=== PATIENT | male | born 1955 | race Caucasian/White ===

== ENCOUNTER → 2017-08-12 09:06 | Day surgery (SDC) | payer MEDICARE, SELFPAY ==
[2017-08-12 09:15] VITALS: BP 131/80; PULSE 83; RESP 18; TEMP 36.4; O2SAT 95; BMI 24.4
[2017-08-12 09:35] VITALS: BP 122/66; PULSE 82; RESP 18; O2SAT 94
[2017-08-12 09:37] VITALS: BP 123/70; PULSE 86; RESP 20; O2SAT 94
--- NOTE | 2017-08-12 09:41 | HMH.PMPROC ---
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 He is doing very well with his intrathecal pain pump. He does have some increasing pain with increased activity. He has no side effects. We will increase him from 2.75 mg per day to 3 mg per day. He does have an antalgic gait. Motor strength of the lower extremities is 5/5. There is no gross sensory deficit. Procedure Details:: Informed consent was obtained and the risks and benefits of the procedure was explained to the patient. The patient was taken to the procedure room. The pump was interrogated. The area over the pump was prepped using ChloraPrep. The pump was accessed with a 22-gauge needle. Approximately 8 mL's of the intrathecal solution was withdrawn and discarded. The pump was then refilled with 20 mL's of intrathecal morphine 25 mg/mL. The pump was interrogated and the infusion was increased to 3 mg per day from 2.75 mg per day. PTM was continued at 0.4 mg 5 times a day with a 3 hour lockout. The patient tolerated the procedure well with no complication. Plan and Disposition:: We will follow-up with him at his next pump refill. If he has any problems or questions he is to call me in the pain clinic.
[2017-08-12 09:45] VITALS: BP 125/71; PULSE 84; RESP 18; O2SAT 94
== END ==
PROVIDERS: Family Provider Internal Medicine Adolescent Medicine; PCP Internal Medicine Adolescent Medicine; Visit Provider Anesthesiology
DX: M51.16 Intervertebral disc disorders with radiculopathy, lumbar region (principal); M96.1 Postlaminectomy syndrome, not elsewhere classified
CPT/HCPCS: 62370

== ENCOUNTER 2017-10-27 13:46 | Day surgery (SDC) | payer MEDICARE, SELFPAY ==
--- NOTE | 2017-10-27 13:57 | HMH.PMPROC ---
- Procedure Date: 10/27/17 Time: 14:10 Anesthesiologist:: Angelic Kaufman APRN Complications:: None Pre-procedure Diagnosis:: Degenerative disc disease of the lumbar spine with lumbar radiculopathy Post-procedure Diagnosis:: Same Indications for Procedure:: Patient is a pleasant 61-year-old white male who presents today for intrathecal pain pump refill. Patient is currently being managed with a intrathecal morphine pump going at 2.75 mg per day. Patient denies side effects to the medication. Patient states that it helps his pain 60-70%. 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 The patient was taken to the procedure room where noninvasive monitoring was placed including noninvasive blood pressure cuff and pulse oximeter. Patient's pump was interrogated. The area over the pump was cleansed with chlorhexidine as a cleansing solution. In sterile fashion the pump was accessed with a 22-gauge needle. Approximately 8 mL's were removed of the pump solution and discarded appropriately. The pump was then refilled with 20 mL's of morphine 25 mg/mL. The needle was withdrawn and a bandage was placed over the puncture site. The infusion rate was increased from 3 mg a day to 3.5 mg a day. The PTC was increased from 0.3 mg per activation to 0.5 mg per activation. The patient tolerated the procedure well. Plan and Disposition:: We will follow-up with this patient at his next intrathecal pain pump refill. Patient has been instructed to call the office if he needs anything prior to this visit. This note was dictated using voice recognition software and may contain errors or omissions
[2017-10-27 13:59] VITALS: BP 134/81; PULSE 92; RESP 20; TEMP 36.6; O2SAT 98; BMI 26.2
--- NOTE | 2017-10-27 14:04 | P.PCN_ITS ---
- Procedure Date: 10/27/17 Time: 14:10 Anesthesiologist:: Angelic Kaufman APRN Complications:: None Pre-procedure Diagnosis:: Degenerative disc disease of the lumbar spine with lumbar radiculopathy Post-procedure Diagnosis:: Same Indications for Procedure:: Patient is a pleasant 61-year-old white male who presents today for intrathecal pain pump refill. Patient is currently being managed with a intrathecal morphine pump going at 2.75 mg per day. Patient denies side effects to the medication. Patient states that it helps his pain 60-70%. 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 The patient was taken to the procedure room where noninvasive monitoring was placed including noninvasive blood pressure cuff and pulse oximeter. Patient's pump was interrogated. The area over the pump was cleansed with chlorhexidine as a cleansing solution. In sterile fashion the pump was accessed with a 22-gauge needle. Approximately 8 mL's were removed of the pump solution and discarded appropriately. The pump was then refilled with 20 mL's of morphine 25 mg/mL. The needle was withdrawn and a bandage was placed over the puncture site. The infusion rate was increased from 3 mg a day to 3.5 mg a day. The PTC was increased from 0.3 mg per activation to 0.5 mg per activation. The patient tolerated the procedure well. Plan and Disposition:: We will follow-up with this patient at his next intrathecal pain pump refill. Patient has been instructed to call the office if he needs anything prior to this visit. This note was dictated using voice recognition software and may contain errors or omissions
[2017-10-27 14:07] VITALS: BP 126/75; BP 129/81; PULSE 87; PULSE 90; RESP 18; O2SAT 94; O2SAT 95
[2017-10-27 14:17] VITALS: BP 128/85; BP 131/78; PULSE 85; RESP 18; TEMP 36.7; O2SAT 98
== END 2017-10-27 14:19 | disposition home or self-care (01) ==
LOC: SC.PAINP 13:49
PROVIDERS: Family Provider Internal Medicine Adolescent Medicine; PCP Internal Medicine Adolescent Medicine; Visit Provider Clinical Nurse Specialist Family Health
DX: M51.16 Intervertebral disc disorders with radiculopathy, lumbar region (principal)
CPT/HCPCS: 62370

== ENCOUNTER 2018-02-02 16:38 | Inpatient (IN) ==
[2018-02-02 18:41] LABS: Basophils % 0.1 % (0.1-2.0); Eosinophils # 0.1 K/mm3 (0.0-0.4); Eosinophils % 0.8 % (0.1-12.0); Hematocrit 40.5 % (42.0-52.0); Hemoglobin 13.5 g/dL (14.1-18.0); Lymphocytes # 1.2 K/mm3 (0.7-4.5); Lymphocytes % 8.2 K/mm3 (10-50); Mean Corpuscular HGB Conc 33.2 g/dL (31.8-35.4); Mean Corpuscular Hemoglobin 31.5 pg (27.0-31.2); Mean Corpuscular Volume 94.7 fl (80-94); Mean Platelet Volume 7.8 fl (7.4-10.4); Monocytes # 1.1 K/mm3 (0.1-1.0); Monocytes % 8.1 % (1.7-9.3); Neutrophils # 11.7 K/mm3 (1.8-7.8); Neutrophils % 82.8 % (37.0-80.0); Platelet Count 241 K/mm3 (142-424); Red Blood Count 4.28 M/mm3 (4.60-6.20); Red Cell Distribution Width 13.8 % (11.5-17.5); White Blood Count 14.1 K/mm3 (4.8-10.8)
[2018-02-02 19:03] LABS: Albumin Level 3.1 gm/dL (3.4-5.0); Albumin/Globulin Ratio 0.8 (1.1-1.8); Anion Gap 9.1 mEq/L (5-15); Bilirubin,Total 1.8 mg/dL (0.2-1.0); Calcium 9.4 mg/dL (8.5-10.1); Globulin 4.1 gm/dl (1.3-3.2); Potassium 3.1 mmoL/L (3.5-5.1); Total Protein,Serum 7.2 gm/dL (6.4-8.2)
--- NOTE | 2018-02-02 21:19 | History & Physical Report ---
*Admission Date: 02/02/18 *Chief complaint: Shortness of air and cough *History of present illness: 62-year-old white male, with long history of COPD, tobacco abuse, and indwelling pain pump secondary to significant spondylolisthesis who presented to my office with a 2 day history of cough and congestion as well as yellow sputum production. In the office found to have O2 saturation of 84% on room air, tachypnea and tachycardia at 140. Rhonchi and crackles in both lung hdz, admitted to hospital for pneumonia with vital sign instability and hypoxia. [facility] History I have reviewed the patient's past medical history: Yes Medical History: Reports:: Chronic Obstructive Pulmonary Disease (COPD), Coronary Artery Disease Denies:: Cancer, Diabetes Mellitus Type 1, Diabetes Mellitus Type 2, MRSA, Seizures Other Medical History: Reports: Arthritis, Cataracts Comment: Chronic pain syndrome with spondylolisthesis and indwelling pain pump Laterality Cases: Bilateral: Cataract Other Surgeries: Yes: Appendectomy, Other (pain pump implant, cervical neck fusion) Amputation: No Fractures: No - *Social History Educational Level: Completed GED/General Educational Development Smoking Status: Current every day smoker Tobacco Type: cigarettes # Packs/Day (cigarettes): 40 #Yrs smoked (if former smoker): 45 Alcohol Intake: never Occupational Status: retired Housing: house Household Members: spouse - Psychiatric History Expresses thoughts of harming self/others: None Suicide Plan Description: No Plan *Family Hx:: Unable to obtain Review of Systems - Review of Systems Review of systems:: pertinent systems reviewed and negative unless documented below - Constitutional Reports chills, Reports fever(s), Reports lack of energy, Reports malaise - Eyes Denies blind spots, Denies blurry vision, Denies change in vision - ENT Reports change in voice, Denies abnormal hearing, Denies bleeding gums, Denies difficulty swallowing, Denies bad breath, Denies mouth lesions - *Cardiovascular Reports chest pain with activity, Reports shortness of breath, Reports shortness of breath with activity, Reports shortness of breath when lying down, Denies chest pain, Denies irregular heart rhythm, Denies rapid, pounding, or irregular heartbeat - *Respiratory Reports change in phlegm color, Reports chest congestion, Reports cough, Reports shortness of breath, Reports shortness of breath with activity, Denies coughing up blood - *Gastrointestinal Denies abdominal pain, Denies belching, Denies change in stools, Denies coffee ground vomit, Denies constipation, Denies heartburn, Denies difficulty swallowing - *Genitourinary Denies difficulty urinating, Denies painful urination, Denies side pain - *Musculoskeletal Denies abnormal walking, Denies joint pain - *Neurologic Reports dizziness, Denies abnormal walking, Denies unsteadiness - Psychiatric Denies abnormal sleep pattern Meds Home Medications Medication Instructions Recorded Confirmed Type Citalopram Hydrobromide [Celexa 40 mg PO HS 02/02/18 02/02/18 History 40mg Tablet] L.acidoph,Paracasei, B.lactis 1 each PO HS 02/02/18 02/02/18 History [Probiotic] Loratadine [Claritin 10mg Tablet] 10 mg PO HS 02/02/18 02/02/18 History Omeprazole [Omeprazole 40mg 40 mg PO HS 02/02/18 02/02/18 History Capsule] Pramipexole Di-HCl [Mirapex 0.125 mg PO TID 02/02/18 02/02/18 History 0.125mg tablet] Umeclidinium Brm/Vilanterol Tr 1 puff IH HS 02/02/18 02/02/18 History [Anoro Ellipta 62.5-25 Mcg INH] Allergies Allergy/AdvReac Type Severity Reaction Status Date / Time meperidine [From DEMEROL] AdvReac Mild MOOD Verified 02/02/18 18:19 CHANGES Exam Vital signs and Labs for Last 24 Hours: Temp Pulse Resp BP Pulse Ox 99.1 F 108 H 20 105/59 95 02/02/18 19:27 02/02/18 19:27 02/02/18 19:27 02/02/18 19:27 02/02/18 19:27 Laboratory Results - last 24 hr 02/02/18 18:10: WBC 14.1 H, RBC 4.28 L, Hgb 13.5 L, Hct 40.5 L, MCV 94.7 H, MCH 31.5 H, MCHC 33.2, RDW 13.8, Plt Count 241, MPV 7.8, Neut % (Auto) 82.8 H, Lymph % (Auto) 8.2 L, [place] % (Auto) 8.1, Eos % (Auto) 0.8, Baso % (Auto) 0.1, Neut # (Auto) 11.7 H, Lymph # (Auto) 1.2, [place] # (Auto) 1.1 H, Eos # (Auto) 0.1 , Baso # (Auto) 0.0 02/02/18 18:10: Sodium 140, Potassium 3.1 L, Chloride 106, Carbon Dioxide 28, Anion Gap 9.1, BUN 13, Creatinine 0.99, Estimated Creat Clear 81, Estimated GFR 76, Est GFR ( Amer) 92, Glucose 119 H, Calcium 9.4, Total Bilirubin 1.8 H , AST 24, ALT 37, Alkaline Phosphatase 153 H, Total Protein 7.2, Albumin 3.1 L, Globulin 4.1 H, Albumin/Globulin Ratio 0.8 L 02/02/18 18:10: Mycoplasma pneumon IgM Non-reactive I & O for Last 24 hours: Intake & Output 01/31/18 02/01/18 02/02/18 02/03/18 11:59 11:59 11:59 11:59 Weight 169 lb 5 oz Narrative: In the office patient was in mild respiratory distress. Oropharynx was dry but clear, tympanic membranes clear, rest of ENT exam unremarkable. Lungs have wheezing in the expiratory and inspiratory phase, basilar crackles noted. Basilar rhonchi. Abdomen soft, heart rate regular. No edema or clubbing noted. Neurologically is weak but otherwise no symmetric deficits. H&P: Result - Labs Labs: Short CBC 02/02/18 Range/Units 18:10 WBC 14.1 H (4.8-10.8) K/mm3 Hgb 13.5 L (14.1-18.0) g/dL Hct 40.5 L (42.0-52.0) % Plt Count 241 (142-424) K/mm3 BMP 02/02/18 18:10 Sodium 140 Potassium 3.1 L Chloride 106 Carbon Dioxide 28 BUN 13 Creatinine 0.99 Glucose 119 H Calcium 9.4 Liver Function 02/02/18 Range/Units 18:10 Total Bilirubin 1.8 H (0.2-1.0) mg/dL AST 24 (15-37) U/L ALT 37 (12-78) U/L Alkaline Phosphatase 153 H (46-116) U/L Albumin 3.1 L (3.4-5.0) gm/dL Assessment and Plan (1) Bilateral pneumonia Current visit: Yes Status: Acute Category: Medical Code(s): J18.9 - Pneumonia, unspecified organism (2) COPD with acute exacerbation Current visit: Yes Status: Acute Category: Medical Code(s): J44.1 - Chronic obstructive pulmonary disease with (acute) exacerbation (3) Chronic back pain Current visit: Yes Status: Acute Category: Medical Code(s): M54.9 - Dorsalgia, unspecified; G89.29 - Other chronic pain (4) Tobacco use disorder Current visit: Yes Status: Acute Category: Medical Code(s): F17.200 - Nicotine dependence, unspecified, uncomplicated (5) GERD with esophagitis Current visit: Yes Status: Acute Category: Medical Code(s): K21.0 - Gastro -esophageal reflux disease with esophagitis (6) Hypokalemia Current visit: Yes Status: Acute Category: Medical Code(s): E87.6 - Hypokalemia - Assessment and plan all Dx Assessment and Plan for all problems:: Plan will be to empiric community-acquired pneumonia therapy along with steroids. Cautious IV fluids. Hypokalemia will be monitored. Tobacco use disorder complicates his care. Cautious observation given his opioid infusion pump.
[2018-02-03 06:00] LABS: Eosinophils % 0.1 % (0.1-12.0); Lymphocytes # 0.8 K/mm3 (0.7-4.5); Lymphocytes % 8.1 K/mm3 (10-50); Mean Corpuscular HGB Conc 32.4 g/dL (31.8-35.4); Mean Corpuscular Hemoglobin 31.2 pg (27.0-31.2); Mean Corpuscular Volume 96.2 fl (80-94); Monocytes # 0.2 K/mm3 (0.1-1.0); Monocytes % 1.9 % (1.7-9.3); Neutrophils % 89.9 % (37.0-80.0); Platelet Count 247 K/mm3 (142-424); Red Blood Count 3.74 M/mm3 (4.60-6.20); Red Cell Distribution Width 13.8 % (11.5-17.5)
[2018-02-03 06:13] LABS: Anion Gap 12.5 mEq/L (5-15); Calcium 8.7 mg/dL (8.5-10.1); Hemoglobin 11.8 g/dL (14.1-18.0); Potassium 3.5 mmoL/L (3.5-5.1)
--- NOTE | 2018-02-03 07:36 | Pharmacy Consult Notes ---
[facility] Pharmacy VTE Monitoring - Patient Demographics Admission date: 02/02/18 Report Date: 02/03/18 Time: 07:36 Allergies/Adverse Reactions: Patient Allergies meperidine [From DEMEROL] Adverse Reaction (Mild, Verified 02/02/18 18:19) MOOD CHANGES Height: 1.75 m Weight: 77.366 kg Patient Problems: Current Active Problems Bilateral pneumonia (Acute) COPD with acute exacerbation (Acute) Chronic back pain (Acute) Tobacco use disorder (Acute) GERD with esophagitis (Acute) Hypokalemia (Acute) - VTE Risk Labs: VTE Related Lab Results Hgb 11.8 g/dL (14.1-18.0) L D 02/03/18 05:16 Hct 36.0 % (42.0-52.0) L 02/03/18 05:16 Plt Count 247 K/mm3 (142-424) 02/03/18 05:16 BUN 13 mg/dL (7-18) 02/03/18 05:16 Creatinine 0.84 mg/dL (0.70-1.30) 02/03/18 05:16 Estimated Creat Clear 82 mL/min (0-300) 02/03/18 05:16 Was VTE Risk Assessment Performed: Yes VTE Score: 3 VTE Risk Level: Low Risk - Prophylaxis VTE Prophylaxis Ordered?: Yes Types of VTE Prophylaxis: TEDS Knee High Location of Applied Device: Bilateral Lower Extremeties - VTE Diagnosis Confirmed Treatment or plan recommended: Continue Current Treatment
--- NOTE | 2018-02-03 07:40 | Progress Note ---
Internal Medicine - PN: Subj *Date: 02/03/18 *Time: 07:39 Interval history: Overall patient feels much better, ate breakfast well. Drinking well. No fever. Exam Vital signs and Labs for Last 24 Hours: Temp Pulse Resp BP Pulse Ox 98.1 F 75 18 99/60 95 02/03/18 04:05 02/03/18 05:58 02/03/18 04:05 02/03/18 04:05 02/03/18 05:58 Laboratory Results - last 24 hr 02/02/18 18:10: WBC 14.1 H, RBC 4.28 L, Hgb 13.5 L, Hct 40.5 L, MCV 94.7 H, MCH 31.5 H, MCHC 33.2, RDW 13.8, Plt Count 241, MPV 7.8, Neut % (Auto) 82.8 H, Lymph % (Auto) 8.2 L, [place] % (Auto) 8.1, Eos % (Auto) 0.8, Baso % (Auto) 0.1, Neut # (Auto) 11.7 H, Lymph # (Auto) 1.2, [place] # (Auto) 1.1 H, Eos # (Auto) 0.1 , Baso # (Auto) 0.0 02/02/18 18:10: Sodium 140, Potassium 3.1 L, Chloride 106, Carbon Dioxide 28, Anion Gap 9.1, BUN 13, Creatinine 0.99, Estimated Creat Clear 81, Estimated GFR 76, Est GFR ( Amer) 92, Glucose 119 H, Calcium 9.4, Total Bilirubin 1.8 H , AST 24, ALT 37, Alkaline Phosphatase 153 H, Total Protein 7.2, Albumin 3.1 L, Globulin 4.1 H, Albumin/Globulin Ratio 0.8 L 02/02/18 18:10: Mycoplasma pneumon IgM Non-reactive 02/03/18 05:16: WBC 10.0 D, RBC 3.74 L, Hgb 11.8 L D, Hct 36.0 L, MCV 96.2 H, MCH 31.2, MCHC 32.4, RDW 13.8, Plt Count 247, MPV 8.0, Neut % (Auto) 89.9 H, Lymph % (Auto) 8.1 L, [place] % (Auto) 1.9, Eos % (Auto) 0.1, Baso % (Auto) 0.0 L, Neut # (Auto) 9.0 H, Lymph # (Auto) 0.8, [place] # (Auto) 0.2, Eos # (Auto) 0.0, Baso # (Auto) 0.0 02/03/18 05:16: Sodium 138, Potassium 3.5, Chloride 106, Carbon Dioxide 23, Anion Gap 12.5, BUN 13, Creatinine 0.84, Estimated Creat Clear 82, Estimated GFR 92, Est GFR ( Amer) 111 D, Glucose 192 H D, Calcium 8.7 I & O for Last 24 hours: Intake & Output 01/31/18 02/01/18 02/02/18 02/03/18 11:59 11:59 11:59 11:59 Intake Total 1608 / 1608 Output Total 1000 / 1000 Balance 608 / 608 Weight 170 lb 9 oz Microbiology Reports for the Last 24 Hours: Microbiology 02/02/18 18:10 Sputum - Expectorated Sputum Gram Stain - Final Narrative: Overall doing well. Much more alert. Oxygen levels better, lungs with better air movement. No edema. No clubbing. Heart rate regular. Assessment and Plan (1) Bilateral pneumonia Current visit: Yes Status: Acute Category: Medical Code(s): J18.9 - Pneumonia, unspecified organism (2) COPD with acute exacerbation Current visit: Yes Status: Acute Category: Medical Code(s): J44.1 - Chronic obstructive pulmonary disease with (acute) exacerbation (3) Chronic back pain Current visit: Yes Status: Acute Category: Medical Code(s): M54.9 - Dorsalgia, unspecified; G89.29 - Other chronic pain (4) Tobacco use disorder Current visit: Yes Status: Acute Category: Medical Code(s): F17.200 - Nicotine dependence, unspecified, uncomplicated (5) GERD with esophagitis Current visit: Yes Status: Acute Category: Medical Code(s): K21.0 - Gastro -esophageal reflux disease with esophagitis (6) Hypokalemia Current visit: Yes Status: Acute Category: Medical Code(s): E87.6 - Hypokalemia - Assessment and plan all Dx Assessment and Plan for all problems:: Overall improved. Await culture results. Continue antibiotics. Hypokalemia has resolved.
[2018-02-03 13:07] LABS: Lymphocytes % 5 % (10-50); Monocytes % 1 % (2-9); Neutrophils % 94 % (42-76); RBC Morphology Normal; Total Cells Counted 100
--- NOTE | 2018-02-04 08:25 | Discharge Summary ---
General - General Admission date:: 02/02/18 Discharge date: 02/04/18 HPI HPI: 62-year-old white male, with long history of COPD, tobacco abuse, and indwelling pain pump secondary to significant spondylolisthesis who presented to my office with a 2 day history of cough and congestion as well as yellow sputum production. In the office found to have O2 saturation of 84% on room air, tachypnea and tachycardia at 140. Rhonchi and crackles in both lung hdz, admitted to hospital for pneumonia with vital sign instability and hypoxia. Hospital Course Hospital Course: Patient was admitted to [facility], placed on standard community-acquired pneumonia protocols with ceftriaxone and azithromycin along with IV steroids and IV fluids. Improved over the next 5-6 hours and continued to improve throughout his hospital course with nebulizers with albuterol/Atrovent and improved pulmonary toilet. Sputum cultures were nondiagnostic. Chest x-ray revealed bilateral lower lobe pneumonias but exam improved very nicely. This morning he is doing well, on room air oxygen. Eating and drinking well and feels as if he can go home. Plan will be to discharge home on antibiotics and steroids, we will initiate nebulizer treatments at his home given his severe COPD. Objective Vital signs: Temp Pulse Resp BP Pulse Ox 97.8 F 94 H 18 93/43 90 L 02/04/18 07:40 02/04/18 07:40 02/04/18 07:40 02/04/18 07:40 02/04/18 07:40 Narrative: Patient is awake and alert, good oxygen saturations. Lungs are much improved. Good air movement, minimal rhonchi in the bases. Oropharynx clear, ENT exam otherwise unremarkable. Heart rate regular without murmurs. Abdomen soft and nontender, no edema. Results Labs on day of discharge: Labs from last 24 hours 02/03/18 05:16 Total Counted 100 Neutrophils % (Manual) 94 H Lymphocytes % (Manual) 5 L Monocytes % (Manual) 1 L Platelet Estimate Normal RBC Morphology Normal Preliminary micro results at discharge 02/02/18 18:10 Sputum Culture - Preliminary Sputum - Expectorated Sputum DS: Diagnosis - Discharge Diagnosis (1) Bilateral pneumonia Status: Acute (2) COPD with acute exacerbation Status: Acute (3) Chronic back pain Status: Chronic (4) Tobacco use disorder Status: Acute (5) GERD with esophagitis Status: Chronic (6) Hypokalemia Status: Resolved Discharge Plan - Patient Discharge Instructions ACTIVITY: Continue current activity DIET: continue same diet - Follow up Plan Follow up with: Mario Luke MD [Primary Care Provider] - 02/09/18 Disposition: Home, Self-[facility] Medications: Home Medications Medication Instructions Recorded Confirmed Type Citalopram Hydrobromide [Celexa 40 mg PO HS 02/02/18 02/02/18 History 40mg Tablet] L.acidoph,Paracasei, B.lactis 1 each PO HS 02/02/18 02/02/18 History [Probiotic] Loratadine [Claritin 10mg Tablet] 10 mg PO HS 02/02/18 02/02/18 History Omeprazole [Omeprazole 40mg 40 mg PO HS 02/02/18 02/02/18 History Capsule] Pramipexole Di-HCl [Mirapex 0.125 mg PO TID 02/02/18 02/02/18 History 0.125mg tablet] Umeclidinium Brm/Vilanterol Tr 1 puff IH HS 02/02/18 02/02/18 History [Anoro Ellipta 62.5-25 Mcg INH] Prescriptions/Medication Reconciliation: New Azithromycin [Zithromax 250mg tab] 250 mg PO DIRECTED #6 tab Cefdinir [Omnicef 300mg Capsule] 300 mg PO BID #14 cap Ipratropium/Albuterol Sulfate [Duoneb 3mL neb] 3 ml IH TID PRN #90 neb PRN Reason: wheezing/soa predniSONE [Deltasone 20mg tablet] 20 mg PO BID 5 Days #10 tab Continue Pramipexole Di-HCl [Mirapex 0.125mg tablet] 0.125 mg PO TID Loratadine [Claritin 10mg Tablet] 10 mg PO HS Citalopram Hydrobromide [Celexa 40mg Tablet] 40 mg PO HS Omeprazole [Omeprazole 40mg Capsule] 40 mg PO HS L.acidoph,Paracasei, B.lactis [Probiotic] 1 each PO HS Umeclidinium Brm/Vilanterol Tr [Anoro Ellipta 62.5-25 Mcg INH] 1 puff IH HS
== END 2018-02-04 09:02 | disposition home or self-care (01) ==
LOC: 2ND → OBSVTOIN 17:28
PROVIDERS: ADMIT Internal Medicine Adolescent Medicine; ATTEND Internal Medicine Adolescent Medicine

== ENCOUNTER → 2018-02-12 13:51 | Outpatient (CLI) | payer MEDICARE, SELFPAY ==
--- NOTE | 2018-02-12 13:56 | MR_ITS ---
MR knee LT wo con HISTORY: Left knee pain ITS.REASON: LEFT KNEE PAIN ORDERING PHYSICIAN: Ion Pelaez PATIENT AGE: 62 years Comparison: None TECHNIQUE: Standard multiplanar multiecho sequences are performed without contrast. FINDINGS: Cruciate ligaments, collateral ligaments, patellar tendon, and quadriceps tendon have an unremarkable appearance. No evidence of meniscal tear. There is a small knee joint effusion. The patellar cartilage is well preserved. No bone marrow edema apparent. The knee joint space is well preserved with no significant degenerative change. IMPRESSION: Small knee joint effusion otherwise negative MRI of the left knee. No evidence of internal derangement
== END ==
PROVIDERS: Family Provider Internal Medicine Adolescent Medicine; PCP Internal Medicine Adolescent Medicine; Visit Provider Orthopaedic Surgery Adult Reconstructive Orthopaedic Surgery
DX: M25.562 Pain in left knee (principal)
CPT/HCPCS: 73721

== ENCOUNTER → 2018-04-26 12:36 | Outpatient (CLI) | payer MEDICARE, SELFPAY ==
--- NOTE | 2018-04-26 12:48 | FL_ITS ---
FL barium swallow modified INDICATION: dysphagia recurrent pneumonias Aspiration history. TECHNIQUE & FINDINGS: Study performed conjunction with these pathologist Obdulia feldman. 2 minutes 26 seconds seconds fluoroscopy Patient study the lateral projection with video esophagram recording. Various barium consistencies utilized to study swallowing mechanism. Thin barium, nectar consistency. Mechanical soft. pudding Barium on cracker and cookie. Finally swallowing of pill.: . Thin barium from cup, and with straw:. Patient demonstrates repeated prominent deep penetration with thin liquid [place] consistency:. The patient improved with nectar consistency with no no penetration into into vestibule evident. Pudding, Mechanical soft barium on cereal bar: Appears satisfactory. No penetration Good strength the swallowing. No residualThis was followed by a thin barium Wash Barium pill was ingested with thin barium wash & readily passed with no restriction. Was followed by a nectar wash IMPRESSION:. Repeated deep penetration with thin liquids.- Patient at significant aspiration risk with thin liquids. However improved function no significant penetration observed, starting with nectar consistency nor with any of the thicker or semisolid consistencies.. Good function with all mechanical soft and/semisolid consistencies. Please see review recommedations from speech pathology
--- NOTE | 2018-04-26 14:03 | HMH.SLMBS2 ---
Speech & Language Evaluation Speech/Language Mod Barium Swallow Start: 04/26/18 13:50 Freq: once Status: Complete Protocol: Document 04/26/18 13:50 BOONE (Rec: 04/26/18 14:03 BOONE [id number]) MBS Recommendations Diet Dietary Recommendations Regular Oakes Liquids Treatment/Strategies Treatment Recommendation Compens. Strategy Educat. Vocal Cord Adduction Exer Strategy/Precaution Recommend Sitting Upright (90 deg) Chin Tuck Supraglottic Swallow No Straw Small Bites and Sips Alternate Liquids/Solids Referrals/Other Other Recommendations MBS to determine possible diet upgrade after 4 weeks of intervention. Mod Barium Swallow Impressions Summary and Impressions Oral Phase Impression No Impairment (WFL) Oral Phase Summary Mr. Barton was given the following consistencies: thins via straw and open cup, nectar, pudding, mechanical soft, regular, and pill with nectar wash. No oral phase dysphagia noted. Pharyngeal Phase Impression Mild Impairment Pharyngeal Phase Summary It was noted during examination, deep penetration into laryngeal vestibule with thin liquids. Chin tuck compensatory strategy attempted with no improvements . Change in bolus size and presentation attempted with no improvements. Mr. Barton reports no difficulty and is at high risk for aspiration with thin liquids. It is recommended that Mr. Barton be placed on regular diet with nectar thick liquids. Speech therapy is recommended. MBS will need to be conducted after therapy for possible diet upgrade due to risk of silent aspiration. Speech/Language MBS Assessment/Goals/Plan Assessment Date of Evaluation: 04/26/18 Evaluation Type Initial Certification Assessment/Problems Dysphagia; recurrent pneumonia Does Patient Qualify for Service Yes Qualify/Failure Comment Exam
== END ==
PROVIDERS: PCP Internal Medicine Adolescent Medicine; Visit Provider Internal Medicine Adolescent Medicine
DX: R13.12 Dysphagia, oropharyngeal phase (principal)
CPT/HCPCS: 70371; 92611

== ENCOUNTER 2018-06-30 16:12 | Inpatient (IN) ==
[2018-06-30 18:08] LABS: ABG Base Excess 0.1 mmol/L (-2.4-2.3); ABG HCO3 26.2 mmhg (22.0-26.0); ABG Oxygen Saturation 98 % (90-100); ABG PH 7.32 mmol/L (7.35-7.45); ABG TCO2 27.8 mmhg (23-27)
[2018-06-30 18:10] LABS: Allen's Test Acceptable; Oxygen 32 %
[2018-06-30 18:11] LABS: ABG PCO2 51.8 mmhg (35.0-45.0)
[2018-06-30 18:31] LABS: Coronavirus 229E Not Detected (NotDetected); Coronavirus NL63 Not Detected (NotDetected); Coronavirus OC43 Not Detected (NotDetected); Coronovirus HKU1,PCR Not Detected (NotDetected)
[2018-06-30 18:38] LABS: Basophils % 0.2 % (0.1-2.0); Eosinophils # 0.1 K/mm3 (0.0-0.4); Eosinophils % 0.8 % (0.1-12.0); Hematocrit 41.1 % (42.0-52.0); Hemoglobin 12.8 g/dL (14.1-18.0); Lymphocytes # 1.4 K/mm3 (0.7-4.5); Lymphocytes % 9.1 % (10-50); Mean Corpuscular HGB Conc 31.3 g/dL (31.8-35.4); Mean Corpuscular Hemoglobin 29.9 pg (27.0-31.2); Mean Corpuscular Volume 95.7 fl (80-94); Mean Platelet Volume 7.3 fl (7.4-10.4); Monocytes # 1.3 K/mm3 (0.1-1.0); Monocytes % 8.5 % (1.7-9.3); Neutrophils # 12.7 K/mm3 (1.8-7.8); Neutrophils % 81.5 % (37.0-80.0); Platelet Count 273 K/mm3 (142-424); Red Blood Count 4.29 M/mm3 (4.60-6.20); Red Cell Distribution Width 14.3 % (11.5-17.5); White Blood Count 15.6 K/mm3 (4.8-10.8)
[2018-06-30 18:47] LABS: Anion Gap 12.3 mEq/L (5-15); Calcium 8.8 mg/dL (8.5-10.1); Potassium 3.3 mmoL/L (3.5-5.1)
[2018-06-30 19:18] LABS: Lymphocytes % 14 % (10-50); Monocytes % 9 % (2-9); Neutrophils % 72 % (42-76); RBC Morphology Normal; Total Cells Counted 100
--- NOTE | 2018-06-30 20:15 | History & Physical Report ---
*Admission Date: 06/30/18 *Chief complaint: Cough, shortness of breath *History of present illness: 62 yr old male with PMH significant for COPD, ILDEFONSO and continued tobacco use presented to outpatient clinic today with complaints of cough, thick green sputum, shortness of breath and malaise. Symptoms began approximately 5 days ago. Subjective fevers. He has been using albuterol at home, oxygen continuously, CPAP at HS and taking Mucinex without relief, reports condition is deteriorating. At time of exam he was using oxygen at 3L/min, dyspneic with use of abdominal muscles, diaphoretic and tachycardic, thus admitted for diagnostics and treatment of presumed community-acquired pneumonia. [facility] History I have reviewed the patient's past medical history: Yes Medical History: Reports:: Chronic Obstructive Pulmonary Disease (COPD), Co ronary Artery Disease, Depression, Home Oxygen (at HS with CPAP) Denies:: Cancer, Diabetes Mellitus Type 1, Diabetes Mellitus Type 2, MRSA, Seizures Other Medical History: Reports: Arthritis, Cataracts Comment: Chronic pain with implanted pain pump, BPH, recurrent otitis with ear tubes Other Surgeries: Yes: Appendectomy, Other (pain pump implant, cervical neck fusion) Amputation: No Fractures: No - *Social History Educational Level: Completed GED/General Educational Development Smoking Status: Current every day smoker Tobacco Type: cigarettes # Packs/Day (cigarettes): 40 #Yrs smoked (if former smoker): 45 Alcohol Intake: never Occupational Status: retired Housing: house Household Members: spouse - Psychiatric History Expresses thoughts of harming self/others: None Suicide Plan Description: No Plan Pschychiatric History:: Reports:: Depression Comment: parents Review of Systems - Review of Systems Review of systems:: pertinent systems reviewed and negative unless documented below - Constitutional Reports chills, Reports daytime sleepiness, Reports fatigue, Reports fever(s), Reports malaise - Eyes Reports requires corrective lenses - ENT Reports abnormal hearing, Reports nasal congestion, Denies ear pain, Denies pain with swallowing, Denies post nasal drip, Denies sore throat - *Cardiovascular Reports shortness of breath, Denies chest pain, Denies leg swelling - *Respiratory Reports change in phlegm color, Reports chest congestion, Reports cough, Reports shortness of breath, Reports pain with cough, Reports wheezing, Denies coughing up blood - *Gastrointestinal Denies abdominal pain, Denies change in bowel habits - *Genitourinary Denies difficulty urinating - *Musculoskeletal Reports back pain (chronic) - Integumentary/Breasts Denies new lesions, Denies rash - *Neurologic Reports weakness - Psychiatric Reports anxiety, Reports depression (controlled on celexa) Meds Home Medications Medication Instructions Recorded Confirmed Type Citalopram Hydrobromide [Celexa 40 mg PO HS 02/02/18 06/30/18 History 40mg Tablet] L.acidoph,Paracasei, B.lactis 1 each PO HS PRN 02/02/18 06/30/18 History [Probiotic] Loratadine [Claritin 10mg Tablet] 10 mg PO HS 02/02/18 06/30/18 History Omeprazole [Omeprazole 40mg 40 mg PO HS 02/02/18 06/30/18 History Capsule] Pramipexole Di-HCl [Mirapex 0.125 mg PO TID 02/02/18 06/30/18 History 0.125mg tablet] Umeclidinium Brm/Vilanterol Tr 1 puff IH HS 02/02/18 06/30/18 History [Anoro Ellipta 62.5-25 Mcg INH] Ipratropium/Albuterol Sulfate 3 ml IH TID PRN #90 neb 02/04/18 06/30/18 Rx [Duoneb 3mL neb] Allergies Allergy/AdvReac Type Severity Reaction Status Date / Time meperidine [From DEMEROL] AdvReac Mild MOOD Verified 02/02/18 18:19 CHANGES Exam Vital signs and Labs for Last 24 Hours: Temp Pulse Resp BP Pulse Ox 98.4 F 110 H 18 148/80 H 93 L 06/30/18 17:13 06/30/18 17:56 06/30/18 17:13 06/30/18 17:13 06/30/18 17:56 Laboratory Results - last 24 hr 06/30/18 16:53: Specimen Source Right radial, O2 % 32, ABG pH 7.32 L, ABG pCO2 51.8 H, ABG pO2 123.0 H, ABG HCO3 26.2 H, ABG Total CO2 27.8 H, ABG O2 Saturation 98, ABG Base Excess 0.1, Jose Miguel Test Acceptable 06/30/18 18:13: WBC 15.6 H, RBC 4.29 L, Hgb 12.8 L, Hct 41.1 L, MCV 95.7 H, MCH 29.9, MCHC 31.3 L, RDW 14.3, Plt Count 273, MPV 7.3 L, Neut % (Auto) 81.5 H, Lymph % (Auto) 9.1 L, [place] % (Auto) 8.5, Eos % (Auto) 0.8, Baso % (Auto) 0.2, Neut # (Auto) 12.7 H, Lymph # (Auto) 1.4, [place] # (Auto) 1.3 H, Eos # (Auto) 0.1, Baso # (Auto) 0.0, Total Counted 100, Neutrophils % (Manual) 72, Band Neutrophils % 3.0, Lymphocytes % (Manual) 14, Atypical Lymphs % 1.0, Monocytes % (Manual) 9, Metamyelocytes % 1.0, Platelet Estimate Normal, RBC Morphology Normal 06/30/18 18:13: Lactate 0.8 06/30/18 18:13: Sodium 141, Potassium 3.3 L, Chloride 103, Carbon Dioxide 29, Anion Gap 12.3, BUN 8, Creatinine 1.00, Estimated Creat Clear 90, Estimated GFR 75, Est GFR ( Amer) 91, Glucose 152 H, Calcium 8.8 I & O for Last 24 hours: Intake & Output 06/28/18 06/29/18 06/30/18 07/01/18 11:59 11:59 11:59 11:59 Weight 187 lb 5 oz Microbiology Reports for the Last 24 Hours: Microbiology 06/30/18 18:13 Sputum - Expectorated Sputum Gram Stain - Final - Constitutional mild distress, diaphoretic, cooperative, somnolent - *Routine HEENT Exam Head: Present: atraumatic Eye: Present: conjunctivae pink ENT: Present: mucous membranes moist, nares patent (PE tube in canal on the right), external ear normal - *Routine Neck Exam Present: supple, full ROM, trachea midline - *Routine Respiratory Exam Present: accessory muscle use, decreased breath sounds, rales (right anterior hdz) - *Routine Cardiovascular Exam Present: RRR, tachycardia - *Routine Abdominal Exam Present: soft, normoactive bowel sounds. Absent: tenderness, distended - *Routine Extremities Exam Present: full ROM, pulses intact, normal capillary refill. Absent: edema - *Routine Skin Exam Present: intact, warm - *Routine Neurological Exam Present: oriented X3 (but mildly somnolent compared to baseline), moving all extremities Assessment and Plan (1) Pneumonia of right middle lobe due to infectious organism Current visit: Yes Status: Acute Category: Medical Code(s): J18.1 - Lobar pneumonia, unspecified organism (2) Leukocytosis Current visit: Yes Status: Acute Category: Medical Code(s): D72.829 - Elevated white blood cell count, unspecified (3) Respiratory acidosis Current visit: Yes Status: Acute Category: Medical Code(s): E87.2 - Acidosis (4) COPD with acute exacerbation Current visit: Yes Status: Acute Category: Medical Code(s): J44.1 - Chronic obstructive pulmonary disease with (acute) exacerbation (5) Tobacco use disorder Current visit: Yes Status: Acute Category: Medical Code(s): F17.200 - Nicotine dependence, unspecified, uncomplicated (6) Tachycardia Current visit: Yes Status: Acute Category: Medical Code(s): R00.0 - Tachycardia, unspecified - Assessment and plan all Dx Assessment and Plan for all problems:: Plan to initiate community-acquired protocol with ceftriaxone and azithromycin. Cultures pending. Trend WBC. Lactic acid is normal, renal function normal at time of admission. Respiratory acidosis partially compensated. Continue CPAP at HS and oxygen by nasal cannula as tolerated Tachycardia is mild at time of admission and likely due to increased oxygen demands. No cardiac history. Monitor during admission.
[2018-07-01 06:45] LABS: Basophils % 0.2 % (0.1-2.0); Eosinophils # 0.2 K/mm3 (0.0-0.4); Mean Corpuscular Hemoglobin 30.1 pg (27.0-31.2)
[2018-07-01 06:53] LABS: Anion Gap 10.8 mEq/L (5-15); Calcium 8.5 mg/dL (8.5-10.1)
[2018-07-01 06:59] LABS: Eosinophils % 1.5 % (0.1-12.0); Hematocrit 35.8 % (42.0-52.0); Lymphocytes # 1.8 K/mm3 (0.7-4.5); Lymphocytes % 13.6 % (10-50); Mean Corpuscular HGB Conc 31.8 g/dL (31.8-35.4); Mean Corpuscular Volume 94.8 fl (80-94); Mean Platelet Volume 7.8 fl (7.4-10.4); Monocytes # 1.4 K/mm3 (0.1-1.0); Monocytes % 10.4 % (1.7-9.3); Neutrophils # 9.7 K/mm3 (1.8-7.8); Neutrophils % 74.3 % (37.0-80.0); Platelet Count 280 K/mm3 (142-424); Red Blood Count 3.77 M/mm3 (4.60-6.20); Red Cell Distribution Width 14.4 % (11.5-17.5); White Blood Count 13.1 K/mm3 (4.8-10.8)
[2018-07-01 07:00] LABS: Potassium 2.8 mmoL/L (3.5-5.1)
[2018-07-01 07:05] LABS: Hemoglobin 11.4 g/dL (14.1-18.0)
--- NOTE | 2018-07-01 08:13 | Pharmacy Consult Notes ---
[facility] Pharmacy VTE Monitoring - Patient Demographics Admission date: 06/30/18 Report Date: 07/01/18 Time: 08:13 Allergies/Adverse Reactions: Patient Allergies meperidine [From DEMEROL] Adverse Reaction (Mild, Verified 02/02/18 18:19) MOOD CHANGES Height: 1.8 m Weight: 85.984 kg Patient Problems: Current Active Problems COPD with acute exacerbation (Acute) Tobacco use disorder (Acute) Pneumonia of right middle lobe due to infectious organism (Acute) Leukocytosis (Acute) Respiratory acidosis (Acute) Tachycardia (Acute) - VTE Risk Labs: VTE Related Lab Results Hgb 11.4 g/dL (14.1-18.0) L D 07/01/18 05:52 Hct 35.8 % (42.0-52.0) L 07/01/18 05:52 Plt Count 280 K/mm3 (142-424) 07/01/18 05:52 BUN 7 mg/dL (7-18) 07/01/18 05:52 Creatinine 0.89 mg/dL (0.70-1.30) 07/01/18 05:52 Estimated Creat Clear 79 mL/min (50-200) 07/01/18 05:52 VTE Score: 3 VTE Risk Level: Low Risk - Prophylaxis VTE Prophylaxis Ordered?: Yes Types of VTE Prophylaxis: TEDS Knee High Location of Applied Device: Bilateral Lower Extremeties - VTE Diagnosis Confirmed Treatment or plan recommended: Continue Current Treatment
--- NOTE | 2018-07-01 08:34 | Progress Note ---
Internal Medicine - PN: Subj *Date: 07/01/18 *Time: 07:20 Interval history: Patient is sitting on side of the bed, mildly tachypneic. States "I don't feel any better." Continues to have productive cough, sputum is pending. Appetite is good, he ate 100% of his breakfast. Alert and oriented x3. Rate and rhythm regular. Lung sounds with tight wheezes, poor air movement. Abdomen soft and nontender Exam Vital signs and Labs for Last 24 Hours: Temp Pulse Resp BP Pulse Ox 98.1 F 121 H 18 125/75 91 L 07/01/18 08:00 07/01/18 08:00 07/01/18 08:00 07/01/18 08:00 07/01/18 08:00 Laboratory Results - last 24 hr 06/30/18 16:53: Specimen Source Right radial, O2 % 32, ABG pH 7.32 L, ABG pCO2 51.8 H, ABG pO2 123.0 H, ABG HCO3 26.2 H, ABG Total CO2 27.8 H, ABG O2 Saturation 98, ABG Base Excess 0.1, Jose Miguel Test Acceptable 06/30/18 18:13: Mycoplasma pneumon IgM Non-reactive 06/30/18 18:13: Chlamy pneumoniae PCR Not detected, Adenovirus (PCR) Not detected, B. pertussis DNA (PCR) Not detected, Coronavirus OC43 (PCR) Not detected, Coronavirus HKU1 (PCR) Not detected, Coronavirus 229E (PCR) Not detected, Coronavirus NL63 (PCR) Not detected, Human Metapneumovir PCR Not detected, Influenza A (H1) PCR Not detected, Influ A (H1N1/09) PCR Not detected, Influenza A (H3) PCR Not detected, Influenza Type A (PCR) Not detected, Influenza Type B (PCR) Not detected, M. pneumoniae (PCR) Not detected, Parainfluenza 1 (PCR) Not detected, Parainfluenza 2 (PCR) Not detected, Parainfluenza 3 (PCR) Not detected, Parainfluenza 4 (PCR) Not detected, RSV (PCR) Not detected, Entero/Rhino (PCR) Not detected 06/30/18 18:13: WBC 15.6 H, RBC 4.29 L, Hgb 12.8 L, Hct 41.1 L, MCV 95.7 H, MCH 29.9, MCHC 31.3 L, RDW 14.3, Plt Count 273, MPV 7.3 L, Neut % (Auto) 81.5 H, Lymph % (Auto) 9.1 L, [place] % (Auto) 8.5, Eos % (Auto) 0.8, Baso % (Auto) 0.2, Neut # (Auto) 12.7 H, Lymph # (Auto) 1.4, [place] # (Auto) 1.3 H, Eos # (Auto) 0.1, Baso # (Auto) 0.0, Total Counted 100, Neutrophils % (Manual) 72, Band Neutrophils % 3.0, Lymphocytes % (Manual) 14, Atypical Lymphs % 1.0, Monocytes % (Manual) 9, Metamyelocytes % 1.0, Platelet Estimate Normal, RBC Morphology Normal 06/30/18 18:13: Lactate 0.8 06/30/18 18:13: Sodium 141, Potassium 3.3 L, Chloride 103, Carbon Dioxide 29, Anion Gap 12.3, BUN 8, Creatinine 1.00, Estimated Creat Clear 90, Estimated GFR 75, Est GFR ( Amer) 91, Glucose 152 H, Calcium 8.8 07/01/18 05:52: WBC 13.1 H, RBC 3.77 L, Hgb 11.4 L D, Hct 35.8 L, MCV 94.8 H, MCH 30.1, MCHC 31.8, RDW 14.4, Plt Count 280, MPV 7.8, Neut % (Auto) 74.3, Lymph % (Auto) 13.6, [place] % (Auto) 10.4 H, Eos % (Auto) 1.5, Baso % (Auto) 0.2, Neut # (Auto) 9.7 H, Lymph # (Auto) 1.8, [place] # (Auto) 1.4 H, Eos # (Auto) 0.2, Baso # (Auto) 0.0 07/01/18 05:52: Sodium 139, Potassium 2.8 L*, Chloride 103, Carbon Dioxide 28, Anion Gap 10.8, BUN 7, Creatinine 0.89, Estimated Creat Clear 79, Estimated GFR 86, Est GFR ( Amer) 104, Glucose 115 H D, Calcium 8.5 I & O for Last 24 hours: Intake & Output 12/31/18 01/01/19 01/02/19 01/03/19 11:59 11:59 11:59 11:59 Intake Total 1140 / 1140 Balance 1140 / 1140 Weight 189 lb 9 oz Microbiology Reports for the Last 24 Hours: Microbiology 06/30/18 18:13 Sputum - Expectorated Sputum Gram Stain - Final 06/30/18 18:13 Sputum - Expectorated Sputum Sputum Culture - Preliminary Assessment and Plan (1) Pneumonia of right middle lobe due to infectious organism Current visit: Yes Status: Acute Category: Medical Code(s): J18.1 - Lobar pneumonia, unspecified organism (2) Leukocytosis Current visit: Yes Status: Acute Category: Medical Code(s): D72.829 - Elevated white blood cell count, unspecified (3) Respiratory acidosis Current visit: Yes Status: Acute Category: Medical Code(s): E87.2 - Acidosis (4) COPD with acute exacerbation Current visit: Yes Status: Acute Category: Medical Code(s): J44.1 - Chronic obstructive pulmonary disease with (acute) exacerbation (5) Tobacco use disorder Current visit: Yes Status: Acute Category: Medical Code(s): F17.200 - Nicotine dependence, unspecified, uncomplicated (6) Tachycardia Current visit: Yes Status: Acute Category: Medical Code(s): R00.0 - Tachycardia, unspecified (7) Hypokalemia Current visit: Yes Status: Acute Category: Medical Code(s): E87.6 - Hypokalemia - Assessment and plan all Dx Assessment and Plan for all problems:: Continue broad spectrum antibiotics pending sputum culture. Start steroids today. Oral potassium replacement ordered, will recheck BMP in the am.
[2018-07-02 06:41] LABS: Basophils % 0.2 % (0.1-2.0); Eosinophils # 0.1 K/mm3 (0.0-0.4); Eosinophils % 0.3 % (0.1-12.0); Hematocrit 35.9 % (42.0-52.0); Hemoglobin 11.3 g/dL (14.1-18.0); Lymphocytes # 1.2 K/mm3 (0.7-4.5); Lymphocytes % 6.7 % (10-50); Mean Corpuscular HGB Conc 31.5 g/dL (31.8-35.4); Mean Corpuscular Hemoglobin 30.3 pg (27.0-31.2); Mean Corpuscular Volume 96.3 fl (80-94); Mean Platelet Volume 7.8 fl (7.4-10.4); Monocytes # 0.7 K/mm3 (0.1-1.0); Neutrophils # 15.8 K/mm3 (1.8-7.8); Neutrophils % 88.9 % (37.0-80.0); Platelet Count 308 K/mm3 (142-424); Red Blood Count 3.73 M/mm3 (4.60-6.20); Red Cell Distribution Width 14.4 % (11.5-17.5); White Blood Count 17.7 K/mm3 (4.8-10.8)
[2018-07-02 06:47] LABS: Anion Gap 11.5 mEq/L (5-15); Calcium 9.2 mg/dL (8.5-10.1); Potassium 3.5 mmoL/L (3.5-5.1)
--- NOTE | 2018-07-02 07:32 | Progress Note ---
Internal Medicine - PN: Subj *Date: 07/02/18 *Time: 07:32 Exam Vital signs and Labs for Last 24 Hours: Temp Pulse Resp BP Pulse Ox 98.0 F 66 15 106/67 L 88 L 07/02/18 03:58 07/02/18 05:55 07/02/18 03:58 07/02/18 03:58 07/02/18 05:55 Laboratory Results - last 24 hr 07/02/18 05:48: WBC 17.7 H D, RBC 3.73 L, Hgb 11.3 L, Hct 35.9 L, MCV 96.3 H, MCH 30.3, MCHC 31.5 L, RDW 14.4, Plt Count 308, MPV 7.8, Neut % (Auto) 88.9 H, Lymph % (Auto) 6.7 L, [place] % (Auto) 4.0, Eos % (Auto) 0.3, Baso % (Auto) 0.2, Neut # (Auto) 15.8 H, Lymph # (Auto) 1.2, [place] # (Auto) 0.7, Eos # (Auto) 0.1, Baso # (Auto) 0.0 07/02/18 05:48: Sodium 138, Potassium 3.5 D, Chloride 103, Carbon Dioxide 27, Anion Gap 11.5, BUN 12 D, Creatinine 0.90, Estimated Creat Clear 93, Estimated GFR 85, Est GFR ( Amer) 103, Glucose 202 H D, Calcium 9.2 I & O for Last 24 hours: Intake & Output 06/29/18 06/30/18 07/01/18 07/02/18 23:59 23:59 23:59 23:59 Intake Total 2488 / 2488 790 / 790 Balance 2488 / 2488 790 / 790 Weight 84.964 kg 85.984 kg 88.082 kg Microbiology Reports for the Last 24 Hours: Microbiology 06/30/18 18:13 Sputum - Expectorated Sputum Gram Stain - Final 06/30/18 18:13 Sputum - Expectorated Sputum Sputum Culture - Preliminary Assessment and Plan (1) Pneumonia of right middle lobe due to infectious organism Current visit: Yes Status: Acute Category: Medical Code(s): J18.1 - Lobar pneumonia, unspecified organism (2) Leukocytosis Current visit: Yes Status: Acute Category: Medical Code(s): D72.829 - Elevated white blood cell count, unspecified (3) Respiratory acidosis Current visit: Yes Status: Acute Category: Medical Code(s): E87.2 - Acidosis (4) COPD with acute exacerbation Current visit: Yes Status: Acute Category: Medical Code(s): J44.1 - Chronic obstructive pulmonary disease with (acute) exacerbation (5) Tobacco use disorder Current visit: Yes Status: Acute Category: Medical Code(s): F17.200 - Nicotine dependence, unspecified, uncomplicated (6) Tachycardia Current visit: Yes Status: Acute Category: Medical Code(s): R00.0 - Tachycardia, unspecified
[2018-07-02 08:12] LABS: Lymphocytes % 5 % (10-50); Monocytes % 4 % (2-9); Neutrophils % 87 % (42-76); Total Cells Counted 100
--- NOTE | 2018-07-02 12:12 | Discharge Summary ---
General - General Admission date:: 06/30/18 Discharge date: 07/02/18 HPI HPI: 62 yr old male with PMH significant for COPD, ILDEFONSO and continued tobacco use presented to outpatient clinic today with complaints of cough, thick green sputum, shortness of breath and malaise. Symptoms began approximately 5 days ago. Subjective fevers. He has been using albuterol at home, oxygen continuously, CPAP at HS and taking Mucinex without relief, reports condi tion is deteriorating. At time of exam he was using oxygen at 3L/min, dyspneic with use of abdominal muscles, diaphoretic and tachycardic, thus admitted for diagnostics and treatment of presumed community-acquired pneumonia. Hospital Course Hospital Course: Mr. Barton was admitted to medicine, initiated on antibiotics and steroids, given breathing treatments, and monitored during admission. Gradual improvement and decrease in his oxygen requirement back to home baseline levels. Fever defervesced, symptoms improved. Transition to oral antibiotics. Hemodynamically stable and meeting discharge criteria. Discharged home with plan to follow-up in outpatient setting while completing p.o. antibiotics. Objective Vital signs: Temp Pulse Resp BP Pulse Ox 97.8 F 105 H 15 108/57 L 97 07/02/18 08:00 07/02/18 09:02 07/02/18 08:00 07/02/18 08:00 07/02/18 09:02 Results Labs on day of discharge: Labs from last 24 hours 07/02/18 07/02/18 05:48 05:48 WBC 17.7 H D RBC 3.73 L Hgb 11.3 L Hct 35.9 L MCV 96.3 H MCH 30.3 MCHC 31.5 L RDW 14.4 Plt Count 308 MPV 7.8 Neut % (Auto) 88.9 H Lymph % (Auto) 6.7 L [place] % (Auto) 4.0 Eos % (Auto) 0.3 Baso % (Auto) 0.2 Neut # (Auto) 15.8 H Lymph # (Auto) 1.2 [place] # (Auto) 0.7 Eos # (Auto) 0.1 Baso # (Auto) 0.0 Total Counted 100 Neutrophils % (Manual) 87 H Band Neutrophils % 4.0 Lymphocytes % (Manual) 5 L Monocytes % (Manual) 4 Platelet Estimate Normal Sodium 138 Potassium 3.5 D Chloride 103 Carbon Dioxide 27 Anion Gap 11.5 BUN 12 D Creatinine 0.90 Estimated Creat Clear 93 Estimated GFR 85 Est GFR ( Amer) 103 Glucose 202 H D Calcium 9.2 Preliminary micro results at discharge 06/30/18 18:13 Sputum Culture - Preliminary Sputum - Expectorated Sputum DS: Diagnosis - Discharge Diagnosis (1) Pneumonia of right middle lobe due to infectious organism Status: Acute (2) Leukocytosis Status: Acute (3) Respiratory acidosis Status: Acute (4) COPD with acute exacerbation Status: Acute (5) Tobacco use disorder Status: Acute (6) Tachycardia Status: Acute Discharge Plan - Patient Discharge Instructions ACTIVITY: Continue current activity DIET: continue same diet Patient Instructions: DI for Chronic Obstructive Pulmonary Disease, DI for Pneumonia -- Adult - Follow up Plan Follow up with: Mario Luke MD [Primary Care Provider] - 1 week Disposition: Home, Self-Nursing Home Medications: Home Medications Medication Instructions Recorded Confirmed Type RX: Citalopram Hydrobromide 40 mg PO HS 02/02/18 06/30/18 History [Celexa 40mg Tablet] RX: L.acidoph,Paracasei, B.lactis 1 each PO HS PRN 02/02/18 06/30/18 History [Probiotic] RX: Omeprazole [Omeprazole 40mg 40 mg PO HS 02/02/18 06/30/18 History Capsule] RX: Pramipexole Di-HCl [Mirapex 0.125 mg PO TID 02/02/18 06/30/18 History 0.125mg tablet] RX: Umeclidinium Brm/Vilanterol Tr 1 puff IH HS 02/02/18 06/30/18 History [Anoro Ellipta 62.5-25 Mcg INH] RX: Ipratropium/Albuterol Sulfate 3 ml IH TID PRN #90 neb 02/04/18 06/30/18 Rx [Duoneb 3mL neb] Amoxicillin/Potassium Clav 1 tab PO Q12H 5 Days #10 tab 07/02/18 Rx [Augmentin 875-125 Tablet] Prescriptions/Medication Reconciliation: New Amoxicillin/Potassium Clav [Augmentin 875-125 Tablet] 1 tab PO Q12H 5 Days #10 tab Continue RX: Pramipexole Di-HCl [Mirapex 0.125mg tablet] 0.125 mg PO TID RX: Citalopram Hydrobromide [Celexa 40mg Tablet] 40 mg PO HS RX: Omeprazole [Omeprazole 40mg Capsule] 40 mg PO HS RX: L.acidoph,Paracasei, B.lactis [Probiotic] 1 each PO HS PRN PRN Reason: COLITIS RX: Ipratropium/Albuterol Sulfate [Duoneb 3mL neb] 3 ml IH TID PRN #90 neb PRN Reason: wheezing/soa RX: Umeclidinium Brm/Vilanterol Tr [Anoro Ellipta 62.5-25 Mcg INH] 1 puff IH HS
== END 2018-07-02 12:27 | disposition home or self-care (01) | DRG 190 ==
LOC: 2ND → OBSVTOIN 16:48
PROVIDERS: ADMIT Internal Medicine Adolescent Medicine; ATTEND Internal Medicine Adolescent Medicine
CPT/HCPCS: 36415; 71020; 71046; 80048; 82803; 83605; 85007; 85025; 86738; 87040; 87070; 87077; 87184; 87205; 87486; 87581; 87633; 87798; 94640; 94761; J0456

== ENCOUNTER → 2018-10-01 10:56 | Outpatient (CLI) | payer MEDICARE, SELFPAY ==
--- NOTE | 2018-10-01 | CA_ITS ---
PROCEDURE: 2-D M-mode and color Doppler study INDICATIONS FOR THE TEST: Chest pain COPDX Heart Murmur Tobacco SmokingX Palpitations Fatigue Syncope EdemaX Hypertension Diabetes Mellitus Rheumatic Fever SOB MARY Obesity Hyperlipidemia Family History HD Additional History PATIENT INFORMATION HEIGHT: 69 WEIGHT:208 GENDER: Male B/P:108/57 2-D/M-MODE INTERPRETATION: 2-D MEASUREMENTS OBSERVED VALUES IN CMS Right Ventricular Dimension (RVDd) 1.7 Interventricular Septum (Thickness)(IVsd) .9 Left Ventricular Internal Dimensions(LVIDd) 5.7 Left Ventricular Posterior Wall (Thickness)(LVPWd) .9 Aortic Root 3.6 Aortic Cusp Separation 1.8 Left Atrial Dimensions (LAD) 2.8 2D 1. Left atrium is mildly enlarged, left ventricle is normal size, mild concentric left ventricular hypertrophy, visually estimated ejection fraction 55% with no regional wall motion abnormality. 2. The right atrium and right ventricle are mildly enlarged with normal contractility. 3. The aortic valve is minimally thickened and fibrosed. 4. The mitral and tricuspid valvular grossly normal. 5. The pulmonic valve is poorly visualized. 6. No significant pericardial effusion noted. DOPPLER INTERROGATION: Doppler interrogation of the aortic, mitral and tricuspid valvular presence of mild mitral and tricuspid regurgitation, tricuspid regurgitation jet velocity is inadequate for calculation of the right ventricular systolic pressure, grade 1 diastolic dysfunction seen without tissue Doppler evidence of raised left atrial pressure, inferior vena cava is normal size with normal inspiratory collapse. CONCLUSION: 1. Mild biatrial enlargement, normal left ventricular size, mild concentric left ventricular hypertrophy, visually estimated ejection fraction 55% with no regional wall motion abnormality, grade 1 diastolic dysfunction seen without tissue Doppler evidence of raised left atrial pressure. 2. Mildly enlarged right ventricle with normal contractility. 3. Mild mitral and tricuspid regurgitation, inferior vena cava is normal size with normal inspiratory collapse. 4. No significant pericardial effusion noted.
== END ==
PROVIDERS: PCP Internal Medicine Adolescent Medicine; Visit Provider Internal Medicine Adolescent Medicine
DX: R60.1 Generalized edema (principal)
CPT/HCPCS: 93306

== ENCOUNTER → 2018-12-21 11:16 | Outpatient (POV) | payer MEDICARE, SELFPAY ==
[2018-12-21 11:24] VITALS: BP 134/74; PULSE 87; RESP 18; O2SAT 98; BMI 28.7
--- NOTE | 2018-12-21 12:20 | HMH.PAINSOAP ---
[facility] Pain Management SOAP Note Subjective:: Patient is a pleasant 61-year-old white male who presents today for follow-up. He has an intrathecal pain pump. Patient is doing well overall, rating his pain a 3 out of 10 today. He denies any side effects to medications. He says that the pump helps about 70% his pain. [facility] #[id number] has been reviewed and is appropriate. ROS General: no recent weight change, no fever, no sleep disturbances Respiratory: no cough, no shortness of air, no recurring pulmonary infections Cardiovascular/Peripheral Vascular: No chest pain, No palpitations, no edema, no shortness of breath. Gastrointestinal: no incontinence, normal bowel movements reported Genitourinary: no incontinence Musculoskeletal: Back pain Psychiatric: normal mood/ affect, [denies depression], [denies anxiety] Neurological: [denies weakness in extremities], [denies balance issues] Objective:: Physical Exam General: Alert and oriented x3, no acute distress, pleasant and cooperative, [on room air] Lungs: Resps E/U, Symmetrical chest expansion, Eyes: PERRL Musculoskeletal: Flexion and extension of lumbar spine somewhat guarded secondary to pain, deep tendon reflexes normal, strength in upper and lower extremities [5/5], normal gait noted Neurological: speech clear, 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 He is not having any complications with the medication. He would like to follow-up in 6 months. We will schedule him at that time and reassess his symptoms at the end. He is been instructed to call the office if he has any concerns prior to his next appointment. Dr. Smith has reviewed this note and agrees with this plan of care. This note was dictated using voice recognition software and may contain errors or omissions
--- NOTE | 2018-12-21 12:23 | P.CONS_ITS ---
[facility] Pain Management SOAP Note Subjective:: Patient is a pleasant 61-year-old white male who presents today for follow-up. He has an intrathecal pain pump. Patient is doing well overall, rating his pain a 3 out of 10 today. He denies any side effects to medications. He says that the pump helps about 70% his pain. [facility] #[id number] has been reviewed and is appropriate. ROS General: no recent weight change, no fever, no sleep disturbances Respiratory: no cough, no shortness of air, no recurring pulmonary infections Cardiovascular/Peripheral Vascular: No chest pain, No palpitations, no edema, no shortness of breath. Gastrointestinal: no incontinence, normal bowel movements reported Genitourinary: no incontinence Musculoskeletal: Back pain Psychiatric: normal mood/ affect, [denies depression], [denies anxiety] Neurological: [denies weakness in extremities], [denies balance issues] Objective:: Physical Exam General: Alert and oriented x3, no acute distress, pleasant and cooperative, [on room air] Lungs: Resps E/U, Symmetrical chest expansion, Eyes: PERRL Musculoskeletal: Flexion and extension of lumbar spine somewhat guarded secondary to pain, deep tendon reflexes normal, strength in upper and lower extremities [5/5], normal gait noted 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 He is not having any complications with the medication. He would like to follow-up in 6 months. We will schedule him at that time and reassess his symptoms at the end. He is been instructed to call the office if he has any concerns prior to his next appointment. Dr. Smith has reviewed this note and agrees with this plan of care. This note was dictated using voice recognition software and may contain errors or omissions
== END ==
PROVIDERS: PCP Internal Medicine Adolescent Medicine; Visit Provider Clinical Nurse Specialist Family Health
DX: M51.16 Intervertebral disc disorders with radiculopathy, lumbar region (principal)
CPT/HCPCS: 99212

== ENCOUNTER → 2019-06-13 09:38 | Outpatient (POV) | payer MEDICARE, SELFPAY ==
--- NOTE | 2019-06-13 10:07 | HMH.PAINSOAP ---
[facility] Pain Management SOAP Note Subjective:: Patient is a pleasant 63-year-old white male who presents today for follow-up. He is being treated for low back pain with lumbar radiculopathy symptoms. Patient has an intrathecal pain pump for which he gets home refills. Patient rates his pain a 4 out of 10 today. He states his intrathecal pump is working well for him. He denies any side effects to the medications. Patient's [facility] #[id number] has been reviewed and is appropriate. He is continuing with anti-inflammatories and a home stretching program. Patient states he gets approximately 80% relief with his intrathecal therapy. Review of Systems General: No recent weight changes, no fever, no sleep disturbances Respiratory: No cough, no shortness of air, no recurring pulmonary infections Cardiovascular/peripheral vascular: No chest pain, no palpitations, no edema, no shortness of breath Gastrointestinal: No new onset incontinence, normal bowel movements reported Genitourinary: No new onset incontinence Musculoskeletal: Back pain Psychiatric: Normal mood/affect Neurological: [Denies weakness in extremities], [denies balance issues] Objective:: Physical exam General: Alert and oriented x3, no acute distress, pleasant and cooperative, [on room air] Lungs: Respirations even and unlabored, symmetrical chest expansion Eyes: PERRL Musculoskeletal: Flexion and extension of lumbar spine somewhat guarded secondary to pain, deep tendon reflexes normal, strength in upper and lower extremities [5/5], [abnormal gait noted] Neurological: Speech clear, 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 We will see the patient back in the clinic in 6 months for routine follow-up visit. Patient has been instructed to contact the clinic if he has any concerns before his next appointment. He will continue with home refills. We will also continue with anti-inflammatories and a home stretching program. Dr. Smith has reviewed this note and agrees with this plan of care. This note was dictated using voice recognition software and make contain errors or omissions. [facility] History I have reviewed the patient's past medical history: Yes Medical History: Reports:: Chronic Obstructive Pulmonary Disease (COPD), Coronary Artery Disease, Depression, Home Oxygen (at [facility] with CPAP) Denies:: Cancer, Diabetes Mellitus Type 1, Diabetes Mellitus Type 2, MRSA, Seizures *Have you ever received a pneumonia vaccine?: No *Have you received a flu vaccine this season?: No Other Medical History: Reports: Arthritis, Cataracts Other Surgeries: Yes: Appendectomy, Other (pain pump implant, cervical neck fusion) Amputation: No Fractures: No - *Social History Smoking Status: Current every day smoker Tobacco Type: cigarettes # Packs/Day (cigarettes): 40 #Yrs smoked (if former smoker): 45 Alcohol Intake: never *Occupational Status:: other Housing: house Household Members: spouse *Travel in the last 8 weeks: None - Psychiatric History Pschychiatric History:: Reports:: Depression Family Hx:: Unable to obtain
[2019-06-13 10:17] VITALS: BP 135/84; PULSE 75; RESP 18; O2SAT 99; BMI 30.7
== END ==
PROVIDERS: PCP Internal Medicine Adolescent Medicine; Visit Provider Clinical Nurse Specialist Family Health
DX: M51.16 Intervertebral disc disorders with radiculopathy, lumbar region (principal)
CPT/HCPCS: 99212

== ENCOUNTER → 2019-07-05 11:47 | Outpatient (CLI) | payer MEDICARE, SELFPAY ==
[2019-07-05 15:15] LABS: Basophils # 0.1 K/mm3 (0-0.2); Basophils % 0.6 % (0.1-2.0); Eosinophils # 0.3 K/mm3 (0.0-0.4); Eosinophils % 2.9 % (0.1-12.0); Hematocrit 41.4 % (42.0-52.0); Hemoglobin 13.2 g/dL (14.1-18.0); Lymphocytes # 1.6 K/mm3 (0.7-4.5); Lymphocytes % 17.1 % (10-50); Mean Corpuscular HGB Conc 31.8 g/dL (31.8-35.4); Mean Corpuscular Hemoglobin 31.6 pg (27.0-31.2); Mean Corpuscular Volume 99.6 fl (80-94); Mean Platelet Volume 8.2 fl (7.4-10.4); Monocytes # 0.6 K/mm3 (0.1-1.0); Monocytes % 6.9 % (1.7-9.3); Neutrophils # 6.8 K/mm3 (1.8-7.8); Neutrophils % 72.4 % (37.0-80.0); Platelet Count 246 K/mm3 (142-424); Red Blood Count 4.16 M/mm3 (4.60-6.20); Red Cell Distribution Width 14.3 % (11.5-17.5); White Blood Count 9.3 K/mm3 (4.8-10.8)
[2019-07-05 17:22] LABS: Alanine Aminotransferase 23 U/L (12-78); Albumin Level 3.5 gm/dL (3.4-5.0); Albumin/Globulin Ratio 1.3 (1.1-1.8); Alkaline Phosphatase 101 U/L (46-116); Anion Gap 12.6 mEq/L (5-15); Aspartate Amino Transferase 13 U/L (15-37); Bilirubin,Total 0.2 mg/dL (0.2-1.0); Blood Urea Nitrogen 12 mg/dL (7-18); Calcium 8.5 mg/dL (8.5-10.1); Carbon Dioxide 30 mmol/L (21.0-32.0); Chloride 103 mmol/L (98-107); Cholesterol 198 mg/dL (140-200); Creatinine,Serum 0.98 mg/dL (0.70-1.30); Estimated Glomerular Filt Rate 77 ml/min (>60); GFR (African American) 93 ML/MIN (>60); Globulin 2.7 gm/dl (1.3-3.2); Glucose 98 mg/dL (74-106); HDL Cholesterol 50 mg/dL (27-67); LDL Cholesterol 121 mg/dL (0-130); Magnesium 2.1 mg/dL (1.4-2.2); Potassium 4.6 mmoL/L (3.5-5.1); Sodium 141 mmol/L (136-145); Total Protein,Serum 6.2 gm/dL (6.4-8.2); Triglycerides 135 mg/dL (30-200); VLDL Cholesterol 27 mg/dL (0-40)
== END ==
PROVIDERS: Visit Provider Internal Medicine Adolescent Medicine
DX: E78.5 Hyperlipidemia, unspecified (principal); R55 Syncope and collapse
CPT/HCPCS: 36415; 80053; 80061; 83735; 84443; 85025

== ENCOUNTER → 2019-07-26 07:46 | Outpatient (CLI) | payer MEDICARE, SELFPAY ==
--- NOTE | 2019-07-26 08:16 | CA_ITS ---
APPROVED REPORT EXAM: Comprehensive 2D, Doppler, and color-flow Echocardiogram Partner Marketing Manager: Isabella Nance CRT Ht: 5 ft 11 in Wt: 189lbs BSA: 2.06 BP: 108/57 mmHg Indications: COPD, smoker, edema, Shortness of Breath 2D Dimensions LVOT 1.80 cm (M/F) 1.5-2.5 M-Mode Dimensions RVDd 2.40 cm (0.9-2.6) LA Diam 2.90 cm (1.9-4.0) LVDd 4.50 cm (3.5-5.7) Ao Diam 3.50 cm (2.0-3.7) LVDs 3.70 cm (3.5-5.7) AV Cusp 1.90 cm (1.5-2.6) IVSd 1.40 cm (0.6-1.1) PWd 0.70 cm (0.6-1.1) EF (Teich) 37.10% FS 17.80% EDV (Teich) 92.40 mL ESV (Teich) 58.10 mL LV Diastology E/A Ratio 0.80 MED E' 4.39 (< 7 cm/sec) E'/MED E' Ratio 17.10 (>14) LAT E' 4.97 (<10 cm/sec) E/LAT E' Ratio 15.10 (>14) Aortic Valve AoV Peak Blu. 103.00 (50-130 cm/s) AI PHT 400.00 ms AO Peak GR. 4.00 mmHg Mitral Valve MV E Max Blu. 75.00 (40-130 cm/s) MV A Velocity 98.70 (40-130 cm/s) E/A Ratio 0.80 Pulmonary Valve PA Accel Time 113.00 (>120 msec) Tricuspid Valve TR P. Velocity 237.00 cm/s RAP Estimate 10.00 mmHg RVSP 32.00 mmHg Left Ventricle Left atrium is mildly enlarged, left ventricle is normal size, visually estimated ejection fraction 55% with no regional wall motion abnormality, endocardial surfaces are poorly visualized, grade 1 diastolic dysfunction seen with tissue Doppler evidence of raise left atrial pressure. Right Ventricle Right atrium and right ventricle mildly enlarged with normal contractility. Aortic Valve Aortic valve is minimally thickened and fibrosed, there is no aortic stenosis or aortic insufficiency. Mitral Valve Mitral valve is grossly normal, there is mild mitral regurgitation. Tricuspid Valve Tricuspid valve is grossly normal, there is mild tricuspid regurgitation, tricuspid irritation jet close is inadequate for calculation of the right ventricular systolic pressure. Pulmonic Valve Pulmonic valve is poorly visualized. Great Vessels Aortic root is normal size. Pericardium No significant pericardial effusion noted. Conclusion 1. Technically difficult study because of the patient factors and poor acoustic windows, endocardial surfaces are poorly visualized. 2. Mild mitral enlargement, normal left ventricular size, visually estimated ejection fraction 55% with no regional wall motion abnormality, grade 1 diastolic dysfunction seen with tissue Doppler evidence of raise left atrial pressure. 3. Mildly enlarged right ventricle with normal contractility. 4. Mild mitral and tricuspid regurgitation. 5. No significant pericardial effusion noted. Electronically signed by : Indio Wasserman, 07/26/2019 21:08:01
[2019-07-26 08:26] LABS: Blood Urea Nitrogen 14 mg/dL (7-18); Creatinine,Serum 1.04 mg/dL (0.70-1.30); Estimated Glomerular Filt Rate 72 ml/min (>60); GFR (African American) 87 ML/MIN (>60)
[2019-07-26 08:33] LABS: Basophils % 0.5 % (0.1-2.0); Eosinophils # 0.2 K/mm3 (0.0-0.4); Eosinophils % 1.8 % (0.1-12.0); Hematocrit 43.9 % (42.0-52.0); Hemoglobin 14.3 g/dL (14.1-18.0); Lymphocytes # 2.2 K/mm3 (0.7-4.5); Lymphocytes % 23.5 % (10-50); Mean Corpuscular HGB Conc 32.5 g/dL (31.8-35.4); Mean Corpuscular Hemoglobin 31.7 pg (27.0-31.2); Mean Corpuscular Volume 97.7 fl (80-94); Mean Platelet Volume 7.7 fl (7.4-10.4); Monocytes # 0.8 K/mm3 (0.1-1.0); Monocytes % 8.3 % (1.7-9.3); Neutrophils # 6.3 K/mm3 (1.8-7.8); Neutrophils % 65.9 % (37.0-80.0); Platelet Count 274 K/mm3 (142-424); Red Blood Count 4.49 M/mm3 (4.60-6.20); White Blood Count 9.5 K/mm3 (4.8-10.8)
--- NOTE | 2019-07-26 10:00 | CT_ITS ---
PROCEDURE: CT ABDOMEN PELVIS WO/W CON CLINICAL INDICATION: ABD PAIN Abdominal pain and swelling COMPARISON: ABDPELW/O CT ABD PELVIS W/O CONTRAST from 03/02/2017 TECHNIQUE: IV Contrast: 75ML OPTIRAY 350 Oral Contrast 20ml Gastroview Axial images obtained with sagittal and coronal reformats. All CT scans at the facility use one or more dose reduction, viz: automated exposure control, ma/kV adjustment per patient size (including targeted exams where dose is matched to indication, i.e. head), or iterative reconstruction technique. FINDINGS: LOWER THORAX: Coronary artery calcifications are present ABDOMEN & PELVIS: The liver, spleen, pancreas, adrenal glands, gallbladder, and kidneys show no acute finding. No intestinal obstruction or free air. No evidence of appendicitis or diverticulitis. No pelvic mass, abnormal fluid collection, or focal inflammatory change of the pelvis. No acute bony anomalies. There is an epidural stimulator device present with the generator in the right flank region IMPRESSION: No acute abdominal or pelvic findings. Dictated by: Jose Miguel Alford MD 07/27/2019 08:15 Electronically signed by Jose Miguel Alford MD in [place] 07/27/2019 08:15
--- NOTE | 2019-07-26 10:00 | CT_ITS ---
PROCEDURE: CT CHEST WO/W CON CLINCAL INDICATION: DYSPNEA Shortness of breath, dyspnea, smoker COMPARISON: [facility] CT CHEST W/O CONTRAST from 02/12/2015 CT ABDOMEN PELVIS WO/W CON from 07/26/2019 TECHNIQUE: IV Contrast: 75ml Optiray 350 Axial images obtained with sagittal and coronal reformats. All CT scans at the facility use one or more dose reduction, viz: automated exposure control, ma/kV adjustment per patient size (including targeted exams where dose is matched to indication, i.e. head), or iterative reconstruction technique. FINDINGS: HEART,AORTA,PULMONARY ARTERIES there are coronary artery calcifications. No evidence of aortic aneurysm or dissection. No central pulmonary embolus apparent. MEDIASTINAL AND HILAR STRUCTURES: No mediastinal or hilar mass evident. No dominant adenopathy. LUNGS: COPD changes with scattered areas of scarring. There is a 4 mm subpleural nodule in the right upper lobe posteriorly unchanged. There are some faint reticular markings in the upper lobes unchanged. There is mild bronchial thickening. No central obstructing lesions. No suspicious pulmonary nodules lobar consolidation or collapse. PLEURAL SPACES: No significant effusion. No evidence of pneumothorax. BONY STRUCTURES: No acute bony abnormalities apparent. LYMPH NODES: No enlarged lymph nodes evident. UPPER ABDOMEN: Unremarkable. ADDITIONAL FINDINGS: There is mild thickening of the esophagus throughout its course which may be seen with esophagitis. IMPRESSION: 1. COPD with coronary artery disease/calcification. 2. Mild diffuse thickening of the esophagus which may be seen with soft guidance. Dictated by: Jose Miguel Alford MD 07/27/2019 08:04 Electronically signed by Jose Miguel Alford MD in [place] 07/27/2019 08:04
[2019-07-26 11:37] LABS: Alanine Aminotransferase 28 U/L (12-78); Albumin Level 3.4 gm/dL (3.4-5.0); Albumin/Globulin Ratio 1.2 (1.1-1.8); Alkaline Phosphatase 92 U/L (46-116); Anion Gap 15.2 mEq/L (5-15); Aspartate Amino Transferase 17 U/L (15-37); Bilirubin,Total 0.5 mg/dL (0.2-1.0); Blood Urea Nitrogen 13 mg/dL (7-18); Calcium 8.8 mg/dL (8.5-10.1); Carbon Dioxide 28 mmol/L (21.0-32.0); Chloride 105 mmol/L (98-107); Creatinine,Serum 1.02 mg/dL (0.70-1.30); Estimated Glomerular Filt Rate 73 ml/min (>60); GFR (African American) 89 ML/MIN (>60); Globulin 2.8 gm/dl (1.3-3.2); Glucose 80 mg/dL (74-106); Potassium 4.2 mmoL/L (3.5-5.1); Sodium 144 mmol/L (136-145); Thyroid Stimulating Hormone 2.26 uIU/ml (0.358-3.740); Total Protein,Serum 6.2 gm/dL (6.4-8.2); Triiodothryronine (T3) Uptake 37 % (31-39)
[2019-07-27 09:18] LABS: Hep A Ab, IgM Negative (Negative); Hepatitis B Core Antibody IgM Negative (Negative); Hepatitis B Surface Antigen Negative (Negative)
[2019-07-27 10:49] LABS: Hepatitis C Antibody 0.2 s/co ratio (0.0-0.9)
== END ==
PROVIDERS: PCP Internal Medicine Adolescent Medicine; Visit Provider Internal Medicine Adolescent Medicine
DX: R06.09 Other forms of dyspnea (principal); R19.00 Intra-abdominal and pelvic swelling, mass and lump, unspecified site; R10.84 Generalized abdominal pain; R63.5 Abnormal weight gain
CPT/HCPCS: 36415; 71270; 74178; 80053; 80074; 82565; 84436; 84443; 84479; 84520; 85025; 93306; Q9967

== ENCOUNTER → 2019-08-01 09:38 | Outpatient (CLI) | payer MEDICARE, SELFPAY | PROVIDERS: PCP Internal Medicine Adolescent Medicine; Visit Provider Internal Medicine Adolescent Medicine | DX: J44.9 Chronic obstructive pulmonary disease, unspecified (principal) | CPT/HCPCS: 94060; 94640; 94726; 94729 ==

== ENCOUNTER → 2019-11-13 09:44 | Outpatient (CLI) | payer MEDICARE, SELFPAY ==
[2019-11-14 09:17] LABS: Covid-19 Nasal PCR Sendout UK Not Detected
== END ==
PROVIDERS: PCP Internal Medicine Adolescent Medicine; Visit Provider Surgery
DX: Z03.818 Encounter for observation for suspected exposure to other biological agents ruled out (principal)
CPT/HCPCS: U0003

== ENCOUNTER 2019-11-15 09:17 | Day surgery (SDC) | payer MEDICARE, SELFPAY ==
--- NOTE | 2019-11-10 11:25 | SUR.PREOP ---
11/10/2019--PHONE CALL MADE TO PATIENT. PATIENT UNDERSTANDS THAT LAB WORK AND COVID TESTING NEEDS TO BE COMPLETED @ 1000 ON 11/13/2019. PATIENT UNDERSTANDS IF LAB WORK AND COVID-19 TESTS ARE NOT COMPLETED BY 12PM ON THAT DATE, THE SURGERY SCHEDULED WILL BE CANCELLED AND RESCHEDULED FOR ANOTHER TIME.
[2019-11-14 12:32] VITALS: BMI 30.1
[2019-11-15 09:57] VITALS: BP 111/71; PULSE 86; RESP 18; TEMP 36.6; O2SAT 96
--- NOTE | 2019-11-15 10:12 | P.PN_ITS ---
[facility] Anesthesia Checklist - Patient Identification Patient Identification: Arm Band - Structural Data Admitted From: Home Planned Operative Procedure/s: egd Consent for Planned Operative Procedure(s) Verified: Yes Verified Documents: Surgical Consent, History and Physical - NPO Status Verified Time NPO: 00:00 - Additional verifications Anesthesia Reactions: No - Airway Assessment C-Spine Mobility Assessed: Yes (mp2) TMJ Mobility Assessed: Yes Dentition: Dentures-good fit (upper dentures, lower edentulous) - Neurological Assessment Level of Consciousness: Awake, Alert - Anesthesia Plan Anesthesia Risk discussed: Yes Anesthesia Plan: Verified ASA Class: III Anesthesia Type: MAC [facility] History I have reviewed the patient's past medical history: Yes Medical History: Reports:: Chronic Obstructive Pulmonary Disease (COPD), Coronary Artery Disease, Depression, Gastroesophageal Reflux Disease(GERD), Home Oxygen (at with CPAP) Denies:: Cancer, Diabetes Mellitus Type 1, Diabetes Mellitus Type 2, Internal Pacemaker, MRSA, Seizures *Have you ever received a pneumonia vaccine?: Yes *Have you received a flu vaccine this season?: Yes Other Medical History: Reports: Arthritis, Cataracts Anesthesia experience/problems:: nac Other Surgeries: Yes: Appendectomy, Colonoscopy, Other (pain pump implant, cervical neck fusion). No: Pacemaker Amputation: No Fractures: No - *Social History Educational Level: Completed GED/General Educational Development Smoking Status: Current every day smoker Tobacco Type: cigarettes # Packs/Day (cigarettes): 2 #Yrs smoked (if former smoker): 45 Alcohol Intake: never Substance Use Type: denies use *Occupational Status:: retired, disabled Housing: house Household Members: spouse *Travel in the last 8 weeks: None - Psychiatric History Pschychiatric History:: Reports:: Depression Family Hx:: Unable to obtain
--- NOTE | 2019-11-15 10:37 | HMH.GSHP ---
HPI HPI: Patient is a 63-year-old male from [place] with history of COPD, recurrent pneumonia, tobacco dependence referred by Dr. Mario Luke for upper endoscopy. Of note, I had previously performed open appendectomy on the patient via midline for perforated appendicitis years ago. When asked about his symptomatology the patient states that he has coughing spells which lead him to pass out . He also describes gaining weight. He states that he has gained about 30 pounds in less than 4 months. He denies changing his diet. Patient states, I know I have got a flapper that is not closing all the way . When asked him to elaborate it sounds as though he had a modified barium swallow in March. This revealed: Repeated deep penetration with thin liquids.- Patient at significant aspiration risk with thin liquids. However improved function no significant penetration observed, starting with nectar consistency nor with any of the thicker or semisolid consistencies.. Good function with all mechanical soft and/semisolid consistencies. [facility] History Medical History: Reports:: Chronic Obstructive Pulmonary Disease (COPD), Coronary Artery Disease, Depression, Gastroesophageal Reflux Disease(GERD), Home Oxygen (at with CPAP) Denies:: Cancer, Diabetes Mellitus Type 1, Diabetes Mellitus Type 2, Internal Pacemaker, MRSA, Seizures *Have you ever received a pneumonia vaccine?: Yes *Have you received a flu vaccine this season?: Yes Other Medical History: Reports: Arthritis, Cataracts Anesthesia experience/problems:: nac Other Surgeries: Yes: Appendectomy, Colonoscopy, Other (pain pump implant, cervical neck fusion). No: Pacemaker Amputation: No Fractures: No - *Social History Educational Level: Completed GED/General Educational Development Smoking Status: Current every day smoker Tobacco Type: cigarettes # Packs/Day (cigarettes): 2 #Yrs smoked (if former smoker): 45 Alcohol Intake: never Substance Use Type: denies use *Occupational Status:: retired, disabled Housing: house Household Members: spouse *Travel in the last 8 weeks: None - Psychiatric History Pschychiatric History:: Reports:: Depression Family Hx:: Unable to obtain Review of Systems - Review of Systems Review of systems:: pertinent systems reviewed and negative unless documented below Meds Home Medications Medication Instructions Recorded Confirmed Type Citalopram Hydrobromide [Celexa 40 mg PO HS 02/02/18 11/14/19 History 40mg Tablet] Pramipexole Di-HCl [Mirapex 0.125 mg PO TID 02/02/18 11/14/19 History 0.125mg tablet] fluticasone fur. 100 mcg-umeclid 1 inh INHALATION DAILY 09/02/19 11/14/19 History 62.5 mcg-vilant 25 mcg inhalat.powder furosemide 20 mg tablet 20 mg PO Q OTHER DAY 09/02/19 11/14/19 History gabapentin 100 mg capsule 100 mg PO DAILY 09/02/19 11/14/19 History omeprazole 40 mg capsule,delayed 40 mg PO HS 09/02/19 11/14/19 History release Allergies Allergy/AdvReac Type Severity Reaction Status Date / Time meperidine [From DEMEROL] AdvReac Mild MOOD Verified 11/14/19 12:31 CHANGES Exam Vital signs and Labs for Last 24 Hours: Temp Pulse Resp BP Pulse Ox 97.9 F 86 18 111/71 96 11/15/19 09:57 11/15/19 09:57 11/15/19 09:57 11/15/19 09:57 11/15/19 09:57 I & O for Last 24 hours: Intake & Output 11/12/19 11/13/19 11/14/19 11/15/19 11:59 11:59 11:59 11:59 Weight 216 lb - *Routine HEENT Exam Head: Present: normocephalic Eye: Present: EOMI, PERRL ENT: Present: mucous membranes moist - *Routine Neck Exam Present: supple. Absent: lymphadenopathy - *Routine Respiratory Exam Present: CTA bilaterally - *Routine Cardiovascular Exam Present: RRR - *Routine Abdominal Exam Present: soft, normoactive bowel sounds. Absent: tenderness - *Routine Extremities Exam Absent: cyanosis, clubbing, edema - *Routine Skin Exam Present: warm. Absent: rash - *Routine Neurological Exam Presen
[2019-11-15 10:51] VITALS: O2SAT 97
--- NOTE | 2019-11-15 11:03 | P.PCN_ITS ---
- Procedure: Date: 11/15/19 Procedure Performed:: Esophagogastroduodenoscopy with biopsies Indications:: Patient is a 63-year-old male from [place] with history of COPD, recurrent pneumonia, tobacco dependence referred by Dr. Mario Luke for upper endoscopy. Of note, I had previously performed open appendectomy on the patient via midline for perforated appendicitis years ago. When asked about his symptomatology the patient states that he has coughing spells which lead him to pass out . He also describes gaining weight. He states that he has gained about 30 pounds in less than 4 months. He denies changing his diet. Patient states, I know I have got a flapper that is not closing all the way . When asked him to elaborate it sounds as though he had a modified barium swallow in March 2018. He also had speech pathology assessment. Patient states that he does have problems mainly swallowing thin liquids. Modified barium swallow revealed: Repeated deep penetration with thin liquids.- Patient at significant aspiration risk with thin liquids. However improved function no significant penetration observed, starting with nectar consistency nor with any of the thicker or semisolid consistencies.. Good function with all mechanical soft and/semisolid consistencies. Speech therapy gave recommendations regarding ongoing speech therapy, aspiration precautions with sitting upright, thickened liquids. Performing Provider:: Micha Silver MD Referring Provider:: Mario Luke MD Sedation:: Propofol Procedure:: Patient was taken to endoscopy procedure room. He was positioned in a lateral decubitus position. Adequate intravenous sedation was achieved with anesthesia titration of propofol. Olympus endoscope was inserted via the oropharynx. Overall esophagus appeared unremarkable. Stomach was cannulated and insufflated. There was some retained food matter within the stomach. Retroflexion revealed no appreciable hiatal hernia. Irrigation was performed due to the retained food matter to allow visualization. Antral mucosal biopsy was obtained to assess for H. pylori. He did have some prepyloric focal nonerosive gastritis. Biopsies were obtained and labeled as pyloric biopsies . Duodenum appeared unremarkable. A couple biopsies were obtained at the gastroesophageal junction and random distal esophageal biopsies were obtained. Endoscope was withdrawn. Findings:: Prepyloric antral gastritis Retained food matter Recommendations:: Patient may require some speech therapy ongoing for his dysphasia symptoms. Recommend regular diet with thickened liquids and aspiration precautions for now. Treat H. pylori if positive. If patient truly has been on a nothing by mouth status could require gastric emptying scan for potential gastroparesis. Complications:: None Estimated blood obtained (mL): 2
[2019-11-15 11:06] VITALS: BP 125/78; PULSE 71; RESP 20; TEMP 36.5; O2SAT 93
[2019-11-15 11:16] VITALS: BP 118/71; PULSE 73; RESP 18; O2SAT 92
[2019-11-15 11:26] VITALS: BP 125/78; PULSE 74; RESP 18; O2SAT 93
== END 2019-11-15 11:36 | disposition home or self-care (01) ==
LOC: OUTP 09:18
PROVIDERS: PCP Internal Medicine Adolescent Medicine; Visit Provider Surgery
PROC: 0DJ08ZZ Inspection of Upper Intestinal Tract, Via Natural or Artificial Opening Endoscopic (ICD-10-PCS; CPT 43235; principal; 2019-11-15 10:30)
DX: K29.60 Other gastritis without bleeding (principal); R13.10 Dysphagia, unspecified; J44.9 Chronic obstructive pulmonary disease, unspecified; Z99.81 Dependence on supplemental oxygen; I25.10 Atherosclerotic heart disease of native coronary artery without angina pectoris; Z79.899 Other long term (current) drug therapy; Z79.51 Long term (current) use of inhaled steroids
CPT/HCPCS: 43239; 88305; 88342

== ENCOUNTER → 2019-12-19 08:46 | Outpatient (POV) | payer MEDICARE, SELFPAY ==
[2019-12-19 08:58] VITALS: BP 148/85; PULSE 125; RESP 18; O2SAT 98; BMI 20.9
--- NOTE | 2019-12-19 12:33 | HMH.PAINSOAP ---
[facility] Pain Management SOAP Note Subjective:: Patient is a pleasant 64-year-old white male who presents today for follow-up. Patient is got an intrathecal pain pump with morphine 25 mg/mL currently running at 5 mg/day. He does extremely well with this he does not need any changes. He is doing home refill. Patient's urine drug screens have been appropriate. His Valdemar is been appropriate. We will continue his intrathecal therapy at this time. ROS General: no recent weight change, no fever, no sleep disturbances Respiratory: no cough, no shortness of air, no recurring pulmonary infections Cardiovascular/Peripheral Vascular: No chest pain, No palpitations, no edema, no shortness of breath. Gastrointestinal: no new onset incontinence, normal bowel movements reported Genitourinary: no new onset incontinence Musculoskeletal: Back pain, leg pain Psychiatric: normal mood/ affect, Neurological: [denies new onset weakness in extremities], [denies new onset balance issues] Objective:: Physical Exam General: Alert and oriented x3, no acute distress, pleasant and cooperative, [on room air] Lungs: Resps E/U, Symmetrical chest expansion, Eyes: PERRL Musculoskeletal: Flexion and extension of lumbar spine somewhat guarded secondary to pain, deep tendon reflexes normal, strength in upper and lower extremities [5/5], [abnormal gait noted] Neurological: speech clear, furnace charger equal, no gross sensory deficits Assessment:: Degenerative disc disease lumbar spine lumbar radiculopathy Plan:: We will see the patient back in 6 months reassess his symptoms at that time he has been instructed to call the office if he has any issues prior to his next appointment. Dr. Smith has reviewed this note and agrees with this plan of care. This note was dictated using voice recognition software and may contain errors or omissions [facility] History I have reviewed the patient's past medical history: Yes Medical History: Reports:: Chronic Obstructive Pulmonary Disease (COPD), Coronary Artery Disease, Depression, Gastroesophageal Reflux Disease(GERD), Home Oxygen (at HS with CPAP) Denies:: Cancer, Diabetes Mellitus Type 1, Diabetes Mellitus Type 2, Internal Pacemaker, MRSA, Seizures *Have you ever received a pneumonia vaccine?: Yes *Have you received a flu vaccine this season?: Yes Other Medical History: Reports: Arthritis, Cataracts Other Surgeries: Yes: Appendectomy, Colonoscopy, Other (pain pump implant, cervical neck fusion). No: Pacemaker Amputation: No Fractures: No - *Social History Smoking Status: Current every day smoker Tobacco Type: cigarettes # Packs/Day (cigarettes): 2 #Yrs smoked (if former smoker): 45 Alcohol Intake: never Substance Use Type: denies use *Occupational Status:: other Housing: house Household Members: spouse *Travel in the last 8 weeks: None - Psychiatric History Pschychiatric History:: Reports:: Depression Family Hx:: Unable to obtain
--- NOTE | 2020-06-12 11:01 | PC.NURSE ---
Patient called to notify office that he has been prescribed narcotics from his dentist due to having a dental procedure done. Patient stated he has not taken any due to not having any pain from the procedure.
== END ==
PROVIDERS: PCP Internal Medicine Adolescent Medicine; Visit Provider Clinical Nurse Specialist Family Health
DX: M51.16 Intervertebral disc disorders with radiculopathy, lumbar region (principal)
CPT/HCPCS: 99212

== ENCOUNTER → 2020-06-14 09:08 | Outpatient (POV) | payer MEDICARE, SELFPAY ==
[2020-06-14 09:30] VITALS: BP 106/65; PULSE 89; RESP 20; TEMP 36.2; O2SAT 95; BMI 29.9
--- NOTE | 2020-06-14 10:23 | HMH.PAINSOAP ---
[facility] Pain Management SOAP Note Subjective:: Patient is a 64-year-old white male who presents today for 6-month follow-up. He is in an intrathecal home refill patient. He has morphine 25 mg per mill in his intrathecal pain pump. He says he is doing well with his medication regimen overall. He does not need any changes today. Patient's drug screens and Valdemar have been appropriate. Patient's Valdemar #[id number] has been reviewed and is appropriate. Morphine equivalent is 0. He denies any side effects to the medication. He rates his pain a 1 out of 10 today. He does say, however, that his PTM device is not working at this time. We will need to contact the company to request a new PTM device for him. Review of Systems General: No recent weight changes, no fever, no sleep disturbances Respiratory: No cough, no shortness of air, no recurring pulmonary infections Cardiovascular/peripheral vascular: No chest pain, no palpitations, no edema, no shortness of breath Gastrointestinal: No new onset incontinence, normal bowel movements reported Genitourinary: No new onset incontinence Musculoskeletal: Intermittent low back pain Psychiatric: Normal mood/affect Neurological: [Denies weakness in extremities], [denies balance issues] Objective:: Physical exam General: Alert and oriented x3, no acute distress, pleasant and cooperative, [on room air] Lungs: Respirations even and unlabored, symmetrical chest expansion Eyes: PERRL Musculoskeletal: Flexion and extension of lumbar spine somewhat guarded secondary to pain, deep tendon reflexes normal, strength in upper and lower extremities [5/5], [abnormal gait noted] Neurological: Speech clear, director epidemiology equal, no gross sensory deficit Assessment:: Degenerative disc disease lumbar spine with lumbar radiculopathy symptoms Plan:: Overall the patient is doing well. We will contact the patient's company, [employer], for new PTM device. His device is no longer working for him. We will see him back in 6 months to reevaluate his symptoms. He has been instructed to contact clinic if he has any concerns before his next appointment. The patient and I specifically discussed risk factors for COVID19. These risks include, but are not limited to age greater than 60, heart or lung disease, diabetes, immunosuppression, and travel. We also discussed NSAIDs may worsen COVID19 infection or symptoms. Patient should not use NSAIDs to treat COVID19 signs or symptoms. Patient was also informed that any type of corticosteroid of any form (oral or injection) will decrease the patient's immune system response and may increase the likelihood of COVID19 infection and symptoms. Dr. Smith has reviewed this note and agrees with this plan of care. This note was dictated using voice recognition software and make contain errors or omissions. [facility] History I have reviewed the patient's past medical history: Yes Medical History: Reports:: Chronic Obstructive Pulmonary Disease (COPD), Coronary Artery Disease, Depression, Gastroesophageal Reflux Disease(GERD), Home Oxygen (at with CPAP) Denies:: Cancer, Diabetes Mellitus Type 1, Diabetes Mellitus Type 2, Internal Pacemaker, MRSA, Seizures *Have you ever received a pneumonia vaccine?: Yes *Have you received a flu vaccine this season?: Yes Other Medical History: Reports: Arthritis, Cataracts Other Surgeries: Yes: Appendectomy, Colonoscopy, Other (pain pump implant, cervical neck fusion). No: Pacemaker Amputation: No Fractures: No - *Social History Smoking Status: Current every day smoker Tobacco Type: cigarettes # Packs/Day (cigarettes): 2 #Yrs smoked (if former smoker): 45 Alcohol Intake: never Substance Use Type: denies use *Occupational Status:: other Housing: house Household Members: spouse *Travel in the last 8 weeks: None - Psychiatric History Pschychiatric History:: Reports:: Depression Family Hx:: Unable to obtain
== END ==
PROVIDERS: PCP Internal Medicine Adolescent Medicine; Visit Provider Clinical Nurse Specialist Family Health
DX: M51.16 Intervertebral disc disorders with radiculopathy, lumbar region (principal)
CPT/HCPCS: 99212

== ENCOUNTER 2020-07-17 13:24 | Observation (INO) | payer MEDICARE, SELFPAY ==
--- NOTE | 2020-07-17 13:31 | HMH.CNCARD ---
History of Present Illness Consult date: 07/17/20 Requesting physician: Mario Luke Consult reason: chest pain Chief complaint: chest pain Additional Medical History:: 1. Chronic back pain with indwelling pain pump 2. Tobacco use, 2 packs/day A. COPD by CT of chest, 06/2019 3. GERD 4. ILDEFONSO, CPAP use 5. Parkinson's disease 6. Diastolic dysfunction A. Echo, 06/2019,1. Technically difficult study because of the patient factors and poor acoustic windows, endocardial surfaces are poorly visualized. 2. Mild mitral enlargement, normal left ventricular size, visually estimated ejection fraction 55% with no regional wall motion abnormality, grade 1 diastolic dysfunction seen with tissue Doppler evidence of raise left atrial pressure. 3. Mildly enlarged right ventricle with normal contractility. 4. Mild mitral and tricuspid regurgitation. 5. No significant pericardial effusion noted. Electronically signed by : Indio Wasserman, 07/26/2019 21:08:01 7. CAD A. Coronary artery calcifications of proximal left coronary system seen on CT, 06/2019 B. Unstable angina pectoris, 06/2020 History of present illness: 64-year-old white male admitted from Dr. Luke's office for 3-day history of exertional chest pain that resolves with rest. This AM the patient experienced the same discomfort at rest which prompted him to mention it while at Dr. Luke's office for left ear pain visit and subsequently he is to be admitted for unstable angina. Patient denies any cardiac history, hypertension or hyperlipidemia. He is on no treatment for diabetes. He does smoke 2 packs/day. EKG is sinus with no acute ST segment changes noted but with 2 PVC's noted. [facility] History Medical History: Reports:: Chronic Obstructive Pulmonary Disease (COPD), Coronary Artery Disease, Depression, Gastroesophageal Reflux Disease(GERD), Home Oxygen (at with CPAP) Denies:: Cancer, Diabetes Mellitus Type 1, Diabetes Mellitus Type 2, Internal Pacemaker, MRSA, Seizures *Have you ever received a pneumonia vaccine?: Yes *Have you received a flu vaccine this season?: Yes Other Medical History: Reports: Arthritis, Cataracts Other Surgeries: Yes: Appendectomy, Colonoscopy, Other (pain pump implant, cervical neck fusion). No: Pacemaker Amputation: No Fractures: No - *Social History Smoking Status: Current every day smoker Tobacco Type: cigarettes # Packs/Day (cigarettes): 2 #Yrs smoked (if former smoker): 45 Alcohol Intake: never Substance Use Type: denies use *Occupational Status:: employed Housing: house Household Members: spouse *Travel in the last 8 weeks: Inside the [place] - Psychiatric History Pschychiatric History:: Reports:: Depression Family Hx:: Unable to obtain Meds Home Medications Medication Instructions Recorded Confirmed Type Citalopram Hydrobromide 40 mg PO HS 02/02/18 06/14/20 History [Citalopram 40mg Tablet] Pramipexole Di-HCl [Mirapex 0.125 mg PO TID 02/02/18 06/14/20 History 0.125mg tablet] fluticasone fur. 100 mcg-umeclid 1 inh INHALATION DAILY 09/02/19 06/14/20 History 62.5 mcg-vilant 25 mcg inhalat.powder furosemide 20 mg tablet 20 mg PO Q OTHER DAY 09/02/19 06/14/20 History gabapentin 100 mg capsule 100 mg PO DAILY 09/02/19 06/14/20 History omeprazole 40 mg capsule,delayed 40 mg PO HS 09/02/19 06/14/20 History release Allergies Allergy/AdvReac Type Severity Reaction Status Date / Time meperidine [From DEMEROL] AdvReac Mild MOOD Verified 06/14/20 10:30 CHANGES Exam - Constitutional no acute distress Comments: Currently waiting in the emergency department for a hospital bed. No chest pain at this time. - *Routine HEENT Exam Head: Present: normocephalic Eye: Present: EOMI, PERRL ENT: Present: mucous membranes moist - *Routine Neck Exam Present: supple. Absent: lymphadenopathy - *Routine Respiratory Exam Present: CTA bilaterally - *Routine Cardiovascular Exam P
--- NOTE | 2020-07-17 13:46 | ECG_ITS ---
APPROVED REPORT Exam: Resting ECG HR:98 bpm ECG Measurements Heart Rate 98 AXES ID 162 P 77 QRSd 68 QRS 8 QT 360 T 73 QTc 459 Conclusion Sinus rhythm with premature atrial complexes with aberrant conduction Low voltage QRS Borderline ECG Electronically signed by : Mario Luke, 07/17/2020 20:58:29
--- NOTE | 2020-07-17 13:46 | PC.NURSE ---
Pt arrives to ED as direct admission from Dr. Luke. Pt will be boarding in ED until bed available on floor. Pt here for chest pain. Reynaldo Johnson notified pt is here and comes down to see him. EKG obtained for Reynaldo and IV started and blood sent to lab.
[2020-07-17 13:51] VITALS: BMI 29.4
--- NOTE | 2020-07-17 13:52 | HMH.HP ---
*Admission Date: 07/17/20 *Chief complaint: chest pain *History of present illness: 64-year-old white male with multiple cardiovascular risk factors who presented to my office ostensibly for left-sided ear pain-has ongoing recurrent otitis externa, but also mentioned that he had chest pain. On further questioning he admits to accelerating chest pressure with some nausea over the past 3 days associated with exercise and relieved by rest. He's never had this before. [facility] History I have reviewed the patient's past medical history: Yes Medical History: Reports:: Chronic Obstructive Pulmonary Disease (COPD), Coronary Artery Disease, Depression, Gastroesophageal Reflux Disease(GERD), Home Oxygen (at HS with CPAP) Denies:: Cancer, Diabetes Mellitus Type 1, Diabetes Mellitus Type 2, Internal Pacemaker, MRSA, Seizures *Have you ever received a pneumonia vaccine?: Yes *Have you received a flu vaccine this season?: Yes Other Medical History: Reports: Arthritis, Cataracts Other Surgeries: Yes: Appendectomy, Colonoscopy, Other (pain pump implant, cervical neck fusion). No: Pacemaker Amputation: No Fractures: No - *Social History Smoking Status: Current every day smoker Tobacco Type: cigarettes # Packs/Day (cigarettes): 2 #Yrs smoked (if former smoker): 45 Alcohol Intake: never Substance Use Type: denies use *Occupational Status:: employed Housing: house Household Members: spouse *Travel in the last 8 weeks: None - Psychiatric History Pschychiatric History:: Reports:: Depression Family Hx:: Unable to obtain Review of Systems - Review of Systems Review of systems:: pertinent systems reviewed and negative unless documented below Meds Home Medications Medication Instructions Recorded Confirmed Type Citalopram Hydrobromide 40 mg PO HS 02/02/18 06/14/20 History [Citalopram 40mg Tablet] Pramipexole Di-HCl [Mirapex 0.125 mg PO TID 02/02/18 06/14/20 History 0.125mg tablet] fluticasone fur. 100 mcg-umeclid 1 inh INHALATION DAILY 09/02/19 06/14/20 History 62.5 mcg-vilant 25 mcg inhalat.powder furosemide 20 mg tablet 20 mg PO Q OTHER DAY 09/02/19 06/14/20 History gabapentin 100 mg capsule 100 mg PO DAILY 09/02/19 06/14/20 History omeprazole 40 mg capsule,delayed 40 mg PO HS 09/02/19 06/14/20 History release Allergies Allergy/AdvReac Type Severity Reaction Status Date / Time meperidine [From DEMEROL] AdvReac Mild MOOD Verified 06/14/20 10:30 CHANGES Exam I & O for Last 24 hours: Intake & Output 07/15/20 07/16/20 07/17/20 07/18/20 11:59 11:59 11:59 11:59 Weight 205 lb - *Routine HEENT Exam Head: Present: normocephalic Eye: Present: EOMI, PERRL ENT: Present: mucous membranes moist, other (left external otitis = red EAC and mild drainage) - *Routine Neck Exam Present: supple. Absent: lymphadenopathy - *Routine Respiratory Exam Present: CTA bilaterally, prolonged expiratory phase, rhonchi - *Routine Cardiovascular Exam Present: RRR - *Routine Abdominal Exam Present: soft, normoactive bowel sounds. Absent: tenderness - *Routine Extremities Exam Absent: cyanosis, clubbing, edema - *Routine Skin Exam Present: warm. Absent: rash - *Routine Neurological Exam Present: alert, oriented X3 Assessment and Plan (1) Unstable angina pectoris Status: Acute Category: Medical Code(s): I20.0 - Unstable angina (2) COPD (chronic obstructive pulmonary disease) Status: Acute Category: Medical Code(s): J44.9 - Chronic obstructive pulmonary disease, unspecified (3) Parkinsons disease Status: Acute Category: Medical Code(s): G20 - Parkinson's disease (4) Tobacco use disorder Status: Acute Category: Medical Code(s): F17.200 - Nicotine dependence, unspecified, uncomplicated (5) Coronary artery calcification seen on CT scan Status: Acute Category: Medical Code(s): I25.10 - Atherosclerotic heart disease of [place] coronary artery without angina pectoris - As
--- NOTE | 2020-07-17 13:53 | PC.NURSE ---
V/S upon arrival are as follows: 146/88, HR 94, RR 16, O2 sats 94%
[2020-07-17 14:01] VITALS: O2SAT 94
--- NOTE | 2020-07-17 14:05 | PC.NURSE ---
Notified pharmacy, that I need medication for this pt
[2020-07-17 14:22] LABS: Chloride 102 mmol/L (98-107); Potassium 3.9 mmoL/L (3.5-5.1); Sodium 137 mmol/L (136-145)
[2020-07-17 14:25] LABS: Alanine Aminotransferase 13 U/L (12-78); Albumin Level 3.7 g/dl (3.5-5.0); Albumin/Globulin Ratio 1.1 (1.1-1.8); Alkaline Phosphatase 124 U/L (38-126); Anion Gap 7.9 mEq/L (5-15); Aspartate Amino Transferase 21 U/L (17-59); Bilirubin,Total 0.3 mg/dl (0.2-1.3); Blood Urea Nitrogen 10 mg/dl (9-20); Calcium 9.5 mg/dl (8.4-10.2); Carbon Dioxide 31 mmol/L (22.0-30.0); Cholesterol 179 mg/dl (140-200); Creatinine Clearance Estimated 96 mL/min (50-200); Estimated Glomerular Filt Rate 75 ml/min (>60); GFR (African American) 90 ML/MIN (>60); Globulin 3.4 g/dL (1.3-3.2); Glucose 109 mg/dl (74-100); Magnesium 2.2 mg/dl (1.6-2.3); Total Protein,Serum 7.1 g/dl (6.3-8.2); Triglycerides 223 mg/dl (30-150); VLDL Cholesterol 45 mg/dL (0-40)
[2020-07-17 14:26] LABS: Chol/HDL Ratio 5.4 (1-3.5); HDL Cholesterol 33 mg/dl (40-60)
--- NOTE | 2020-07-17 14:32 | HMH.PHAVTE ---
[facility] Pharmacy VTE Monitoring - Patient Demographics Admission date: 07/17/20 Report Date: 07/17/20 Time: 14:32 Allergies/Adverse Reactions: Patient Allergies meperidine [From DEMEROL] Adverse Reaction (Mild, Verified 06/14/20 10:30) MOOD CHANGES Height: 1.78 m Weight: 92.986 kg Patient Problems: Current Active Problems Tobacco use disorder (Acute) Unstable angina pectoris (Acute) COPD (chronic obstructive pulmonary disease) (Acute) Parkinsons disease (Acute) Coronary artery calcification seen on CT scan (Acute) - VTE Risk Labs: VTE Related Lab Results BUN 10 mg/dl (9-20) 07/17/20 13:36 Creatinine 1.00 mg/dl (0.66-1.25) 07/17/20 13:36 Estimated Creat Clear 96 mL/min (50-200) 07/17/20 13:36 - Prophylaxis VTE Prophylaxis Ordered?: Yes Types of VTE Prophylaxis: TEDS Knee High Location of Applied Device: Bilateral Lower Extremeties
[2020-07-17 14:34] LABS: Basophils # 0.1 K/mm3 (0-0.2); Basophils % 0.6 % (0.1-2.0); Eosinophils # 0.4 K/mm3 (0.0-0.4); Eosinophils % 4.7 % (0.1-12.0); Hematocrit 44.4 % (42.0-52.0); Hemoglobin 14.7 g/dL (14.1-18.0); Lymphocytes # 1.9 K/mm3 (0.7-4.5); Lymphocytes % 24.1 % (10-50); Mean Corpuscular HGB Conc 33.2 g/dL (31.8-35.4); Mean Corpuscular Hemoglobin 31.6 pg (27.0-31.2); Mean Corpuscular Volume 95.2 fl (80-94); Mean Platelet Volume 8.3 fl (7.4-10.4); Monocytes # 0.6 K/mm3 (0.1-1.0); Monocytes % 7.6 % (1.7-9.3); Neutrophils % 62.9 % (37.0-80.0); Platelet Count 269 K/mm3 (142-424); Red Blood Count 4.67 M/mm3 (4.60-6.20); Red Cell Distribution Width 14.8 % (11.5-17.5)
[2020-07-17 14:37] LABS: Direct LDL Cholesterol 94.37 mg/dL (100-129)
[2020-07-17 15:09] LABS: Coronavirus 19 IgG Antibody Negative (Negative); Coronavirus 19 IgM Antibody Negative (Negative)
--- NOTE | 2020-07-17 16:14 | PC.NURSE ---
Pt arrived to the floor at this time.
[2020-07-17 16:26] VITALS: BP 109/69; PULSE 73; RESP 18; TEMP 36.8; O2SAT 94; BMI 28.3
[2020-07-17 16:37] VITALS: PULSE 80
[2020-07-17 17:00] VITALS: PULSE 73; RESP 18; O2SAT 94
[2020-07-17 17:25] LABS: Troponin I < 0.01 ng/ml (0.00-0.034)
[2020-07-17 18:18] LABS: Troponin I < 0.01 ng/ml (0.00-0.034)
[2020-07-17 20:00] VITALS: BP 113/73; PULSE 64; PULSE 90; RESP 20; TEMP 36.9; O2SAT 90
[2020-07-17 20:26] LABS: Troponin I < 0.01 ng/ml (0.00-0.034)
[2020-07-18] VITALS (20 sets, daily range): BP systolic 90–125; BP diastolic 55–85; PULSE 61–93; RESP 16–20; TEMP 36.3–37.1; O2SAT 87–99; BMI 28.0
--- NOTE | 2020-07-18 | IR_ITS ---
APPROVED REPORT Patient Location: Inpatient Senior It Specialist: MAYRA Cosby RT (R) PROCEDURES Left heart catheterization Left ventriculogram Selective coronary angiogram FFR to the LAD Drug-eluting stent deployment to the mid LAD INDICATION Coronary artery disease, Unstable angina, Ischemic response to adenosine FFR index 0.71, Informed consent was obtained prior to the procedure. COMPLICATIONS NONE Estimated Blood Loss: LESS THAN 10 ML TECHNIQUE One percent lidocaine used to anesthetize the right anterior aspect of the wrist. The right radial artery was accessed via the Seldinger technique. A 6 Citizen Of [place] sheath was placed in the right radial artery. 2.5 mg of verapamil, 800 mcg of nitroglycerin, 1mg Lidocaine and 5000 U Heparin were given through the arterial sheath. The trap catheter was also used to perform left heart catheterization, left ventriculogram and selective coronary angiogram. At the end of the diagnostic angiogram therapeutic heparin was administered giving a therapeutic ACT. And I Nicole left guide catheter was used to intubate the left main artery and a Choice PT wire was placed distally in the LAD. A Rare Pinkus FFR catheter was then equalized and then advanced and adenosine was infused. The FFR index dropped to 0.71 therefore the test was terminated and a 3 mm x 34 mm resolute Toy stent was deployed at 18 walker reducing the hemodynamically severe stenosis to 0%. After achieving excellent angiographic results with RONALDO-3 flow before and after the procedure the apparatus was removed the sheath was removed and hemostasis achieved with a TR banding patient was transferred to the postop holding in stable condition ANGIOGRAPHIC RESULTS The left main artery Normal The left anterior descending artery Has proximal 10% stenosis with a mid vessel 40 to 70% stenosis. The LAD is a large vessel and wraps the apex The circumflex artery Is a large dominant vessel with mild 10% luminal irregularities The right coronary artery Small nondominant normal The WALLS ventriculogram reveals Normal 65% The left ventricular end-diastolic pressure 10 mmHg IMPRESSION Severe mid LAD disease in a large apical wraparound vessel Successful stenting of the mid LAD severe disease reduced to 0% with 1 drug-eluting stent Normal ejection fraction Normal left ventricular end-diastolic pressure PLAN 1. Brilinta 90 twice daily plus aspirin 81 mg daily 2. LDL less than 55 3. Cardiac rehabilitation 4. Avoidance of tobacco products 5. Risk factor modification Electronically signed by : Carl Gould, 07/18/2020 14:00:55
--- NOTE | 2020-07-18 04:00 | PC.NURSE ---
Addendum entered by Miriam Meeks RN 07/18/20 04:28: PT DID WEAR O2 AT 3L/NC PER REQUEST, HE STATES HE WEAR O2 AT NIGHT WHILE SLEEPING. HAS NOT NEEDED SUPPLEMENTAL O2, BEFORE GOING TO SLEEP. Original Note: PT HAS RESTED WELL THIS SHIFT. NO C/O CHEST PAIN/PRESSURE. NO SOA. A&O X 4, .VITAL SIGNS STABLE. LUNGS CTAB. HEART RATE REGULAR. IV PATENT. NO EDEMA. ABD SOFT. BS ACTIVE X 4 QUADS. PT VOIDING WITHOUT DIFFICULTY. PT WITHOUT NEEDS AT THIS TIME. CALL LIGHT WITHIN REACH. WILL CONTINUE TO MONITOR
--- NOTE | 2020-07-18 07:41 | SW/DCPLANNER ---
PATIENT PRESENTED INTO THE HOSPITAL YESTERDAY AFTER BEING SEEN IN THE OFFICE WITH PRESENTING PROBLEM OF [facility] AND THEN SHARED WITH MD HE HAS BEEN HAVING SOME ISSUES WITH HIS HEART.. HE IS FROM HOME AND HAS BEEN ACTIVE AND STILL WORKS.. 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 HE IS TO SEE CARDIOLOGY TODAY AND MAY END UP HAVING A HEART CATH... HIS STAY SHOULD BE SHORT....
--- NOTE | 2020-07-18 08:04 | HMH.ACPN2 ---
Internal Medicine - PN: Subj *Date: 07/18/20 *Time: 08:04 Interval history: Patient had a couple of episodes of chest pain through the night but they were very fleeting. This morning is comfortable. Sleeping well. Exam Vital signs and Labs for Last 24 Hours: Temp Pulse Resp BP Pulse Ox 97.4 F L 70 18 90/59 L 98 07/18/20 04:00 07/18/20 07:14 07/18/20 04:00 07/18/20 04:00 07/18/20 04:00 Laboratory Results - last 24 hr 07/17/20 13:36: SARS-CoV-2 IgG Ab (Rapid) Negative, SARS-CoV-2 IgM Ab (Rapid) Negative 07/17/20 13:36: WBC 8.0, RBC 4.67, Hgb 14.7, Hct 44.4, MCV 95.2 H, MCH 31.6 H, MCHC 33.2, RDW 14.8, Plt Count 269, MPV 8.3, Neut % (Auto) 62.9, Lymph % (Auto) 24.1, [place] % (Auto) 7.6, Eos % (Auto) 4.7, Baso % (Auto) 0.6, Neut # (Auto) 5.0, Lymph # (Auto) 1.9, [place] # (Auto) 0.6, Eos # (Auto) 0.4, Baso # (Auto) 0.1 07/17/20 13:36: Sodium 137, Potassium 3.9, Chloride 102, Carbon Dioxide 31 H, Anion Gap 7.9, BUN 10, Creatinine 1.00, Estimated Creat Clear 96, Estimated GFR 75, Est GFR ( Amer) 90, Glucose 109 H, Calcium 9.5, Magnesium 2.2, Total Bilirubin 0.3, AST 21, ALT 13, Alkaline Phosphatase 124, Total Protein 7.1, Albumin 3.7, Globulin 3.4 H, Albumin/Globulin Ratio 1.1, Triglycerides 223 H, Cholesterol 179, LDL Cholesterol Direct 94.37 L, VLDL Cholesterol 45 H, HDL Cholesterol 33 L, Cholesterol/HDL Ratio 5.4 H 07/17/20 13:36: Troponin I < 0.01 07/17/20 17:30: Troponin I < 0.01 07/17/20 19:50: Troponin I < 0.01 I & O for Last 24 hours: Intake & Output 07/15/20 07/16/20 07/17/20 07/18/20 11:59 11:59 11:59 11:59 Intake Total 480 / 480 Output Total 660 / 660 Balance -180 / -180 Weight 196 lb - Constitutional no acute distress - *Routine HEENT Exam Head: Present: normocephalic Eye: Present: EOMI, PERRL ENT: Present: mucous membranes moist - *Routine Neck Exam Present: supple. Absent: lymphadenopathy - *Routine Respiratory Exam Present: rhonchi - *Routine Cardiovascular Exam Present: RRR - *Routine Abdominal Exam Present: soft, normoactive bowel sounds. Absent: tenderness - *Routine Extremities Exam Absent: cyanosis, clubbing, edema - *Routine Skin Exam Present: warm. Absent: rash - *Routine Neurological Exam Present: alert, oriented X3 Assessment and Plan (1) Unstable angina pectoris Status: Acute Category: Medical Code(s): I20.0 - Unstable angina (2) COPD (chronic obstructive pulmonary disease) Status: Acute Category: Medical Code(s): J44.9 - Chronic obstructive pulmonary disease, unspecified (3) Parkinsons disease Status: Acute Category: Medical Code(s): G20 - Parkinson's disease (4) Tobacco use disorder Status: Acute Category: Medical Code(s): F17.200 - Nicotine dependence, unspecified, uncomplicated (5) Coronary artery calcification seen on CT scan Status: Acute Category: Medical Code(s): I25.10 - Atherosclerotic heart disease of [place] coronary artery without angina pectoris - Assessment and plan all Dx Assessment and Plan for all problems:: Overall continues with chest pain and anginal pattern. Left heart cath today.
--- NOTE | 2020-07-18 09:07 | HMH.PNCARD ---
Subjective Date: 07/18/20 Time: 09:07 Principal diagnosis: Unstable angina Interval history: 64-year-old white male in bed in no acute distress. Occasional brief episodes of chest pain overnight that lasts only seconds. Currently pain-free. Exam Vital signs and Labs for Last 24 Hours: Temp Pulse Resp BP Pulse Ox 98.7 F 75 18 106/76 L 94 L 07/18/20 08:00 07/18/20 08:00 07/18/20 08:00 07/18/20 08:00 07/18/20 08:00 Laboratory Results - last 24 hr 07/17/20 13:36: SARS-CoV-2 IgG Ab (Rapid) Negative, SARS-CoV-2 IgM Ab (Rapid) Negative 07/17/20 13:36: WBC 8.0, RBC 4.67, Hgb 14.7, Hct 44.4, MCV 95.2 H, MCH 31.6 H, MCHC 33.2, RDW 14.8, Plt Count 269, MPV 8.3, Neut % (Auto) 62.9, Lymph % (Auto) 24.1, [place] % (Auto) 7.6, Eos % (Auto) 4.7, Baso % (Auto) 0.6, Neut # (Auto) 5.0, Lymph # (Auto) 1.9, [place] # (Auto) 0.6, Eos # (Auto) 0.4, Baso # (Auto) 0.1 07/17/20 13:36: Sodium 137, Potassium 3.9, Chloride 102, Carbon Dioxide 31 H, Anion Gap 7.9, BUN 10, Creatinine 1.00, Estimated Creat Clear 96, Estimated GFR 75, Est GFR ( Amer) 90, Glucose 109 H, Calcium 9.5, Magnesium 2.2, Total Bilirubin 0.3, AST 21, ALT 13, Alkaline Phosphatase 124, Total Protein 7.1, Albumin 3.7, Globulin 3.4 H, Albumin/Globulin Ratio 1.1, Triglycerides 223 H, Cholesterol 179, LDL Cholesterol Direct 94.37 L, VLDL Cholesterol 45 H, HDL Cholesterol 33 L, Cholesterol/HDL Ratio 5.4 H 07/17/20 13:36: Troponin I < 0.01 07/17/20 17:30: Troponin I < 0.01 07/17/20 19:50: Troponin I < 0.01 I & O for Last 24 hours: Intake & Output 07/15/20 07/16/20 07/17/20 07/18/20 11:59 11:59 11:59 11:59 Intake Total 480 / 480 Output Total 660 / 660 Balance -180 / -180 Weight 196 lb - Constitutional no acute distress - *Routine HEENT Exam Head: Present: normocephalic Eye: Present: EOMI, PERRL ENT: Present: mucous membranes moist - *Routine Neck Exam Present: supple. Absent: lymphadenopathy - *Routine Respiratory Exam Present: CTA bilaterally - *Routine Cardiovascular Exam Present: RRR - *Routine Abdominal Exam Present: soft, normoactive bowel sounds. Absent: tenderness - *Routine Extremities Exam Absent: cyanosis, clubbing, edema - *Routine Skin Exam Present: warm. Absent: rash - *Routine Neurological Exam Present: alert, oriented X3 Progress Note: A&P (1) Unstable angina pectoris Status: Acute (2) COPD (chronic obstructive pulmonary disease) Status: Acute (3) Parkinsons disease Status: Acute (4) Tobacco use disorder Status: Acute (5) Coronary artery calcification seen on CT scan Status: Acute Assessment and Plan for All Diagnoses:: Plan to proceed with left heart catheterization today with further recommendations to follow.
--- NOTE | 2020-07-18 12:05 | PC.NURSE ---
Pt. transported to [facility] via wheelchair, by cathlab staff.
--- NOTE | 2020-07-18 12:51 | HMH.PHAINT ---
MEDICATION RECONCILIATION COMPLETED ON PATIENT USING EXTERNAL FILL HISTORY FROM PHARMACY. -ANTONY RAMIREZ, RUBID
[2020-07-18 14:11] LABS: CATHL Activated Clotting Time 235 SEC (74-125)
[2020-07-18 14:13] LABS: CATHL Activated Clotting Time 308 SEC (74-125)
--- NOTE | 2020-07-18 14:27 | PC.NURSE ---
Report received from Charly Fontana RN.
--- NOTE | 2020-07-18 14:28 | PC.NURSE ---
Pt. arrived to room 215.
--- NOTE | 2020-07-18 15:32 | PC.NURSE ---
Routine reassessment completed. Pt. groggy from anesthesia, awakens to verbal stimuli. Right radial site with radialband in place with 12ml of air no drainage noted. No further acute changes from previous assessment. Pt. has rested well throughout the day. Pt. denies needs, will continue to monitor.
--- NOTE | 2020-07-18 17:15 | HMH.DCSUM ---
General - General Admission date:: 07/17/20 Discharge date: 07/18/20 HPI HPI: 64-year-old white male with multiple cardiovascular risk factors who presented to my office ostensibly for left-sided ear pain-has ongoing recurrent otitis externa, but also mentioned that he had chest pain. On further questioning he admits to accelerating chest pressure with some nausea over the past 3 days associated with exercise and relieved by rest. He's never had this before. Hospital Course Hospital Course: Patient was admitted, ruled out for CT, because of unstable angina symptoms was taken to heart cath this morning. Results as noted below: ANGIOGRAPHIC RESULTS The left main artery Normal The left anterior descending artery Has proximal 10% stenosis with a mid vessel 40 to 70% stenosis. The LAD is a large vessel and wraps the apex The circumflex artery Is a large dominant vessel with mild 10% luminal irregularities The right coronary artery Small nondominant normal The WALLS ventriculogram reveals Normal 65% The left ventricular end-diastolic pressure 10 mmHg IMPRESSION Severe mid LAD disease in a large apical wraparound vessel Successful stenting of the mid LAD severe disease reduced to 0% with 1 drug-eluting stent Normal ejection fraction Normal left ventricular end-diastolic pressure PLAN 1. Brilinta 90 twice daily plus aspirin 81 mg daily 2. LDL less than 55 3. Cardiac rehabilitation 4. Avoidance of tobacco products 5. Risk factor modification Patient did well post cath, wished to go home today. He will be discharged on medications as noted, short-term follow-up, strongly encouraged not to smoke. Objective Vital signs: Temp Pulse Resp BP Pulse Ox 97.7 F 70 16 122/85 94 L 07/18/20 15:45 07/18/20 16:00 07/18/20 15:45 07/18/20 15:45 07/18/20 15:45 no acute distress - *Routine HEENT Exam Head: Present: normocephalic Eye: Present: EOMI, PERRL ENT: Present: mucous membranes moist - *Routine Neck Exam Present: supple - *Routine Respiratory Exam Present: CTA bilaterally - *Routine Cardiovascular Exam Present: RRR - *Routine Abdominal Exam Present: soft, normoactive bowel sounds. Absent: tenderness - *Routine Extremities Exam Absent: cyanosis, clubbing, edema - *Routine Skin Exam Present: warm. Absent: rash - Detailed Eye Exam Eyelids: Bilateral normal inspection Results Labs on day of discharge: Labs from last 24 hours 07/18/20 07/18/20 07/17/20 14:50 14:39 19:50 Activated Clotting Time 235 H* D 308 H* Troponin I < 0.01 07/17/20 07/17/20 17:30 13:36 Activated Clotting Time Troponin I < 0.01 < 0.01 DS: Diagnosis - Discharge Diagnosis (1) Unstable angina pectoris Status: Acute (2) COPD (chronic obstructive pulmonary disease) Status: Acute (3) Parkinsons disease Status: Acute (4) Tobacco use disorder Status: Acute (5) Coronary artery calcification seen on CT scan Status: Acute (6) Coronary atherosclerosis of [place] coronary artery Status: Acute (7) Personal history of nicotine dependence Status: Acute Discharge Plan - Patient Discharge Instructions ACTIVITY: Continue current activity DIET: low fat, low cholesterol - Follow up Plan Follow up with: Carl Gould MD [Staff Physician] - 1 week Mario Luke MD [Primary Care Provider] - 07/31/20 Disposition: Home, Self-Custodial Medications: Home Medications Medication Instructions Recorded Confirmed Type Citalopram Hydrobromide 40 mg PO HS 02/02/18 07/17/20 History [Citalopram 40mg Tablet] Pramipexole Di-HCl [Mirapex 0.125 mg PO TID 02/02/18 07/17/20 History 0.125mg tablet] fluticasone fur. 100 mcg-umeclid 1 puff IH DAILY 09/02/19 07/18/20 History 62.5 mcg-vilant 25 mcg inhalat.powder furosemide 20 mg tablet 20 mg PO Q48H 09/02/19 07/18/20 History gabapentin 100 mg capsule 100 mg PO DAILY 09/02/19 07/17/20 H
--- NOTE | 2020-07-18 18:30 | PC.NURSE ---
Radial band removed. 2x2 with tegaderm applied.
--- NOTE | 2020-07-18 19:35 | PC.NURSE ---
IV removed from LFA, 2X2 with coban in place.
--- NOTE | 2020-07-18 19:40 | PC.NURSE ---
Discharge instructions given, Questions encouraged and answered.
--- NOTE | 2020-07-18 19:45 | PC.NURSE ---
Pt. left via wheel chair. assisted by staff.
== END 2020-07-18 19:45 | disposition home or self-care (01) ==
PROVIDERS: Internal Medicine; Admitting Provider Internal Medicine Adolescent Medicine; PCP Internal Medicine Adolescent Medicine; Visit Provider Internal Medicine Adolescent Medicine
DX: I25.110 Atherosclerotic heart disease of native coronary artery with unstable angina pectoris (principal); J44.9 Chronic obstructive pulmonary disease, unspecified; Z99.81 Dependence on supplemental oxygen; Z72.0 Tobacco use; Z79.51 Long term (current) use of inhaled steroids; Z88.8 Allergy status to other drugs, medicaments and biological substances; G20 Parkinson's disease; Z79.899 Other long term (current) drug therapy
CPT/HCPCS: 36415; 80053; 80061; 83735; 84484; 85025; 85347; 86328; 92928; 93005; 93458; 93571; 99152; 99153; C1725; C1769; C1876; C9600; G0378; J0153; J1644; Q9967

== ENCOUNTER → 2020-07-31 10:48 | Outpatient (CLI) | payer MEDICARE, SELFPAY ==
--- NOTE | 2020-07-31 10:52 | CA_ITS ---
APPROVED REPORT EXAM: Comprehensive 2D, Doppler, and color-flow Echocardiogram Manager Ccu: Sarahi Liu [facility], RVS Ht: 5 ft 11 in Wt: 200lbs BSA: 2.11 BP: 111/67 mmHg Rhythm: Irregular Indications: CAD s/p stent to LAD, SOA, COPD, ANGINA 2D Dimensions IVSd 1.08 cm LVEF (Visual) 74.40 % PWd 0.86 cm LA Volume 33.40 mL LVDd 5.08 cm LA Volume Index 15.80 mL/m2 (M/F) 16-34 LVDs 2.87 cm LVOT 2.01 cm (M/F) 1.5-2.5 M-Mode Dimensions LA Diam 3.49 cm (1.9-4.0) Ao Diam 3.24 cm (2.0-3.7) EPSs 1.24 cm LV Diastology E Decel Time 250.00 (160-240 msec) E/A Ratio 0.96 MED E' 7.00 (< 7 cm/sec) MED A' 12.40 cm/s E'/MED E' Ratio 14.84 (>14) LAT E' 9.40 (<10 cm/sec) LAT A' 15.40 cm/s E/LAT E' Ratio 11.05 (>14) Aortic Valve AO Peak GR. 5.70 mmHg Mitral Valve MV E Max Blu. 104.00 (40-130 cm/s) MV A Velocity 109.00 (40-130 cm/s) E/A Ratio 0.96 MV Decel. Time 250.00 (160-240 ms) MV PHT 73.00 ms Pulmonary Valve PV Peak Velocity 67.00 (50-150 cm/s) Tricuspid Valve TR P. Velocity 258.00 cm/s RAP Estimate 10.00 mmHg RVSP 36.50 mmHg Left Ventricle Left atrium is mildly enlarged, left ventricle is normal size, left ventricle wall thickness is upper limit of the normal, there is preserved left ventricular systolic function, visually estimated ejection fraction 55% with no regional wall motion abnormality, endocardial surfaces are somewhat poorly visualized. Grade 1 diastolic dysfunction seen with tissue Doppler evidence of raise left atrial pressure. Right Ventricle Right atrium and right ventricle are normal size and contractility. Aortic Valve Aortic valve is minimally thickened and fibrosed, there is no aortic stenosis or aortic insufficiency. Mitral Valve Mitral valve grossly normal, there is trace mitral regurgitation. Tricuspid Valve Tricuspid valve grossly normal, there is mild tricuspid regurgitation, calculated right ventricular systolic pressure 36 mmHg. Pulmonic Valve Pulmonic valve is poorly visualized. Great Vessels Aortic root is normal size. Pericardium No significant pericardial effusion noted. Conclusion 1. Mildly enlarged left atrium, normal left ventricular size, visually estimated ejection fraction 55% with no regional wall motion abnormality, grade 1 diastolic dysfunction seen with tissue Doppler evidence of raise left atrial pressure. 2. Trace mitral and mild tricuspid regurgitation, calculated right ventricular systolic pressure 26 mmHg 3. No significant pericardial effusion noted. Electronically signed by : Indio Wasserman, 08/01/2020 06:45:17
== END ==
PROVIDERS: PCP Internal Medicine Adolescent Medicine; Visit Provider Nurse Practitioner Family
DX: R06.00 Dyspnea, unspecified; I20.9 Angina pectoris, unspecified; J44.9 Chronic obstructive pulmonary disease, unspecified; R53.83 Other fatigue
CPT/HCPCS: 93306

== ENCOUNTER → 2020-11-16 13:37 | Outpatient (CLI) | payer MEDICARE, SELFPAY ==
[2020-11-16 13:50] LABS: Basophils # 0.1 K/mm3 (0-0.2); Basophils % 0.6 % (0.1-2.0); Eosinophils # 0.9 K/mm3 (0.0-0.4); Eosinophils % 6.1 % (0.1-12.0); Hematocrit 39.1 % (42.0-52.0); Hemoglobin 12.5 g/dL (14.1-18.0); Lymphocytes # 2.2 K/mm3 (0.7-4.5); Lymphocytes % 15.2 % (10-50); Mean Corpuscular HGB Conc 31.8 g/dL (31.8-35.4); Mean Corpuscular Hemoglobin 30.6 pg (27.0-31.2); Mean Platelet Volume 7.6 fl (7.4-10.4); Monocytes # 0.9 K/mm3 (0.1-1.0); Monocytes % 6.6 % (1.7-9.3); Neutrophils # 10.2 K/mm3 (1.8-7.8); Neutrophils % 71.5 % (37.0-80.0); Platelet Count 482 K/mm3 (142-424); Red Blood Count 4.08 M/mm3 (4.60-6.20); Red Cell Distribution Width 15.2 % (11.5-17.5); White Blood Count 14.3 K/mm3 (4.8-10.8)
[2020-11-16 14:26] LABS: Chloride 106 mmol/L (98-107)
[2020-11-16 14:27] LABS: Potassium 4.7 mmoL/L (3.5-5.1); Sodium 140 mmol/L (136-145)
[2020-11-16 14:29] LABS: Alanine Aminotransferase 25 U/L (12-78); Albumin Level 3.4 g/dl (3.5-5.0); Albumin/Globulin Ratio 1.1 (1.1-1.8); Alkaline Phosphatase 115 U/L (38-126); Anion Gap 8.7 mEq/L (5-15); Aspartate Amino Transferase 28 U/L (17-59); Bilirubin,Total 0.7 mg/dl (0.2-1.3); Blood Urea Nitrogen 15 mg/dl (9-20); Calcium 9.1 mg/dl (8.4-10.2); Carbon Dioxide 30 mmol/L (22.0-30.0); Cholesterol 114 mg/dl (140-200); Estimated Glomerular Filt Rate 84 ml/min (>60); GFR (African American) 102 ML/MIN (>60); Glucose 95 mg/dl (74-100); Total Protein,Serum 6.4 g/dl (6.3-8.2); Triglycerides 63 mg/dl (30-150); VLDL Cholesterol 13 mg/dL (0-40)
[2020-11-16 14:30] LABS: Chol/HDL Ratio 2.9 (1-3.5); HDL Cholesterol 39 mg/dl (40-60)
[2020-11-16 14:41] LABS: Direct LDL Cholesterol 59.65 mg/dL (100-129)
== END ==
PROVIDERS: Visit Provider Nurse Practitioner Family
DX: Z00.00 Encounter for general adult medical examination without abnormal findings (principal); I50.32 Chronic diastolic (congestive) heart failure; I25.10 Atherosclerotic heart disease of native coronary artery without angina pectoris
CPT/HCPCS: 80053; 80061; 85025

== ENCOUNTER → 2020-12-27 08:30 | Outpatient (POV) | payer MEDICARE, SELFPAY ==
[2020-12-27 08:44] VITALS: BP 127/72; PULSE 85; RESP 18; O2SAT 98; BMI 28.3
--- NOTE | 2020-12-27 09:36 | P.CONS_ITS ---
[facility] Pain Management SOAP Note Subjective:: Patient is a very pleasant 65-year-old white male who presents today for 6-month follow-up. The patient is being seen in the clinic for degenerative disc disease lumbar spine with lumbar radiculopathy symptoms and chronic low back pain. He does have an intrathecal pain pump?Medtronic with morphine at 5.07 mg/day. Patient denies any side effects with the medication. He is doing well overall and reports his pain to be a 0 out of 10. He denies any side effects with the medication. Patient's Valdemar #[id number] has been reviewed and is appropriate. Morphine equivalent is 0. Patient also takes gabapentin 100 mg 1 tablet p.o. daily by Dr. Baumann. This is working well for him at this time. Review of Systems General: No recent weight changes, no fever, no sleep disturbances Respiratory: No cough, no shortness of air, no recurring pulmonary infections Cardiovascular/peripheral vascular: No chest pain, no palpitations, no edema, no shortness of breath Gastrointestinal: No new onset incontinence, normal bowel movements reported Genitourinary: No new onset incontinence Musculoskeletal: Denies pain at this time Psychiatric: Normal mood/affect Neurological: [Denies weakness in extremities], [denies balance issues] Objective:: Physical exam General: Alert and oriented x3, no acute distress, pleasant and cooperative, [on room air] Lungs: Respirations even and unlabored, symmetrical chest expansion Eyes: PERRL Musculoskeletal: Flexion and extension of [] spine nonguarded, deep tendon reflexes normal, strength in upper and lower extremities [5/5], normal gait noted Neurological: Speech clear, glucose and syrup weigher equal, no gross sensory deficit Assessment:: Degenerative disc disease lumbar spine with lumbar radicular symptoms, chronic back pain Plan:: Patient is doing well overall with his intrathecal therapy. We will plan a 6- month follow-up for the patient. He has been advised he can contact the clinic if he has any concerns before his next appointment. Patient has been instructed to contact the clinic with any concerns before the next appointment. Dr. Smith has reviewed this note and agrees with this plan of care. This note was dictated using voice recognition software and make contain errors or omissions. [facility] History I have reviewed the patient's past medical history: Yes Medical History: Reports:: Chronic Obstructive Pulmonary Disease (COPD), Coronary Artery Disease, Deep Vein Thrombosis, Depression, Gastroesophageal Reflux Disease(GERD), Home Oxygen Denies:: Cancer, Diabetes Mellitus Type 1, Diabetes Mellitus Type 2, Internal Pacemaker, MRSA, Seizures *Have you ever received a pneumonia vaccine?: Yes *Have you received a flu vaccine this season?: Yes Other Medical History: Reports: Arthritis, Cataracts Other Surgeries: Yes: Appendectomy, Cardiac Catheterization, Colonoscopy, Coronary Stent, Other (pain pump implant, cervical neck fusion). No: Pacemaker Amputation: No Fractures: No - *Social History Smoking Status: Current every day smoker Tobacco Type: cigarettes # Packs/Day (cigarettes): 1 #Yrs smoked (if former smoker): 45 Alcohol Intake: never Substance Use Type: denies use *Occupational Status:: unemployed Housing: house Household Members: spouse *Travel in the last 8 weeks: None - Psychiatric History Pschychiatric History:: Reports:: Depression Family Hx:: Cancer, Coronary Artery Disease, Heart Attack
== END ==
PROVIDERS: PCP Internal Medicine Adolescent Medicine; Visit Provider Clinical Nurse Specialist Family Health
DX: M51.16 Intervertebral disc disorders with radiculopathy, lumbar region (principal); G89.29 Other chronic pain
CPT/HCPCS: 99212; G0463

== ENCOUNTER → 2021-06-03 08:34 | Outpatient (POV) | payer MEDICARE, SELFPAY ==
[2021-06-03 08:51] VITALS: BP 113/64; PULSE 89; RESP 18; O2SAT 96; BMI 29.9
--- NOTE | 2021-06-03 08:53 | HMH.PAINSOAP ---
[facility] Pain Management SOAP Note Subjective:: Patient is a pleasant 65-year-old who is here for his 6-month follow-up. Patient is currently being treated for degenerative disc disease of lumbar spine with lumbar radiculopathy symptoms and chronic low back pain. He is currently being managed on intrathecal pump, Medtronic, with morphine at 5.07 mg/day. He is a home refill. Patient denies any changes to location and time of pain. Patient denies any side effects from the medication. Patient says his dose is going well. He rates his pain today as 3 out of 10. His Chandana is [phone] with an active morphine equivalent of 0. Review of Systems General: No recent weight changes, no fever, no sleep disturbances Respiratory: No cough, no shortness of air, no recurring pulmonary infections Cardiovascular/peripheral vascular: No chest pain, no palpitations, no edema, no shortness of breath Gastrointestinal: No new onset incontinence, normal bowel movements reported Genitourinary: No new onset incontinence Musculoskeletal: Low back pain Psychiatric: [Normal mood/affect] Neurological: [Denies weakness in extremities], [denies balance issues] Objective:: Physical exam General: Alert and oriented x3, no acute distress, pleasant and cooperative Lungs: Respirations even and unlabored, symmetrical chest expansion Eyes: PERRL Musculoskeletal: Flexion and extension of lumbar [spine] somewhat guarded secondary to pain, [antalgic gait noted] Neurological: Speech clear, no gross sensory deficit Assessment:: Degenerative disc disease of the lumbar spine with lumbar radiculopathy Chronic back pain Plan:: We will plan to see the patient in 6 months. Patient is doing well with his intrathecal pain pump. Patient is a home refill. Risks and benefits of the medication have been explained in detail to the patient. The patient does understand the risk of dependence on the medication when given over a prolonged period. Patient has been advised of risks of oversedation with the prescribed medication. Narcan has been offered to the paitent in the event of oversedation. Patient has been advised that a family member should also be educated regarding administration of Narcan. The patient has been advised to consult with his/her primary care provider and pharmacist regarding drug-drug interaction of medications currently prescribed. Patient has been prescribed a controlled substance after being counseled on the medication, medication safety, and possible side effects. CHANDANA report has been obtained and reviewed prior to prescription and found to be appropriate. Opioid contract was reviewed and signed by the patient, and that they have agreed to all of the terms set forth by our compliance program. Patient has been instructed to contact the clinic with any concerns before the next appointment. Dr. Smith has reviewed this note and agrees with this plan of care. This note was dictated using voice recognition software and make contain errors or omissions. [facility] History Medical History: Reports:: BPH, Chronic Obstructive Pulmonary Disease (COPD), Coronary Artery Disease, Deep Vein Thrombosis, Depression, Gastroesophageal Reflux Disease(GERD), Home Oxygen Denies:: Cancer, Diabetes Mellitus Type 1, Diabetes Mellitus Type 2, Internal Pacemaker, MRSA, Seizures *Have you ever received a pneumonia vaccine?: Yes *Have you received a flu vaccine this season?: Yes Other Medical History: Reports: Arthritis, Cataracts Other Surgeries: Yes: No Previous Surgery, Appendectomy, Cardiac Catheterization, Colonoscopy, Coronary Stent, Other (pain pump implant, cervical neck fusion). No: Pacemaker Amputation: No Fractures: No - *Social History Smoking Status: Current every day smoker Tobacco Type: cigarettes # Packs/Day (cigarettes): 1 #Yrs smoked (if former smoker): 45 Alcohol Intake: current Alcohol Intake Frequency:: holidays/special occasions only Substance U
== END ==
PROVIDERS: Visit Provider Clinical Nurse Specialist Family Health
DX: M51.16 Intervertebral disc disorders with radiculopathy, lumbar region (principal); G89.29 Other chronic pain
CPT/HCPCS: 99212; G0463

== ENCOUNTER → 2021-07-01 09:14 | Outpatient (POV) | payer MEDICARE, SELFPAY ==
[2021-07-01 09:37] VITALS: BP 147/83; PULSE 87; RESP 18; O2SAT 97; BMI 30.1
--- NOTE | 2021-07-01 09:42 | HMH.PMPROC ---
- Procedure Date: 07/01/21 Time: 09:42 Anesthesiologist:: Julianna Bearden APRN Complications:: None Pre-procedure Diagnosis:: Degenerative disc disease lumbar spine with lumbar radiculopathy symptoms, lumbar facet arthropathy, lumbar spondylosis Post-procedure Diagnosis:: Same Indications for Procedure:: Patient is a 65-year-old white male who presents today for intrathecal pain pump adjustment. He is at home refill through [facility]. He was advised to come to the clinic per his [employer] nurse due to change in pain. He is having pain in his low back area that is radicular in nature. It is radiating into bilateral lower extremities. He says the pain is in the same area, however, he is now having pain when bending forward and extension at waist. This pain is made worse with standing and prolonged walking. He says that the pain also goes down bilateral legs. He rates his pain a 5 out of 10. He does have a Medtronic pump with morphine at 5.99 mg/day. He says when he gives himself a bolus it does ease the pain. The pain does radiate into bilateral hips. He also reports to be having new onset incontinence that coincides with his pain. Physical exam General: Alert and oriented x3, no acute distress, pleasant and cooperative Lungs: Respirations even and unlabored, symmetrical chest expansion Eyes: PERRL Musculoskeletal: Flexion and extension of lumbar [spine] somewhat guarded secondary to pain, [antalgic gait noted] Neurological: Speech clear, no gross sensory deficit Procedure Details:: Informed consent was obtained and the risk and benefits of the procedure were explained to the patient. Patient was taken to the procedure room where noninvasive monitoring was placed including noninvasive blood pressure cuff and pulse oximeter. Patient's pump was interrogated and was reprogrammed to 6.6 mg/day, PTC at 0.55 mg up to 5 times daily.. The patient tolerated the procedure well with no complications. Plan and Disposition:: The patient is having a change of pain with new onset incontinence. His pain is made worse when bending forward and extension at waist. He was increased with his intrathecal therapy today. We will order an MRI lumbar spine. We will see him back in the clinic afterwards for further evaluation and discussion for further plan of care. ORT is low risk. Patient did sign a pain management agreement today. Risks and benefits of the medication have been explained in detail to the patient. The patient does understand the risk of dependence on the medication when given over a prolonged period. Patient has been advised of risks of oversedation with the prescribed medication. Narcan has been offered to the paitent in the event of oversedation. Patient has been advised that a family member should also be educated regarding administration of Narcan. The patient has been advised to consult with his/her primary care provider and pharmacist regarding drug-drug interaction of medications currently prescribed. Patient has been prescribed a controlled substance after being counseled on the medication, medication safety, and possible side effects. CHANDANA report has been obtained and reviewed prior to prescription and found to be appropriate. Opioid contract was reviewed and signed by the patient, and that they have agreed to all of the terms set forth by our compliance program. Patient has been instructed to contact the clinic with any concerns before the next appointment. Dr. Smith has reviewed this note and agrees with this plan of care. This note was dictated using voice recognition software and make contain errors or omissions.
== END ==
PROVIDERS: Visit Provider Clinical Nurse Specialist Family Health
DX: M51.16 Intervertebral disc disorders with radiculopathy, lumbar region (principal); M47.896 Other spondylosis, lumbar region; M54.06 Panniculitis affecting regions of neck and back, lumbar region; Z45.1 Encounter for adjustment and management of infusion pump
CPT/HCPCS: 62368; 99212; G0463

== ENCOUNTER → 2021-07-05 12:52 | Outpatient (CLI) | payer MEDICARE, SELFPAY ==
--- NOTE | 2021-07-05 12:55 | MR_ITS ---
FINAL REPORT TECHNIQUE: Multiplanar and multisequence imaging of the lumbar spine was obtained without contrast. MIP reconstruction images were obtained. CLINICAL HISTORY: BACK PAIN. lbp worse when walking. symptoms [id number]. no recent injury or trauma. COMPARISON: None. FINDINGS: There is normal alignment of the lumbar vertebral bodies. Vertebral body height is preserved. The spinal cord ends at the level of L2. There is normal signal intensity within the substance of the distal spinal cord. Bone marrow signal intensity is normal. No acute paraspinal abnormality is identified. L1-2: There is mild disc osteophyte complex. There is minimal central canal stenosis. There is mild inferior right foraminal narrowing. L2-3: There is mild disc osteophyte complex. There is mild central stenosis but no foraminal narrowing. L3-4: There is no focal disc herniation. There is mild bilateral facet osteoarthropathy. There is no central stenosis. There is mild left greater than right foraminal narrowing due to facet osteoarthropathy. L4-5: There is mild disc osteophyte complex with bilateral facet osteoarthropathy. There appears to be ligamentum flavum hypertrophy. There is moderate central canal stenosis and moderate left greater than right foraminal narrowing. L5-S1: There is mild disc osteophyte complex. There is a very small central protrusion. There is mild central stenosis there is mild right and moderate left foraminal narrowing. Bilateral facet osteophyte is noted. IMPRESSION: 1. Multilevel degenerative disc disease as detailed above for each level with associated facet osteoarthropathy. 2. Very small central protrusion at L5-S1 superimposed on disc osteophyte complex. Authenticated by Angela Zheng MD on 07/05/2021 03:50:27 PM [facility]
--- NOTE | 2021-07-05 12:56 | XR_ITS ---
FINAL REPORT CLINICAL HISTORY: CHECK POSITION OF IMPLANTED DEVICE FOR MRI FINDINGS: ABDOMEN AP AND OBLIQUE/CONE VIEWS Two views of the abdomen were obtained. A moderate to large amount of stool is present. Otherwise the bowel gas pattern is unremarkable. A pain pump is seen in the posterior right soft tissues. In a general sense, the pump is oriented in a similar axis with respect to the spine. No acute osseous abnormality seen. IMPRESSION: Pain pump is oriented in a similar axis with respect to the spine in the provided views. It is not perpendicular to the spine by radiographs. Moderate to large amount of retained stool. Reviewed, Interpreted and Dictated by Angela Zheng MD Transcribed by Franco Gonzales Authenticated by Angela Zheng MD on 07/05/2021 02:55:28 PM [facility]
== END ==
PROVIDERS: PCP Internal Medicine Adolescent Medicine; Visit Provider Clinical Nurse Specialist Family Health
DX: M54.50 Low back pain, unspecified (principal)
CPT/HCPCS: 72148; 74019; 76376

== ENCOUNTER → 2021-07-29 08:54 | Outpatient (POV) | payer MEDICARE, SELFPAY ==
[2021-07-29 09:26] VITALS: BP 116/74; PULSE 96; RESP 18; O2SAT 96; BMI 31.5
--- NOTE | 2021-07-29 09:35 | HMH.PAINSOAP ---
[facility] Pain Management SOAP Note Subjective:: Patient is a pleasant 65-year-old male who comes in here today for follow-up. Patient is being treated for degenerative disc disease of lumbar spine with lumbar radiculopathy symptoms, lumbar facet arthropathy, lumbar spondylosis. Patient is currently being managed with a [employer] intrathecal pain pump that has morphine 30 mg/mL at a rate of 6.595 mg/day. Patient denies any side effects with this medication. The last time we saw this patient, patient was complaining of increasing low back pain that radiates to bilateral lower extremities. This is aggravated with lumbar flexion, extension, and twisting. He also noticed that he's been having incontinence especially enuresis, so we ordered an MRI. His MRI does not show any cauda equina syndromes. Patient says that his family doctor is aware and has tried him on medications for this. His MRI does show multilevel degenerative disc disease lumbar spine and ligamentum flavum hypertrophy that is causing moderate central canal stenosis at L4-L5. He rates his pain today as 4 out of 10. Patient is also taking gabapentin as prescribed by Dr. Luke. His Valdemar number is [phone] with an active morphine equivalent of 0. Drug screens have been reviewed an appropriate. Review of Systems General: No recent weight changes, no fever, no sleep disturbances Respiratory: No cough, no shortness of air, no recurring pulmonary infections Cardiovascular/peripheral vascular: No chest pain, no palpitations, no edema, no shortness of breath Gastrointestinal: No new onset incontinence, normal bowel movements reported Genitourinary: incontinence/enuresis Musculoskeletal: Low back pain Psychiatric: [Normal mood/affect] Neurological: [Denies weakness in extremities], [denies balance issues] Objective:: Physical exam General: Alert and oriented x3, no acute distress, pleasant and cooperative Lungs: Respirations even and unlabored, symmetrical chest expansion Eyes: PERRL Musculoskeletal: Flexion and extension of lumbar [spine] somewhat guarded secondary to pain, [antalgic gait noted] Neurological: Speech clear, no gross sensory deficit Assessment:: Degenerative disease of the lumbar spine with lumbar radiculopathy symptoms Lumbar facet arthropathy Lumbar spondylosis Spinal stenosis Neurogenic claudication Plan:: Ordering Physician: Julianna Bearden APRN Date of Service: 07/05/21 Procedure(s): MR lumbar spine wo [facility] Accession Number(s): [id number] cc: Mario Luke MD; Angela Zheng MD~ FINAL REPORT TECHNIQUE: Multiplanar and multisequence imaging of the lumbar spine was obtained without contrast. MIP reconstruction images were obtained. CLINICAL HISTORY: BACK PAIN. lbp worse when walking. symptoms [id number]. no recent injury or trauma. COMPARISON: None. FINDINGS: There is normal alignment of the lumbar vertebral bodies. Vertebral body height is preserved. The spinal cord ends at the level of L2. There is normal signal intensity within the substance of the distal spinal cord. Bone marrow signal intensity is normal. No acute paraspinal abnormality is identified. L1-2: There is mild disc osteophyte complex. There is minimal central canal stenosis. There is mild inferior right foraminal narrowing. L2-3: There is mild disc osteophyte complex. There is mild central stenosis but no foraminal narrowing. L3-4: There is no focal disc herniation. There is mild bilateral facet osteoarthropathy. There is no central stenosis. There is mild left greater than right foraminal narrowing due to facet osteoarthropathy. L4-5: There is mild disc osteophyte complex with bilateral facet osteoarthropathy. There appears to be ligamentum flavum hypertrophy. There is moderate central canal stenosis and moderate left greater than right foraminal narrowing. L5-S1: There is mild disc osteophyte complex. There is a very small central protrusion.
== END ==
PROVIDERS: Visit Provider Clinical Nurse Specialist Family Health
DX: M51.16 Intervertebral disc disorders with radiculopathy, lumbar region (principal); M47.896 Other spondylosis, lumbar region; M54.06 Panniculitis affecting regions of neck and back, lumbar region; M48.062 Spinal stenosis, lumbar region with neurogenic claudication
CPT/HCPCS: 99212; G0463

== ENCOUNTER → 2021-08-01 12:14 | Outpatient (CLI) | payer MEDICARE, SELFPAY ==
[2021-08-03 08:33] LABS: Prostate Specific Ag Screen 0.3 ng/ml (0.0-4.0)
== END ==
PROVIDERS: PCP Internal Medicine Adolescent Medicine; Visit Provider Urology
DX: Z12.5 Encounter for screening for malignant neoplasm of prostate (principal)
CPT/HCPCS: 36415; G0103

== ENCOUNTER 2021-08-12 13:13 | Observation (INO) | payer MEDICARE, SELFPAY ==
[2021-08-12] VITALS (12 sets, daily range): BP systolic 92–120; BP diastolic 50–72; PULSE 82–116; RESP 22–28; TEMP 37–37.2; O2SAT 92–97; BMI 31.5; BMI 29.4
--- NOTE | 2021-08-12 13:33 | PC.NURSE ---
Family stated that pt was out of oxygen and SOA while in the bathroom. WEnt to check on pt in bathroom who states that he feels fine and that sometimes he goes without oxygen, Pt is able to talk without difficulty and denies any soa at this time. Instructed that once he is finished in the bathroom he can come back to room 8
--- NOTE | 2021-08-12 13:47 | XR_ITS ---
FINAL REPORT CLINICAL HISTORY: dypsnea COMPARISON: June 30, 2018 FINDINGS: The heart size is normal. The mediastinum is normal. the lungs are hyperinflated consistent with COPD. There is mild bibasilar atelectasis or scarring. There are no pleural effusions. There is no pneumothorax. There is no osseous abnormality. IMPRESSION: Mild bibasilar atelectasis or scarring. Reviewed, Interpreted and Dictated by Micha Santana III, MD Transcribed by Franco Gonzales Authenticated by Micha Santana III, MD on 08/12/2021 03:21:38 PM [facility]
[2021-08-12 14:04] LABS: Basophils % 0.2 % (0.1-2.0); Eosinophils # 0.1 K/mm3 (0.0-0.4); Eosinophils % 1.4 % (0.1-12.0); Hematocrit 41.3 % (42.0-52.0); Hemoglobin 13.1 g/dL (14.1-18.0); Lymphocytes # 0.4 K/mm3 (0.7-4.5); Lymphocytes % 3.8 % (10-50); Mean Corpuscular HGB Conc 31.7 g/dL (31.8-35.4); Mean Corpuscular Hemoglobin 31.8 pg (27.0-31.2); Mean Corpuscular Volume 100.4 fl (80-94); Mean Platelet Volume 8.1 fl (7.4-10.4); Monocytes # 0.5 K/mm3 (0.1-1.0); Monocytes % 4.6 % (1.7-9.3); Neutrophils # 9.3 K/mm3 (1.8-7.8); Platelet Count 193 K/mm3 (142-424); Red Blood Count 4.11 M/mm3 (4.60-6.20); Red Cell Distribution Width 14.4 % (11.5-17.5); White Blood Count 10.3 K/mm3 (4.8-10.8)
--- NOTE | 2021-08-12 14:08 | PC.NURSE ---
Radiology at bedside
[2021-08-12 14:12] LABS: MANUAL DIFFERENTIAL MANUAL DIFFERENTIAL (MANUAL DIFF)
--- NOTE | 2021-08-12 14:12 | ECG_ITS ---
APPROVED REPORT Exam: Resting ECG HR:109 bpm ECG Measurements Heart Rate 109 AXES IN 160 P 92 QRSd 93 QRS 54 QT 322 T 58 QTc 386 Conclusion SINUS TACHYCARDIA LOW QRS VOLTAGE [QRS DEFLECTION < 0.5/1.0 mV IN LIMB/CHEST LEADS] ABNORMAL ECG UNCONFIRMED REPORT Electronically signed by : Mario Luke MD 08/14/2021 21:05:22
[2021-08-12 14:17] LABS: Chloride 105 mmol/L (98-107); Sodium 135 mmol/L (136-145)
[2021-08-12 14:18] LABS: Potassium 3.9 mmoL/L (3.5-5.1)
[2021-08-12 14:20] LABS: Alanine Aminotransferase 19 U/L (12-78); Alkaline Phosphatase 108 U/L (38-126); Aspartate Amino Transferase 28 U/L (17-59); Bilirubin,Total 0.6 mg/dl (0.2-1.3); Blood Urea Nitrogen 15 mg/dl (9-20); Creatinine Clearance Estimated 104 mL/min (50-200); Estimated Glomerular Filt Rate 75 ml/min (>60); GFR (African American) 90 ML/MIN (>60)
[2021-08-12 14:21] LABS: Albumin Level 3.9 g/dl (3.5-5.0); Albumin/Globulin Ratio 1.3 (1.1-1.8); Anion Gap 5.9 mEq/L (5-15); Calcium 8.2 mg/dl (8.4-10.2); Carbon Dioxide 28 mmol/L (22.0-30.0); Globulin 2.9 g/dL (1.3-3.2); Glucose 97 mg/dl (74-100); Total Protein,Serum 6.8 g/dl (6.3-8.2)
[2021-08-12 14:36] LABS: Troponin I < 0.01 ng/ml (0.00-0.034)
[2021-08-12 15:07] LABS: Lymphocytes % 2 % (10-50); Monocytes % 8 % (2-9); Neutrophils % 89 % (42-76); Total Cells Counted 100
[2021-08-12 15:08] LABS: Macrocytosis 1+; Platelet Estimate Normal
--- NOTE | 2021-08-12 15:47 | PC.NURSE ---
Page out for Dania, staff states he is with a pt and will call back
[2021-08-12 15:49] LABS: Coronavirus 19, PCR Not Detected (NotDetected); Influenza B, PCR Not Detected (NotDetected)
--- NOTE | 2021-08-12 16:05 | HMH.EDGENADL ---
ED Disposition Clinical Impression: Influenza A, Acute exacerbation of chronic obstructive airways disease Disposition: Admitted as Observation Condition on Discharge: Good - Critical Care Critical Care Time: No Attestation: On 08/12/21, the high probability of a clinically significant, sudden or life threatening deterioration of the following system(s) required my full and direct attention, intervention and personal management. The time I documented below is in addition to time spent performing reported procedures but includes the following listed in this critical care notation. Medical Decision Making - Medical Records Medical records reviewed: Yes: I reviewed the patient's medical records. - Valdemar Inquiry Pt receiving controlled substance: No Vital Signs: 08/12/21 13:56 08/12/21 13:59 08/12/21 14:30 Temperature 98.6 F Temperature Source Oral Pulse Rate 84 109 H Pulse Rate [Radial] 116 H Respiratory Rate 28 H Blood Pressure 99/57 L Blood Pressure [Right Arm] 96/55 L Blood Pressure Mean [Right Arm] 68 Blood Pressure Position Sitting Blood Pressure Position [Right Arm] Sitting 02 Sat by Pulse Oximetry 96 92 L 97 Oxygen Delivery Method Nasal Cannula Nasal Cannula Nasal Cannula Oxygen Flow Rate (LPM) 3 3 3 08/12/21 15:00 08/12/21 15:30 08/12/21 16:30 Temperature Temperature Source Pulse Rate 107 H 106 H 110 H Pulse Rate [Radial] Respiratory Rate 28 H 28 H Blood Pressure 92/59 L 100/54 L 100/72 L Blood Pressure [Right Arm] Blood Pressure Mean [Right Arm] Blood Pressure Position Sitting Sitting Blood Pressure Position [Right Arm] 02 Sat by Pulse Oximetry 97 97 96 Oxygen Delivery Method Nasal Cannula Nasal Cannula Nasal Cannula Oxygen Flow Rate (LPM) 3 3 3 08/12/21 17:00 08/12/21 17:30 08/12/21 19:15 Temperature Temperature Source Pulse Rate 107 H 105 H 102 H Pulse Rate [Radial] Respiratory Rate 28 H 28 H Blood Pressure 97/51 L 95/50 L 94/57 L Blood Pressure [Right Arm] Blood Pressure Mean [Right Arm] Blood Pressure Position Sitting Sitting Blood Pressure Position [Right Arm] 02 Sat by Pulse Oximetry 96 Oxygen Delivery Method Nasal Cannula Oxygen Flow Rate (LPM) 3 08/12/21 19:16 Temperature 99 F Temperature Source Oral Pulse Rate 102 H Pulse Rate [Radial] Respiratory Rate 28 H Blood Pressure 98/54 L Blood Pressure [Right Arm] Blood Pressure Mean [Right Arm] Blood Pressure Position Blood Pressure Position [Right Arm] 02 Sat by Pulse Oximetry Oxygen Delivery Method Nasal Cannula Oxygen Flow Rate (LPM) 3 - Lab Data Lab results reviewed: Yes: I reviewed the patient's lab results. Lab Results 08/12/21 13:58: WBC 10.3, RBC 4.11 L, Hgb 13.1 L, Hct 41.3 L, MCV 100.4 H, MCH 31.8 H, MCHC 31.7 L, RDW 14.4, Plt Count 193, MPV 8.1, Neut % (Auto) 90.0 H, Lymph % (Auto) 3.8 L, [place] % (Auto) 4.6, Eos % (Auto) 1.4, Baso % (Auto) 0.2, Neut # (Auto) 9.3 H, Lymph # (Auto) 0.4 L, [place] # (Auto) 0.5, Eos # (Auto) 0.1, Baso # (Auto) 0.0, Total Counted 100, Neutrophils % (Manual) 89 H, Band Neutrophils % 1.0, Lymphocytes % (Manual) 2 L, Monocytes % (Manual) 8, Platelet Estimate Normal, Macrocytosis 1+ 08/12/21 13:58: Sodium 135 L, Potassium 3.9, Chloride 105, Carbon Dioxide 28, Anion Gap 5.9, BUN 15, Creatinine 1.00, Estimated Creat Clear 104, Estimated GFR 75, Est GFR ( Amer) 90, Glucose 97, Calcium 8.2 L, Total Bilirubin 0.6, AST 28, ALT 19, Alkaline Phosphatase 108, Troponin I < 0.01, Total Protein 6.8, Albumin 3.9, Globulin 2.9, Albumin/Globulin Ratio 1.3 08/12/21 13:58: SARS-CoV-2 (PCR) Not detected, Influenza A Untype (PCR) Detected A, Influenza Type B (PCR) Not detected 08/12/21 16:37: VBG pH 7.25 L, VBG pCO2 49.1, VBG pO2 39.2, VBG HCO3 21.0 L, VBG Total CO2 22.5 L, VBG O2 Saturation 72.0 H, VBG Base Excess -6.3 L Result diagrams: 08/12/21 13:58 08/12/21 13:58 Orders (Tests/Meds): ED MEDICATIONS Generic Name Dose Rout
--- NOTE | 2021-08-12 16:27 | PC.NURSE ---
DR RHOADES SPOKE WITH TABATHA GEORGE CALLED FOR ADMISSION
[2021-08-12 17:11] LABS: Influenza A, PCR Detected (NotDetected)
[2021-08-12 17:47] LABS: VBG Base Excess -6.3 mmol/L (-2.4-2.3); VBG PCO2 49.1 mmol/L (35-51); VBG PH 7.25 mmol/L (7.31-7.41); VBG PO2 39.2 mmol/L (28-40); VBG Total CO2 22.5 mmol/L (23-27)
--- NOTE | 2021-08-12 17:48 | PC.NURSE ---
REPORT CALLED TO FLOOR
--- NOTE | 2021-08-12 19:21 | PC.NURSE ---
patient up to floor via wheelchair @ this time.
[2021-08-13] VITALS: BP 122/68; PULSE 77; RESP 18; TEMP 37; O2SAT 94
[2021-08-13 00:18] VITALS: PULSE 79; PULSE 86; O2SAT 94
[2021-08-13 04:20] VITALS: BMI 29.5
[2021-08-13 06:19] VITALS: PULSE 84; PULSE 86; O2SAT 91
--- NOTE | 2021-08-13 07:22 | HMH.PHAVTE ---
[facility] Pharmacy VTE Monitoring - Patient Demographics Admission date: 08/12/21 Report Date: 08/13/21 Time: 07:22 Allergies/Adverse Reactions: Patient Allergies meperidine [From DEMEROL] Adverse Reaction (Mild, Verified 08/01/21 11:58) MOOD CHANGES Height: 1.8 m Weight: 95.51 kg Patient Problems: Current Active Problems Influenza A (Acute) Acute exacerbation of chronic obstructive airways disease (Acute) - VTE Risk Labs: VTE Related Lab Results Hgb 13.1 g/dL (14.1-18.0) L 08/12/21 13:58 Hct 41.3 % (42.0-52.0) L 08/12/21 13:58 Plt Count 193 K/mm3 (142-424) 08/12/21 13:58 BUN 15 mg/dl (9-20) 08/12/21 13:58 Creatinine 1.00 mg/dl (0.66-1.25) 08/12/21 13:58 Estimated Creat Clear 104 mL/min (50-200) 08/12/21 13:58 Was VTE Risk Assessment Performed: Yes VTE Score: 6 VTE Risk Level: Moderate Risk - Prophylaxis VTE Prophylaxis Ordered?: Yes Types of VTE Prophylaxis: TEDS Knee High Location of Applied Device: Bilateral Lower Extremeties
--- NOTE | 2021-08-13 07:29 | HMH.HP ---
*Admission Date: 08/12/21 *Chief complaint: shortness of breath, dehydration [facility] History I have reviewed the patient's past medical history: Yes Medical History: Reports:: BPH, Chronic Obstructive Pulmonary Disease (COPD), Coronary Artery Disease, Deep Vein Thrombosis, Depression, Gastroesophageal Reflux Disease(GERD), Home Oxygen, Hyperlipidemia, Hypertension Denies:: Cancer, Diabetes Mellitus Type 1, Diabetes Mellitus Type 2, Internal Pacemaker, MRSA, Seizures *Have you ever received a pneumonia vaccine?: Yes *Have you received a flu vaccine this season?: Yes Other Medical History: Reports: Arthritis, Cataracts Other Surgeries: Yes: No Previous Surgery, Appendectomy, Cardiac Catheterization, Colonoscopy, Coronary Stent, Other (pain pump implant, cervical neck fusion). No: Pacemaker Amputation: No Fractures: No - *Social History Last grade of school completed: GED Smoking Status: Current every day smoker Tobacco Type: cigarettes # Packs/Day (cigarettes): 1 #Yrs smoked (if former smoker): 45 Alcohol Intake: never Alcohol Intake Frequency:: holidays/special occasions only Substance Use Type: denies use *Occupational Status:: retired Housing: house Household Members: spouse *Travel in the last 8 weeks: None - Psychiatric History Pschychiatric History:: Reports:: Depression Family Hx:: Cancer, Coronary Artery Disease, Heart Attack Review of Systems - Review of Systems Review of systems:: pertinent systems reviewed and negative unless documented below (14 point review of systems performed, pertinent positives and negatives as per HPI) Meds Home Medications Medication Instructions Recorded Confirmed Type Citalopram Hydrobromide 40 mg PO HS 02/02/18 08/12/21 History [Citalopram 40mg Tablet] Pramipexole Di-HCl [Mirapex 0.125 mg PO TID 02/02/18 08/12/21 History 0.125mg tablet] fluticasone fur. 100 mcg-umeclid 1 puff IH DAILY 09/02/19 08/12/21 History 62.5 mcg-vilant 25 mcg inhalat.powder gabapentin 100 mg capsule 100 mg PO DAILY 09/02/19 08/12/21 History nitroglycerin 0.4 mg sublingual 0.4 mg SUBLINGUAL Q5M PRN #20 tab 07/26/20 08/12/21 Rx tablet Aspirin [Aspirin 81mg EC Tab] 81 mg PO DAILY 08/12/21 08/12/21 History Atorvastatin Calcium [Lipitor 40mg 40 mg PO HS 08/12/21 08/12/21 History Tab] Clopidogrel Bisulfate [Plavix] 75 mg PO DAILY 08/12/21 08/12/21 History Fesoterodine Fumarate [Toviaz] 8 mg PO DAILY 08/12/21 08/12/21 History Metoprolol Succinate [Metoprolol 25 mg PO DAILY 08/12/21 08/12/21 History Succinate 25mg Tablet*] Pantoprazole Sodium 40 mg PO DAILY 08/12/21 08/12/21 History Allergies Allergy/AdvReac Type Severity Reaction Status Date / Time meperidine [From DEMEROL] AdvReac Mild MOOD Verified 08/01/21 11:58 CHANGES Exam Vital signs and Labs for Last 24 Hours: Temp Pulse Resp BP Pulse Ox 98.6 F 84 18 122/68 91 L 08/13/21 00:00 08/13/21 06:19 08/13/21 00:00 08/13/21 00:00 08/13/21 06:19 Laboratory Results - last 24 hr 08/12/21 13:58: WBC 10.3, RBC 4.11 L, Hgb 13.1 L, Hct 41.3 L, MCV 100.4 H, MCH 31.8 H, MCHC 31.7 L, RDW 14.4, Plt Count 193, MPV 8.1, Neut % (Auto) 90.0 H, Lymph % (Auto) 3.8 L, [place] % (Auto) 4.6, Eos % (Auto) 1.4, Baso % (Auto) 0.2, Neut # (Auto) 9.3 H, Lymph # (Auto) 0.4 L, [place] # (Auto) 0.5, Eos # (Auto) 0.1, Baso # (Auto) 0.0, Total Counted 100, Neutrophils % (Manual) 89 H, Band Neutrophils % 1.0, Lymphocytes % (Manual) 2 L, Monocytes % (Manual) 8, Platelet Estimate Normal, Macrocytosis 1+ 08/12/21 13:58: Sodium 135 L, Potassium 3.9, Chloride 105, Carbon Dioxide 28, Anion Gap 5.9, BUN 15, Creatinine 1.00, Estimated Creat Clear 104, Estimated GFR 75, Est GFR ( Amer) 90, Glucose 97, Calcium 8.2 L, Total Bilirubin 0.6, AST 28, ALT 19, Alkaline Phosphatase 108, Troponin I < 0.01, Total Protein 6.8, Albumin 3.9, Globulin 2.9, Albumin/Globulin Ratio 1.3 08/12/21 13:58: SARS-CoV-2 (PCR) Not detected, Influenza A Untype (PCR) Detected A
[2021-08-13 07:46] VITALS: BP 106/63; PULSE 95; RESP 23; TEMP 36.7; O2SAT 90
[2021-08-13 08:00] VITALS: O2SAT 95
--- NOTE | 2021-08-13 08:12 | HMH.HPDC ---
General - General Admission date:: 08/12/21 Discharge date: 08/13/21 *Admission Date: 08/12/21 *Chief complaint: short of breath, weakness, hypotension *History of present illness: Mr. Barton is a 65-year-old male with history of COPD and chronic hypoxic respiratory failure on 3 L who came to our office yesterday afternoon in respiratory distress on increased oxygen from baseline, fatigued, febrile, increased cough, and hypotensive on arrival. He was sent to the ER for further evaluation for hypotension and hypoxemic respiratory failure. On arrival to the ER he was noted to have progressively worsening dyspnea for the last week. Per ER documentation, he appeared dyspneic with increased work of breathing, diffuse wheeze. Initiated on dexamethasone and duo nebs. Swabbed for Covid and flu. Flu came back positive. Chest x-ray showed no concern for consolidation. Admitted to medicine for observation overnight. On evaluation this morning, appears much better than when I saw him in the office yesterday. eating breakfast, on 3L NC. [facility] History I have reviewed the patient's past medical history: Yes Medical History: Reports:: BPH, Chronic Obstructive Pulmonary Disease (COPD), Coronary Artery Disease, Deep Vein Thrombosis, Depression, Gastroesophageal Reflux Disease(GERD), Home Oxygen, Hyperlipidemia, Hypertension Denies:: Cancer, Diabetes Mellitus Type 1, Diabetes Mellitus Type 2, Internal Pacemaker, MRSA, Seizures *Have you ever received a pneumonia vaccine?: Yes *Have you received a flu vaccine this season?: Yes Other Medical History: Reports: Arthritis, Cataracts Other Surgeries: Yes: No Previous Surgery, Appendectomy, Cardiac Catheterization, Colonoscopy, Coronary Stent, Other (pain pump implant, cervical neck fusion). No: Pacemaker Amputation: No Fractures: No - *Social History Last grade of school completed: GED Smoking Status: Current every day smoker Tobacco Type: cigarettes # Packs/Day (cigarettes): 1 #Yrs smoked (if former smoker): 45 Alcohol Intake: never Alcohol Intake Frequency:: holidays/special occasions only Substance Use Type: denies use *Occupational Status:: retired Housing: house Household Members: spouse *Travel in the last 8 weeks: None - Psychiatric History Pschychiatric History:: Reports:: Depression Family Hx:: Cancer, Coronary Artery Disease, Heart Attack Review of Systems - Review of Systems Review of systems:: pertinent systems reviewed and negative unless documented below (14 point review of systems performed, pertinent positives and negatives as per HPI) Exam Vital signs and Labs for Last 24 Hours: Temp Pulse Resp BP Pulse Ox 98.0 F 95 H 23 106/63 L 90 L 08/13/21 07:46 08/13/21 07:46 08/13/21 07:46 08/13/21 07:46 08/13/21 07:46 Laboratory Results - last 24 hr 08/12/21 13:58: WBC 10.3, RBC 4.11 L, Hgb 13.1 L, Hct 41.3 L, MCV 100.4 H, MCH 31.8 H, MCHC 31.7 L, RDW 14.4, Plt Count 193, MPV 8.1, Neut % (Auto) 90.0 H, Lymph % (Auto) 3.8 L, [place] % (Auto) 4.6, Eos % (Auto) 1.4, Baso % (Auto) 0.2, Neut # (Auto) 9.3 H, Lymph # (Auto) 0.4 L, [place] # (Auto) 0.5, Eos # (Auto) 0.1, Baso # (Auto) 0.0, Total Counted 100, Neutrophils % (Manual) 89 H, Band Neutrophils % 1.0, Lymphocytes % (Manual) 2 L, Monocytes % (Manual) 8, Platelet Estimate Normal, Macrocytosis 1+ 08/12/21 13:58: Sodium 135 L, Potassium 3.9, Chloride 105, Carbon Dioxide 28, Anion Gap 5.9, BUN 15, Creatinine 1.00, Estimated Creat Clear 104, Estimated GFR 75, Est GFR ( Amer) 90, Glucose 97, Calcium 8.2 L, Total Bilirubin 0.6, AST 28, ALT 19, Alkaline Phosphatase 108, Troponin I < 0.01, Total Protein 6.8, Albumin 3.9, Globulin 2.9, Albumin/Globulin Ratio 1.3 08/12/21 13:58: SARS-CoV-2 (PCR) Not detected, Influenza A Untype (PCR) Detected A, Influenza Type B (PCR) Not detected 08/12/21 16:37: VBG pH 7.25 L, VBG pCO2 49.1, VBG pO2 39.2, VBG HCO3 21.0 L, VBG Total CO2 22.5 L, VBG O2 Saturation 72.0 H, VBG Base Excess -6.3 L I & O for La
--- NOTE | 2021-08-13 09:21 | PC.NURSE ---
Discharge order placed, patient needs to receive IV rocephin prior to discharge, per pharmacy earliest infusion time 1300, will initiate discharge after antibiotic infusion is complete.
--- NOTE | 2021-08-13 09:48 | HMH.PHAINT ---
Discharge counseling complete. Informed pt about new medications, start dates, and side effects. Pt understood and had no questions
[2021-08-13 10:00] VITALS: PULSE 88; PULSE 90; O2SAT 84
== END 2021-08-13 13:12 | disposition home or self-care (01) ==
LOC: ER 13:45 → 2ND 16:50
PROVIDERS: Admitting Provider Internal Medicine Adolescent Medicine; Emergency Provider Student in an Organized Health Care Education/Training Program; PCP Internal Medicine Adolescent Medicine; Visit Provider Internal Medicine Adolescent Medicine
DX: J44.1 Chronic obstructive pulmonary disease with (acute) exacerbation (principal); Z79.899 Other long term (current) drug therapy; Z79.01 Long term (current) use of anticoagulants; J96.21 Acute and chronic respiratory failure with hypoxia; Z20.822 Contact with and (suspected) exposure to COVID-19; Z99.81 Dependence on supplemental oxygen; I25.10 Atherosclerotic heart disease of native coronary artery without angina pectoris; K21.9 Gastro-esophageal reflux disease without esophagitis; Z95.5 Presence of coronary angioplasty implant and graft; I10 Essential (primary) hypertension; F17.210 Nicotine dependence, cigarettes, uncomplicated; G20 Parkinson's disease
CPT/HCPCS: G0378; 71045; 80053; 82803; 84484; 85007; 85025; 93005; 94640; 94760; 94761; 96365; 99285; C9803; J0456; J0696; U0003; U0005

== ENCOUNTER 2021-08-30 14:18 | Day surgery (SDC) | payer MEDICARE, SELFPAY ==
[2021-08-30 14:36] VITALS: BP 115/82; BP 116/80; BP 121/73; PULSE 83; PULSE 84; PULSE 87; RESP 17; RESP 18; RESP 20; TEMP 36.3; O2SAT 90; O2SAT 93; O2SAT 97; BMI 28.8
--- NOTE | 2021-08-30 15:10 | P.PCN_ITS ---
- Procedure Date: 08/30/21 Time: 15:10 Anesthesiologist:: Robin Smith MD Complications:: None Pre-procedure Diagnosis:: Degenerative disc disease of lumbar spine with lumbar radiculopathy symptoms and lumbar facet arthropathy and lumbar spinal stenosis with neurogenic claudication symptoms Post-procedure Diagnosis:: Same Indications for Procedure:: Patient is a 65-year-old white male who we are treating for low back pain with lumbar radiculopathy symptoms and neurogenic claudication symptoms. We will do a lumbar epidural steroid injection today to see if this helps with his pain sy mptoms and also an epidurogram to assess levels of stenosis and candidacy for mill invasive lumbar decompression. Most of his pain is in the low back while standing and walking. Procedure Details:: Informed consent was obtained and the risk and benefits of the procedure was explained to the patient. The patient was taken to the procedure room. The patient was placed prone on the procedure table. The patient was prepped and draped in sterile fashion. C-arm fluoroscopy was used to view the lumbar spine. Skin and subcutaneous tissues were anesthetized using lidocaine. I placed an 18-gauge epidural needle and advanced into the L4-L5 interspace using fluoroscopic guidance and [id number] to air. After confirmation of needle placement in the epidural space with dye I injected 2 mL of lidocaine 1.5% with Depo-Medrol 80 mg. Patient tolerated the procedure well with no complications. Plan and Disposition:: Based on epidurogram he does not really have much stenosis at L3-4 L4-L5. I do believe he would benefit from facet joint injection/medial branch blocks since most of his pain is over the facet joints of L4-5 and L5-S1. He has benefited from previous RF ablation several years ago. We will plan on repeat bilateral medial branch block/facet joint injections of L4-5 and L5-S1 today to see if this gives him relief of his symptoms.
[2021-08-30 15:13] VITALS: BP 135/78; PULSE 99; RESP 20; O2SAT 97
== END 2021-08-30 15:13 | disposition home or self-care (01) ==
LOC: SC.PAINP 14:21
PROVIDERS: PCP Internal Medicine Adolescent Medicine; Visit Provider Anesthesiology
DX: M51.16 Intervertebral disc disorders with radiculopathy, lumbar region (principal); M54.06 Panniculitis affecting regions of neck and back, lumbar region; M48.062 Spinal stenosis, lumbar region with neurogenic claudication; I25.10 Atherosclerotic heart disease of native coronary artery without angina pectoris; J44.9 Chronic obstructive pulmonary disease, unspecified; G47.33 Obstructive sleep apnea (adult) (pediatric); K21.9 Gastro-esophageal reflux disease without esophagitis; F32.A Depression, unspecified; Z72.0 Tobacco use; I10 Essential (primary) hypertension; Z88.8 Allergy status to other drugs, medicaments and biological substances
CPT/HCPCS: 62323; J1040; Q9966

== ENCOUNTER 2021-09-27 09:49 | Day surgery (SDC) | payer MEDICARE, SELFPAY ==
[2021-09-27 10:08] VITALS: BP 121/76; PULSE 87; RESP 20; O2SAT 97
[2021-09-27 10:11] VITALS: BP 143/93; PULSE 103; RESP 22; TEMP 36.7; O2SAT 98; BMI 31.6
[2021-09-27 11:23] VITALS: BP 147/97; PULSE 87; RESP 18; O2SAT 96
[2021-09-27 11:24] VITALS: BP 146/103; PULSE 86; RESP 17; O2SAT 96
--- NOTE | 2021-09-27 12:54 | P.PCN_ITS ---
- Procedure Date: 09/27/21 Time: 12:54 Anesthesiologist:: Robin Smith MD Complications:: None Pre-procedure Diagnosis:: Degenerative disc disease of lumbar spine with lumbar radiculopathy symptoms and lumbar facet arthropathy with lumbar spondylosis Post-procedure Diagnosis:: Same Indications for Procedure:: Patient is a pleasant 65-year-old white male who we have been treating for low back pain with lumbar spondylosis and lumbar facet arthropathy. He has increasing pain over the facet joints of L4-5 and L5-S1. He is done well with previous RF ablation in the past. We will plan on bilateral lumbar medial branch block/facet joint injections of L4-5 and L5-S1 today. Procedure Details:: Lumbar medial branch block Informed consent was obtained and the risks and benefits of the procedure was explained to the patient. The back was prepped using ChloraPrep. The skin and subcutaneous tissues were anesthetized using lidocaine. I placed 22-gauge spin al needles into the facet joint/medial branches of L4-L5 and L5-S1 bilaterally. Needle placement was confirmed with dye. After this we injected 3 mL bupivacaine 0.25% and Depo-Medrol 20 mg into each facet joint/medial branch of L4-L5 and L5-S1 bilaterally. We used a total of 80 mg Depo-Medrol for both levels bilaterally. The patient tolerated the procedure well with no complications. Plan and Disposition:: We will follow-up with him in 2 weeks. Will reevaluate his symptoms at that time. If successful we will plan on RF ablation to the facet joint/medial branches of L4-5 and L5-S1.
== END 2021-09-27 11:40 | disposition home or self-care (01) ==
LOC: SC.PAINP 09:50
PROVIDERS: PCP Internal Medicine Adolescent Medicine; Visit Provider Anesthesiology
DX: M51.16 Intervertebral disc disorders with radiculopathy, lumbar region (principal); M47.896 Other spondylosis, lumbar region; M54.06 Panniculitis affecting regions of neck and back, lumbar region; J44.9 Chronic obstructive pulmonary disease, unspecified; K21.9 Gastro-esophageal reflux disease without esophagitis; G20 Parkinson's disease; I25.10 Atherosclerotic heart disease of native coronary artery without angina pectoris; Z88.6 Allergy status to analgesic agent; Z79.01 Long term (current) use of anticoagulants; Z79.82 Long term (current) use of aspirin; Z79.899 Other long term (current) drug therapy
CPT/HCPCS: 64493; 64494; J1030; Q9966

== ENCOUNTER → 2021-10-10 09:23 | Outpatient (POV) | payer MEDICARE, SELFPAY ==
[2021-10-10 09:30] VITALS: BP 129/78; PULSE 83; RESP 18; TEMP 35.8; O2SAT 93; BMI 31.2
--- NOTE | 2021-10-10 09:45 | HMH.PAINSOAP ---
[facility] Pain Management SOAP Note Subjective:: Patient is a pleasant 65-year-old male who presents today for follow-up after a bilateral facet joint/medial branch block injections at L4-L5 and L5-S1 on September 27, 2021. Patient is currently being treated for degenerative disc disease of lumbar spine, lumbar radiculopathy, lumbar spondylosis, facet arthropathy. After the procedure, patient had minimal relief. Rates pain today as 4 out of 10. Patient had an RFA in the lumbar spine years ago that provided long-term relief. We did a repeat RFA last year that did not help the patient. Patient states that the pain is localized around his low back and sometimes radiates to bilateral legs. This is worse with lumbar flexion, extension, rotation. He is also being managed with a Medtronic intrathecal pain pump morphine 30 mg/mL at a rate of 6.595 mg/day. He takes 100 mg of gabapentin daily as prescribed by Dr. Luke. He does not take NSAIDs because he is on Plavix. [facility] #[id number] with an active morphine equivalent of 0. Review of Systems: General: No recent weight changes, no fever, no sleep disturbances Respiratory: No cough, no shortness of air, no recurring pulmonary infections Cardiovascular/peripheral vascular: No chest pain, no palpitations, no edema, no shortness of breath Gastrointestinal: No new onset incontinence, normal bowel movements reported Genitourinary: No new onset incontinence Musculoskeletal: Low back pain Psychiatric: [Normal mood/affect] Neurological: [Denies weakness in extremities], [denies balance issues] Objective:: Physical Exam: General: Alert and oriented x3, no acute distress, pleasant and cooperative, [on room air] Lungs: Respirations even and unlabored, symmetrical chest expansion Eyes: PERRL Musculoskeletal: Flexion and extension of lumbar [spine] somewhat guarded secondary to pain, [antalgic gait noted]; patient is tender to palpation around the bilateral lumbar paraspinous especially around L4 and L5. Neurological: Speech clear, no gross sensory deficit Assessment:: Degenerative disc disease of lumbar spine with lumbar radiculopathy symptoms Lumbar spondylosis Facet arthropathy Myofascial pain of the lumbar paraspinous Plan:: Patient had minimal relief after his medial branch block on bilateral L4-L5 L5-S1. He had an RFA years ago that provided significant relief. We did a repeat RFA last. That did not help the patient. Patient continues to have pain around his lumbar paraspinous area. He is tender to palpation in this area. I will schedule the patient for a trigger point injection at bilateral lumbar paraspinous. Risks and benefits of the procedure have been explained to the patient. Patient would like to proceed with the procedure. I will refer the patient to physical therapy to increase back and hip mobilities. I will start the patient on a compounding cream to help with some of the tenderness in his low back. Patient is on a Medtronic pump and it is at end-of-life. We will schedule a pump replacement by the end of the year. Patient has been instructed to contact the clinic with any concerns before the next appointment. Dr. Smith has reviewed this note and agrees with this plan of care. This note was dictated using voice recognition software and make contain errors or omissions. [facility] History Medical History: Reports:: BPH, Chronic Obstructive Pulmonary Disease (COPD), Coronary Artery Disease, Deep Vein Thrombosis, Depression, Gastroesophageal Reflux Disease(GERD), Home Oxygen, Hyperlipidemia, Hypertension, Lung Disease Denies:: Cancer, Diabetes Mellitus Type 1, Diabetes Mellitus Type 2, Internal Pacemaker, MRSA, Seizures *Have you ever received a pneumonia vaccine?: Yes *Have you received a flu vaccine this season?: Yes Other Medical History: Reports: Arthritis, Cataracts Other Surgeries: Yes: No Previous Surgery, Appendectomy, Cardiac Catheterization, Colonoscopy, Coronary Stent, EGD, Other (pain
== END ==
PROVIDERS: Visit Provider Student in an Organized Health Care Education/Training Program
DX: M51.16 Intervertebral disc disorders with radiculopathy, lumbar region (principal); M54.06 Panniculitis affecting regions of neck and back, lumbar region; M47.896 Other spondylosis, lumbar region; M79.12 Myalgia of auxiliary muscles, head and neck
CPT/HCPCS: 99212; G0463

== ENCOUNTER → 2021-10-14 14:13 | Outpatient (CLI) | payer MEDICARE, SELFPAY ==
--- NOTE | 2021-10-14 14:16 | CA_ITS ---
APPROVED REPORT EXAM: Comprehensive 2D, Doppler, and color-flow Echocardiogram Milling/Polishing Operator: JULIUS Solo, RVS Ht: 5 ft 11 in Wt: 224lbs BSA: 2.21 BP: 136/70 mmHg Indications: copd, o2 dependent, cp, edema, casey, cad 2D Dimensions IVSd 1.13 cm LVEF (Visual) 66.30 % PWd 1.05 cm LA Volume 42.60 mL LVDd 4.22 cm LA Volume Index 19.30 mL/m2 (M/F) 16-34 LVDs 2.69 cm Aortic Root 2.71 cm Left Atrium 3.37 cm LVOT 2.04 cm (M/F) 1.5-2.5 M-Mode Dimensions LA Diam 3.06 cm (1.9-4.0) Ao Diam 3.91 cm (2.0-3.7) EPSs 1.04 cm TAPSE 2.29 (<1.7) LV Diastology E Decel Time 200.00 (160-240 msec) E/A Ratio 1.09 MED E' 7.80 (< 7 cm/sec) MED A' 12.40 cm/s E'/MED E' Ratio 13.67 (>14) LAT E' 8.10 (<10 cm/sec) LAT A' 12.10 cm/s E/LAT E' Ratio 13.16 (>14) Aortic Valve LVOT Max 99.00 (70-110 cm/s) LVOT VTI 22.93 cm AoV Peak Blu. 121.00 (50-130 cm/s) AO Peak GR. 5.80 mmHg AO Mean GR. 3.00 (<5 mmHg) AO VTI 27.35 (18-25 cm) ANTHONY (VTI) 2.74 (2.5-4.5 cm2) Mitral Valve MV A Velocity 98.00 (40-130 cm/s) E/A Ratio 1.09 MV Decel. Time 200.00 (160-240 ms) MV Mean Gr. 2.80 (<2mmHg) MV PHT 60.00 ms Pulmonary Valve PV Peak Velocity 71.00 (50-150 cm/s) Tricuspid Valve TR P. Velocity 214.00 cm/s RAP Estimate 10.00 mmHg RVSP 28.40 mmHg Left Ventricle Left atrium is normal size, left ventricle is normal size, estimated ejection fraction 55% with no regional wall motion abnormality, diastolic parameters are inconclusive. Right Ventricle Right atrium and right ventricle are normal size and contractility. Aortic Valve Aortic valve is minimally thickened and fibrosed there is no aortic stenosis or aortic insufficiency. Mitral Valve Mitral valve grossly normal, there is trace mitral regurgitation. Tricuspid Valve Tricuspid valve grossly normal, there is trace tricuspid regurgitation, tricuspid regurgitation jet velocity is inadequate for calculation of the right ventricular systolic pressure. Pulmonic Valve Pulmonic valve is poorly visualized. Great Vessels Aortic root is normal size. Inferior vena cava is poorly visualized. Pericardium No significant pericardial effusion noted. Conclusion 1. Normal left ventricular size, preserved left ventricular systolic function, estimated ejection fraction 55% with no regional wall motion abnormality, diastolic parameters are inconclusive. 2. Trace mitral and tricuspid regurgitation. 3. No significant pericardial effusion noted. 4. Inferior vena cava is poorly visualized. Electronically signed by : Indio Wasserman MD 10/14/2021 21:44:37
== END ==
PROVIDERS: PCP Internal Medicine Adolescent Medicine; Visit Provider Internal Medicine Adolescent Medicine
DX: J81.1 Chronic pulmonary edema (principal); R06.09 Other forms of dyspnea
CPT/HCPCS: 93306

== ENCOUNTER 2021-10-17 08:00 | Outpatient (RCR) | payer MEDICARE, SELFPAY ==
--- NOTE | 2021-10-15 09:37 | HMH.PTOPEV ---
PT Outpatient Evaluation Rehab PT Outpatient Evaluation Start: 10/15/21 07:58 Freq: Status: Active Protocol: Document 10/15/21 07:58 MARTA (Rec: 10/15/21 09:35 [email or web address] [id number]) Electronically Signed By Rolan Hubbard, PT 10/15/21 07:58 Outpatient Therapy Subjective History Subjective History Pt. is a 65 year old male who presents to [facility] Outpatient Physical Therapy Services in [place] for the initial evaluation this date( 10/15/21) w/ c/o chronic and constant LBP! and stiffness of insidious onset for 25 years. Pt. 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 Recent diagnostic imaging(MRI) positive for multi-level DDD and facet osteoarthropathy per pt. report. Pt. reports symptoms worsen w/ prolonged(~ 15') standing/ambulation and bending over to lift objects, states having symptom relief w / sitting. Pt. reports also having symptom relief w/ prescribed cream. Pt. describes symptoms as a dull ache across the lumbar spine inferiorly to bilateral gluteal folds, however, pt. denies having numbness/ tingling into BLEs. Pt. also denies having any bowel/ bladder dysfunction at this time. Pt. reports intermittently using portable O2 tank, states having it on 3L/min at rest and 4L/min w/ activity. Current medications include Celexa, Celebrex, Omeprazole, Lasix, Gabapentin, Aspirin, Morphine pump, Metoprolol, Atorvastatin, Plavix, Trelegy, and Toviaz. PMH includes COPD, S/P Cardiac Stent, S/P Cervical Spine Fusion, Appendectomy, S/P Morphine Pump installation
--- NOTE | 2021-10-15 09:37 | HMH.PTOPEV ---
PT Outpatient Evaluation Rehab PT Outpatient Evaluation Start: 10/15/21 07:58 Freq: Status: Active Protocol: Document 10/15/21 07:58 MARTA (Rec: 10/15/21 09:35 [email or web address] [id number]) Electronically Signed By Rolan Hubbard, PT 10/15/21 07:58 Outpatient Therapy Subjective History Subjective History Pt. is a 65 year old male who presents to [facility] Outpatient Physical Therapy Services in [place] for the initial evaluation this date( 10/15/21) w/ c/o chronic and constant LBP! and stiffness of insidious onset for 25 years. Pt. 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 Recent diagnostic imaging(MRI) positive for multi-level DDD and facet osteoarthropathy per pt. report. Pt. reports symptoms worsen w/ prolonged(~ 15') standing/ambulation and bending over to lift objects, states having symptom relief w / sitting. Pt. reports also having symptom relief w/ prescribed cream. Pt. describes symptoms as a dull ache across the lumbar spine inferiorly to bilateral gluteal folds, however, pt. denies having numbness/ tingling into BLEs. Pt. also denies having any bowel/ bladder dysfunction at this time. Pt. reports intermittently using portable O2 tank, states having it on 3L/min at rest and 4L/min w/ activity. Current medications include Celexa, Celebrex, Omeprazole, Lasix, Gabapentin, Aspirin, Morphine pump, Metoprolol, Atorvastatin, Plavix, Trelegy, and Toviaz. PMH includes COPD, S/P Cardiac Stent, S/P Cervical Spine Fusion, Appendectomy, S/P Morphine Pump installation
== END 2021-11-28 12:09 | disposition home or self-care (01) ==
LOC: PT.CARL 08:00
PROVIDERS: PCP Internal Medicine Adolescent Medicine; Visit Provider Student in an Organized Health Care Education/Training Program
DX: M54.50 Low back pain, unspecified (principal)
CPT/HCPCS: 97110; 97140; 97163

== ENCOUNTER 2021-10-18 08:31 | Day surgery (SDC) | payer MEDICARE, SELFPAY ==
[2021-10-18 08:42] VITALS: BP 126/58; PULSE 68; RESP 22; TEMP 36.3; O2SAT 98; BMI 31.4
[2021-10-18 08:44] VITALS: BP 99/68; PULSE 48; RESP 20; O2SAT 93
[2021-10-18 08:48] VITALS: BP 107/72; PULSE 88; RESP 20; O2SAT 94
--- NOTE | 2021-10-18 08:51 | HMH.PMPROC ---
- Procedure Date: 10/18/21 Time: 08:51 Anesthesiologist:: Rolan Peace CRNA Complications:: None Pre-procedure Diagnosis:: Myofascial pain lumbar spine Post-procedure Diagnosis:: Same Indications for Procedure:: This patient is a pleasant 65-year-old male who presents to our clinic today for bilateral lumbar paraspinous muscle trigger point injections. He has been treated in the past with lumbar epidural steroid injections. Lumbar facet blocks. Lumbar facet rhizotomy. He recently underwent lumbar risotto me. He is having some lingering lumbar pain that he describes is muscular in nature. He presents today for bilateral lumbar paraspinous muscle trigger point injections. Procedure Details:: Details of the procedure were explained to the patient. The patient was taken to the procedure room placed in the sitting position on the fluoroscopy table. The area over the lumbar spine was cleansed using chlorhexidine as a cleansing solution. Using a 25-gauge needle injections were given into the bilateral paraspinous muscles in 3 different locations. Injecting 2 cc at each injection site. The injection syringe contained 4 cc of 0.25% Marcaine +4 cc of 1% lidocaine and 40 mg of Depo-Medrol. This was divided over the course of 3 injections left and right. Patient tolerated the procedure without difficulty. There were no complications. Plan and Disposition:: Patient was discharged home without incident. He will return to see us for follow-up in the clinic.
[2021-10-18 08:58] VITALS: BP 108/66; PULSE 87; RESP 20; O2SAT 96
== END 2021-10-18 08:59 | disposition home or self-care (01) ==
LOC: SC.PAINP 08:32
PROVIDERS: PCP Internal Medicine Adolescent Medicine; Visit Provider Nurse Anesthetist, Certified Registered
DX: M79.18 Myalgia, other site (principal); M51.16 Intervertebral disc disorders with radiculopathy, lumbar region; M47.896 Other spondylosis, lumbar region; M54.06 Panniculitis affecting regions of neck and back, lumbar region; J44.9 Chronic obstructive pulmonary disease, unspecified; I25.10 Atherosclerotic heart disease of native coronary artery without angina pectoris; I73.9 Peripheral vascular disease, unspecified; F32.A Depression, unspecified; K21.9 Gastro-esophageal reflux disease without esophagitis; E78.5 Hyperlipidemia, unspecified; I10 Essential (primary) hypertension; N40.0 Benign prostatic hyperplasia without lower urinary tract symptoms
CPT/HCPCS: 20552; J1040

== ENCOUNTER → 2021-11-14 12:39 | Outpatient (CLI) | payer MEDICARE, SELFPAY ==
--- NOTE | 2021-11-14 12:42 | CT_ITS ---
FINAL REPORT CLINICAL HISTORY: smoker 2-3 ppd x55 years copd, empysema,cad, chf on 4liters of oxygen COMPARISON: July 26, 2019 FINDINGS: Low-Dose Chest CT CTDI vol (mGy): 2.90 DLP (mGy-cm): 102.38 Axial images were obtained from the lung apex to the mid abdomen by computed tomography. Low-dose protocol was utilized. FINDINGS: CHEST: There is no axillary adenopathy. There is no hilar or mediastinal adenopathy. The heart is proper size. There is no pericardial or pleural effusion. Limited images of the upper abdomen are unremarkable. Lung window images demonstrate multiple calcified granulomas. There is diffuse bronchial wall thickening. Mild scarring is seen. There is a new 4 mm right lower lobe nodule on image 152. IMPRESSION: Lung RADS category 3. Recommend 6 month follow-up low-dose chest CT. Reviewed, Interpreted and Dictated by Micha Santana III, MD Transcribed by Franco Gonzales Authenticated by Micha Santana III, MD on 11/14/2021 01:54:[address] [facility]
== END ==
PROVIDERS: PCP Internal Medicine Adolescent Medicine; Visit Provider Internal Medicine Adolescent Medicine
DX: Z87.891 Personal history of nicotine dependence (principal); Z12.2 Encounter for screening for malignant neoplasm of respiratory organs
CPT/HCPCS: 71271

== ENCOUNTER → 2021-11-21 13:14 | Outpatient (POV) | payer MEDICARE, SELFPAY ==
[2021-11-21 14:09] VITALS: BP 122/69; PULSE 99; RESP 18; TEMP 36.3; O2SAT 97; BMI 32.5
--- NOTE | 2021-11-21 15:00 | HMH.PAINSOAP ---
[facility] Pain Management SOAP Note Subjective:: Patient is a pleasant 66-year-old male with a medical history of asthma and COPD presents today for follow-up after a trigger point injections on bilateral lumbar paraspinous muscles. Patient is currently being treated for degenerative disc disease of lumbar spine with lumbar radiculopathy symptoms, lumbar facet arthropathy, lumbar spondylosis, myofascial pain. After the procedure, patient had 1 to 2 days of 70-80% relief of symptoms. Rates his pain today as 3 out of 10. Patient says that his pain is back to baseline. He has pain during lumbar flexion, extension, and rotation. He has constant pain that radiates from his low back down to his bilateral lower extremities. He says that he cannot make it to his mailbox without having significant low back pain. In the past, we have done lumbar RFA that provided significant relief. However, when we did a repeat lumbar RFA more recently, this did not help the patient. Patient is also being managed with an intrathecal pain pump morphine 30 mg/mL at a rate of 6.595 mg/day. He says that this is managing his low back pain but his pain is worse whenever he starts moving. He is also prescribed gabapentin [address] Luke which is somewhat helping his neuropathic pain. Review of Systems: General: No recent weight changes, no fever, no sleep disturbances Respiratory: No cough, no shortness of air, no recurring pulmonary infections Cardiovascular/peripheral vascular: No chest pain, no palpitations, no edema, no shortness of breath Gastrointestinal: No new onset incontinence, normal bowel movements reported Genitourinary: No new onset incontinence Musculoskeletal: Low back pain Psychiatric: [Normal mood/affect] Neurological: [Denies weakness in extremities], [denies balance issues] Objective:: Physical Exam: General: Alert and oriented x3, no acute distress, pleasant and cooperative, 3LO2 Lungs: Respirations even and unlabored, symmetrical chest expansion Eyes: PERRL Musculoskeletal: Flexion and extension of lumbar [spine] somewhat guarded secondary to pain, [antalgic gait noted] Neurological: Speech clear, no gross sensory deficit Imaging: FINAL REPORT TECHNIQUE: Multiplanar and multisequence imaging of the lumbar spine was obtained without contrast. MIP reconstruction images were obtained. CLINICAL HISTORY: BACK PAIN. lbp worse when walking. symptoms [id number]. no recent injury or trauma. COMPARISON: None. FINDINGS: There is normal alignment of the lumbar vertebral bodies. Vertebral body height is preserved. The spinal cord ends at the level of L2. There is normal signal intensity within the substance of the distal spinal cord. Bone marrow signal intensity is normal. No acute paraspinal abnormality is identified. L1-2: There is mild disc osteophyte complex. There is minimal central canal stenosis. There is mild inferior right foraminal narrowing. L2-3: There is mild disc osteophyte complex. There is mild central stenosis but no foraminal narrowing. L3-4: There is no focal disc herniation. There is mild bilateral facet osteoarthropathy. There is no central stenosis. There is mild left greater than right foraminal narrowing due to facet osteoarthropathy. L4-5: There is mild disc osteophyte complex with bilateral facet osteoarthropathy. There appears to be ligamentum flavum hypertrophy. There is moderate central canal stenosis and moderate left greater than right foraminal narrowing. L5-S1: There is mild disc osteophyte complex. There is a very small central protrusion. There is mild central stenosis there is mild right and moderate left foraminal narrowing. Bilateral facet osteophyte is noted. IMPRESSION: 1. Multilevel degenerative disc disease as detailed above for each level with associated facet osteoarthropathy. 2. Very small central protrusion at L5-S1 superimposed on disc osteophyte complex. Assessment:: Degenerativ
== END ==
PROVIDERS: Visit Provider Student in an Organized Health Care Education/Training Program
DX: M51.16 Intervertebral disc disorders with radiculopathy, lumbar region (principal); M47.896 Other spondylosis, lumbar region; M54.06 Panniculitis affecting regions of neck and back, lumbar region
CPT/HCPCS: 99212; G0463

== ENCOUNTER 2021-12-13 08:57 | Day surgery (SDC) | payer MEDICARE, SELFPAY ==
[2021-12-13 09:05] VITALS: BP 120/63; PULSE 99; RESP 24; TEMP 36.5; O2SAT 92; BMI 31.6
[2021-12-13 09:36] VITALS: BP 113/74; PULSE 82; RESP 20
--- NOTE | 2021-12-13 09:43 | HMH.PMPROC ---
- Procedure Date: 12/13/21 Time: 09:43 Anesthesiologist:: Rolan Peace CRNA Complications:: None Pre-procedure Diagnosis:: Degenerative disc disease lumbar spine. Lumbar radiculopathy symptoms. Post-procedure Diagnosis:: Same Indications for Procedure:: Very pleasant 66-year-old male who comes to our clinic today for lumbar epidural steroid injection at the L4-5 level. Patient is currently being managed in our clinic with intrathecal pain pump morphine sulfate 30 mg/mL at rate of 6.595 mg/day. This seems to be doing quite well. However, he is having some increased pain across the low back as well as bilateral hip and leg radicular symptoms. He has had lumbar epidural steroid injections in the past. He has had significant improvement terms of his symptoms. Procedure Details:: Procedure: Lumbar epidural steroid injection under fluoroscopy Informed consent was obtained and the risks and benefits of the procedure were explained to the patient. The patient was taken to the procedure room and noninvasive monitors placed, including noninvasive blood pressure cuff and pulse oximeter. The back was viewed using C-arm Fluoroscopy and prepped using Betadine as a cleansing solution and the L4-L5 interspace was palpated. Skin and subcutaneous tissues were anesthetized using lidocaine 1.5% and a 25-gauge needle. After this, an 18-gauge Touhy epidural needle was placed into the L4-L5 interspace and advanced using fluoroscopic guidance and loss of resistance to air until the epidural space was encountered. After confirmation of needle placement in the epidural space, with dye, a solution containing lidocaine 1.5%, 4 mL and Depo-Medrol 80 mg were incrementally injected into the lumbar epidural space. The patient tolerated the procedure well with no complications. The patient was observed in the Pain Clinic and then discharged home neurologically intact. Plan and Disposition:: Patient was discharged without incident.
[2021-12-13 09:55] VITALS: BP 110/65; PULSE 73; RESP 18; O2SAT 96
== END 2021-12-13 09:56 | disposition home or self-care (01) ==
LOC: SC.PAINP 08:58
PROVIDERS: PCP Internal Medicine Adolescent Medicine; Visit Provider Nurse Anesthetist, Certified Registered
DX: M51.16 Intervertebral disc disorders with radiculopathy, lumbar region (principal); J44.9 Chronic obstructive pulmonary disease, unspecified; I25.10 Atherosclerotic heart disease of native coronary artery without angina pectoris; K21.9 Gastro-esophageal reflux disease without esophagitis; E78.5 Hyperlipidemia, unspecified; I10 Essential (primary) hypertension; J98.4 Other disorders of lung; M19.90 Unspecified osteoarthritis, unspecified site
CPT/HCPCS: 62323; J1040

== ENCOUNTER → 2021-12-21 09:26 | Outpatient (CLI) | payer MEDICARE, SELFPAY | PROVIDERS: PCP Internal Medicine Adolescent Medicine; Visit Provider Surgery | DX: Z01.812 Encounter for preprocedural laboratory examination (principal); Z20.822 Contact with and (suspected) exposure to COVID-19; Z12.11 Encounter for screening for malignant neoplasm of colon | CPT/HCPCS: C9803; U0003; U0005 ==

== ENCOUNTER 2021-12-24 10:20 | Day surgery (SDC) | payer MEDICARE, SELFPAY ==
[2021-12-24] VITALS (7 sets, daily range): BP systolic 102–123; BP diastolic 55–72; PULSE 67–83; RESP 16–18; TEMP 36.1–36.8; O2SAT 94–98; BMI 31.5
--- NOTE | 2021-12-24 11:33 | HMH.ANESCL ---
[facility] Anesthesia Checklist - Structural Data Admitted From: Home Planned Operative Procedure/s: colonoscopy Consent for Planned Operative Procedure(s) Verified: Yes - Additional verifications Anesthesia Reactions: No - Airway Assessment C-Spine Mobility Assessed: Yes TMJ Mobility Assessed: Yes Dentition: Good Dentition - Neurological Assessment Level of Consciousness: Awake, Alert, Appropriate - Anesthesia Plan Anesthesia Risk discussed: Yes Anesthesia Plan: Verified ASA Class: III Anesthesia Type: MAC [facility] History I have reviewed the patient's past medical history: Yes Medical History: Reports:: BPH, Chronic Obstructive Pulmonary Disease (COPD), Coronary Artery Disease, Deep Vein Thrombosis, Depression, Gastroesophageal Reflux Disease(GERD), Home Oxygen, Hyperlipidemia, Hypertension, Lung Disease Denies:: Cancer, Diabetes Mellitus Type 1, Diabetes Mellitus Type 2, Internal Pacemaker, MRSA, Seizures *Have you ever received a pneumonia vaccine?: Yes *Have you received a flu vaccine this season?: Yes Other Medical History: Reports: Arthritis, Cataracts Anesthesia experience/problems:: none Laterality Cases: Bilateral: Cataract Other Surgeries: Yes: No Previous Surgery, Appendectomy, Cardiac Catheterization, Colonoscopy, Coronary Stent, EGD, Other (pain pump implant, cervical neck fusion). No: Pacemaker Amputation: No Fractures: No - *Social History Last grade of school completed: GED Smoking Status: Former smoker Tobacco Type: cigarettes # Packs/Day (cigarettes): 1 #Yrs smoked (if former smoker): 50 Smoking End Date: NOV 14 2021 Alcohol Intake: never Alcohol Intake Frequency:: holidays/special occasions only Substance Use Type: denies use *Occupational Status:: retired Housing: house Household Members: spouse *Travel in the last 8 weeks: None - Psychiatric History Pschychiatric History:: Reports:: Depression Family Hx:: Cancer
--- NOTE | 2021-12-24 12:00 | HMH.SCOPE ---
- Procedure: Date: 12/24/21 Patient Date of :: 1955 Procedure Performed:: Colonoscopy with polypectomy Indications:: History of colon polyps Performing Provider:: Jori Dowell MD Referring Provider:: . Sedation:: Monitored anesthesia care Procedure:: After informed consent was obtained the patient was taken to the endoscopy suite. Sedation ensued after the patient was transferred to the left lateral decubitus position. Pulse, blood pressure, and oxygen saturation were monitored throughout the procedure. Digital rectal exam revealed no significant abnormality. The colonoscope was placed in position. The entire colon was evaluated. The colonoscope was carefully removed and the patient was transferred to recovery in stable condition. Please see findings and specimens below for detail. Findings:: Bowel preparation poor Polyps (see specimens) Specimens:: Right colon polyp (cold biopsy forceps) Transverse colon polyp (cold biopsy forceps) Recommendations:: Timing of repeat colonoscopy is pending pathology but likely between 6-12 months (extended or different bowel preparation needed) secondary to poor bowel preparation. Complications:: Poor bowel preparation Estimated blood obtained (mL): 1
== END 2021-12-24 12:55 | disposition home or self-care (01) ==
LOC: OUTP 10:21
PROVIDERS: PCP Internal Medicine Adolescent Medicine; Visit Provider Surgery
PROC: 0DJD8ZZ Inspection of Lower Intestinal Tract, Via Natural or Artificial Opening Endoscopic (ICD-10-PCS; CPT 45378; principal; 2021-12-24 11:30)
DX: Z86.010 Personal history of colon polyps (principal); Z91.19 Patient's noncompliance with other medical treatment and regimen; J44.9 Chronic obstructive pulmonary disease, unspecified; K21.9 Gastro-esophageal reflux disease without esophagitis; F32.A Depression, unspecified; I25.10 Atherosclerotic heart disease of native coronary artery without angina pectoris; E78.5 Hyperlipidemia, unspecified; I10 Essential (primary) hypertension; M19.90 Unspecified osteoarthritis, unspecified site; K63.5 Polyp of colon
CPT/HCPCS: 45380; 88305; J2704

== ENCOUNTER → 2022-01-23 11:12 | Outpatient (CLI) | payer MEDICARE, SELFPAY ==
--- NOTE | 2022-01-23 | CA_ITS ---
APPROVED REPORT Exam: Pharmacologic Technologist: Jocy House, Ht: 5 ft 11 in Wt: 231 lbs BSA: 2.24 m2 HR: 68 bpm Rhythm: NSR, low voltage QRS Indications: CP, CAD Medical History Medical History: HTN, Hyperlipidemia, Smoking Medications: Aspirin,,,,, Metoprolol,,,,, Gabapentin,,,,, Pantoprazole,,,,, Atorvastatin,,,,, Pramipexole,,,,, Citalopram,,,,, Albuterol,,,,, CloPIdogrel,,,,, Celecoxib,,,,, MoRPHINE,,,,, Nitroglycerin,,,,, Cardiac Risk Factors: HTN, Hyperlipidemia, Smoking Stress Test Details Test: LEXISCAN HR Resting HR: 33 bpm Max Heart Rate (APMHR): 152.631191 bpm Max HR Achieved: 88 bpm Target HR (85% APMHR): 129.732488 bpm % of APMHR: 57.89 Recovery HR: 75 bpm BP Resting BP: 97/60 mmHg Max BP: 106/61 mmHg Recovery BP: 103.0/65.0 mmHg ECG Resting ECG: NSR, low voltage QRS Clinical Exercise duration: 04:01 min Highest Stage Achieved: Exercise capacity: 1.0 METs Stress ECG Conclusion During lexiscan pt experinced mild SOA and stomach discomfort. No CP noted. No arrhythmias noted. Unremarkable lexiscan stress. Myoview images reported separately. Test Summary REST . . . . . . . Sitting REST . . . . . . . Sitting REST 05:56 . . 33 . 97/ 60 . . Stage 1 01:00 . . 29 . . . . Stage 2 01:00 . . 47 . . . . Stage 3 01:00 . . . . 103/ 63 . . Stage 4 01:00 . . 38 . 106/ 61 . . Stage 4 01:01 . . 23 . 106/ 61 . Stop exercise at 04:01 RECOVERY 01:00 . . 55 . . . . RECOVERY 02:00 . . 28 . 103/ 65 . . RECOVERY 03:00 . . 28 . 106/ 60 . . RECOVERY 03:17 . . 18 . 106/ 60 . . Electronically signed by : Indio Wasserman MD 01/24/2022 13:07:30
--- NOTE | 2022-01-23 11:19 | NM_ITS ---
APPROVED REPORT Exam: Nuclear Stress Test Indication: chest pain..short of breath..fatigue Patient Location: Outpatient Stress Tech: [facility] Tech:Miriam Borges SOUMYAAide RT(R)(N) Ht: 5 ft 11 in Wt: 225 lbs HR: 33 bpm BP: 97/60 mmHg BSA: 2.22 m2 TID: 1.46 BMI: 31.3 History: chest pain..short of breath..fatigue Procedure: Patient received a 0.4 mg of intravenous Lexiscan, resting heart rate 33 bpm, resting blood pressure 97/60 mmHg, with Lexiscan maximum heart rate achived was 88 bpm which is Less than 85 % of the maximum predicted heart rate and blood pressure was 106/61 mmHg. With Lexiscan, patient denied any complaint of chest pain. Patient was unable to lay on his belly for prone images . Electrocardiogram Resting electrocardiogram showed sinus rhythm, with Lexiscan there is less than 1.[address] segment depression noted from the baseline EKG. The EKG portion of the Lexiscan is nondiagnostic. Cardiac Stress and Resting SPECT Images: Cardiac Stress and Resting SPECT images were obtained using technetium 99m Myoview 30.4 mCi stress and 10.01 mCi at rest. Gated SPECT analysis of segmental wall motion and calculation of the ejection fraction also done. Cardiac stress and rest SPECT images show a fixed defect in the inferior wall with normal lashawn gated SPECT is likely secondary to soft tissue attenuation, no reversible ischemia seen, computer derived ejection fraction is 61% with no regional wall motion abnormality, right ventricle is mildly enlarged with normal contractility. Conclusion: 1. The EKG portion of the Lexiscan is nondiagnostic. 2. No scintigraphic evidence of reversible ischemia seen, computer derived ejection fraction 61% with no regional wall motion abnormality, right ventricle is mildly enlarged with normal contractility. 3. Likely normal Lexiscan Myoview study. Electronically signed by : Indio Wasserman MD 01/24/2022 13:10:04
== END ==
PROVIDERS: PCP Internal Medicine Adolescent Medicine; Visit Provider Nurse Practitioner Family
DX: R06.00 Dyspnea, unspecified; I20.8 Other forms of angina pectoris; J44.9 Chronic obstructive pulmonary disease, unspecified; F17.200 Nicotine dependence, unspecified, uncomplicated; R53.83 Other fatigue
CPT/HCPCS: 78452; 93017; A9502; J2785

== ENCOUNTER → 2022-02-07 10:25 | Outpatient (CLI) | payer MEDICARE, SELFPAY ==
--- NOTE | 2022-02-07 10:30 | XR_ITS ---
FINAL REPORT CLINICAL HISTORY: CHECK POSITION OF IMPLANTED DEVICE FOR MRI COMPARISON: 07/05/2021 FINDINGS: TWO-VIEW ABDOMEN There is a nonspecific, nonobstructive bowel gas pattern. No bowel dilation is identified. No abnormal calcification is seen. There is no free air. There is a moderate to large amount of stool present. There is a pain pump in the right lower quadrant, unchanged in position and acceptable for MRI. IMPRESSION: No acute process. Reviewed, Interpreted and Dictated by Micha Santana III, MD Transcribed by Sera Luis Authenticated and [facility]
--- NOTE | 2022-02-07 10:31 | MR_ITS ---
FINAL REPORT CLINICAL HISTORY: GAIT INSTABILITY. HISTORY NECK SURGERY 15 YEARD AGO. FINDINGS: Multiplanar MR imaging of the cervical spine was performed without contrast. On the sagittal T2-weighted images, disc degeneration is seen throughout. There is no evidence of fracture. The vertebral alignment is normal. The cervical spinal cord has an unremarkable appearance without evidence of mass, edema or syrinx. The cervicomedullary junction is normal. C2-3: There are uncovertebral osteophytes with moderate right and mild left neural foraminal narrowing. C3-4: Annular disc bulge with uncovertebral osteophytes. There is severe right and moderate left neural foraminal narrowing. C4-5: Disc osteophyte complex with severe right and moderate left neural foraminal narrowing. There is mild central canal stenosis with AP diameter of the thecal sac measuring 8 mm. C5-6: Postoperative changes of fusion. There is mild right and moderate left neural foraminal narrowing. C6-7: Disc osteophyte complex. There is severe right and moderate left neural foraminal narrowing. C7-T1: Disc osteophyte complex. There is moderate right and severe left neural foraminal narrowing. IMPRESSION: Multilevel degenerative disc disease with severe neural foraminal narrowing at multiple levels and mild central canal stenosis at C4-5. Reviewed, Interpreted and Dictated by Micha Santana III, MD Transcribed by Sera Luis Authenticated and [facility]
--- NOTE | 2022-02-07 10:31 | MR_ITS ---
FINAL REPORT CLINICAL HISTORY: GAIT INSTABILITY. BILATERAL HIP AND LEG PAIN, NUMBNESS AND TINGLING. COMPARISON: 07/05/2021 FINDINGS: Multiplanar MR imaging of the lumbar spine was performed without contrast. On the sagittal T2-weighted images, disc degeneration is seen throughout. The vertebral alignment is normal. There is no evidence of fracture. No bony mass is identified. The conus is seen at approximately the L1 level and has an unremarkable appearance. L1-2: There is an annular disc bulge with facet arthropathy. No significant canal stenosis or neural foraminal narrowing. L2-3: An annular bulge is present. Facet arthropathy and osteophytes are present. L3-4: There is an annular disc bulge with mild bilateral neural foraminal narrowing. L4-5: There is annular disc bulge with facet arthropathy and small central disc protrusion, increased from prior exam. There is mild bilateral neural foraminal narrowing. L5-S1: There is annular disc bulge and facet arthropathy with small central disc protrusion. There is mild bilateral neural foraminal narrowing. Mild spurring is noted of the SI joints. IMPRESSION: Multilevel degenerative disc disease with increasing disc protrusion at L4-5. Reviewed, Interpreted and Dictated by Micha Santana III, MD Transcribed by Sera Luis Authenticated and [facility]
== END ==
PROVIDERS: PCP Internal Medicine Adolescent Medicine; Visit Provider Nurse Practitioner Family
DX: M54.42 Lumbago with sciatica, left side (principal); R26.81 Unsteadiness on feet; G89.29 Other chronic pain; M51.36 Other intervertebral disc degeneration, lumbar region; M47.816 Spondylosis without myelopathy or radiculopathy, lumbar region; M54.16 Radiculopathy, lumbar region
CPT/HCPCS: 72141; 72148; 74019; 76376

== ENCOUNTER → 2022-03-10 09:35 | Outpatient (POV) | payer MEDICARE, SELFPAY ==
--- NOTE | 2022-03-10 10:02 | EXP.PAIN.SOA ---
[facility] Pain Management SOAP Note Subjective:: Patient is a pleasant 66-year-old male who presents today for follow-up. We are currently treating the patient for degenerative disc disease of lumbar spine with lumbar radiculopathy symptoms, lumbar facet arthropathy, lumbar spondylosis, myofascial pain. Today he rates his pain a 10 out of 10 he states his pain is all in his lower back that radiates into his bilateral lower extremities. He states this is a sharp, pulsating sensation that is worse with increased activity. He states this is affecting his daily life to where he is not able to even get up and walk around for long periods of time. Patient is currently managed with morphine 30 mg/mL with a daily dose of 6.595 mg/day. Patient denies any side effects to this medication. He states this medication does help with his pain however he has had increased pain over the last month. Patient denies any new trauma or injury to the site. Patient is managed with pregabalin [address] Najera. Patient is also been prescribed compounding cream in the past however patient does not remember whether or not this provided any additional relief. His Valdemar is [id number]. Its been reviewed and appropriate. Review of Systems: General: No recent weight changes, no fever, no sleep disturbances Respiratory: No cough, no shortness of air, no recurring pulmonary infections Cardiovascular/peripheral vascular: No chest pain, no palpitations, no edema, no shortness of breath Gastrointestinal: No new onset incontinence, normal bowel movements reported Genitourinary: No new onset incontinence Musculoskeletal: Low back pain, bilateral leg pain Psychiatric: [Normal mood/affect] Neurological: [Denies weakness in extremities], [denies balance issues] Objective:: Physical Exam: General: Alert and oriented x3, no acute distress, pleasant and cooperative Lungs: Respirations even and unlabored, symmetrical chest expansion Eyes: PERRL Musculoskeletal: Flexion and extension of lumbar [spine] somewhat guarded secondary to pain, [antalgic gait noted] Neurological: Speech clear, no gross sensory deficit Assessment:: Degenerative disc disease of lumbar spine with lumbar radiculopathy symptoms, lumbar facet arthropathy, lumbar spondylosis, myofascial pain Plan:: Patient is having significant pain in his low back that radiates into his bilateral lower extremities. I have discussed with the patient regarding a lumbar epidural. Risk and benefits were discussed with the patient. He would like to proceed forward with this injection. He is currently on Plavix and will need to go off of this medication for 3 days prior to this injection. We will discuss this with his provider. I will also increase his intrathecal pain pump medication by 10% at today's visit. Patient will now be managed at morphine 30 mg/mL with a daily dose of 7.252 mg/day. We will schedule the patient for a LESI at L4-L5 at today's visit. Patient has been advised of risks of oversedation with the prescribed medication. Narcan has been offered to the patient in the event of oversedation. Patient has been advised that a family member should also be educated regarding administration of Narcan. Patient has been instructed to contact the clinic with any concerns before the next appointment. Dr. Smith has reviewed this note and agrees with this plan of care. This note was dictated using voice recognition software and make contain errors or omissions. [facility] Medical History (Updated 01/08/22 @ 09:36 by Ghazal Mathews APRN) Angina pectoris Dyspnea Tobacco dependence syndrome Social History Smoking Status: Current every day smoker tobacco type: e-cigarettes second hand exposure: No alcohol intake: never substance use type: denies use current occupational status: retired Travel in the last 8 weeks: None household members: spouse housing: house current occupational exposures/hazards: No caffeine:
[2022-03-10 10:15] VITALS: BP 122/72; PULSE 92; RESP 18; O2SAT 97; BMI 31.5
== END ==
PROVIDERS: Visit Provider Nurse Practitioner Family
DX: M51.16 Intervertebral disc disorders with radiculopathy, lumbar region (principal); M47.26 Other spondylosis with radiculopathy, lumbar region; M79.18 Myalgia, other site
CPT/HCPCS: 62368; 99213; G0463

== ENCOUNTER → 2022-03-25 09:22 | Day surgery (SDC) | payer MEDICARE, SELFPAY | PROVIDERS: PCP Internal Medicine Adolescent Medicine; Visit Provider Nurse Anesthetist, Certified Registered | DX: Z53.8 Procedure and treatment not carried out for other reasons (principal) ==

== ENCOUNTER 2022-04-01 09:22 | Day surgery (SDC) | payer MEDICARE, SELFPAY ==
[2022-04-01 09:32] VITALS: BP 121/71; PULSE 95; RESP 20; TEMP 36.9; O2SAT 97; BMI 31.5
[2022-04-01 09:40] VITALS: BP 131/84; PULSE 92; RESP 18; O2SAT 98
[2022-04-01 09:41] VITALS: BP 131/84; PULSE 92; RESP 19; O2SAT 19
--- NOTE | 2022-04-01 09:52 | EXP.PAIN.PRO ---
Procedure Date: 04/01/22 Time: 09:53 Anesthesiologist:: Rolan Peace CRNA Complications:: None Pre-procedure Diagnosis:: Degenerative disc disease lumbar spine multilevels. Lumbar radiculopathy symptoms. Post-procedure Diagnosis:: Same. Indications for Procedure:: Patient is a pleasant 66-year-old male that comes to our clinic today for repeat lumbar epidural steroid injection L4-5 level. Patient complains of low back pain as well as bilateral hip and leg radicular symptoms. He rates his pain 8/10. Procedure Details:: Procedure: Lumbar epidural steroid injection under fluoroscopy Informed consent was obtained and the risks and benefits of the procedure were explained to the patient. The patient was taken to the procedure room and noninvasive monitors placed, including noninvasive blood pressure cuff and pulse oximeter. The back was viewed using C-arm Fluoroscopy and prepped using Betadine as a cleansing solution and the L4-L5 interspace was palpated. Skin and subcutaneous tissues were anesthetized using lidocaine 1.5% and a 25-gauge needle. After this, an 18-gauge Touhy epidural needle was placed into the L4-L5 interspace and advanced using fluoroscopic guidance and loss of resistance to air until the epidural space was encountered. After confirmation of needle placement in the epidural space, with dye, a solution containing lidocaine 1.5%, 4 mL and Depo-Medrol 80 mg were incrementally injected into the lumbar epidural space. The patient tolerated the procedure well with no complications. The patient was observed in the Pain Clinic and then discharged home neurologically intact. Plan and Disposition:: Patient was discharged without incident
[2022-04-01 09:58] VITALS: BP 110/64; PULSE 90; RESP 18; O2SAT 92
== END 2022-04-01 09:59 | disposition home or self-care (01) ==
PROVIDERS: PCP Internal Medicine Adolescent Medicine; Visit Provider Nurse Anesthetist, Certified Registered
DX: M51.16 Intervertebral disc disorders with radiculopathy, lumbar region (principal)
CPT/HCPCS: 62323; J1040

== ENCOUNTER → 2022-04-21 10:27 | Outpatient (POV) | payer MEDICARE, SELFPAY ==
[2022-04-21 11:04] VITALS: BP 98/57; PULSE 75; RESP 18; TEMP 36.9; O2SAT 95; BMI 31.5
--- NOTE | 2022-04-21 11:22 | EXP.PAIN.SOA ---
[facility] Pain Management SOAP Note Subjective:: Patient is a pleasant 66-year-old male who presents today for follow-up of lumbar epidural steroid injection at L4-L5 on 04/01/2022. We are currently treating the patient for degenerative disc disease of lumbar spine multilevels with lumbar radiculopathy symptoms. Today the patient states that he has had about 70 to 80% relief following this injection and feels like it is still helping. Today he rates his pain a 1 out of 10. He states the pain is primarily in his low back. Patient denies any new trauma or injury. Patient denies any change location or type of pain he experiences. Patient has been prescribed compounding cream in the past however he states that he did not notice a significant difference. He is also prescribed pregabalin [address] Najera's office. Patient denies any side effects from this medication. Patient is O2 dependent. Patient is currently managed with intrathecal morphine 6.595 mg/day. Patient denies any side effects from this medication. He states this medication does help manage his pain symptoms. His Valdemar is [id number]. It is been reviewed and appropriate. Review of Systems: General: No recent weight changes, no fever, no sleep disturbances Respiratory: No cough, no shortness of air, no recurring pulmonary infections Cardiovascular/peripheral vascular: No chest pain, no palpitations, no edema, no shortness of breath Gastrointestinal: No new onset incontinence, normal bowel movements reported Genitourinary: No new onset incontinence Musculoskeletal: Low back pain Psychiatric: [Normal mood/affect] Neurological: [Denies weakness in extremities], [denies balance issues] Objective:: Physical Exam: General: Alert and oriented x3, no acute distress, pleasant and cooperative Lungs: Respirations even and unlabored, symmetrical chest expansion Eyes: PERRL Musculoskeletal: Flexion and extension of lumbar [spine] somewhat guarded secondary to pain, [antalgic gait noted] Neurological: Speech clear, no gross sensory deficit Assessment:: Degenerative disc disease lumbar spine multilevels with lumbar radiculopathy symptoms Plan:: Patient has had significant improvement of his pain symptoms following a lumbar epidural steroid injection. At this time he does not need any additional injective therapy. We will follow-up with the patient in 1 month. Patient will return to clinic in 1 month for reevaluation of symptoms and follow-up. Patient has been instructed to contact the clinic with any concerns before the next appointment. Dr. Smith has reviewed this note and agrees with this plan of care. This note was dictated using voice recognition software and make contain errors or omissions. -- It Is medically necessary for this patient to continue to have their intrathecal pump refilled at regular intervals. This patient had an intrathecal pain pump implanted after meeting criteria of chronic intractable pain for greater than 3 months and failing conservative treatments. Patient has committed and been compliant to the treatment plan and all planned follow up care. Since implantation of the intrathecal pain pump, the patient has had decreased pain and been more functional. Oral medications have been reduced including intake of oral opioids. Patient continues to do well with intrathecal therapy with decrease in pain symptoms and increase in functional status. Stopping intrathecal medications can lead to life threatening withdrawal, seizures, cardiac arrest, severe pain, and possible . Pumps that are not refilled at regular intervals can be damages and cause and need for replacement. We continually titrate dose and concentration to optimize pain relief and function. We are limited in concentration for certain drugs to safely deliver medications through the pump and stay within the recommendations from the Polyanalgesic Consensus Committee Guidelines. Depending on dose and concentration these pumps ma
== END ==
PROVIDERS: PCP Internal Medicine Adolescent Medicine; Visit Provider Nurse Practitioner Family
DX: M51.16 Intervertebral disc disorders with radiculopathy, lumbar region (principal); Z72.0 Tobacco use
CPT/HCPCS: 99212; G0463

== ENCOUNTER → 2022-05-12 09:54 | Outpatient (POV) | payer MEDICARE, SELFPAY ==
[2022-05-12 10:41] VITALS: BP 121/47; PULSE 96; RESP 20; O2SAT 93; BMI 33.7
--- NOTE | 2022-05-12 12:33 | EXP.PAIN.SOA ---
[facility] Pain Management SOAP Note Subjective:: Patient is a pleasant 66-year-old male who presents today for follow-up. We are currently treating the patient for degenerative disc disease of lumbar spine multilevels with lumbar radiculopathy symptoms. Today the patient rates his pain a 10 out of 10. Patient states pain is all in his low back that radiates into his bilateral lower extremities. Patient denies any new trauma or injury. Patient denies any change location or type of pain he experiences. Patient describes this as a aching, throbbing sensation that is worse with increased activity. Patient states he is unable to tolerate to do simple activities of daily living such as sweeping and mopping due to the pain. Has had significant improvement from previous injections with his last injection on 04/01/2022 that provided 70 to 80% relief however lasting approximately 1 month. Patient is currently managed with pregabalin [address] Najera's office. Patient denies any side effects from this medication. He is currently managed with intrathecal morphine 6.595 mg/day. Patient states he does occasionally have some constipation and does take [id number] Metamucil and MiraLAX as needed. He states this medication does help his pain symptoms. Patient states his current intrathecal dose is adequate and is not requesting an adjustment at today's visit. He is also prescribed compounding cream however he states he has not noticed significant improvement. Patient is O2 dependent. Patient's Valdemar is [id number]. It has been reviewed and appropriate. Review of Systems: General: No recent weight changes, no fever, no sleep disturbances Respiratory: No cough, no shortness of air, no recurring pulmonary infections Cardiovascular/peripheral vascular: No chest pain, no palpitations, no edema, no shortness of breath Gastrointestinal: No new onset incontinence, normal bowel movements reported Genitourinary: No new onset incontinence Musculoskeletal: Low back pain Psychiatric: [Normal mood/affect] Neurological: [Denies weakness in extremities], [denies balance issues] Objective:: Physical Exam: General: Alert and oriented x3, no acute distress, pleasant and cooperative Lungs: Respirations even and unlabored, symmetrical chest expansion Eyes: PERRL Musculoskeletal: Flexion and extension of lumbar [spine] somewhat guarded secondary to pain, [antalgic gait noted] Neurological: Speech clear, no gross sensory deficit Assessment:: Degenerative disc disease of lumbar spine multilevels with lumbar radiculopathy symptoms Plan:: Patient is experiencing significant pain in his low back that radiates into his bilateral lower extremities. Patient did have limited range of motion of his lumbar spine during today's visit. I have discussed with the patient regarding having repeat lumbar epidural steroid injections. Risk and benefits were discussed with the patient. He would like to proceed forward with this plan of care. Patient is currently on Plavix and will need to contact his primary care office to verify he can come off of this medication for approximately 1 week prior to the injection. We will schedule the patient for a LESI L4-L5. Patient has been instructed to contact the clinic with any concerns before the next appointment. Dr. Smith has reviewed this note and agrees with this plan of care. This note was dictated using voice recognition software and make contain errors or omissions. -- It Is medically necessary for this patient to continue to have their intrathecal pump refilled at regular intervals. This patient had an intrathecal pain pump implanted after meeting criteria of chronic intractable pain for greater than 3 months and failing conservative treatments. Patient has committed and been compliant to the treatment plan and all planned follow up care. Since implantation of the intrathecal pain pump, the patient has had decreased pain and been more functional. Oral
== END ==
PROVIDERS: PCP Internal Medicine Adolescent Medicine; Visit Provider Nurse Practitioner Family
DX: M51.16 Intervertebral disc disorders with radiculopathy, lumbar region (principal); Z72.0 Tobacco use
CPT/HCPCS: 99212; G0463

== ENCOUNTER 2022-05-27 09:02 | Day surgery (SDC) | payer MEDICARE, SELFPAY ==
[2022-05-27 09:17] VITALS: BP 86/55; PULSE 89; RESP 18; TEMP 36.6; O2SAT 94; BMI 33.5
[2022-05-27 09:35] VITALS: BP 118/71; PULSE 86; RESP 18; O2SAT 95
[2022-05-27 09:36] VITALS: BP 118/71; PULSE 86; RESP 18; O2SAT 95
[2022-05-27 09:41] VITALS: BP 110/62; PULSE 87; RESP 18; O2SAT 94
--- NOTE | 2022-05-27 09:43 | EXP.PAIN.PRO ---
Procedure Date: 05/27/22 Time: 09:45 Anesthesiologist:: Rolan Peace CRNA Complications:: None Pre-procedure Diagnosis:: Degenerative disc disease lumbar spine multilevels. Post-procedure Diagnosis:: Same Indications for Procedure:: Patient is a very pleasant 66-year-old male we been treating for quite some time with intrathecal pain pump. He is currently being managed with intrathecal morphine at 6.595 mg/day. However, he is continue to have lumbar back pain that he describes as constant, dull, aching. I discussed 2 things in detail with the patient today prior to the injection. 1, his pump is nearing end-of-life. We will get him scheduled for pump replacement within the next 30 days. Also, due to his continued pain and his current dose of intrathecal morphine I suggest we add bupivacaine to the pump to augment the medications for pain relief. Patient agrees. I answered his questions. We will proceed with these 2 items. Patient does complain of bilateral hip and leg radicular symptoms at times. However, the majority of his pain is in his low back. Procedure Details:: Procedure: Lumbar epidural steroid injection under fluoroscopy Informed consent was obtained and the risks and benefits of the procedure were explained to the patient. The patient was taken to the procedure room and noninvasive monitors placed, including noninvasive blood pressure cuff and pulse oximeter. The back was viewed using C-arm Fluoroscopy and prepped using Chloraprep as a cleansing solution and the L4-L5 interspace was palpated. Skin and subcutaneous tissues were anesthetized using lidocaine 1.5% and a 25-gauge needle. After this, an 18-gauge Touhy epidural needle was placed into the L4-L5 interspace and advanced using fluoroscopic guidance and loss of resistance to air until the epidural space was encountered. After confirmation of needle placement in the epidural space, with dye, a solution containing normal saline, 3 mL and Depo-Medrol 80 mg were incrementally injected into the lumbar epidural space. The patient tolerated the procedure well with no complications. The patient was observed in the Pain Clinic and then discharged home neurologically intact. Plan and Disposition:: Patient was discharged without incident.
== END 2022-05-27 09:41 | disposition home or self-care (01) ==
PROVIDERS: PCP Internal Medicine Adolescent Medicine; Visit Provider Nurse Anesthetist, Certified Registered
DX: M51.36 Other intervertebral disc degeneration, lumbar region (principal)
CPT/HCPCS: 62323; J1040

== ENCOUNTER → 2022-06-09 13:30 | Outpatient (CLI) | payer MEDICARE, SELFPAY ==
[2022-06-09 15:28] LABS: Anion Gap 11.7 mEq/L (5-15); Blood Urea Nitrogen 42 mg/dl (9-20); Calcium 9.4 mg/dl (8.4-10.2); Carbon Dioxide 33 mmol/L (22.0-30.0); Chloride 101 mmol/L (98-107); Estimated Glomerular Filt Rate 38 ml/min (>60); GFR (African American) 46 ML/MIN (>60); Glucose 96 mg/dl (74-100); Potassium 3.7 mmoL/L (3.5-5.1); Sodium 142 mmol/L (136-145)
== END ==
PROVIDERS: PCP Internal Medicine Adolescent Medicine; Visit Provider Nurse Practitioner Family
DX: E78.2 Mixed hyperlipidemia (principal); F17.200 Nicotine dependence, unspecified, uncomplicated; R06.00 Dyspnea, unspecified; I20.8 Other forms of angina pectoris
CPT/HCPCS: 36415; 80048

== ENCOUNTER → 2022-06-09 13:38 | Outpatient (POV) | payer MEDICARE, SELFPAY ==
[2022-06-09 13:52] VITALS: BP 102/62; PULSE 88; RESP 20; O2SAT 95; BMI 33.7
--- NOTE | 2022-06-09 14:50 | EXP.PAIN.SOA ---
[facility] Pain Management SOAP Note Subjective:: Patient is a pleasant 66-year-old male who presents today for follow-up of lumbar epidural steroid injection at L4-L5 on 05/27/2022. We are currently treating the patient for degenerative disc disease of lumbar spine with lumbar radiculopathy symptoms, lumbar facet arthropathy, lumbar spondylosis, myofascial pain. Today the patient states he has had at least 80% improvement following this injection and feels like it is still continuing to provide relief. Patient is an AIS at home refill patient. Patient is currently managed with intrathecal morphine 30 mg/mL with a daily dose of 7.252 mg/day and bupivacaine 5 mg/mL. Patient denies any side effects from this medication. He states this medication does adequately help manage his pain symptoms. Patient was previously prescribed compounding cream however he states he did not notice significant improvement of his symptoms. Patient is prescribed pregabalin [address] Scott's office. Patient denies any side effects from this medication. His Valdemar is [id number]. It has been reviewed and appropriate. Review of Systems: General: No recent weight changes, no fever, no sleep disturbances Respiratory: No cough, no shortness of air, no recurring pulmonary infections Cardiovascular/peripheral vascular: No chest pain, no palpitations, no edema, no shortness of breath Gastrointestinal: No new onset incontinence, normal bowel movements reported Genitourinary: No new onset incontinence Musculoskeletal: Low back pain Psychiatric: [Normal mood/affect] Neurological: [Denies weakness in extremities], [denies balance issues] Objective:: Physical Exam: General: Alert and oriented x3, no acute distress, pleasant and cooperative Lungs: Respirations even and unlabored, symmetrical chest expansion Eyes: PERRL Musculoskeletal: Flexion and extension of lumbar [spine] somewhat guarded secondary to pain, [antalgic gait noted] Neurological: Speech clear, no gross sensory deficit Assessment:: Degenerative disc disease of lumbar spine with lumbar radiculopathy symptoms, lumbar facet arthropathy, lumbar spondylosis, myofascial pain Plan:: Patient has had significant improvement of his symptoms following his last lumbar epidural steroid injection. At this time the patient does not require any additional injective therapy. Patient will contact our office if he needs additional follow-up visits. Patient is scheduled for his next at home pump refill in June. Patient has been instructed to contact the clinic with any concerns before the next appointment. Dr. Smith has reviewed this note and agrees with this plan of care. This note was dictated using voice recognition software and make contain errors or omissions. -- It Is medically necessary for this patient to continue to have their intrathecal pump refilled at regular intervals. This patient had an intrathecal pain pump implanted after meeting criteria of chronic intractable pain for greater than 3 months and failing conservative treatments. Patient has committed and been compliant to the treatment plan and all planned follow up care. Since implantation of the intrathecal pain pump, the patient has had decreased pain and been more functional. Oral medications have been reduced including intake of oral opioids. Patient continues to do well with intrathecal therapy with decrease in pain symptoms and increase in functional status. Stopping intrathecal medications can lead to life threatening withdrawal, seizures, cardiac arrest, severe pain, and possible . Pumps that are not refilled at regular intervals can be damages and cause and need for replacement. We continually titrate dose and concentration to optimize pain relief and function. We are limited in concentration for certain drugs to safely deliver medications through the pump and stay within the recommendations from the Polyanalges[employer] Consensus Committee Guidelines. Depending on dos
== END ==
PROVIDERS: PCP Internal Medicine Adolescent Medicine; Visit Provider Nurse Practitioner Family
DX: M51.16 Intervertebral disc disorders with radiculopathy, lumbar region (principal); M47.26 Other spondylosis with radiculopathy, lumbar region; M79.10 Myalgia, unspecified site
CPT/HCPCS: 36415; 80048; 99212; G0463

== ENCOUNTER 2022-06-27 13:19 | Inpatient (IN) | payer MEDICARE, SELFPAY ==
[2022-06-27] VITALS (12 sets, daily range): BP systolic 73–136; BP diastolic 34–76; PULSE 77–110; RESP 18; TEMP 36.5–36.7; O2SAT 93–99; BMI 34.4
--- NOTE | 2022-06-27 17:00 | PC.NURSE ---
0917 ED NOTIFIED OF PT BLOOD PRESSURE
--- NOTE | 2022-06-27 17:01 | XR_ITS ---
PROCEDURE INFORMATION: Exam: XR Chest Exam date and time: 06/27/2022 5:22 PM Age: 66 years old Clinical indication: Shortness of breath and other: Swelling in chest, abdomen, legs and arms; Additional info: SOA, hypotensino, swelling TECHNIQUE: Imaging protocol: Radiologic exam of the chest. Views: 1 view. COMPARISON: CT LUNG SCREENING 11/14/2021 12:48 PM FINDINGS: Lungs: Lungs appear hyperinflated. There is bibasilar increased density partially obscuring the hemidiaphragm on the right. Pleural spaces: No large pleural effusions. Heart/Mediastinum: No significant cardiac enlargement. Bones/joints: Unremarkable. IMPRESSION: There is increased bibasilar density which may be due to subsegmental atelectasis, edema or pneumonia.
--- NOTE | 2022-06-27 17:06 | PC.NURSE ---
DR. SUH AT BEDSIDE
--- NOTE | 2022-06-27 17:14 | PC.NURSE ---
XR AT BEDSIDE
[2022-06-27 17:29] LABS: Influenza A, PCR Not Detected (NotDetected); Influenza B, PCR Not Detected (NotDetected)
[2022-06-27 17:33] LABS: Basophils % 0.7 % (0.1-2.0); Eosinophils # 0.3 K/mm3 (0.0-0.4); Eosinophils % 5.4 % (0.1-12.0); Hematocrit 28.2 % (42.0-52.0); Hemoglobin 9.4 g/dL (14.1-18.0); Mean Corpuscular HGB Conc 33.2 g/dL (31.8-35.4); Mean Corpuscular Hemoglobin 31.8 pg (27.0-31.2); Mean Corpuscular Volume 95.8 fl (80-94); Mean Platelet Volume 8.5 fl (7.4-10.4); Monocytes # 0.5 K/mm3 (0.1-1.0); Monocytes % 9.5 % (1.7-9.3); Neutrophils # 2.6 K/mm3 (1.8-7.8); Neutrophils % 47.5 % (37.0-80.0); Platelet Count 182 K/mm3 (142-424); Red Blood Count 2.95 M/mm3 (4.60-6.20); Red Cell Distribution Width 14.6 % (11.5-17.5); White Blood Count 5.4 K/mm3 (4.8-10.8)
[2022-06-27 17:37] LABS: Chloride 100 mmol/L (98-107); Sodium 139 mmol/L (136-145)
[2022-06-27 17:39] LABS: Blood Urea Nitrogen 28 mg/dl (9-20); Creatinine Clearance Estimated 51 mL/min (50-200); Estimated Glomerular Filt Rate 30 ml/min (>60); GFR (African American) 36 ML/MIN (>60)
[2022-06-27 17:40] LABS: Alanine Aminotransferase 17 U/L (12-78); Albumin Level 3.3 g/dl (3.5-5.0); Albumin/Globulin Ratio 1.4 (1.1-1.8); Alkaline Phosphatase 85 U/L (38-126); Aspartate Amino Transferase 27 U/L (17-59); Bilirubin,Total 0.3 mg/dl (0.2-1.3); Calcium 8.7 mg/dl (8.4-10.2); Carbon Dioxide 34 mmol/L (22.0-30.0); Globulin 2.4 g/dL (1.3-3.2); Glucose 110 mg/dl (74-100); Total Protein,Serum 5.7 g/dl (6.3-8.2)
[2022-06-27 17:53] LABS: NT Pro Brain Natriuretic Pep. 256 pg/mL (0-125)
[2022-06-27 18:03] LABS: Coronavirus 19, PCR Detected (NotDetected)
[2022-06-27 18:04] LABS: Troponin I < 0.01 ng/ml (0.00-0.034)
--- NOTE | 2022-06-27 18:49 | ECG_ITS ---
APPROVED REPORT Exam: Resting ECG HR:75 bpm ECG Measurements Heart Rate 75 AXES [place] 191 P 83 QRSd 80 QRS 16 QT 394 T 35 QTc 423 Conclusion SINUS RHYTHM LOW QRS VOLTAGE [QRS DEFLECTION < 0.5/1.0 mV IN LIMB/CHEST LEADS] ABNORMAL ECG UNCONFIRMED REPORT Electronically signed by : Mario Luke MD 06/28/2022 22:00:30
--- NOTE | 2022-06-27 18:51 | HMH.EDGENADL ---
Discharge Plan Disposition Patient Disposition: Admitted As Inpatient Condition: Serious Chief Complaint: Shortness of Breath/Dyspnea Prescriptions Prescriptions: No Action Ayana Ellipta 100-62.5-25 mcg blister with device 1 puff IH DAILY celecoxib 200 mg capsule 200 mg PO DAILY morphine (PF) in 0.9 % sod chl 100 mg/100 mL (1 mg/mL) prefilled pump reservoir See Rx Instructions continuous subcutaneous infusion .COMPLEX Rx Instructions: 5mg per day per pump continuous subcutaneous infusion 5mg pain pump,per day; pregabalin 25 mg capsule 25 mg PO DAILY Entresto 49-51 mg tablet 1 tab PO ONCE nitroglycerin 0.4 mg tablet, sublingual 0.4 mg SL Q5M PRN (Reason: chest pain) Qty: 20 0RF Rx Instructions: do not exceed 3 doses per episode furosemide [Lasix] 40 mg tablet 40 mg PO DAILY atorvastatin 40 MG tablet 40 mg PO HS clopidogrel 75 MG tablet 75 mg PO DAILY aspirin 81 MG tablet,delayed release (DR/EC) 81 mg PO DAILY pantoprazole 40 MG tablet,delayed release (DR/EC) 40 mg PO DAILY Rx Instructions: TAKE 1 TABLET BY MOUTH DAILY metoprolol succinate 25 MG tablet extended release 24 hr 25 mg PO DAILY albuterol sulfate 1.25 MG/3 ML solution for nebulization 1.25 mg IH Q6HP PRN (Reason: Dyspnea) 30 Days Qty: 100 1RF citalopram 40 MG tablet 40 mg PO HS pramipexole 0.125 MG tablet 0.125 mg PO TID Referrals Follow up/Referrals: Mario Luke MD [Primary Care Provider] - See instructions Clinical Impressions Clinical Impression: Cardiogenic shock Discharge ED Provider: Glynn Wu General Adult HPI General Chief complaint: Shortness of Breath/Dyspnea Stated complaint: soa swollen body Time Seen by Provider: 06/27/22 16:54 Mode of Arrival: Ambulatory Limitations: No Limitations Description of Symptoms (Recalled from ER Triage Doc. by RN): PT SENT FROM PCP FOR INCREASED SHORTNESS OF BREATH, EDEMA AND WEIGHT GAIN FOR ABOUT 2 WEEKS History of Present Illness HPI narrative: This is a 66-year-old male with history of hypertension, hyperlipidemia, COPD, CAD, CHF who is presenting with low blood pressure. Patient states that he went to his primary care provider today because he was swelling in his hands and feet and was feeling progressively weak. Was hypotensive on arrival to his primary care provider. Was sent to the ED because of this. On arrival to the ED, hypotensive with map of 50, but mentating well, complaining only of shortness of breath. In addition to having swelling in his hands and feet, patient has had dry cough, but denies other infectious symptoms, chest pain, neurologic deficits, or any other concerning history. Related Data Home Medications Medication Instructions Recorded Confirmed citalopram 40 mg tablet 40 mg PO HS MOOD 02/02/18 06/27/22 pramipexole 0.125 mg tablet 0.125 mg PO TID Restless leg 02/02/18 06/27/22 fluticasone fur. 100 mcg-umeclid 1 puff inhalation DAILY COPD 09/02/19 06/27/22 62.5 mcg-vilant 25 mcg inhalat.powder (Trelegy Ellipta) aspirin 81 mg tablet,delayed 81 mg PO DAILY Heart disease 08/12/21 06/27/22 release atorvastatin 40 mg tablet 40 mg PO HS Cholesterol 08/12/21 06/27/22 clopidogrel 75 mg tablet 75 mg PO DAILY Heart disease 08/12/21 06/27/22 metoprolol succinate 25 mg 25 mg PO DAILY High blood pressure 08/12/21 06/27/22 tablet,extended release 24 hr pantoprazole 40 mg tablet,delayed 40 mg PO DAILY GERD 08/12/21 06/27/22 release celecoxib 200 mg capsule 200 mg PO DAILY Pain 09/30/21 06/27/22 morphine (PF) 100 mg/100 mL(1 See Rx Instructions continuous 09/30/21 06/27/22 mg/mL) in 0.9% sod.chloride IV subcutaneous infusion .COMPLEX Pain pump resv pregabalin 25 mg capsule 25 mg PO DAILY Pain 05/27/22 06/27/22 furosemide 40 mg tablet (Lasix) 40 mg PO DAILY Fluid 06/09/22 06/27/22 sacubitril 49 mg-valsartan 51 mg 1 tab PO ONCE Daily 06/27/22 06/27/22
[2022-06-27 19:06] LABS: Lactic Acid 0.8 mmol/L (0.7-2.1)
--- NOTE | 2022-06-27 19:20 | PC.NURSE ---
DR. SUH NOTIFIED OF B/P 74/49. ORDERS RECEIVED AT THIS TIME
--- NOTE | 2022-06-27 20:51 | PC.NURSE ---
Pt able to stand and use urinal
[2022-06-27 21:07] LABS: Troponin I < 0.01 ng/ml (0.00-0.034)
--- NOTE | 2022-06-27 21:47 | EXP.HP ---
History of Present Illness *Admission Date: 06/27/22 *Reason for visit:: Shortness of air, swelling hands, feet, weakness *History of present illness: Mr. Barton is a 66-year-old male with a past medical history of Diastolic CHF, COPD, GERD, CAD and Hyperlipidemia. He presented to the ER from his PCP office due to weakness, hypotension, shortness of air and swelling in his hands and feet that he reports has been progressively worsening over a 1-week period. He reports that when he had the same symptoms in the past he was informed to double up on his diuretic, which he reports he was doing, but despite doubling up on his diuretic he reports that the swelling and shortness of air continued, but he became increasingly weak. In the ER he had blood pressures as low as the 70 range systolically. He was noted to have findings concerning for Pulmonary edema on Cxray. He has 1-2 plus hand edema and 3 plus ankle edema. His BNP is 256. In the ER he was given Lasix and placed on a Dobutamine gtt. Cardiology will be consulted. He was admitted with initial impression: Acute Decompensated CHF [facility] Disclaimer: The information contained in this section may have been updated after the patient was seen, as this information can be updated by other users. Medical History Angina pectoris COPD (chronic obstructive pulmonary disease) Coronary artery disease Dyspnea GERD (gastroesophageal reflux disease) HLD (hyperlipidemia) HTN (hypertension) HTN (hypertension) with goal to be determined Implantable intrathecal infusion pump present Lower extremity edema Oxygen dependent Post laminectomy syndrome Tobacco dependence syndrome Surgical History History of lumbar fusion Family History Other No significant family history Social History Smoking Status: Current every day smoker tobacco type: e-cigarettes second hand exposure: No alcohol intake: never substance use type: denies use current occupational status: retired Travel in the last 8 weeks: None household members: spouse housing: house current occupational exposures/hazards: No caffeine: Yes Review of Systems Constitutional Constitutional: Reports lethargy and Reports malaise Eyes Eyes: Reports system reviewed and no additional complaints, except as documented ENT Ears, Nose, Mouth, and Throat: Reports system reviewed and no additional complaints, except as documented *Cardiovascular Cardiovascular: Reports dyspnea, Reports leg edema and Reports pedal edema *Respiratory Respiratory: Reports dyspnea *Gastrointestinal Gastrointestinal: Reports system reviewed and no additional complaints, except as documented *Genitourinary Genitourinary: Reports system reviewed and no additional complaints, except as documented *Musculoskeletal Musculoskeletal: Reports system reviewed and no additional complaints, except as documented Integumentary/Breasts Skin/Breast: Reports system reviewed and no additional complaints, except as documented *Neurologic Neurologic: Reports system reviewed and no additional complaints, except as documented Psychiatric Psychiatric: Reports system reviewed and no additional complaints, except as documented Endocrine Endocrine: Reports system reviewed and no additional complaints, except as documented Hematologic/Lymphatic Hematologic/Lymphatic: Reports system reviewed and no additional complaints, except as documented Allergic/Immunologic Allergic/Immunologic: Reports system reviewed and no additional complaints, except as documented Meds Home Medications and Allergies Home Medications Medication Instructions Recorded Confirmed Type pramipexole 0.125 mg tablet 0.125 mg PO TID Restless leg 02/02/18 06/28/22 History aspirin 81 mg tablet,d
[2022-06-27 22:13] LABS: Iron 81 ug/dL (49-181)
[2022-06-27 22:22] LABS: Total Iron Binding Capacity 237 ug/dL (261-462)
[2022-06-27 22:46] LABS: Thyroid Stimulating Hormone 2.49 uIU/mL (0.465-4.68)
[2022-06-27 23:03] LABS: Chloride 100 mmol/L (98-107); Sodium 137 mmol/L (136-145)
[2022-06-27 23:04] LABS: Potassium 3.5 mmoL/L (3.5-5.1)
[2022-06-27 23:06] LABS: Anion Gap 9.5 mEq/L (5-15); Blood Urea Nitrogen 28 mg/dl (9-20); Calcium 8.5 mg/dl (8.4-10.2); Carbon Dioxide 31 mmol/L (22.0-30.0); Creatinine Clearance Estimated 62 mL/min (50-200); Estimated Glomerular Filt Rate 38 ml/min (>60); GFR (African American) 46 ML/MIN (>60); Glucose 109 mg/dl (74-100)
[2022-06-27 23:20] LABS: Troponin I < 0.01 ng/ml (0.00-0.034)
[2022-06-27 23:38] LABS: Thyroid Stimulating Hormone 2.31 uIU/mL (0.465-4.68)
[2022-06-28] VITALS (19 sets, daily range): BP systolic 82–140; BP diastolic 46–105; PULSE 90–119; RESP 11–23; TEMP 36.7–37; O2SAT 92–99; BMI 35.2; BMI 34.7
--- NOTE | 2022-06-28 00:05 | PC.NURSE ---
pt arrived to floor via stretcher @ [id number].
--- NOTE | 2022-06-28 00:27 | PC.NURSE ---
pt admitted to 217 from ER, pt's bp 140/105 decreased dobutamine drip to 2mcg/kg/min, will start bumex drip per order but need house manager to get the bumex from the ER omni 0030-bp dropped to 67/45, increased drip to 4mcg/kg/min 30-bp 83/49
--- NOTE | 2022-06-28 04:58 | PC.NURSE ---
DOBUTAMINE GTT INCREASED TO 6MCG/KG/MIN D/T BP 84/43. PT A&OX4
--- NOTE | 2022-06-28 06:53 | PC.NURSE ---
pt's dobutamine is at 6mcg/kg/min (current bp 94/47), bumex drip at 0.85mg/hr=5.1mL/hr with 900UOP from 0200 til now, pt sitting up in bed comfortably, no needs at this time, call light within reach
[2022-06-28 08:12] LABS: Basophils % 0.5 % (0.1-2.0); Eosinophils # 0.3 K/mm3 (0.0-0.4); Hematocrit 28.1 % (42.0-52.0); Hemoglobin 9.5 g/dL (14.1-18.0); Lymphocytes # 1.8 K/mm3 (0.7-4.5); Lymphocytes % 27.1 % (10-50); Mean Corpuscular HGB Conc 33.9 g/dL (31.8-35.4); Mean Corpuscular Volume 94.3 fl (80-94); Mean Platelet Volume 8.8 fl (7.4-10.4); Monocytes # 0.6 K/mm3 (0.1-1.0); Monocytes % 8.2 % (1.7-9.3); Neutrophils # 4.1 K/mm3 (1.8-7.8); Neutrophils % 60.3 % (37.0-80.0); Platelet Count 182 K/mm3 (142-424); Red Blood Count 2.98 M/mm3 (4.60-6.20); Red Cell Distribution Width 14.6 % (11.5-17.5); White Blood Count 6.8 K/mm3 (4.8-10.8)
[2022-06-28 08:20] LABS: Chloride 104 mmol/L (98-107); Potassium 3.9 mmoL/L (3.5-5.1); Sodium 138 mmol/L (136-145)
[2022-06-28 08:23] LABS: Anion Gap 10.9 mEq/L (5-15); Blood Urea Nitrogen 25 mg/dl (9-20); Carbon Dioxide 27 mmol/L (22.0-30.0); Creatinine Clearance Estimated 70 mL/min (50-200); Estimated Glomerular Filt Rate 43 ml/min (>60); GFR (African American) 52 ML/MIN (>60)
[2022-06-28 08:24] LABS: Calcium 8.7 mg/dl (8.4-10.2); Glucose 146 mg/dl (74-100); Magnesium 1.9 mg/dl (1.6-2.3)
--- NOTE | 2022-06-28 15:44 | EXP.ACUTE.PN ---
Subjective *Date: 06/28/22 *Time: 19:44 Interval history: Patient is stable on his baseline oxygen today. Afebrile. Blood pressure improving. Responding well to diuresis with over 1.5 L negative since admission. Denies chest pain, nausea, vomiting confusion. Medical Exam Vital signs and Labs for Last 24 Hours: Vital Signs Temp Pulse Pulse Resp BP BP Pulse Ox 06/28/22 14:00 94 H 16 96/59 L 96 06/28/22 12:00 102 H 18 109/65 L 94 L 06/28/22 12:06 98.2 F 06/28/22 08:00 112 H 97 06/28/22 10:00 96 H 16 109/61 L 96 06/28/22 08:00 112 H 16 95/46 L 97 06/28/22 06:00 99 H 13 94/46 L 99 06/28/22 05:00 103 H 18 96/52 L 98 06/28/22 04:00 97 H 16 98/50 L 93 L 06/28/22 03:00 90 14 96/51 L 96 06/28/22 04:00 91 H 06/28/22 04:00 98.6 F 06/28/22 00:21 91 H 06/28/22 00:00 98.0 F 06/28/22 02:00 96 H 14 99/50 L 96 06/28/22 01:00 99 H 14 88/47 L 92 L 06/28/22 00:30 97 06/28/22 00:21 93 H 23 140/105 H 96 06/27/22 23:34 98 F 88 18 110/70 06/27/22 23:00 87 87/40 L 95 06/27/22 22:30 85 95/50 L 98 06/27/22 22:00 87 104/44 L 99 06/27/22 21:32 110 H 109/61 L 99 06/27/22 21:00 86 113/63 93 L 06/27/22 20:32 80 136/76 96 06/27/22 20:02 81 112/65 97 06/27/22 19:48 87 18 125/54 L 98 06/27/22 19:18 77 18 74/49 L 97 06/27/22 18:20 98.0 F 86 18 82/54 L 95 06/27/22 16:50 97.7 F 84 18 73/34 L 97 Intake and Output 06/27/22 06/28/22 06/28/22 23:59 07:59 15:59 Intake Total 231 / 951 720 / 951 Output Total 1200 / 2900 1700 / 2900 Balance -969 / -1948 - / Intake: Intake, Oral Amount 60 / 780 720 / 780 Intake, Total IV Amount 171 / 171 Bumetanide 25 mg In 0.9 % 27 / 27 Sodium Chloride 150 ml @ 5 mls/ hr IV .Q24H [facility] Rx#:[id number] Dobutamine HCl/D5w 250 ml @ 2.5 144 / 144 MCG/KG/MIN 8.403 mls/hr IV . Q25H [facility] Rx#:[id number] Output: Output, Urine Amount 1050 / 2750 1700 / 2750 Output, Urine Amount (Catheter) 150 / 150 Martell 150 / 150 Other: Number of Voids 0 Number of Unmeasured Voids 0 Weight 112.037 kg 112.6 kg Patient Weight 06/28/22 23:59 Weight 112.6 kg Laboratory Results - last 24 hr 06/27/22 17:20: WBC 5.4, RBC 2.95 L, Hgb 9.4 L, Hct 28.2 L, MCV 95.8 H, MCH 31.8 H, MCHC 33.2, RDW 14.6, Plt Count 182, MPV 8.5, Neut % (Auto) 47.5, Lymph % (Auto) 37.0, Posey % (Auto) 9.5 H, Eos % (Auto) 5.4, Baso % (Auto) 0.7, Neut # (Auto) 2.6, Lymph # (Auto) 2.0, Posey # (Auto) 0.5, Eos # (Auto) 0.3, Baso # (Auto) 0.0 06/27/22 17:20: Sodium 139, Potassium 4.0, Chloride 100, Carbon Dioxide 34 H, Anion Gap 9.0, BUN 28 H, Creatinine 2.20 H, Estimated Creat Clear 51, Estimated GFR 30 L, Est GFR ( Amer) 36 L, Glucose 110 H, Calcium 8.7, Total Bilirubin 0.3, AST 27, ALT 17, Alkaline Phosphatase 85, Troponin I < 0.01, NT-Pro-B Natriuret Pep 256 H, Total Protein 5.7 L, Albumin 3.3 L, Globulin 2.4, Albumin/Globulin Ratio 1.4 06/27/22 17:20: SARS-CoV-2 (PCR) Detected A, Influenza A Untype (PCR) Not detected, Influenza Type B (PCR) Not detected 06/27/22 17:20: Lactate 0.8 06/27/22 17:20: Iron 81, TIBC 237 L, Iron Saturation 34.64897, TSH 2.49 06/27/22 20:31: Troponin I < 0.01 06/27/22 22:41: Sodium 137, Potassium 3.5, Chloride 100, Carbon Dioxide 31 H, Anion Gap 9.5, BUN 28 H, Creatinine 1.80 H, Estimated Creat Clear 62, Estimated GFR 38 L, Est GFR ( Amer) 46 L D, Glucose 109 H, Calcium 8.5, Magnesium 2.0, Troponin I < 0.01 06/27/22 22:41: TSH 2.31 06/28/22 07:56: WBC 6.8 D, RBC 2.98 L, Hgb 9.5 L, Hct 28.1 L, MCV 94.3 H, MCH 32.0 H, MCHC 33.9, RDW 14.6, Plt Count 182, MPV 8.8, Neut % (Auto) 60.3, Lymph % (Auto) 27.1, Posey % (Auto) 8.2, Eos % (Auto) 4.0, Baso % (Auto) 0.5, Neut # (Auto) 4.1, Lymph # (Auto) 1.8, Posey # (Auto) 0.6, Eos # (Auto) 0.3,
--- NOTE | 2022-06-28 15:46 | ECG_ITS ---
APPROVED REPORT Exam: Resting ECG HR:88 bpm ECG Measurements Heart Rate 88 AXES [place] 170 P 93 QRSd 82 QRS -4 QT 354 T 63 QTc 400 Conclusion SINUS RHYTHM LOW QRS VOLTAGE [QRS DEFLECTION < 0.5/1.0 mV IN LIMB/CHEST LEADS] ABNORMAL ECG UNCONFIRMED REPORT Electronically signed by : Mario Luke MD 07/01/2022 17:00:38
[2022-06-28 17:14] LABS: Chloride 104 mmol/L (98-107); Sodium 142 mmol/L (136-145)
[2022-06-28 17:17] LABS: Blood Urea Nitrogen 26 mg/dl (9-20); Calcium 8.9 mg/dl (8.4-10.2); Carbon Dioxide 28 mmol/L (22.0-30.0); Creatinine Clearance Estimated 63 mL/min (50-200); Estimated Glomerular Filt Rate 38 ml/min (>60); GFR (African American) 46 ML/MIN (>60); Glucose 155 mg/dl (74-100)
[2022-06-28 17:37] LABS: Troponin I < 0.01 ng/ml (0.00-0.034)
--- NOTE | 2022-06-28 19:39 | PC.NURSE ---
pt has done well this shift, has remained on 3L NC t/o shift, dobutamine gtt stopped at approx 1200, SBP has remained at 90 or above, pt did complain of chest pain one time and an EKG was done and showed SR, labs ordered per MD, has had good urine output this shift, ambulating to BR with SB assist
[2022-06-29] VITALS (8 sets, daily range): BP systolic 82–108; BP diastolic 42–59; PULSE 78–110; RESP 16–33; TEMP 36.6–37.2; O2SAT 90–99; BMI 34.2
[2022-06-29 08:04] LABS: Alanine Aminotransferase 16 U/L (12-78); Albumin Level 3.3 g/dl (3.5-5.0); Albumin/Globulin Ratio 1.2 (1.1-1.8); Alkaline Phosphatase 65 U/L (38-126); Anion Gap 12.9 mEq/L (5-15); Aspartate Amino Transferase 38 U/L (17-59); Bilirubin,Total 0.5 mg/dl (0.2-1.3); Blood Urea Nitrogen 30 mg/dl (9-20); Calcium 8.8 mg/dl (8.4-10.2); Carbon Dioxide 27 mmol/L (22.0-30.0); Chloride 105 mmol/L (98-107); Creatinine Clearance Estimated 65 mL/min (50-200); Estimated Glomerular Filt Rate 40 ml/min (>60); GFR (African American) 49 ML/MIN (>60); Globulin 2.8 g/dL (1.3-3.2); Glucose 101 mg/dl (74-100); Magnesium 1.9 mg/dl (1.6-2.3); Potassium 4.9 mmoL/L (3.5-5.1); Sodium 140 mmol/L (136-145); Total Protein,Serum 6.1 g/dl (6.3-8.2)
[2022-06-29 10:50] LABS: Basophils % 0.7 % (0.1-2.0); Eosinophils # 0.3 K/mm3 (0.0-0.4); Eosinophils % 5.6 % (0.1-12.0); Hematocrit 29.1 % (42.0-52.0); Hemoglobin 9.6 g/dL (14.1-18.0); Lymphocytes # 1.6 K/mm3 (0.7-4.5); Lymphocytes % 33.9 % (10-50); Mean Corpuscular HGB Conc 33.1 g/dL (31.8-35.4); Mean Corpuscular Hemoglobin 31.6 pg (27.0-31.2); Mean Corpuscular Volume 95.4 fl (80-94); Mean Platelet Volume 8.5 fl (7.4-10.4); Monocytes # 0.4 K/mm3 (0.1-1.0); Monocytes % 8.7 % (1.7-9.3); Neutrophils # 2.4 K/mm3 (1.8-7.8); Neutrophils % 51.1 % (37.0-80.0); Platelet Count 168 K/mm3 (142-424); Red Blood Count 3.05 M/mm3 (4.60-6.20); Red Cell Distribution Width 14.8 % (11.5-17.5); White Blood Count 4.6 K/mm3 (4.8-10.8)
--- NOTE | 2022-06-29 13:00 | EXP.DC.SUM ---
General Admission date:: 06/28/22 Discharge date: 06/29/22 HPI HPI HPI: Mr. Barton is a 66-year-old male with a past medical history of Diastolic CHF, COPD, GERD, CAD and Hyperlipidemia. He presented to the ER from his PCP office due to weakness, hypotension, shortness of air and swelling in his hands and feet that he reports has been progressively worsening over a 1-week period. He reports that when he had the same symptoms in the past he was informed to double up on his diuretic, which he reports he was doing, but despite doubling up on his diuretic he reports that the swelling and shortness of air continued, but he became increasingly weak. In the ER he had blood pressures as low as the 70 range systolically. He was noted to have findings concerning for Pulmonary edema on Cxray. He has 1-2 plus hand edema and 3 plus ankle edema. His BNP is 256. In the ER he was given Lasix and placed on a Dobutamine gtt. Cardiology will be consulted. He was admitted with initial impression: Acute Decompensated CHF Hospital Course Hospital Course Hospital Course: 66-year-old male with past medical history of Diastolic CHF with preserved EF, COPD, CAD, Hyperlpidemia presents with a 1-week history of increasing shortness of air and BLE swelling, doubled his diuretic and became progressively weak, went to his PCP and was hypotensive.? Tolerating Bumex drip. Transition to as needed dosing. Weaned off dobutamine within 24 hours. Blood pressure improved. No confusion or symptoms of low blood pressure. Stable on baseline oxygen. Stable for discharge home. Problems addressed as follows: - Acute Decompensated CHF Admitted for diuresis. Tolerated well with significant output during hospitalization. Put out over 3 L. Discontinue Bumex drip and transition to as needed dosing. Initially had close following of ins and outs with Martell catheter, removed over 24 hours before discharge. Of note, troponins were undetectable. TSH within normal range. Previous echo reviewed with preserved ejection fraction and diastolic dysfunction. As he is on his baseline oxygen, had good response to diuresis, has stable blood pressure, will discharge home to continue outpatient therapy. Close follow-up with PCP within a week. Repeat labs to monitor kidney function and electrolytes. Continue medications per discharge recommendation. Holding antihypertensives at this time. - COVID positive Found to be COVID-positive on admission. Initiated on remdesivir while admitted. Stable on baseline oxygen requirement. - KAYLEE on CKD Improved to 1.7 on day of discharge. Initially 2.2 on admission. Concern for component of cardiorenal syndrome. Would benefit from close follow-up labs - COPD: Continue home MDI's - CAD: Holding Metoprolol with hypotension, Continue statin, plavix - GERD: Continue Protonix - Hyperlipidemia: Continue Statin Exam Data for Last 24 hours Vital signs and Labs for Last 24 Hours: Temp Pulse Resp BP Pulse Ox 98.1 F 88 16 100/55 L 92 L 06/29/22 08:00 06/29/22 12:00 06/29/22 12:00 06/29/22 12:00 06/29/22 12:00 Laboratory Results - last 24 hr 06/28/22 16:38: Sodium 142, Potassium 5.0 D, Chloride 104, Carbon Dioxide 28, Anion Gap 15.0, BUN 26 H, Creatinine 1.80 H, Estimated Creat Clear 63, Estimated GFR 38 L, Est GFR ( Amer) 46 L, Glucose 155 H, Calcium 8.9, Troponin I < 0.01 06/29/22 07:33: Sodium 140, Potassium 4.9, Chloride 105, Carbon Dioxide 27, Anion Gap 12.9, BUN 30 H, Creatinine 1.70 H, Estimated Creat Clear 65, Estimated GFR 40 L, Est GFR ( Amer) 49 L, Glucose 101 H D, Calcium 8.8, Magnesium 1.9, Total Bilirubin 0.5, AST 38 D, ALT 16, Alkaline Phosphatase 65, Total Protein 6.1 L, Albumin 3.3 L, Globulin 2.8, Albumin/Globulin Ratio 1.2 06/29/22 10:38: WBC 4.6 L D, RBC 3.05 L, Hgb 9.6 L, Hct 29.1 L, MCV 95.4 H, MCH 31.6 H, MCHC 33.1, RDW 14.8, Plt Count 168, MPV 8.5, Neut % (Auto) 51.1, Lymph % (Auto) 33.9, Humphreys % (Auto)
--- NOTE | 2022-06-30 14:56 | CARE MANAGER ---
Patient doing well post hospitalization. LORNE Salgado
== END 2022-06-29 14:57 | disposition home or self-care (01) | DRG 291 ==
LOC: ER 20:25 → 2ND 22:41
PROVIDERS: Nurse Practitioner Family; Admitting Provider Internal Medicine Adolescent Medicine; Emergency Provider Emergency Medicine; PCP Internal Medicine Adolescent Medicine; Visit Provider Internal Medicine Adolescent Medicine
DX: I50.33 Acute on chronic diastolic (congestive) heart failure (principal); U07.1 COVID-19; R57.0 Cardiogenic shock; N17.9 Acute kidney failure, unspecified; J44.9 Chronic obstructive pulmonary disease, unspecified; I25.10 Atherosclerotic heart disease of native coronary artery without angina pectoris; I11.0 Hypertensive heart disease with heart failure; K21.9 Gastro-esophageal reflux disease without esophagitis; E78.5 Hyperlipidemia, unspecified; Z99.81 Dependence on supplemental oxygen
CPT/HCPCS: 36415; 71045; 80048; 80053; 83540; 83550; 83605; 83735; 83880; 84443; 84484; 85025; 93005; 94640; 99285; C9803; J0696; J1250; U0003; U0005

== ENCOUNTER 2022-07-03 10:52 | Observation (INO) | payer MEDICARE, SELFPAY ==
[2022-07-03] VITALS (9 sets, daily range): BP systolic 84–109; BP diastolic 50–84; PULSE 72–106; RESP 13–19; TEMP 36.6–37.1; O2SAT 94–98; BMI 34.9
[2022-07-03 10:13] LABS: Chloride 96 mmol/L (98-107); Sodium 136 mmol/L (136-145)
[2022-07-03 10:14] LABS: Potassium 4.4 mmoL/L (3.5-5.1)
[2022-07-03 10:16] LABS: Blood Urea Nitrogen 40 mg/dl (9-20); Estimated Glomerular Filt Rate 24 ml/min (>60); GFR (African American) 29 ML/MIN (>60)
[2022-07-03 10:17] LABS: Anion Gap 11.4 mEq/L (5-15); Calcium 8.8 mg/dl (8.4-10.2); Carbon Dioxide 33 mmol/L (22.0-30.0); Glucose 116 mg/dl (74-100)
--- NOTE | 2022-07-03 11:20 | PC.NURSE ---
Pt arrived to the floor at this time
[2022-07-03 12:40] LABS: Coronavirus 19, PCR Not Detected (NotDetected); Influenza A, PCR Not Detected (NotDetected); Influenza B, PCR Not Detected (NotDetected)
--- NOTE | 2022-07-03 13:31 | PC.NURSE ---
SPOKE WITH DR MONSIVAIS ABOUT ADMISSION. STATED TO PUT IN A CARDIOLOGY CONSULT ON THE PATIENT. ORDERED TO START NS AT 75ML/HR AND THEN IN 3 HOURS GIVE 80MG OF IV LASIX. HE ALSO REQUESTED A BMP AT 1800. IS OKAY WITH PATIENT HAVING A CARDIAC DIET.
--- NOTE | 2022-07-03 14:20 | XR_ITS ---
FINAL REPORT CLINICAL HISTORY: chf shortness of breath, patient's condition is degrading. COMPARISON: 06/27/2022 FINDINGS: A single view of the chest was obtained. The heart is normal in size. The mediastinum is unremarkable. There is bibasilar scarring. There are changes of emphysema. There is no acute pulmonary abnormality. IMPRESSION: No acute cardiopulmonary process. Reviewed, Interpreted and Dictated by Charly Meléndez MD Transcribed by Consuelo Ramos Authenticated and [facility]
--- NOTE | 2022-07-03 14:22 | CA_ITS ---
APPROVED REPORT EXAM: Comprehensive 2D, Doppler, and color-flow Echocardiogram Anchorer: Malina Cardenas RT(R) Ht: 5 ft 11 in Wt: 250lbs BSA: 2.32 BP: 91/51 mmHg Indications: acute CHF, COPD, smoker, HTN, SOB, hyperlipidemia, CAD, O2 dependent, tachycardia, ILDEFONSO, near syncope, GERD 2D Dimensions LVOT 2.10 cm (M/F) 1.5-2.5 LA Volume 22.80 mL LA Volume Index 9.83 mL/m2 (M/F) 16-34 M-Mode Dimensions RVDd 2.37 cm (0.9-2.6) LA Diam 3.15 cm (1.9-4.0) LVDd 4.89 cm (3.5-5.7) Ao Diam 2.78 cm (2.0-3.7) LVDs 4.01 cm (3.5-5.7) IVSd 1.03 cm (0.6-1.1) PWd 1.03 cm (0.6-1.1) EF (Teich) 37.30% FS 18.00% EDV (Teich) 112.30 mL ESV (Teich) 70.40 mL LV Diastology E Decel Time 170.00 (160-240 msec) E/A Ratio 1.0 MED E' 10.00 (< 7 cm/sec) E'/MED E' Ratio 11.78 (>14) LAT E' 10.80 (<10 cm/sec) E/LAT E' Ratio 10.91 (>14) Mitral Valve MV E Max Blu. 118.00 (40-130 cm/s) MV A Velocity 118.00 (40-130 cm/s) E/A Ratio 1.00 MV Decel. Time 170.00 (160-240 ms) MV PHT 50.00 ms Left Ventricle Left atrium is mildly enlarged, left ventricle is normal size, mild concentric left ventricular hypertrophy, estimated ejection fraction 55% with no regional wall motion abnormality, diastolic parameters are inconclusive. Right Ventricle Right atrium and right ventricle are mildly enlarged with normal contractility. Aortic Valve Aortic valve is minimally thickened and calcified without aortic stenosis aortic insufficiency. Mitral Valve Mitral valve is grossly normal, there is mild mitral regurgitation. Tricuspid Valve Tricuspid valve grossly normal, there is mild tricuspid regurgitation, tricuspid regurgitation jet velocity is inadequate for calculation of the right ventricular systolic pressure. Pulmonic Valve Pulmonic valve is poorly visualized. Great Vessels Aortic root is normal size. Inferior vena cava is poorly visualized. Pericardium No significant pericardial effusion noted. Conclusion 1. Biatrial enlargement, normal left ventricular size, mild concentric left ventricular hypertrophy, estimated ejection fraction 55% with no regional wall motion abnormality, diastolic parameters are inconclusive. 2. Mildly enlarged right ventricle with normal contractility. 3. Mild mitral and tricuspid regurgitation. 4. No significant pericardial effusion noted. 5. Inferior vena cava is poorly visualized. Electronically signed by : Indio Wasserman MD 07/04/2022 16:00:45
--- NOTE | 2022-07-03 14:25 | EXP.CARD.CON ---
History of Present Illness History of Present Illness Consult date: 07/03/22 Requesting physician: Mario Luke Consult reason: shortness of breath Chief complaint: soa, fatigue Additional Medical History:: Significant past medical Coronary artery disease COPD requiring 3 L oxygen via nasal cannula Recent KAYLEE Recent COVID infection History of present illness: 66-year-old white male with above past medical history presented to cardiology office today for hospital follow-up with complaints of increased shortness of air, lower extremity swelling, and generalized weakness. Patient reports he was recently hospitalized at this facility on 06/27/2022 for CHF exacerbation and COVID. Was treated with IV diuretics and DC'd home. Reports has been taking meds as directed and continued to have worsening shortness of breath and fatigued. Reports has had to increase his normal 3 L of oxygen to 5 L of oxygen with any exertion. Denies any chest pain. Creatinine today was noted to be 2.7 increased from 1.7 on discharge date during last admission. On examination patient is resting comfortably, maintaining oxygen saturation of 96% on 3 L oxygen via nasal cannula. Currently chest x-ray, echo, ABG, and further labs pending. [facility] Disclaimer: The information contained in this section may have been updated after the patient was seen, as this information can be updated by other users. Medical History Angina pectoris COPD (chronic obstructive pulmonary disease) Coronary artery disease Dyspnea GERD (gastroesophageal reflux disease) HLD (hyperlipidemia) HTN (hypertension) HTN (hypertension) with goal to be determined Implantable intrathecal infusion pump present Lower extremity edema Oxygen dependent Post laminectomy syndrome Tobacco dependence syndrome Surgical History History of lumbar fusion Family History Other No significant family history Social History Smoking Status: Current every day smoker tobacco type: e-cigarettes second hand exposure: No alcohol intake: never substance use type: denies use current occupational status: retired Travel in the last 8 weeks: None household members: spouse housing: house current occupational exposures/hazards: No caffeine: Yes Review of Systems Review of Systems Review of systems:: pertinent systems reviewed and negative unless documented below Constitutional Constitutional: Reports fatigue *Cardiovascular Cardiovascular: Reports dyspnea on exertion *Respiratory Respiratory: Reports dyspnea on exertion Endocrine Endocrine: Reports fatigue Exam Data for Last 24 hours Vital signs and Labs for Last 24 Hours: Temp Pulse Resp BP Pulse Ox 98.2 F 106 H 18 85/54 L 94 L 07/03/22 11:25 07/03/22 11:25 07/03/22 11:25 07/03/22 11:25 07/03/22 11:25 Laboratory Results - last 24 hr 07/03/22 09:19: Sodium 136, Potassium 4.4, Chloride 96 L, Carbon Dioxide 33 H, Anion Gap 11.4, BUN 40 H, Creatinine 2.70 H, Estimated GFR 24 L, Est GFR ( Amer) 29 L, Glucose 116 H, Calcium 8.8 07/03/22 12:12: SARS-CoV-2 (PCR) Not detected, Influenza A Untype (PCR) Not detected, Influenza Type B (PCR) Not detected I & O for Last 24 hours: Intake & Output 06/30/22 07/01/22 07/02/22 07/03/22 23:59 23:59 23:59 23:59 Output Total 300 / 300 Balance -300 / -300 Weight 250 lb 3 oz Constitutional Constitutional: no acute distress *Routine Respiratory Exam Respiratory: Present wheezes and symmetric chest movement *Routine Cardiovascular Exam Cardiovascular: Present RRR, Normal S1 and Normal S2 *Routine Abdominal Exam Abdominal: Present soft and normoactive bowel sounds; Absent tenderness *Routine Extremities Exam Extremities: Present edema, full ROM an
[2022-07-03 14:48] LABS: Basophils % 0.5 % (0.1-2.0); Eosinophils # 0.4 K/mm3 (0.0-0.4); Eosinophils % 6.9 % (0.1-12.0); Hematocrit 28.4 % (42.0-52.0); Hemoglobin 9.4 g/dL (14.1-18.0); Lymphocytes # 1.9 K/mm3 (0.7-4.5); Lymphocytes % 35.2 % (10-50); Mean Corpuscular HGB Conc 33.2 g/dL (31.8-35.4); Mean Corpuscular Hemoglobin 32.3 pg (27.0-31.2); Mean Corpuscular Volume 97.3 fl (80-94); Mean Platelet Volume 8.8 fl (7.4-10.4); Monocytes # 0.6 K/mm3 (0.1-1.0); Monocytes % 10.3 % (1.7-9.3); Neutrophils # 2.6 K/mm3 (1.8-7.8); Neutrophils % 47.1 % (37.0-80.0); Platelet Count 214 K/mm3 (142-424); Red Blood Count 2.91 M/mm3 (4.60-6.20); Red Cell Distribution Width 14.6 % (11.5-17.5); White Blood Count 5.5 K/mm3 (4.8-10.8)
--- NOTE | 2022-07-03 15:00 | PC.NURSE ---
Notified Dr. Jaeger office of consult on patient
[2022-07-03 15:05] LABS: ABG Base Excess 3.1 mmol/L (-2.4-2.3); ABG Oxygen Saturation 93 % (90-100); ABG PH 7.33 mmol/L (7.35-7.45); ABG PO2 67.6 mmhg (80-100); ABG TCO2 30.7 mmhg (23-27)
[2022-07-03 15:07] LABS: Allen's Test ACCEPTABLE; Oxygen 3 LPM %; Source Right Radial
[2022-07-03 15:10] LABS: ABG PCO2 55.8 mmhg (35.0-45.0)
--- NOTE | 2022-07-03 15:18 | EXP.PULM.CON ---
History of Present Illness History of present illness: Mr. Barton is a 66-year-old male history of heart failure, COPD presents hospital worsening respiratory swelling and worsening lower extremity swelling and was admitted for new oxygen requirements and CHF exacerbation and pulmonary was called for further evaluation [facility] Disclaimer: The information contained in this section may have been updated after the patient was seen, as this information can be updated by other users. Medical History Angina pectoris COPD (chronic obstructive pulmonary disease) Coronary artery disease Dyspnea GERD (gastroesophageal reflux disease) HLD (hyperlipidemia) HTN (hypertension) HTN (hypertension) with goal to be determined Implantable intrathecal infusion pump present Lower extremity edema Oxygen dependent Post laminectomy syndrome Tobacco dependence syndrome Surgical History History of lumbar fusion Family History Other No significant family history Social History Smoking Status: Current every day smoker tobacco type: e-cigarettes second hand exposure: No alcohol intake: never substance use type: denies use current occupational status: retired Travel in the last 8 weeks: None household members: spouse housing: house current occupational exposures/hazards: No caffeine: Yes Review of Systems Constitutional Constitutional: Reports anorexia, Reports body ache(s) and Reports fatigue Eyes Eyes: Denies eye discharge, Denies dry eyes, Denies irritation and Denies itchy eyes ENT Ears, Nose, Mouth, and Throat: Denies epistaxis, Denies facial pain, Denies lip swelling and Denies throat swelling *Cardiovascular Cardiovascular: Reports dyspnea, Reports dyspnea on exertion, Reports leg edema and Reports orthopnea *Respiratory Respiratory: Reports chest congestion, Reports cough, Reports dyspnea, Reports dyspnea on exertion, Denies excessive phlegm production and Reports wheezing *Gastrointestinal Gastrointestinal: Denies abdominal pain, Denies belching and Denies cramping *Musculoskeletal Musculoskeletal: Reports back pain, Reports myalgias and Reports other (No small joint swelling or Pain) Psychiatric Psychiatric: Denies homicidal ideation and Denies suicidal ideation Endocrine Endocrine: Reports fatigue and Denies heat intolerance Hematologic/Lymphatic Hematologic/Lymphatic: Denies easy bleeding and Denies lymphadenopathy Allergic/Immunologic Allergic/Immunologic: Denies itchy eyes, Denies lip swelling, Denies throat swelling and Reports wheezing Pulmonology Exam Inpatient Vital signs and Labs for Last 24 Hours: Temp Pulse Resp BP Pulse Ox 98.7 F 72 16 109/84 L 96 07/03/22 14:33 07/03/22 14:33 07/03/22 14:33 07/03/22 14:33 07/03/22 14:33 Laboratory Results - last 24 hr 07/03/22 09:19: Sodium 136, Potassium 4.4, Chloride 96 L, Carbon Dioxide 33 H, Anion Gap 11.4, BUN 40 H, Creatinine 2.70 H, Estimated GFR 24 L, Est GFR ( Amer) 29 L, Glucose 116 H, Calcium 8.8 07/03/22 09:20: WBC 5.5, RBC 2.91 L, Hgb 9.4 L, Hct 28.4 L, MCV 97.3 H, MCH 32.3 H, MCHC 33.2, RDW 14.6, Plt Count 214 D, MPV 8.8, Neut % (Auto) 47.1, Lymph % (Auto) 35.2, [place] % (Auto) 10.3 H, Eos % (Auto) 6.9, Baso % (Auto) 0.5, Neut # (Auto) 2.6, Lymph # (Auto) 1.9, [place] # (Auto) 0.6, Eos # (Auto) 0.4, Baso # (Auto) 0.0 07/03/22 12:12: SARS-CoV-2 (PCR) Not detected, Influenza A Untype (PCR) Not detected, Influenza Type B (PCR) Not detected 07/03/22 14:38: Specimen Source Right radial, O2 % 3 lpm, ABG pH 7.33 L, ABG pCO2 55.8 H, ABG pO2 67.6 L, ABG HCO3 29.0 H, ABG Total CO2 30.7 H, ABG O2 Saturation 93, ABG Base Excess 3.1 H, Jose Miguel Test Acceptable I & O for Labs for Last 24 Hours: Intake & Output 06/30/22 07/01/22 07/02/22 0
--- NOTE | 2022-07-03 16:50 | PC.NURSE ---
SPOKE WITH DR MONSIVAIS. HE STATED TO DC THE LASIX GIVE A 250ML BOLUS FROM THE BAG THAT WAS ALREADY HANGING AND CONTINUE FLUIDS AT 75ML/HR THEN GET BLOOD CULTURES AND START CEFEPIME 2 GRAMS EVERY 12 HOURS AZITHROMYCIN 500 MG IV ONE TIME AND TO ALSO DO SOLUMEDROL 125MG ONE TIME AND THEN DO 80 MG EVERY 6 HOURS THERE AFTER.
[2022-07-03 18:03] LABS: Chloride 96 mmol/L (98-107); Potassium 4.2 mmoL/L (3.5-5.1); Sodium 134 mmol/L (136-145)
[2022-07-03 18:05] LABS: Blood Urea Nitrogen 38 mg/dl (9-20); Creatinine Clearance Estimated 47 mL/min (50-200); Estimated Glomerular Filt Rate 27 ml/min (>60); GFR (African American) 33 ML/MIN (>60)
[2022-07-03 18:06] LABS: Anion Gap 10.2 mEq/L (5-15); Calcium 8.5 mg/dl (8.4-10.2); Carbon Dioxide 32 mmol/L (22.0-30.0); Glucose 126 mg/dl (74-100)
--- NOTE | 2022-07-03 18:18 | PC.NURSE ---
PATIENT HAS DONE WELL. BP HAS BEEN ON LOWER END. ENCOURAGED PATIENT TO HAVE SOMEONE BRING HOME MEDS AND CPAP IF ABLE. DID SPEAK WITH [facility] ABOUT CURRENT SETTINGS IF OUR MACHINE WAS NEEDED. RESPIRATORY NOTIFIED. NO COMPLAINTS. SWELLING NOTED TO LEGS. 250ML BOLUS GIVEN. ADMINISTERED AZITHROMYCIN.
--- NOTE | 2022-07-03 18:58 | EXP.HP ---
History of Present Illness *Admission Date: 07/03/22 *Reason for visit:: Admitted from cardiology clinic *History of present illness: 66-year-old male with long history of emphysema, diastolic dysfunction, CPAP dependence and chronic respiratory failure along with chronic kidney disease who was recently discharged from this hospital after being admitted for CHF exacerbation with significant hypotension, worsening kidney disease and COVID-19 pneumonitis. Was treated during the hospitalization with aggressive diuresis but also with pressor therapy because of his hypotension, remdesivir for COVID-19, and discharged home a couple of days ago. He notes that he felt well for the first day, was continuing on his regular medications from previous to the hospitalization and unfortunately 1 day before coming back to the cardiology clinic for regular follow-up became very dyspneic. He describes it as suffocating especially when he got up to walk across the floor. Denies chest pain, denies ankle swelling or sputum production. He actually took an extra Lasix tablet at home but this did not help and he arrived at cardiology clinic this morning. In the clinic he was found to be dyspneic. Hypotensive, with lower oxygen readings on pulse ox readings, labs were done which showed evidence of worsening kidney disease with creatinine of 2.7 up from his baseline of 1.7 and his discharge evaluation. 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 The initial thought from cardiology clinic was worsening CHF. I have examined patient and reviewed cardiology consult notes both outpatient and inpatient and initial pulmonary note. I reviewed chest x-rays and labs. [facility] Disclaimer: The information contained in this section may have been updated after the patient was seen, as this information can be updated by other users. Medical History Angina pectoris COPD (chronic obstructive pulmonary disease) Coronary artery disease Dyspnea GERD (gastroesophageal reflux disease) HLD (hyperlipidemia) HTN (hypertension) HTN (hypertension) with goal to be determined Implantable intrathecal infusion pump present Lower extremity edema Oxygen dependent Post laminectomy syndrome Tobacco dependence syndrome Surgical History History of lumbar fusion Family History Other No significant family history Social History Smoking Status: Current every day smoker tobacco type: e-cigarettes second hand exposure: No alcohol intake: never substance use type: denies use current occupational status: retired Travel in the last 8 weeks: None household members: spouse housing: house current occupational exposures/hazards: No caffeine: Yes Review of Systems Review of Systems Review of systems:: pertinent systems reviewed and negative unless documented below Review of systems (narrative): Patient continues to feel dyspneic but feels much more comfortable after some IV fluids and IV Solu-Medrol. Meds Home Medications and Allergies Home Medications Medication Instructions Recorded Confirmed Type pramipexole 0.125 mg tablet 0.125 mg PO TID Restless leg 02/02/18 07/03/22 History aspirin 81 mg tablet,delayed 81 mg PO DAILY Heart disease 08/12/21 07/03/22 History release atorvastatin 40 mg tablet 40 mg PO HS Cholesterol 08/12/21 07/03/22 History clopidogrel 75 mg tablet 75 mg PO DAILY Heart disease 08/12/21 07/03/22 History pantoprazole 40 mg tablet,delayed 40 mg PO DAILY GERD 08/12/21 07/03/22 History release celecoxib 200 mg capsule 200 mg PO DAILY Pain 09/30/21 07/03/22 History morphine (PF) 100 mg/100 mL(1 See Rx Instructions continuous 09/30/21 07/03/22 History mg/mL) in 0.9% sod.chloride IV sub
--- NOTE | 2022-07-03 19:04 | PC.NURSE ---
PATIENT AZITHROMYCIN STILL RUNNING CEFEPIME WILL BE HUNG WHEN FINISHED
[2022-07-04] VITALS: O2SAT 96
[2022-07-04 01:30] VITALS: RESP 14
[2022-07-04 03:35] VITALS: BP 110/69; PULSE 77; RESP 20; TEMP 37; O2SAT 94
[2022-07-04 03:36] VITALS: BMI 35.2
--- NOTE | 2022-07-04 05:17 | PC.NURSE ---
REPORT RECEIVED FROM RAMONE PERLA RN AT 0100. NO ACUTE CHANGES SINCE TAKING REPORT. NO C/O SOB OR CHEST PAIN THIS SHIFT. USING URINAL INDEPENDENTLY. ON CPAP WHILE ASLEEP. TOLERATING WELL. VSS.
[2022-07-04 07:33] LABS: Basophils % 0.1 % (0.1-2.0); Eosinophils % 0.3 % (0.1-12.0); Hematocrit 28.8 % (42.0-52.0); Hemoglobin 9.5 g/dL (14.1-18.0); Lymphocytes # 0.6 K/mm3 (0.7-4.5); Lymphocytes % 9.8 % (10-50); Mean Corpuscular HGB Conc 33.1 g/dL (31.8-35.4); Mean Corpuscular Hemoglobin 31.6 pg (27.0-31.2); Mean Corpuscular Volume 95.4 fl (80-94); Mean Platelet Volume 7.9 fl (7.4-10.4); Monocytes # 0.1 K/mm3 (0.1-1.0); Monocytes % 1.3 % (1.7-9.3); Neutrophils # 5.5 K/mm3 (1.8-7.8); Neutrophils % 88.3 % (37.0-80.0); Platelet Count 240 K/mm3 (142-424); Red Blood Count 3.02 M/mm3 (4.60-6.20); Red Cell Distribution Width 14.6 % (11.5-17.5); White Blood Count 6.2 K/mm3 (4.8-10.8)
[2022-07-04 07:35] LABS: MANUAL DIFFERENTIAL MANUAL DIFFERENTIAL (MANUAL DIFF)
[2022-07-04 07:43] LABS: Anion Gap 11.6 mEq/L (5-15); Blood Urea Nitrogen 40 mg/dl (9-20); Calcium 8.5 mg/dl (8.4-10.2); Carbon Dioxide 31 mmol/L (22.0-30.0); Chloride 99 mmol/L (98-107); Creatinine Clearance Estimated 60 mL/min (50-200); Estimated Glomerular Filt Rate 35 ml/min (>60); GFR (African American) 43 ML/MIN (>60); Glucose 217 mg/dl (74-100); Potassium 4.6 mmoL/L (3.5-5.1); Sodium 137 mmol/L (136-145)
[2022-07-04 08:00] VITALS: BP 92/53; PULSE 65; RESP 16; TEMP 36.6; O2SAT 95
[2022-07-04 08:02] LABS: Lymphocytes % 9 % (10-50); Monocytes % 3 % (2-9); Neutrophils % 88 % (42-76); Platelet Estimate Normal; RBC Morphology Normal; Total Cells Counted 100
--- NOTE | 2022-07-04 08:16 | EXP.CARD.PN ---
Subjective Subjective Date: 07/04/22 Time: 08:00 Principal diagnosis: soa and LE edema Interval history: Doing well this am. Negative balance of 1940. Vitals stable. Reports feeling much better today. Denies soa. LE edema has greatly improved. Exam Data for Last 24 hours Vital signs and Labs for Last 24 Hours: Temp Pulse Resp BP Pulse Ox FiO2 98.6 F 77 20 110/69 94 L 30 07/04/22 03:35 07/04/22 03:35 07/04/22 03:35 07/04/22 03:35 07/04/22 03:35 07/04/22 01:30 Laboratory Results - last 24 hr 07/03/22 09:19: Sodium 136, Potassium 4.4, Chloride 96 L, Carbon Dioxide 33 H, Anion Gap 11.4, BUN 40 H, Creatinine 2.70 H, Estimated GFR 24 L, Est GFR ( Amer) 29 L, Glucose 116 H, Calcium 8.8 07/03/22 09:20: WBC 5.5, RBC 2.91 L, Hgb 9.4 L, Hct 28.4 L, MCV 97.3 H, MCH 32.3 H, MCHC 33.2, RDW 14.6, Plt Count 214 D, MPV 8.8, Neut % (Auto) 47.1, Lymph % (Auto) 35.2, [place] % (Auto) 10.3 H, Eos % (Auto) 6.9, Baso % (Auto) 0.5, Neut # (Auto) 2.6, Lymph # (Auto) 1.9, [place] # (Auto) 0.6, Eos # (Auto) 0.4, Baso # (Auto) 0.0 07/03/22 12:12: SARS-CoV-2 (PCR) Not detected, Influenza A Untype (PCR) Not detected, Influenza Type B (PCR) Not detected 07/03/22 14:38: Specimen Source Right radial, O2 % 3 lpm, ABG pH 7.33 L, ABG pCO2 55.8 H, ABG pO2 67.6 L, ABG HCO3 29.0 H, ABG Total CO2 30.7 H, ABG O2 Saturation 93, ABG Base Excess 3.1 H, Jose Miguel Test Acceptable 07/03/22 17:35: Sodium 134 L, Potassium 4.2, Chloride 96 L, Carbon Dioxide 32 H, Anion Gap 10.2, BUN 38 H, Creatinine 2.40 H, Estimated Creat Clear 47, Estimated GFR 27 L, Est GFR ( Amer) 33 L, Glucose 126 H, Calcium 8.5 07/04/22 07:20: WBC 6.2, RBC 3.02 L, Hgb 9.5 L, Hct 28.8 L, MCV 95.4 H, MCH 31.6 H, MCHC 33.1, RDW 14.6, Plt Count 240, MPV 7.9, Neut % (Auto) 88.3 H, Lymph % (Auto) 9.8 L, [place] % (Auto) 1.3 L, Eos % (Auto) 0.3, Baso % (Auto) 0.1, Neut # (Auto) 5.5, Lymph # (Auto) 0.6 L, [place] # (Auto) 0.1, Eos # (Auto) 0.0, Baso # (Auto) 0.0, Total Counted 100, Neutrophils % (Manual) 88 H, Lymphocytes % (Manual) 9 L, Monocytes % (Manual) 3, Platelet Estimate Normal, RBC Morphology Normal 07/04/22 07:20: Sodium 137, Potassium 4.6, Chloride 99, Carbon Dioxide 31 H, Anion Gap 11.6, BUN 40 H, Creatinine 1.90 H D, Estimated Creat Clear 60, Estimated GFR 35 L, Est GFR ( Amer) 43 L D, Glucose 217 H D, Calcium 8.5 I & O for Last 24 hours: Intake & Output 07/01/22 07/02/22 07/03/22 07/04/22 23:59 23:59 23:59 23:59 Intake Total 360 / 360 Output Total 1700 / 1700 600 / 600 Balance -1340 / -1340 -600 / -600 Weight 250 lb 3 oz 251 lb 5 oz Constitutional Constitutional: no acute distress *Routine Respiratory Exam Respiratory: Present CTA bilaterally and symmetric chest movement *Routine Cardiovascular Exam Cardiovascular: Present RRR, Normal S1 and Normal S2 *Routine Abdominal Exam Abdominal: Present soft and normoactive bowel sounds; Absent tenderness *Routine Extremities Exam Extremities: Present full ROM and normal capillary refill; Absent edema *Routine Skin Exam Skin: Present intact, dry and warm Detailed Neck Exam: Thyroids Thyroid: Absent bruit Progress Note: A&P Assessment and plan (1) CAD (coronary artery disease): Status: Acute (2) Shortness of breath: Status: Acute (3) KAYLEE (acute kidney injury): Status: Acute (4) COPD (chronic obstructive pulmonary disease): Status: Acute (5) Diastolic dysfunction: Status: Acute Assessment and Plan Assessment and Plan for All Diagnoses:: Shortness of air -Chest x-ray pending, blood gas pending -Multifactorial in nature.? Combination of likely COPD exacerbation versus volume overload secondary to diastolic dysfunction -Of note patient recently was COVID-positive with ongoing shortness of air.? Cannot apply PERC rule.? Cannot rule out PE at this time.? Cannot do CTA due to KAYLEE.? Consider VQ scan after ABG results -Recommend pulmonary consult for COPD -Recommend diuresing with Lasix 80 mg IV x1.? M
--- NOTE | 2022-07-04 08:31 | EXP.DC.SUM ---
General Admission date:: 07/03/22 Discharge date: 07/04/22 HPI HPI HPI: 66-year-old male with long history of emphysema, diastolic dysfunction, CPAP dependence and chronic respiratory failure along with chronic kidney disease who was recently discharged from this hospital after being admitted for CHF exacerbation with significant hypotension, worsening kidney disease and COVID-19 pneumonitis. Was treated during the hospitalization with aggressive diuresis but also with pressor therapy because of his hypotension, remdesivir for COVID-19, and discharged home a couple of days ago. He notes that he felt well for the first day, was continuing on his regular medications from previous to the hospitalization and unfortunately 1 day before coming back to the cardiology clinic for regular follow-up became very dyspneic. He describes it as suffocating especially when he got up to walk across the floor. Denies chest pain, denies ankle swelling or sputum production. He actually took an extra Lasix tablet at home but this did not help and he arrived at cardiology clinic this morning. In the clinic he was found to be dyspneic. Hypotensive, with lower oxygen readings on pulse ox readings, labs were done which showed evidence of worsening kidney disease with creatinine of 2.7 up from his baseline of 1.7 and his discharge evaluation. 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 The initial thought from cardiology clinic was worsening CHF. I have examined patient and reviewed cardiology consult notes both outpatient and inpatient and initial pulmonary note. I reviewed chest x-rays and labs. Hospital Course Hospital Course Hospital Course: Patient was admitted, given a fluid bolus followed by Lasix which seemed to do very nicely for kidney function and urine output. Creatinine declined in the evening and this morning went down to 1.9 which is very close to his baseline. He feels much better with much less dyspnea. Eating breakfast well. In reviewing his chest x-ray and overall clinical picture I do not believe this was related to volume overload or CHF. I also think that his blood pressure has been too low for him in the face of normal systolic function and we will send him home with no diuretics and instructions to try to lose some weight to help with his restrictive lung symptoms. Given normal white count and normal chest x-ray I do not believe he needs antibiotics. I also will not do steroids so that he will have some help with his weight loss efforts. He is not wheezing and I think most of his COPD problems currently stem from ILDEFONSO type chronic emphysema rather than active inflammation inflammation. I will see him in 5 days in follow-up. We will do very low-dose carvedilol for his coronary disease status. Will initiate home health therapy for CHF program, also for close nursing evaluation and blood pressure evaluation. Exam Data for Last 24 hours Vital signs and Labs for Last 24 Hours: Temp Pulse Resp BP Pulse Ox FiO2 98.6 F 77 20 110/69 94 L 30 07/04/22 03:35 07/04/22 03:35 07/04/22 03:35 07/04/22 03:35 07/04/22 03:35 07/04/22 01:30 Laboratory Results - last 24 hr 07/03/22 09:19: Sodium 136, Potassium 4.4, Chloride 96 L, Carbon Dioxide 33 H, Anion Gap 11.4, BUN 40 H, Creatinine 2.70 H, Estimated GFR 24 L, Est GFR ( Amer) 29 L, Glucose 116 H, Calcium 8.8 07/03/22 09:20: WBC 5.5, RBC 2.91 L, Hgb 9.4 L, Hct 28.4 L, MCV 97.3 H, MCH 32.3 H, MCHC 33.2, RDW 14.6, Plt Count 214 D, MPV 8.8, Neut % (Auto) 47.1, Lymph % (Auto) 35.2, [place] % (Auto) 10.3 H, Eos % (Auto) 6.9, Baso % (Auto) 0.5, Neut # (Auto) 2.6, Lymph # (Auto) 1.9, [place] # (Auto) 0.6, Eos # (Auto) 0.4, Baso # (Auto) 0.0 07/03/22 12:12: SARS-CoV-2 (PCR) Not detected, Influenza A Untype (PCR) Not detected, Influenza Type B (PCR) Not detected 07/03/22 14:38: Specimen Source Right radial, O2 % 3 lpm, ABG pH 7.33 L, ABG pCO2 55.8 H,
--- NOTE | 2022-07-04 09:46 | CARE MANAGER ---
Met with patient this morning to discuss discharge planning. Patient agreeable for HH services, and paient choice letter signed for [facility]. Order/clinical faxed. Will follow up to insure he is accepted.
--- NOTE | 2022-07-04 15:29 | SW/DCPLANNER ---
Patient information/order has been faxed to [facility]hoana kemp/ [facility]: I will follow up Jhoana once information is reviewed. Patient discharged home today.
--- NOTE | 2022-07-08 14:27 | CARE MANAGER ---
Spoke with patient for post-discharge phone interview, no issues noted.
== END 2022-07-04 10:30 | disposition home health service (06) ==
LOC: 2ND 10:54
PROVIDERS: Nurse Practitioner; Nurse Practitioner Family; Admitting Provider Internal Medicine Adolescent Medicine; PCP Internal Medicine Adolescent Medicine; Visit Provider Internal Medicine Adolescent Medicine
DX: E78.2 Mixed hyperlipidemia (principal); I13.0 Hypertensive heart and chronic kidney disease with heart failure and stage 1 through stage 4 chronic kidney disease, or unspecified chronic kidney disease; I25.10 Atherosclerotic heart disease of native coronary artery without angina pectoris; R53.83 Other fatigue; F17.210 Nicotine dependence, cigarettes, uncomplicated; I50.32 Chronic diastolic (congestive) heart failure; J96.11 Chronic respiratory failure with hypoxia; N18.9 Chronic kidney disease, unspecified; R06.9 Unspecified abnormalities of breathing; N17.9 Acute kidney failure, unspecified; Z79.899 Other long term (current) drug therapy
CPT/HCPCS: G0378; G0379; 36415; 71045; 80048; 82803; 85007; 85025; 87040; 93306; 94660; 94760; C9803; J0456; U0003; U0005

== ENCOUNTER 2022-07-18 07:59 | Day surgery (SDC) | payer MEDICARE, SELFPAY ==
[2022-07-14 13:42] VITALS: BMI 33.5
[2022-07-18] VITALS (9 sets, daily range): BP systolic 109–130; BP diastolic 65–79; PULSE 71–84; RESP 16–18; TEMP 36.2–43; O2SAT 95–99
[2022-07-18 08:56] LABS: Basophils % 0.5 % (0.1-2.0); Eosinophils # 0.2 K/mm3 (0.0-0.4); Eosinophils % 2.9 % (0.1-12.0); Hematocrit 28.5 % (42.0-52.0); Hemoglobin 9.4 g/dL (14.1-18.0); Lymphocytes # 1.6 K/mm3 (0.7-4.5); Lymphocytes % 26.8 % (10-50); Mean Corpuscular HGB Conc 33.1 g/dL (31.8-35.4); Mean Corpuscular Hemoglobin 32.3 pg (27.0-31.2); Mean Corpuscular Volume 97.6 fl (80-94); Mean Platelet Volume 8.9 fl (7.4-10.4); Monocytes # 0.4 K/mm3 (0.1-1.0); Monocytes % 7.1 % (1.7-9.3); Neutrophils # 3.6 K/mm3 (1.8-7.8); Neutrophils % 62.7 % (37.0-80.0); Platelet Count 197 K/mm3 (142-424); Red Blood Count 2.92 M/mm3 (4.60-6.20); Red Cell Distribution Width 14.5 % (11.5-17.5); White Blood Count 5.8 K/mm3 (4.8-10.8)
[2022-07-18 09:05] LABS: Chloride 105 mmol/L (98-107); Sodium 139 mmol/L (136-145)
[2022-07-18 09:06] LABS: Potassium 4.6 mmoL/L (3.5-5.1)
[2022-07-18 09:09] LABS: Anion Gap 7.6 mEq/L (5-15); Blood Urea Nitrogen 13 mg/dl (9-20); Calcium 8.9 mg/dl (8.4-10.2); Carbon Dioxide 31 mmol/L (22.0-30.0); Creatinine Clearance Estimated 91 mL/min (50-200); Estimated Glomerular Filt Rate 60 ml/min (>60); GFR (African American) 73 ML/MIN (>60); Glucose 92 mg/dl (74-100)
--- NOTE | 2022-07-18 10:15 | EXP.ANES.CKL ---
[facility] Disclaimer: The information contained in this section may have been updated after the patient was seen, as this information can be updated by other users. Medical History Angina pectoris Asthma COPD (chronic obstructive pulmonary disease) Coronary artery disease Dyspnea Emphysema/COPD GERD (gastroesophageal reflux disease) History of COVID-19 HLD (hyperlipidemia) HTN (hypertension) HTN (hypertension) with goal to be determined Implantable intrathecal infusion pump present Lower extremity edema Oxygen dependent Post laminectomy syndrome Sleep apnea Smoking greater than 30 pack years Tobacco dependence syndrome Surgical History History of appendectomy History of lumbar fusion Family History Other Family history of cancer Social History Smoking Status: Current every day smoker tobacco type: e-cigarettes second hand exposure: No alcohol intake: never substance use type: denies use current occupational status: retired Travel in the last 8 weeks: None household members: spouse housing: house current occupational exposures/hazards: No caffeine: Yes [facility] Anesthesia Checklist Patient Identification Patient Identification: Arm Band and Verbal (Name & ) Structural Data Admitted From: Home Planned Operative Procedure/s: Pain Pump Generator Change NPO Status Verified Time NPO: 00:00 Additional verifications Anesthesia Reactions: No Hx Blood Transfusions: No Blood Transfusion Reaction: No Airway Assessment C-Spine Mobility Assessed: Yes TMJ Mobility Assessed: Yes Dentition: Partials Neurological Assessment Level of Consciousness: Awake, Alert and Appropriate Anesthesia Plan Anesthesia Risk discussed: Yes ASA Class: III Anesthesia Type: MAC
--- NOTE | 2022-07-18 14:41 | P.OP_ITS ---
Date of procedure: 07/18/22 Pre-op Diagnosis:: Degenerative disc disease of lumbar spine with lumbar radiculopathy symptoms with end-of-life of intrathecal [employer] pain pump with increasing pain. Post-op Diagnosis:: Same Procedure performed:: Replacement of intrathecal pain pump battery and catheter. Surgeon:: Robin Smith MD CORE BAKER:: Juan Marques Anesthesia: MAC Estimated blood loss (mL): 5 Clinical Note:: This patient is a pleasant 66-year-old white male who we are treating for low back pain with lumbar radiculopathy symptoms. He is currently on 7.5 mg/day of intrathecal morphine/bupivacaine. He continues to have increasing pain. His pain pump is nearing end-of-life. We also did assess his catheter. His catheter is anterior at T12. I do believe that he would benefit from replacement of his intrathecal pain pump and catheter today since his catheter is anterior and his pain pump is nearing end-of-life. Operative findings:: None Operative note:: Informed consent was obtained the risk and benefits of the procedure were explained to the patient. Patient was taken the operating room placed prone on the procedure table. He was prepped and draped in sterile fashion. We did take fluoroscopic views of the intrathecal pain pump battery and identify the tip of the catheter at the T12 vertebral body in the anterior location. We anesthetized the skin and subcutaneous tissues overlying the pain pump. I explained to the pain pump. We did tie off the catheter in the pocket. C-arm fluoroscopy was used to view the lumbar spine. The skin and subcutaneous tissues were anesthetized using lidocaine. I made an incision and dissected down to the lumbar paraspinous fascia. A 17-gauge spinal needle was inserted and advanced into the L4-5 interspace until clear CSF was obtained. After this intrathecal catheter was inserted and advanced very easily to the T10 vertebral body. This catheter was in the posterior location. The stylette of the catheter and the needle were withdrawn. The catheter was secured to the fascia with anchor devices and 2-0 Prolene. I tunneled the catheter from the back to the pump pocket. Prior to this fill the pump with 20 mils of intrathecal morphine 30 mg/mL plus bupivacaine 5 mg/mL. I attached the catheter to the pump. I placed the pump in the pump pocket. We were able to freely withdraw clear CSF through the side-port. The pump catheter was documented at the T10 vertebral body at the posterior location. Both incisions were irrigated with antibiotic solution. Both incisions were closed with 2-0 Vicryl followed by 4-0 nylon and karrie. A wound VAC was placed over both incisions. The patient was placed in a abdominal binder. Patient was taken recovery stable condition. Patient's pain pump was interrogated and he was started back at 3.5 mg/day of intrathecal morphine/bupivacaine. Patient tolerated the procedure well with no complications. Plan and disposition: We will follow-up with this patient in 1 week for wound check and reprogram. We will follow-up in 2 weeks for suture and staple removal. Condition: stable Disposition: PACU Complications:: None
== END 2022-07-18 13:15 | disposition home or self-care (01) ==
PROVIDERS: PCP Internal Medicine Adolescent Medicine; Visit Provider Anesthesiology
DX: Z45.1 Encounter for adjustment and management of infusion pump (principal); T85.615A Breakdown (mechanical) of other nervous system device, implant or graft, initial encounter; M51.16 Intervertebral disc disorders with radiculopathy, lumbar region; Z79.899 Other long term (current) drug therapy
CPT/HCPCS: 62350; 62362; 80048; 85025; 96374; C1755; C1772; J3370

== ENCOUNTER → 2022-07-24 08:52 | Outpatient (POV) | payer MEDICARE, SELFPAY ==
[2022-07-24 09:19] VITALS: BP 107/53; PULSE 110; RESP 20; O2SAT 95; BMI 33.6
--- NOTE | 2022-07-24 09:33 | EXP.PAIN.SOA ---
[facility] Pain Management SOAP Note Subjective:: Patient is a pleasant 66-year-old male who presents today for 1 week postop visit of catheter revision and pump replacement on 07/18/2022. We are currently treating the patient for degenerative disc disease of lumbar spine with lumbar radiculopathy symptoms, status post replacement of intrathecal pump and catheter revision, facet arthropathy, lumbar spondylosis, myofascial pain. Today he rates his pain a 6 out of 10. Patient denies any new trauma or injury. Patient denies any complications following his procedure. Patient states he did take off his wound VAC last night because it kept alarming. Patient states that he does feel like his pump is working much better than it was prior. Patient states he has had some improvement of his pain symptoms. Patient is an A[facility] at home refill patient. He is currently managed with morphine 3.504 mg/day and bupivacaine 0.5839 mg/day. Patient denies any side effects from these medications. Patient's pump prior to the replacement had been increased up to over 7 mg however following the replacement Dr. Smith did not drop his dose in half. Patient states that he still continues to have some sciatic pain however overall he is doing well. Patient is on continuous O2. His Valdemar has been reviewed and appropriate. Review of Systems: General: No recent weight changes, no fever, no sleep disturbances Respiratory: No cough, no shortness of air, no recurring pulmonary infections Cardiovascular/peripheral vascular: No chest pain, no palpitations, no edema, no shortness of breath Gastrointestinal: No new onset incontinence, normal bowel movements reported Genitourinary: No new onset incontinence Musculoskeletal: Low back pain Psychiatric: [Normal mood/affect] Neurological: [Denies weakness in extremities], [denies balance issues] Objective:: Physical Exam: General: Alert and oriented x3, no acute distress, pleasant and cooperative Lungs: Respirations even and unlabored, symmetrical chest expansion Eyes: PERRL Musculoskeletal: Flexion and extension of lumbar [spine] somewhat guarded secondary to pain, [antalgic gait noted] Neurological: Speech clear, no gross sensory deficit Skin: Clean, dry, well approximated with no drainage or erythema noted ORT score updated with low risk Assessment:: degenerative disc disease of lumbar spine with lumbar radiculopathy symptoms, status post replacement of intrathecal pump and catheter revision, facet arthropathy, lumbar spondylosis, myofascial pain Plan:: Patient is doing much better following his catheter revision and pump replacement. Patient did have limited range of motion of his lumbar spine. Patient's incision site is clean, dry, well approximated with no drainage or erythema noted. I have counseled the patient that we will take out the karrie at his next visit and apply Steri-Strips. I have also discussed with the patient that at his next visit if he is starting to have worsening pain symptoms we will discuss doing a pump increase. Patient will return to clinic in 2 weeks for reevaluation of symptoms and follow-up. Patient has been instructed to contact the clinic with any concerns before the next appointment. Dr. Smith has reviewed this note and agrees with this plan of care. This note was dictated using voice recognition software and make contain errors or omissions. -- It Is medically necessary for this patient to continue to have their intrathecal pump refilled at regular intervals. This patient had an intrathecal pain pump implanted after meeting criteria of chronic intractable pain for greater than 3 months and failing conservative treatments. Patient has committed and been compliant to the treatment plan and all planned follow up care. Since implantation of the intrathecal pain pump, the patient has had decreased pain and been more functional. Oral medications have been reduced including intake of oral opioids. Patient continues to do we
== END ==
PROVIDERS: PCP Internal Medicine Adolescent Medicine; Visit Provider Nurse Practitioner Family
DX: M51.16 Intervertebral disc disorders with radiculopathy, lumbar region (principal); M79.10 Myalgia, unspecified site; M47.26 Other spondylosis with radiculopathy, lumbar region; Z97.8 Presence of other specified devices
CPT/HCPCS: 99212; G0463

== ENCOUNTER → 2022-08-01 06:51 | Outpatient (CLI) | payer MEDICARE, SELFPAY ==
--- NOTE | 2022-08-01 07:01 | CT_ITS ---
FINAL REPORT TECHNIQUE: Axial CT images of the chest were obtained without contrast. Low-dose protocol was utilized. This study was performed with techniques to keep radiation doses as low as reasonably achievable (ALARA). Individualized dose reduction techniques using automated exposure control or adjustment of mA and/or kV according to the patient's size were employed. CLINICAL HISTORY: Nodule, former smoker, quit 1 yr ago, smoked for 40 yrs, 2-3 pks per day, copd, empysema, cad COMPARISON: 11/14/2021 FINDINGS: CT CHEST WITHOUT, LOW DOSE SCREENING CT Di Vol: 2.90 mGy DLP: 113.59 mGy*cm There is no axillary mass. There are multiple borderline sized mediastinal nodes which are stable. The heart size is normal. There are moderate coronary artery calcifications. There is no pleural or pericardial effusion. The lung windows show mild emphysema. There is mild scarring noted. There are several calcified granulomas in the lungs. Anterolateral right lower lobe nodule seen on image 210 measures 8 mm, was 4 mm. There is a stable 4 mm nodule in the left lower lobe seen on image 234. Limited images of the upper abdomen are unremarkable. IMPRESSION: Interval enlargement of anterolateral right lower lobe nodule . Appearance is worrisome for neoplasm. LR Category 4A: Recommend PET-CT and/or follow-up chest CT in three months. Nodule is too small for percutaneous biopsy at this time. Reviewed, Interpreted and Dictated by Micha Santana III, MD Transcribed by Emily Diaz Authenticated and [facility]
== END ==
PROVIDERS: PCP Internal Medicine Adolescent Medicine; Visit Provider Internal Medicine Pulmonary Disease
DX: Z87.891 Personal history of nicotine dependence; Z12.2 Encounter for screening for malignant neoplasm of respiratory organs; R06.02 Shortness of breath; J44.9 Chronic obstructive pulmonary disease, unspecified
CPT/HCPCS: 71271; 94060; 94618; 94726; 94729

== ENCOUNTER → 2022-08-07 13:54 | Outpatient (POV) | payer MEDICARE, SELFPAY ==
--- NOTE | 2022-08-07 14:48 | EXP.PAIN.PRO ---
Procedure Date: 08/07/22 Time: 14:31 Anesthesiologist:: Lilian Gautam APRN Complications:: None Pre-procedure Diagnosis:: Degenerative disc disease of lumbar spine with lumbar radiculopathy symptoms, status post replacement of intrathecal pump and catheter revision, facet arthropathy, lumbar spondylosis myofascial pain. Post-procedure Diagnosis:: Same Indications for Procedure:: Patient is a pleasant 66-year-old male who presents today for intrathecal pain pump reprogramming adjustment. The patient is being treated for degenerative disc disease of lumbar spine with lumbar radiculopathy symptoms, status post replacement of intrathecal pump and catheter, lumbar facet arthropathy, lumbar spondylosis, myofascial pain. Patient is currently being managed with morphine 30 mg/mL with a daily dose of 3.504 mg/day and bupivacaine 5 mg/mL with a daily dose of 0.5839 mg/day. Patient denies any side effects from this medication. Patient rates pain a 10 out of 10. Mr. Teran states he is experiencing worsening pain symptoms. He states he cannot tolerate standing for very long and can even do the dishes without having to sit down and take a break. Patient denies any new trauma or injury. Patient denies any change location or type of pain he experiences. Drug screen is appropriate. Patient is also managed with pregabalin 25 mg daily from his primary care doctor. Patient denies any side effects from this medication. Valdemar [id number] has been reviewed and is appropriate. Physical exam General: Alert and oriented x3, no acute distress, pleasant and cooperative Lungs: Respirations even and unlabored, symmetrical chest expansion Eyes: PERRL Musculoskeletal: Flexion and extension of lumbar [spine] somewhat guarded secondary to pain, [antalgic gait noted] Neurological: Speech clear, no gross sensory deficit Skin: Incision sites clean, dry, well approximated with suture and karrie intact minimal erythema noted Procedure Details:: Informed consent was obtained and the risk and benefits of the procedure were explained to the patient. Patient was taken to the procedure room where noninvasive monitoring was placed including noninvasive blood pressure cuff and pulse oximeter. Patient's pump was interrogated and was reprogrammed to morphine 3.853 mg/day and bupivacaine 0.6422 mg/day. The patient tolerated the procedure well with no complications. Plan and Disposition:: Patient is experiencing worsening pain symptoms with limited range of motion. Patient's incision sites are clean, dry, well approximated with minimal erythema noted. Sutures were all removed during today's visit as well as about half of his karrie. Patient will return to clinic in 1 week to remove the remainder karrie and apply Steri-Strips as well as reevaluation of his symptoms and plan of care. Patient has been counseled to continue his postop restrictions for the full 6 weeks. Patient has been instructed to contact the clinic with any concerns before the next appointment. Dr. Smith has reviewed this note and agrees with this plan of care. This note was dictated using voice recognition software and make contain errors or omissions. -- It Is medically necessary for this patient to continue to have their intrathecal pump refilled at regular intervals. This patient had an intrathecal pain pump implanted after meeting criteria of chronic intractable pain for greater than 3 months and failing conservative treatments. Patient has committed and been compliant to the treatment plan and all planned follow up care. Since implantation of the intrathecal pain pump, the patient has had decreased pain and been more functional. Oral medications have been reduced including intake of oral opioids. Patient continues to do well with intrathecal therapy with decrease in pain symptoms and increase in functional status. Stopping intrathecal medications can lead to life threatening withdrawal, seizures, cardiac
[2022-08-07 14:57] VITALS: BP 98/64; PULSE 99; RESP 18; O2SAT 98; BMI 32.8
== END | disposition home or self-care (01) ==
PROVIDERS: PCP Internal Medicine Adolescent Medicine; Visit Provider Nurse Practitioner Family
DX: M51.16 Intervertebral disc disorders with radiculopathy, lumbar region (principal); M47.26 Other spondylosis with radiculopathy, lumbar region; M79.10 Myalgia, unspecified site
CPT/HCPCS: 99212; G0463

== ENCOUNTER → 2022-08-13 09:47 | Outpatient (POV) | payer MEDICARE, SELFPAY ==
--- NOTE | 2022-08-13 10:31 | EXP.PAIN.PRO ---
Procedure Date: 08/13/22 Time: 10:31 Anesthesiologist:: Lilian Gautam APRN Complications:: None Pre-procedure Diagnosis:: Degenerative disc disease of lumbar spine with lumbar radiculopathy symptoms, status post replacement of intrathecal pump and catheter revision, lumbar facet arthropathy, lumbar spondylosis, myofascial pain Post-procedure Diagnosis:: Same Indications for Procedure:: Patient is a pleasant 66-year-old male who presents today for intrathecal pain pump reprogramming adjustment. The patient is being treated for degenerative disc disease of lumbar spine with lumbar radiculopathy symptoms, status post replacement of intrathecal pain pump and catheter revision, lumbar facet arthropathy, lumbar spondylosis and myofascial pain. Patient is currently being managed with morphine 30 mg/mL with a daily dose of 3.853 mg/day and bupivacaine 5 mg/mL with a daily dose of 0.6422 mg/day. Patient denies any side effects from this medication. Patient rates pain a 2 out of 10. Patient denies any new trauma or injury. Patient denies any change location or type of pain he experiences. Patient states at rest his pain does pretty well however once he is up moving around he does rated an 8 out of 10. Patient has been increasing his activity since his catheter revision and pump replacement on 07/18/2022. Patient is also managed with pregabalin 25 mg daily by his primary care doctor. Patient denies any side effects from this medication. Drug screen is appropriate. [facility] [phone] has been reviewed and is appropriate. Physical exam General: Alert and oriented x3, no acute distress, pleasant and cooperative Lungs: Respirations even and unlabored, symmetrical chest expansion Eyes: PERRL Musculoskeletal: Flexion and extension of lumbar [spine] somewhat guarded secondary to pain, [antalgic gait noted] Neurological: Speech clear, no gross sensory deficit Skin: Incision site clean, dry, well approximated with karrie intact, no erythema noted Procedure Details:: Informed consent was obtained and the risk and benefits of the procedure were explained to the patient. Patient was taken to the procedure room where noninvasive monitoring was placed including noninvasive blood pressure cuff and pulse oximeter. Patient's pump was interrogated and was reprogrammed to morphine 4.243 mg/day and bupivacaine 0.7071 mg/day. The patient tolerated the procedure well with no complications. Plan and Disposition:: Patient continues to experience pain in his low back and some around his incision sites. We have increased his pump medication during today's visit and we will see him back in 2 weeks for reevaluation of symptoms and follow-up. Patient karrie were removed during today's visit and Steri-Strips applied. Patient tolerated this well with no complications. Patient has been instructed to contact the clinic with any concerns before the next appointment. Dr. Smith has reviewed this note and agrees with this plan of care. This note was dictated using voice recognition software and make contain errors or omissions. -- It Is medically necessary for this patient to continue to have their intrathecal pump refilled at regular intervals. This patient had an intrathecal pain pump implanted after meeting criteria of chronic intractable pain for greater than 3 months and failing conservative treatments. Patient has committed and been compliant to the treatment plan and all planned follow up care. Since implantation of the intrathecal pain pump, the patient has had decreased pain and been more functional. Oral medications have been reduced including intake of oral opioids. Patient continues to do well with intrathecal therapy with decrease in pain symptoms and increase in functional status. Stopping intrathecal medications can lead to life threatening withdrawal, seizures, cardiac arrest, severe pain, and possible . Pumps that are not refilled at regular intervals can be damag
[2022-08-13 10:54] VITALS: BP 105/52; PULSE 85; RESP 18; O2SAT 98; BMI 33.2
== END | disposition home or self-care (01) ==
PROVIDERS: PCP Internal Medicine Adolescent Medicine; Visit Provider Nurse Practitioner Family
DX: Z45.1 Encounter for adjustment and management of infusion pump (principal); M51.16 Intervertebral disc disorders with radiculopathy, lumbar region; M47.26 Other spondylosis with radiculopathy, lumbar region; M79.10 Myalgia, unspecified site
CPT/HCPCS: 62368; 99213; G0463

== ENCOUNTER → 2022-08-28 09:48 | Outpatient (POV) | payer MEDICARE, SELFPAY ==
--- NOTE | 2022-08-28 10:06 | EXP.PAIN.PRO ---
Procedure Date: 08/28/22 Time: 10:06 Anesthesiologist:: Lilian Gautam APRN Complications:: None Pre-procedure Diagnosis:: Degenerative disc disease of lumbar spine with lumbar radiculopathy symptoms, status post replacement of intrathecal pain pump and catheter revision, lumbar facet arthropathy, lumbar spondylosis, myofascial pain Post-procedure Diagnosis:: Same Indications for Procedure:: Patient is a pleasant 66-year-old male who presents today for intrathecal pain pump reprogramming adjustment. The patient is being treated for degenerative disc disease of lumbar spine with lumbar radiculopathy symptoms, status post replacement of intrathecal pain pump and catheter revision, lumbar facet arthropathy, lumbar spondylosis, myofascial pain. Patient is currently being managed with morphine 30 mg/mL with a daily dose of 4.243 mg/day and bupivacaine 5 mg/mL with a daily dose of 0.7071 mg/day. Patient denies any side effects from this medication. Patient rates pain a 4 out of 10. Patient denies any new injury or trauma. Patient denies any change location or type of pain he experiences. Patient is managed with pregabalin 25 mg daily from his primary care doctor. Patient denies any side effects from this medication. Patient does state that he has had improved pain symptoms from our last visit with pump increase however he is still having additional pain symptoms with increased activity. Drug screen is appropriate. Valdemar [phone] has been reviewed and is appropriate. Physical exam General: Alert and oriented x3, no acute distress, pleasant and cooperative Lungs: Respirations even and unlabored, symmetrical chest expansion Eyes: PERRL Musculoskeletal: Flexion and extension of lumbar [spine] somewhat guarded secondary to pain, [antalgic gait noted] Neurological: Speech clear, no gross sensory deficit Skin: Incision site clean, dry, well approximated with no erythema and mild scabbing Procedure Details:: Informed consent was obtained and the risk and benefits of the procedure were explained to the patient. Patient was taken to the procedure room where noninvasive monitoring was placed including noninvasive blood pressure cuff and pulse oximeter. Patient's pump was interrogated and was reprogrammed to morphine 4.66 mg/day and bupivacaine 0.7767 mg/day. The patient tolerated the procedure well with no complications. Plan and Disposition:: Patient is doing well following his revision to his intrathecal pain pump. Patient's incision site is clean, dry, well approximated with no erythema and only mild scabbing. I have discussed with the patient to continue his restrictions of not submerging in water until the incision site is fully healed. Patient will return to clinic in 2 weeks for reevaluation of his symptoms and plan of care. Patient has been instructed to contact the clinic with any concerns before the next appointment. Dr. Smith has reviewed this note and agrees with this plan of care. This note was dictated using voice recognition software and make contain errors or omissions. -- It Is medically necessary for this patient to continue to have their intrathecal pump refilled at regular intervals. This patient had an intrathecal pain pump implanted after meeting criteria of chronic intractable pain for greater than 3 months and failing conservative treatments. Patient has committed and been compliant to the treatment plan and all planned follow up care. Since implantation of the intrathecal pain pump, the patient has had decreased pain and been more functional. Oral medications have been reduced including intake of oral opioids. Patient continues to do well with intrathecal therapy with decrease in pain symptoms and increase in functional status. Stopping intrathecal medications can lead to life threatening withdrawal, seizures, cardiac arrest, severe pain, and possible . Pumps that are not refilled at regular intervals can be damages and ca
[2022-08-28 10:58] VITALS: BP 92/52; PULSE 83; RESP 18; O2SAT 93; BMI 32.3
== END | disposition home or self-care (01) ==
PROVIDERS: PCP Internal Medicine Adolescent Medicine; Visit Provider Nurse Practitioner Family
DX: Z45.1 Encounter for adjustment and management of infusion pump (principal); M51.16 Intervertebral disc disorders with radiculopathy, lumbar region; M47.26 Other spondylosis with radiculopathy, lumbar region; M79.18 Myalgia, other site
CPT/HCPCS: 62368; 99213; G0463

== ENCOUNTER 2022-09-02 09:25 | Day surgery (SDC) | payer MEDICARE, SELFPAY ==
[2022-08-29 11:22] VITALS: BMI 32.3
[2022-09-02 09:43] VITALS: BP 112/50; PULSE 88; RESP 18; TEMP 36.4; O2SAT 95
--- NOTE | 2022-09-02 09:50 | P.PN_ITS ---
[facility] Disclaimer: The information contained in this section may have been updated after the patient was seen, as this information can be updated by other users. Medical History Angina pectoris Asthma Cataract Chronic respiratory failure with hypoxia Congestive heart failure COPD (chronic obstructive pulmonary disease) COPD mixed type Coronary artery disease Current vaping on some days Dyspnea Dyspnea on exertion Emphysema/COPD Fibromyalgia GERD (gastroesophageal reflux disease) History of back pain History of cataract History of COVID-19 History of gastroesophageal reflux (GERD) History of heart attack HLD (hyperlipidemia) HTN (hypertension) HTN (hypertension) with goal to be determined Implantable intrathecal infusion pump present Lower extremity edema Lung nodule Mediastinal lymphadenopathy Osteoarthritis Oxygen dependent Post laminectomy syndrome Psoriasis Sleep apnea Smoking greater than 30 pack years Stopped smoking with greater than 30 pack year history Tobacco dependence syndrome Surgical History History of appendectomy History of appendectomy History of colonoscopy History of esophagogastroduodenoscopy (EGD) History of lumbar fusion Family History Other Family history of cancer Social History Smoking Status: Former smoker pack-years: 50 second hand exposure: No alcohol intake: former substance use type: denies use current occupational status: retired Travel in the last 8 weeks: None household members: spouse housing: house current occupational exposures/hazards: No caffeine: Yes [facility] Anesthesia Checklist Patient Identification Patient Identification: Arm Band and Verbal (Name & ) Structural Data Admitted From: Home Planned Operative Procedure/s: Colonoscopy Consent for Planned Operative Procedure(s) Verified: Yes NPO Status Verified Time NPO: 00:00 Additional verifications Anesthesia Reactions: No Hx Blood Transfusions: No Blood Transfusion Reaction: No Airway Assessment C-Spine Mobility Assessed: Yes TMJ Mobility Assessed: Yes Dentition: Dentures-poor fitting Neurological Assessment Level of Consciousness: Awake Hx Seizures: No Numbness or tingling in extremities: No Anesthesia Plan Anesthesia Risk discussed: Yes Anesthesia Plan: Verified ASA Class: III Anesthesia Type: MAC
--- NOTE | 2022-09-02 10:03 | HMH.SCOPE ---
Procedure: Date: 09/02/22 Patient Date of :: 1955 Procedure Performed:: Colonoscopy with polypectomy Indications:: History of colon polyps Note: Colonoscopy in November 2021 was complicated by poor bowel preparation. A right colon adenoma was excised. Performing Provider:: Jori Dowell MD Referring Provider:: . Sedation:: Monitored anesthesia care Procedure:: After informed consent was obtained the patient was taken to the endoscopy suite. Sedation ensued after the patient was transferred to the left lateral decubitus position. Pulse, blood pressure, and oxygen saturation were monitored throughout the procedure. Digital rectal exam revealed no significant abnormality. The colonoscope was placed in position. The entire colon was evaluated. The colonoscope was carefully removed and the patient was transferred to recovery in stable condition. Please see findings and specimens below for detail. Findings:: Bowel preparation poor Fairly severe spasticity/lack of relaxation Splenic flexure polyp Specimens:: Splenic flexure polyp (cold snare) Recommendations:: Timing of repeat colonoscopy is pending pathology but likely be between 1-2 years with extended bowel preparation. Complications:: No immediate Estimated blood obtained (mL): 1
[2022-09-02 10:05] VITALS: O2SAT 95
[2022-09-02 11:00] VITALS: BP 104/54; PULSE 84; RESP 12; TEMP 36.2; O2SAT 96
[2022-09-02 11:10] VITALS: BP 125/66; PULSE 88; RESP 100
[2022-09-02 11:20] VITALS: BP 141/72; PULSE 84; RESP 16; O2SAT 98
[2022-09-02 11:30] VITALS: BP 136/72; PULSE 89; RESP 16; TEMP 36.2; O2SAT 97
== END 2022-09-02 11:36 | disposition home or self-care (01) ==
PROVIDERS: PCP Internal Medicine Adolescent Medicine; Visit Provider Surgery
PROC: 0DJD8ZZ Inspection of Lower Intestinal Tract, Via Natural or Artificial Opening Endoscopic (ICD-10-PCS; principal; 2022-09-02 10:30)
DX: Z12.11 Encounter for screening for malignant neoplasm of colon (principal); D12.6 Benign neoplasm of colon, unspecified; Z79.899 Other long term (current) drug therapy; Z86.010 Personal history of colon polyps
CPT/HCPCS: 45385; 88305; J2704

== ENCOUNTER → 2022-09-10 09:24 | Outpatient (POV) | payer MEDICARE, SELFPAY ==
--- NOTE | 2022-09-10 09:59 | EXP.PAIN.PRO ---
Procedure Date: 09/10/22 Time: 09:34 Anesthesiologist:: Lilian Gautam APRN Complications:: None Pre-procedure Diagnosis:: Degenerative disc disease of lumbar spine with lumbar radiculopathy symptoms, status post replacement of intrathecal pain pump and catheter revision, lumbar facet arthropathy, lumbar spondylosis, myofascial pain Post-procedure Diagnosis:: Same Indications for Procedure:: Patient is a pleasant 66-year-old male who presents today for intrathecal pain pump reprogramming adjustment. The patient is being treated for degenerative disc disease of lumbar spine with lumbar radiculopathy symptoms, status post replacement of intrathecal pain pump and catheter revision, lumbar facet arthropathy, lumbar spondylosis, myofascial pain. Patient is currently being managed with morphine 30 mg/mL with a daily dose of 4.66 mg/day and bupivacaine 5 mg/mL with a daily dose of 0.7767 mg/day. Patient denies any side effects from this medication. Patient is also prescribed pregabalin 50 mg twice a day from his primary care doctor patient rates pain a 4 out of 10. Patient denies any new trauma or injury. Patient denies any change to location or type of pain he experiences. Drug screen is appropriate. Valdemar [id number] has been reviewed and is appropriate. Physical exam General: Alert and oriented x3, no acute distress, pleasant and cooperative Lungs: Respirations even and unlabored, symmetrical chest expansion Eyes: PERRL Musculoskeletal: Flexion and extension of lumbar [spine] somewhat guarded secondary to pain, [antalgic gait noted] Neurological: Speech clear, no gross sensory deficit Skin: Both incision sites have completely healed with no erythema noted or swelling Procedure Details:: Informed consent was obtained and the risk and benefits of the procedure were explained to the patient. Patient was taken to the procedure room where noninvasive monitoring was placed including noninvasive blood pressure cuff and pulse oximeter. Patient's pump was interrogated and was reprogrammed to morphine 5.133 mg/day and bupivacaine 0.8555 mg/day. The patient tolerated the procedure well with no complications. Plan and Disposition:: Patient will return to clinic in 2 weeks for reevaluation of symptoms possible intrathecal adjustment and reprogram and follow-up. Patient has been instructed to contact the clinic with any concerns before the next appointment. Dr. Smith has reviewed this note and agrees with this plan of care. This note was dictated using voice recognition software and make contain errors or omissions. -- It Is medically necessary for this patient to continue to have their intrathecal pump refilled at regular intervals. This patient had an intrathecal pain pump implanted after meeting criteria of chronic intractable pain for greater than 3 months and failing conservative treatments. Patient has committed and been compliant to the treatment plan and all planned follow up care. Since implantation of the intrathecal pain pump, the patient has had decreased pain and been more functional. Oral medications have been reduced including intake of oral opioids. Patient continues to do well with intrathecal therapy with decrease in pain symptoms and increase in functional status. Stopping intrathecal medications can lead to life threatening withdrawal, seizures, cardiac arrest, severe pain, and possible . Pumps that are not refilled at regular intervals can be damages and cause and need for replacement. We continually titrate dose and concentration to optimize pain relief and function. We are limited in concentration for certain drugs to safely deliver medications through the pump and stay within the recommendations from the Polyanalgesic Consensus Committee Guidelines. Depending on dose and concentration these pumps may need to be refilled sooner than 3 months as we titrate.
[2022-09-10 10:50] VITALS: BP 136/64; PULSE 96; RESP 18; O2SAT 96; BMI 32.6
== END | disposition home or self-care (01) ==
PROVIDERS: PCP Internal Medicine Adolescent Medicine; Visit Provider Nurse Practitioner Family
DX: Z45.1 Encounter for adjustment and management of infusion pump (principal); M51.16 Intervertebral disc disorders with radiculopathy, lumbar region; M47.26 Other spondylosis with radiculopathy, lumbar region; M79.10 Myalgia, unspecified site
CPT/HCPCS: 62368; 99213; G0463

== ENCOUNTER → 2022-09-29 09:39 | Outpatient (POV) | payer MEDICARE, SELFPAY ==
[2022-09-29 09:59] VITALS: BP 121/58; PULSE 91; RESP 18; O2SAT 97; BMI 33.2
--- NOTE | 2022-09-29 10:05 | EXP.PAIN.PRO ---
Procedure Date: 09/29/22 Time: 10:05 Anesthesiologist:: Lilian Gautam APRN Complications:: None Pre-procedure Diagnosis:: Degenerative disc disease of lumbar spine with lumbar radiculopathy symptoms, status post replacement of intrathecal pain pump and catheter revision, lumbar facet arthropathy, lumbar spondylosis, myofascial pain Post-procedure Diagnosis:: Same Indications for Procedure:: Patient is a pleasant 66-year-old male who presents today for intrathecal pain pump reprogramming and adjustment. The patient is being treated for degenerative disc disease of lumbar spine with lumbar radiculopathy symptoms, status post replacement of intrathecal pain pump and catheter revision, lumbar facet arthropathy, lumbar spondylosis, myofascial pain. Patient is currently being managed with morphine 30 mg/mL with a daily dose of 5.133 mg/day and bupivacaine 5 mg/mL with a daily dose of 0.8555 mg/day. Patient denies any side effects from this medication. Patient rates pain a 6 out of 10. Patient denies any new trauma or injury. He states his pump does do well however he continues to have worsening pain with increased activity. He is requesting an increase at today's visit. Drug screen is appropriate. Valdemar [id number] has been reviewed and is appropriate. Physical exam General: Alert and oriented x3, no acute distress, pleasant and cooperative Lungs: Respirations even and unlabored, symmetrical chest expansion Eyes: PERRL Musculoskeletal: Flexion and extension of lumbar [spine] somewhat guarded secondary to pain, [antalgic gait noted] Neurological: Speech clear, no gross sensory deficit Procedure Details:: Informed consent was obtained and the risk and benefits of the procedure were explained to the patient. Patient was taken to the procedure room where noninvasive monitoring was placed including noninvasive blood pressure cuff and pulse oximeter. Patient's pump was interrogated and was reprogrammed to morphine 5.646 mg/day and bupivacaine 0.941 mg/day. The patient tolerated the procedure well with no complications. Plan and Disposition:: Patient will return to clinic in 1 month for reevaluation of symptoms and plan of care. Patient has been instructed to contact the clinic with any concerns before the next appointment. Dr. Smith has reviewed this note and agrees with this plan of care. This note was dictated using voice recognition software and make contain errors or omissions. -- It Is medically necessary for this patient to continue to have their intrathecal pump refilled at regular intervals. This patient had an intrathecal pain pump implanted after meeting criteria of chronic intractable pain for greater than 3 months and failing conservative treatments. Patient has committed and been compliant to the treatment plan and all planned follow up care. Since implantation of the intrathecal pain pump, the patient has had decreased pain and been more functional. Oral medications have been reduced including intake of oral opioids. Patient continues to do well with intrathecal therapy with decrease in pain symptoms and increase in functional status. Stopping intrathecal medications can lead to life threatening withdrawal, seizures, cardiac arrest, severe pain, and possible . Pumps that are not refilled at regular intervals can be damages and cause and need for replacement. We continually titrate dose and concentration to optimize pain relief and function. We are limited in concentration for certain drugs to safely deliver medications through the pump and stay within the recommendations from the Polyanalgesic Consensus Committee Guidelines. Depending on dose and concentration these pumps may need to be refilled sooner than 3 months as we titrate.
== END | disposition home or self-care (01) ==
PROVIDERS: PCP Internal Medicine Adolescent Medicine; Visit Provider Nurse Practitioner Family
DX: M51.16 Intervertebral disc disorders with radiculopathy, lumbar region (principal); M47.26 Other spondylosis with radiculopathy, lumbar region; M79.10 Myalgia, unspecified site; Z97.8 Presence of other specified devices
CPT/HCPCS: 62368; 99213; G0463

== ENCOUNTER → 2022-10-27 09:11 | Outpatient (POV) | payer MEDICARE, SELFPAY ==
--- NOTE | 2022-10-27 09:22 | EXP.PAIN.SOA ---
[facility] Pain Management SOAP Note Subjective:: Patient is a pleasant 66-year-old male who presents today for follow-up. We are currently treating the patient for degenerative disc disease of lumbar spine with lumbar radiculopathy symptoms, status post replacement of intrathecal pain pump and catheter revision, lumbar facet arthropathy, lumbar spondylosis, myofascial pain. Today he rates his pain a 4 out of 10. Patient denies any additional injuries or trauma from our last visit. He states he is doing well from his last pump adjustment and is not requesting any additional adjustments at today's visit. He is managed intrathecally with morphine 30 mg/mL with a daily dose of 5.646 mg/day and bupivacaine 5 mg/mL with a daily dose of 0.941 mg/day. He denies any side effects from this medication. He is also managed with pregabalin 50 mg twice a day from his primary care doctor. Patient denies any side effects from this medication. His Valdemar is [id number]. Its been reviewed and appropriate. Review of Systems: General: No recent weight changes, no fever, no sleep disturbances Respiratory: No cough, no shortness of air, no recurring pulmonary infections Cardiovascular/peripheral vascular: No chest pain, no palpitations, no edema, no shortness of breath Gastrointestinal: No new onset incontinence, normal bowel movements reported Genitourinary: No new onset incontinence Musculoskeletal: Low back pain Psychiatric: [Normal mood/affect] Neurological: [Denies weakness in extremities], [denies balance issues] Objective:: Physical Exam: General: Alert and oriented x3, no acute distress, pleasant and cooperative Lungs: Respirations even and unlabored, symmetrical chest expansion Eyes: PERRL Musculoskeletal: Flexion and extension of lumbar [spine] somewhat guarded secondary to pain, [antalgic gait noted] Neurological: Speech clear, no gross sensory deficit Assessment:: degenerative disc disease of lumbar spine with lumbar radiculopathy symptoms, status post replacement of intrathecal pain pump and catheter revision, lumbar facet arthropathy, lumbar spondylosis, myofascial pain Plan:: At this time he is doing well with his current settings of his intrathecal pain pump. 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 Patient will return to clinic in 3 months for reevaluation of symptoms and plan of care. Patient has been instructed to contact the clinic with any concerns before the next appointment. Dr. Smith has reviewed this note and agrees with this plan of care. This note was dictated using voice recognition software and make contain errors or omissions. -- It Is medically necessary for this patient to continue to have their intrathecal pump refilled at regular intervals. This patient had an intrathecal pain pump implanted after meeting criteria of chronic intractable pain for greater than 3 months and failing conservative treatments. Patient has committed and been compliant to the treatment plan and all planned follow up care. Since implantation of the intrathecal pain pump, the patient has had decreased pain and been more functional. Oral medications have been reduced including intake of oral opioids. Patient continues to do well with intrathecal therapy with decrease in pain symptoms and increase in functional status. Stopping intrathecal medications can lead to life threatening withdrawal, seizures, cardiac arrest, severe pain, and possible . Pumps that are not refilled at regular intervals can be damages and cause and need for replacement. We continually titrate dose and concentration to optimize pain relief and function. We are limited in concentration for certain drugs to safely deliver medications through the pump and stay within the recommendations from the Polyanalgesic Consensus Committee Guidelines. Depending on dose and concentration these pumps may need to be refilled sooner than 3 months as we titrate. PFS PFS
[2022-10-27 09:59] VITALS: BP 129/66; PULSE 81; RESP 21; O2SAT 97; BMI 32.1
== END ==
PROVIDERS: PCP Internal Medicine Adolescent Medicine; Visit Provider Nurse Practitioner Family
DX: M51.16 Intervertebral disc disorders with radiculopathy, lumbar region (principal); M47.26 Other spondylosis with radiculopathy, lumbar region; M79.10 Myalgia, unspecified site; Z97.8 Presence of other specified devices
CPT/HCPCS: 99212; G0463

== ENCOUNTER → 2022-11-19 14:53 | Outpatient (CLI) | payer MEDICARE, SELFPAY ==
--- NOTE | 2022-11-19 14:53 | CT_ITS ---
FINAL REPORT TECHNIQUE: Axial images were obtained from the lung apex to the mid abdomen by computed tomography. Coronal reformatted images were obtained. This study was performed with techniques to keep radiation doses as low as reasonably achievable, (ALARA). Individualized dose reduction techniques using automated exposure control or adjustment of mA and/or kV according to the patient''s size were employed. CLINICAL HISTORY: 3-month anterolateral right lower lobe nodule follow-up, October 2022 COMPARISON: CT low-dose 08/01/2022 FINDINGS: There are small mediastinal and axillary nodes without evidence of adenopathy. There is no hilar adenopathy. Heart size is normal. Left coronary artery calcifications are noted. There is no pericardial or pleural effusion. There has been interval resolution of the previously noted anterolateral right lower lobe nodule. There are multiple new nodules in the left lung base measuring up to 6 mm which are most likely inflammatory. There is mild bronchial wall thickening. Mild scarring is noted. There is mild emphysema. There is a calcified granuloma in the right lower lobe. Limited images of the upper abdomen demonstrate partial collapse of the gallbladder with wall thickening. IMPRESSION: Interval resolution right lower lobe nodule. Multiple new left lower lobe nodules, most likely inflammatory. Additional follow-up CT chest in 6 months recommended. Reviewed, Interpreted and Dictated by Micha Santana III, MD Transcribed by Emily Diaz Authenticated and [facility]
== END ==
PROVIDERS: PCP Internal Medicine Adolescent Medicine; Visit Provider Internal Medicine Pulmonary Disease
DX: R91.8 Other nonspecific abnormal finding of lung field (principal)
CPT/HCPCS: 71250

== ENCOUNTER → 2023-01-19 13:43 | Outpatient (CLI) | payer MEDICARE, SELFPAY ==
[2023-01-19 14:11] LABS: Basophils % 0.5 % (0.1-2.0); Eosinophils # 0.3 K/mm3 (0.0-0.4); Eosinophils % 5.6 % (0.1-12.0); Hematocrit 30.7 % (42.0-52.0); Hemoglobin 9.8 g/dL (14.1-18.0); Lymphocytes # 1.7 K/mm3 (0.7-4.5); Lymphocytes % 29.8 % (10-50); Mean Corpuscular HGB Conc 31.9 g/dL (31.8-35.4); Mean Corpuscular Hemoglobin 29.9 pg (27.0-31.2); Mean Corpuscular Volume 93.9 fl (80-94); Mean Platelet Volume 8.2 fl (7.4-10.4); Monocytes # 0.5 K/mm3 (0.1-1.0); Monocytes % 9.2 % (1.7-9.3); Neutrophils % 54.9 % (37.0-80.0); Platelet Count 193 K/mm3 (142-424); Red Blood Count 3.27 M/mm3 (4.60-6.20); Red Cell Distribution Width 15.3 % (11.5-17.5); White Blood Count 5.5 K/mm3 (4.8-10.8)
[2023-01-19 17:06] LABS: Anion Gap 11.7 mEq/L (5-15); Blood Urea Nitrogen 25 mg/dl (9-20); Calcium 8.7 mg/dl (8.4-10.2); Carbon Dioxide 30 mmol/L (22.0-30.0); Chloride 96 mmol/L (98-107); Estimated Glomerular Filt Rate 28 ml/min (>60); GFR (African American) 34 ML/MIN (>60); Glucose 103 mg/dl (74-100); Potassium 4.7 mmoL/L (3.5-5.1); Sodium 133 mmol/L (136-145)
== END ==
PROVIDERS: PCP Internal Medicine Adolescent Medicine; Visit Provider Physician Assistant
DX: I63.9 Cerebral infarction, unspecified (principal); E78.5 Hyperlipidemia, unspecified; F17.200 Nicotine dependence, unspecified, uncomplicated; I20.0 Unstable angina; I51.89 Other ill-defined heart diseases; J44.9 Chronic obstructive pulmonary disease, unspecified; K21.9 Gastro-esophageal reflux disease without esophagitis; R06.02 Shortness of breath
CPT/HCPCS: 36415; 80048; 85025

== ENCOUNTER → 2023-01-29 08:51 | Outpatient (POV) | payer MEDICARE, SELFPAY ==
--- NOTE | 2023-01-29 09:12 | EXP.PAIN.PRO ---
Procedure Date: 01/29/23 Time: 09:16 Anesthesiologist:: Lilian Gautam APRN Complications:: None Pre-procedure Diagnosis:: Degenerative disc disease of lumbar spine with lumbar radiculopathy symptoms, status post replacement of intrathecal pain pump and catheter revision, lumbar facet arthropathy, lumbar spondylosis, myofascial pain. Post-procedure Diagnosis:: Same Indications for Procedure:: Patient is a pleasant 67-year-old male who presents today for follow-up. We are currently treating the patient for degenerative disc disease of lumbar spine with lumbar radiculopathy symptoms, status post replacement of intrathecal pain pump and catheter revision, lumbar facet arthropathy, lumbar spondylosis, myofascial pain. Today he rates his pain a 10 out of 10. Patient denies any new trauma or or injury or change to location or type of pain he experiences. He does state that if he moves around much at all there is severe debilitating pain. He is currently managed with morphine 30 mg/mL with a daily dose of 5.646 mg/day and bupivacaine 5 mg/mL with a daily dose of 0.941 mg/day. Patient denies any side effects from this medication. He is also managed with clonazepam 0.5 mg daily and pregabalin 50 mg twice a day from Dr. Luke's office. His Valdemar is [id number]. Its been reviewed and appropriate. Physical Exam: General: Alert and oriented x3, no acute distress, pleasant and cooperative Lungs: Respirations even and unlabored, symmetrical chest expansion Eyes: PERRL Musculoskeletal: Flexion and extension of lumbar [spine] somewhat guarded secondary to pain, [antalgic gait noted] Neurological: Speech clear, no gross sensory deficit Procedure Details:: Informed consent was obtained and the risk and benefits of the procedure were explained to the patient. Patient was taken to the procedure room where noninvasive monitoring was placed including noninvasive blood pressure cuff and pulse oximeter. Patient's pump was interrogated and was reprogrammed to morphine 6.207 mg/day and bupivacaine 1.0346 mg/day. The patient tolerated the procedure well with no complications. Plan and Disposition:: Patient tolerated his intrathecal reprogramming adjustment with no complications and was discharged neurologically intact. Patient will return to clinic in 2 weeks for reevaluation of symptoms and possible additional intrathecal adjustment. Patient has been instructed to contact the clinic with any concerns before the next appointment. Dr. Smith has reviewed this note and agrees with this plan of care. This note was dictated using voice recognition software and make contain errors or omissions. -- It Is medically necessary for this patient to continue to have their intrathecal pump refilled at regular intervals. This patient had an intrathecal pain pump implanted after meeting criteria of chronic intractable pain for greater than 3 months and failing conservative treatments. Patient has committed and been compliant to the treatment plan and all planned follow up care. Since implantation of the intrathecal pain pump, the patient has had decreased pain and been more functional. Oral medications have been reduced including intake of oral opioids. Patient continues to do well with intrathecal therapy with decrease in pain symptoms and increase in functional status. Stopping intrathecal medications can lead to life threatening withdrawal, seizures, cardiac arrest, severe pain, and possible . Pumps that are not refilled at regular intervals can be damages and cause and need for replacement. We continually titrate dose and concentration to optimize pain relief and function. We are limited in concentration for certain drugs to safely deliver medications through the pump and stay within the recommendations from the Polyanalgesic Consensus Committee Guidelines. Depending on dose and concentration these pumps may need to be refilled sooner than 3 months as we titrate.
[2023-01-29 11:09] VITALS: BP 108/53; PULSE 75; RESP 18; O2SAT 99; BMI 33.2
== END | disposition home or self-care (01) ==
PROVIDERS: Visit Provider Nurse Practitioner Family
DX: M51.16 Intervertebral disc disorders with radiculopathy, lumbar region (principal); Z97.8 Presence of other specified devices; M47.26 Other spondylosis with radiculopathy, lumbar region; M79.10 Myalgia, unspecified site
CPT/HCPCS: 62368; 99213; G0463

== ENCOUNTER 2023-02-03 08:04 | Day surgery (SDC) | payer MEDICARE, SELFPAY ==
[2023-02-03] VITALS (9 sets, daily range): BP systolic 83–128; BP diastolic 53–77; PULSE 60–86; RESP 13–18; O2SAT 97–100; BMI 34.2
--- NOTE | 2023-02-03 | CA_ITS ---
APPROVED REPORT EXAM: Comprehensive 2D, Doppler, and color-flow Echocardiogram Worship Director: Malina Cardenas RT(R) Ht: 5 ft 11 in Wt: 235lbs BSA: 2.26 BP: 103/60 mmHg Indications: Abn stress, SOB, home O2, COPD, HTN, smoker, CHF, CAD, ILDEFONSO, GERD. 2D Dimensions LVOT 1.95 cm (M/F) 1.5-2.5 M-Mode Dimensions RVDd 3.55 cm (0.9-2.6) LA Diam 3.81 cm (1.9-4.0) LVDd 4.95 cm (3.5-5.7) Ao Diam 2.73 cm (2.0-3.7) LVDs 3.92 cm (3.5-5.7) IVSd 1.03 cm (0.6-1.1) PWd 1.17 cm (0.6-1.1) EF (Teich) 42.30% FS 20.80% EDV (Teich) 115.50 mL ESV (Teich) 66.70 mL LV Diastology E Decel Time 267.00 (160-240 msec) E/A Ratio 1.1 MED E' 7.10 (< 7 cm/sec) E'/MED E' Ratio 12.46 (>14) LAT E' 7.50 (<10 cm/sec) E/LAT E' Ratio 11.80 (>14) Mitral Valve MV E Max Blu. 88.00 (40-130 cm/s) MV A Velocity 81.00 (40-130 cm/s) E/A Ratio 1.10 MV Decel. Time 267.00 (160-240 ms) MV PHT 78.00 ms Left Ventricle The left ventricle is normal size. The left ventricular systolic function is normal. The left ventricular ejection fraction is within the normal range. There is normal left ventricular wall thickness. There is normal LV segmental wall motion. The left ventricular diastolic function is normal. LVEF is 55-60%. Right Ventricle The RV size is difficult to estimate due to difficulty visualizing the RV free wall, but is grossly normal in size. The right ventricular systolic function is normal. Atria The left atrium size is normal. There is no Doppler evidence of interatrial shunt. Aortic Valve The aortic valve opens well. There is no aortic valvular stenosis. No aortic regurgitation is present. Mitral Valve The mitral valve is normal in structure. No evidence of mitral valve stenosis. There is no mitral valve regurgitation noted. Tricuspid Valve The tricuspid valve leaflets are thin and pliable. Trace tricuspid regurgitation. RVSP is normal. Pulmonic Valve The pulmonary valve is normal in structure. Trace pulmonic regurgitation. Great Vessels The aortic root is normal in size. The ascending aorta is not well visualized. IVC is normal in size and collapses >50% with inspiration. Pericardium There is no pericardial effusion. Other Information Study Quality: Fair Conclusion Normal biventricular systolic function. No significant valvular disease. Electronically signed by : Jessie Jeong, 02/03/2023 15:39:36
--- NOTE | 2023-02-03 07:19 | IR_ITS ---
APPROVED REPORT Patient Location: Outpatient [facility] Coordinator: MAYRA Moses RT (R) PROCEDURES Right radial access Placement of catheter in acending aorta Informed consent was obtained prior to the procedure. COMPLICATIONS None Estimated Blood Loss: Less than 2 mls TECHNIQUE One percent lidocaine used to anesthetize the right anterior aspect of the wrist. The right radial artery was accessed via the Seldinger technique. A 6 Mohawk sheath was placed in the right radial artery. 150 mg magnesium sulfate, 800 mcg of nitroglycerin, 1mg Lidocaine and 5000 U Heparin were given through the arterial sheath. The papa catheter was advanced to the ascending aorta but no images were taken due to equipment malfuction. Catheter removed. At the end of the procedure the sheath was removed good hemostasis was achieved using Traclet band, patient was transferred to the postop holding area in stable condition. IMPRESSION Successful Right radial access Successful Placement of catheter in acending aorta PLAN 1. Reschedule heart cath when possible. Electronically signed by : Carl Gould MD 02/06/2023 13:51:03
[2023-02-03 09:00] LABS: Basophils % 0.3 % (0.1-2.0); Eosinophils # 0.3 K/mm3 (0.0-0.4); Eosinophils % 4.5 % (0.1-12.0); Hematocrit 30.6 % (42.0-52.0); Hemoglobin 9.8 g/dL (14.1-18.0); Lymphocytes # 1.5 K/mm3 (0.7-4.5); Lymphocytes % 23.5 % (10-50); Mean Corpuscular HGB Conc 32.2 g/dL (31.8-35.4); Mean Corpuscular Hemoglobin 30.3 pg (27.0-31.2); Mean Corpuscular Volume 94.2 fl (80-94); Mean Platelet Volume 8.3 fl (7.4-10.4); Monocytes # 0.6 K/mm3 (0.1-1.0); Monocytes % 9.1 % (1.7-9.3); Neutrophils # 3.9 K/mm3 (1.8-7.8); Neutrophils % 62.6 % (37.0-80.0); Platelet Count 203 K/mm3 (142-424); Red Blood Count 3.25 M/mm3 (4.60-6.20); Red Cell Distribution Width 14.7 % (11.5-17.5); White Blood Count 6.2 K/mm3 (4.8-10.8)
[2023-02-03 09:04] LABS: Anion Gap 13.3 mEq/L (5-15); Blood Urea Nitrogen 31 mg/dl (9-20); Calcium 9.4 mg/dl (8.4-10.2); Carbon Dioxide 33 mmol/L (22.0-30.0); Chloride 97 mmol/L (98-107); Creatinine Clearance Estimated 50 mL/min (50-200); Estimated Glomerular Filt Rate 30 ml/min (>60); GFR (African American) 36 ML/MIN (>60); Glucose 101 mg/dl (74-100); Potassium 4.3 mmoL/L (3.5-5.1); Sodium 139 mmol/L (136-145)
== END 2023-02-03 12:48 | disposition home or self-care (01) ==
PROVIDERS: PCP Internal Medicine Adolescent Medicine; Visit Provider Internal Medicine
DX: E78.5 Hyperlipidemia, unspecified (principal); F17.200 Nicotine dependence, unspecified, uncomplicated; J44.9 Chronic obstructive pulmonary disease, unspecified; K21.9 Gastro-esophageal reflux disease without esophagitis; R06.02 Shortness of breath; I25.110 Atherosclerotic heart disease of native coronary artery with unstable angina pectoris; Z53.8 Procedure and treatment not carried out for other reasons
CPT/HCPCS: 93458; 80048; 85025; 93306; J1644

== ENCOUNTER 2023-02-06 08:56 | Day surgery (SDC) | payer MEDICARE, SELFPAY ==
[2023-02-06] VITALS (11 sets, daily range): BP systolic 80–108; BP diastolic 47–69; PULSE 59–90; RESP 16–20; TEMP 36.9; O2SAT 96–100; BMI 34.2
--- NOTE | 2023-02-06 07:05 | IR_ITS ---
APPROVED REPORT Patient Location: Outpatient PROCEDURES Left heart catheterization Selective coronary angiogram INDICATION Known coronary artery disease, Angina pectoris, Informed consent was obtained prior to the procedure. COMPLICATIONS NONE Estimated Blood Loss: LESS THAN 10 ML TECHNIQUE One percent lidocaine used to anesthetize the right anterior aspect of the wrist. The right radial artery was accessed via the Seldinger technique. A 6 English sheath was placed in the right radial artery. 2.5 mg of Verapamil, 800 mcg of nitroglycerin, 1mg Lidocaine and 5000 U Heparin were given through the arterial sheath. The papa catheter was also used to perform left heart catheterization and selective coronary angiogram. At the end of the procedure the sheath was removed good hemostasis was achieved using Traclet band, patient was transferred to the postop holding area in stable condition. ANGIOGRAPHIC RESULTS The left main artery Normal The left anterior descending artery Has proximal smooth 10 to 20% stenosis followed by the mid LAD stent which is widely patent free of in-stent restenosis The circumflex artery Large dominant giving rise to a large ramus intermedius. Both circumflex artery and ramus intermedius have mild 10% luminal irregularities The right coronary artery Vestigial normal The WALLS ventriculogram reveals Not performed The left ventricular end-diastolic pressure 30 mmHg IMPRESSION Widely patent coronary arteries as described above Moderate to severely elevated LVEDP PLAN 1. Medical management for coronary disease 2. Medical management for diastolic dysfunction Electronically signed by : Carl Gould MD 02/06/2023 13:41:49
[2023-02-06 10:40] LABS: Chloride 101 mmol/L (98-107); Potassium 4.8 mmoL/L (3.5-5.1); Sodium 142 mmol/L (136-145)
[2023-02-06 10:42] LABS: Basophils % 0.5 % (0.1-2.0); Eosinophils # 0.3 K/mm3 (0.0-0.4); Eosinophils % 5.1 % (0.1-12.0); Hematocrit 31.5 % (42.0-52.0); Hemoglobin 9.9 g/dL (14.1-18.0); Lymphocytes # 1.1 K/mm3 (0.7-4.5); Lymphocytes % 19.7 % (10-50); Mean Corpuscular HGB Conc 31.4 g/dL (31.8-35.4); Mean Corpuscular Hemoglobin 29.6 pg (27.0-31.2); Mean Corpuscular Volume 94.1 fl (80-94); Mean Platelet Volume 8.5 fl (7.4-10.4); Monocytes # 0.5 K/mm3 (0.1-1.0); Monocytes % 8.9 % (1.7-9.3); Neutrophils # 3.6 K/mm3 (1.8-7.8); Neutrophils % 65.8 % (37.0-80.0); Platelet Count 201 K/mm3 (142-424); Red Blood Count 3.35 M/mm3 (4.60-6.20); Red Cell Distribution Width 14.9 % (11.5-17.5); White Blood Count 5.4 K/mm3 (4.8-10.8)
[2023-02-06 10:43] LABS: Anion Gap 13.8 mEq/L (5-15); Blood Urea Nitrogen 32 mg/dl (9-20); Carbon Dioxide 32 mmol/L (22.0-30.0); Creatinine Clearance Estimated 64 mL/min (50-200); Estimated Glomerular Filt Rate 40 ml/min (>60); GFR (African American) 49 ML/MIN (>60)
[2023-02-06 10:44] LABS: Calcium 9.8 mg/dl (8.4-10.2); Glucose 107 mg/dl (74-100)
== END 2023-02-06 15:54 | disposition home or self-care (01) ==
PROVIDERS: PCP Internal Medicine Adolescent Medicine; Visit Provider Internal Medicine
DX: I25.110 Atherosclerotic heart disease of native coronary artery with unstable angina pectoris (principal); I10 Essential (primary) hypertension; J44.9 Chronic obstructive pulmonary disease, unspecified; Z79.899 Other long term (current) drug therapy; J96.11 Chronic respiratory failure with hypoxia; Z86.16 Personal history of COVID-19
CPT/HCPCS: 80048; 85025; 93458; 99152; C1725; C1769; J1644; Q9967

== ENCOUNTER → 2023-02-12 09:20 | Outpatient (POV) | payer MEDICARE, SELFPAY ==
[2023-02-12 09:33] VITALS: BP 128/72; PULSE 86; RESP 18; O2SAT 96; BMI 32.9
--- NOTE | 2023-02-12 10:10 | EXP.PAIN.PRO ---
Procedure Date: 02/12/23 Time: 10:11 Anesthesiologist:: Lilian Gautam APRN Complications:: None Pre-procedure Diagnosis:: Degenerative disc disease of lumbar spine with lumbar radiculopathy symptoms, status post replacement of intrathecal pain pump and catheter revision, lumbar facet arthropathy, lumbar spondylosis, myofascial pain. Post-procedure Diagnosis:: Same Indications for Procedure:: Patient is a pleasant 67-year-old male who presents today for intrathecal pain pump reprogramming adjustment. The patient is being treated for degenerative disc disease of lumbar spine with lumbar radiculopathy symptoms, lumbar facet arthropathy, lumbar spondylosis, myofascial pain, status post replacement of intrathecal pain pump and catheter revision. Patient is currently being managed with morphine 30 mg/mL with a daily dose of 6.207 and bupivacaine 5 mg/mL with a daily dose of 1.0346 mg/day. Patient denies any side effects from this medication. Patient rates pain a 3 out of 10. Drug screen is appropriate. Valdemar [id number] has been reviewed and is appropriate. Physical exam General: Alert and oriented x3, no acute distress, pleasant and cooperative Lungs: Respirations even and unlabored, symmetrical chest expansion Eyes: PERRL Musculoskeletal: Flexion and extension of lumbar [spine] somewhat guarded secondary to pain, [antalgic gait noted] Neurological: Speech clear, no gross sensory deficit Procedure Details:: Informed consent was obtained and the risk and benefits of the procedure were explained to the patient. Patient was taken to the procedure room where noninvasive monitoring was placed including noninvasive blood pressure cuff and pulse oximeter. Patient's pump was interrogated and was reprogrammed to morphine 6.8 to 8 mg/day and bupivacaine 1.138 mg/day. The patient tolerated the procedure well with no complications. Plan and Disposition:: Patient tolerated his intrathecal refill and reprogram with no complications and was discharged neurologically intact. Patient will return to clinic in 1 month for reevaluation of symptoms and plan of care. Patient has been instructed to contact the clinic with any concerns before the next appointment. Dr. Smith has reviewed this note and agrees with this plan of care. This note was dictated using voice recognition software and make contain errors or omissions. -- It Is medically necessary for this patient to continue to have their intrathecal pump refilled at regular intervals. This patient had an intrathecal pain pump implanted after meeting criteria of chronic intractable pain for greater than 3 months and failing conservative treatments. Patient has committed and been compliant to the treatment plan and all planned follow up care. Since implantation of the intrathecal pain pump, the patient has had decreased pain and been more functional. Oral medications have been reduced including intake of oral opioids. Patient continues to do well with intrathecal therapy with decrease in pain symptoms and increase in functional status. Stopping intrathecal medications can lead to life threatening withdrawal, seizures, cardiac arrest, severe pain, and possible . Pumps that are not refilled at regular intervals can be damages and cause and need for replacement. We continually titrate dose and concentration to optimize pain relief and function. We are limited in concentration for certain drugs to safely deliver medications through the pump and stay within the recommendations from the Polyanalges[employer] Consensus Committee Guidelines. Depending on dose and concentration these pumps may need to be refilled sooner than 3 months as we titrate.
== END | disposition home or self-care (01) ==
PROVIDERS: PCP Internal Medicine Adolescent Medicine; Visit Provider Nurse Practitioner Family
DX: M51.16 Intervertebral disc disorders with radiculopathy, lumbar region (principal); Z97.8 Presence of other specified devices; M47.26 Other spondylosis with radiculopathy, lumbar region; M79.10 Myalgia, unspecified site
CPT/HCPCS: 62368; 99212; 99213; G0463

== ENCOUNTER → 2023-03-12 12:53 | Outpatient (POV) | payer MEDICARE, SELFPAY ==
--- NOTE | 2023-03-12 13:16 | EXP.PAIN.SOA ---
[facility] Pain Management SOAP Note Subjective:: Patient is a pleasant 67-year-old male who presents today for follow-up. We are currently treating the patient for degenerative disc disease of lumbar spine with lumbar radiculopathy symptoms, lumbar facet arthropathy, lumbar spondylosis, status post intrathecal pain pump replacement and catheter revision. Today he rates his pain a 10 out of 10. Patient denies any new trauma or injury. He denies any change location or type of pain he experiences. Patient does state that he is continue to have excruciating pain that feels untreated by his intrathecal pump. Patient states that he really has not noticed a significant improvement as he thought he would with his medication. Patient is currently managed with morphine 30 mg/mL with a daily dose of 6.8 to 8 mg/day and bupivacaine 5 mg/mL with a daily dose of 1.138 mg/day. He denies any side effects from this medication. Patient previously had his pump replaced along with catheter due to the catheter tip being more posterior. Patient is also prescribed pregabalin 50 mg twice a day and clonazepam 0.5 mg daily from his primary care provider. His Valdemar is [phone]. Its been reviewed and appropriate. Review of Systems: General: No recent weight changes, no fever, no sleep disturbances Respiratory: No cough, no shortness of air, no recurring pulmonary infections Cardiovascular/peripheral vascular: No chest pain, no palpitations, no edema, no shortness of breath Gastrointestinal: No new onset incontinence, normal bowel movements reported Genitourinary: No new onset incontinence Musculoskeletal: Low back pain Psychiatric: [Normal mood/affect] Neurological: [Denies weakness in extremities], [denies balance issues] Objective:: Physical Exam: General: Alert and oriented x3, no acute distress, pleasant and cooperative Lungs: Respirations even and unlabored, symmetrical chest expansion Eyes: PERRL Musculoskeletal: Flexion and extension of lumbar [spine] somewhat guarded secondary to pain, [antalgic gait noted] Neurological: Speech clear, no gross sensory deficit Assessment:: Degenerative disc disease of lumbar spine with lumbar radiculopathy symptoms, lumbar facet arthropathy, lumbar spondylosis, status post intrathecal pain pump and catheter revision Plan:: Patient is experiencing worsening pain with limited range of motion of his lumbar spine. I will order x-ray imaging to confirm catheter placement as well as order a catheter dye study. Patient will follow-up in clinic in 1 week for reevaluation of symptoms and plan of care. Patient has been instructed to contact the clinic with any concerns before the next appointment. Dr. Smith has reviewed this note and agrees with this plan of care. This note was dictated using voice recognition software and make contain errors or omissions. -- It Is medically necessary for this patient to continue to have their intrathecal pump refilled at regular intervals. This patient had an intrathecal pain pump implanted after meeting criteria of chronic intractable pain for greater than 3 months and failing conservative treatments. Patient has committed and been compliant to the treatment plan and all planned follow up care. Since implantation of the intrathecal pain pump, the patient has had decreased pain and been more functional. Oral medications have been reduced including intake of oral opioids. Patient continues to do well with intrathecal therapy with decrease in pain symptoms and increase in functional status. Stopping intrathecal medications can lead to life threatening withdrawal, seizures, cardiac arrest, severe pain, and possible . Pumps that are not refilled at regular intervals can be damages and cause and need for replacement. We continually titrate dose and concentration to optimize pain relief and function. We are limited in concentration for certain drugs to safely deliver medications through the pump and stay within the recomme
[2023-03-12 13:43] VITALS: BP 96/46; PULSE 89; RESP 20; O2SAT 95; BMI 32.6
== END ==
PROVIDERS: PCP Internal Medicine Adolescent Medicine; Visit Provider Nurse Practitioner Family
DX: M51.16 Intervertebral disc disorders with radiculopathy, lumbar region (principal); M47.26 Other spondylosis with radiculopathy, lumbar region; Z97.8 Presence of other specified devices
CPT/HCPCS: 99212; G0463

== ENCOUNTER → 2023-03-12 14:50 | Outpatient (CLI) | payer MEDICARE, SELFPAY ==
--- NOTE | 2023-03-12 14:55 | XR_ITS ---
FINAL REPORT CLINICAL HISTORY: CHANGE OF PAIN WITH NEW PUMP FINDINGS: THORACIC SPINE Three views demonstrate no acute fracture. There are moderate degenerative changes with multilevel osteophytes. There is no malalignment. IMPRESSION: Moderate degenerative changes. Reviewed, Interpreted and Dictated by Micha Santana III, MD Transcribed by Kia Elias Authenticated and [facility]
== END ==
PROVIDERS: PCP Internal Medicine Adolescent Medicine; Visit Provider Nurse Practitioner Family
DX: M54.9 Dorsalgia, unspecified (principal); M54.6 Pain in thoracic spine
CPT/HCPCS: 72072; 99212; G0463

== ENCOUNTER 2023-03-20 09:19 | Day surgery (SDC) | payer MEDICARE, SELFPAY ==
[2023-03-20 10:07] VITALS: BP 111/60; PULSE 60; RESP 18; O2SAT 97; BMI 33.2
[2023-03-20 11:00] VITALS: BP 107/42; PULSE 76; RESP 18; O2SAT 97
--- NOTE | 2023-03-20 11:23 | EXP.PAIN.PRO ---
Procedure Date: 03/20/23 Time: 11:24 Anesthesiologist:: Robin Smith MD Complications:: None Pre-procedure Diagnosis:: Postlaminectomy syndrome lumbar spine with increasing pain Post-procedure Diagnosis:: Same Indications for Procedure:: Patient is a pleasant 67-year-old white male who we have been treating for low back pain with lumbar radiculopathy symptoms degenerative disc disease of lumbar spine. He has an intrathecal morphine/bupivacaine pain pump in place. He is currently going at 6 mg/day. Since we have changed out his catheter he has had issues with his pump he is not getting adequate pain relief. We have continue to increase his doses and he continues to have increasing pain. There has been no expected versus actual volume discrepancies on refills we will do an intrathecal catheter dye study today to assess patency of the catheter and proper placement. Procedure Details:: Informed consent was obtained risk and benefits of the procedure explained to the patient. Patient was taken the procedure room. We accessed the catheter access port with 25-gauge needle. We were unable to withdraw any CSF or medication from the catheter access port and catheter. We can only assume that there is a obstruction in the catheter and the patient is not getting his medication. Catheter tip is posterior at the T10 vertebral body. The pump was continued at his current dose of 6.8 mg/day. Patient tolerated the procedure well with no complications. Plan and Disposition:: Since we were not able to pull back any medication or CSF through the catheter access port we will set the patient up for a catheter revision/replacement. Since patient continues have significant pain when he is comes back to clinic we can reduce his intrathecal infusion to 3 mg/day. We can put him on oral medications. When we replace his catheter we will plan on replacing medication with intrathecal morphine 10 mg per ml plus bupivacaine 5 mg per ml and started back at 3 mg/day.
== END 2023-03-20 11:00 | disposition home or self-care (01) ==
LOC: SC.PAINP 09:19
PROVIDERS: PCP Internal Medicine Adolescent Medicine; Visit Provider Anesthesiology
DX: M96.1 Postlaminectomy syndrome, not elsewhere classified (principal); M51.16 Intervertebral disc disorders with radiculopathy, lumbar region; T85.695A Other mechanical complication of other nervous system device, implant or graft, initial encounter
CPT/HCPCS: 61070; 75809; 77002; C1772

== ENCOUNTER → 2023-03-23 11:14 | Outpatient (POV) | payer MEDICARE, SELFPAY ==
--- NOTE | 2023-03-23 12:20 | EXP.PAIN.PRO ---
Procedure Date: 03/23/23 Time: 12:20 Anesthesiologist:: Lilian Gautam APRN Complications:: None Pre-procedure Diagnosis:: Degenerative disc disease of lumbar spine with lumbar radiculopathy symptoms, lumbar facet arthropathy, lumbar spondylosis, nonfunctioning intrathecal pain pump Post-procedure Diagnosis:: Same Indications for Procedure:: Patient is a pleasant 67-year-old male who presents today for follow-up. We are currently treating the patient for degenerative disc disease of lumbar spine with lumbar radiculopathy symptoms, lumbar facet arthropathy, lumbar postlaminectomy syndrome, nonfunctioning intrathecal pain pump. Today he rates his pain a 5 out of 10. Patient denies any new trauma or injury. On Thursday the patient did undergo a catheter dye study that was unable to pull any CSF or medication out of catheter access port and catheter. Patient is currently managed with morphine 30 mg/mL with a daily dose of 6.8 to 8 mg/day and bupivacaine 5 mg/mL with a daily dose of 1.138 mg/day. Patient denies any side effects from this medication. Patient does state that the medication just has not been seeming like its been working and he continues to have significant pain on a daily basis. Patient is currently also managed with pregabalin 50 mg twice a day from his primary care provider along with clonazepam 0.5 mg daily. His Valdemar is [id number]. Its been reviewed and appropriate. Physical Exam: General: Alert and oriented x3, no acute distress, pleasant and cooperative Lungs: Respirations even and unlabored, symmetrical chest expansion Eyes: PERRL Musculoskeletal: Flexion and extension of lumbar [spine] somewhat guarded secondary to pain, [antalgic gait noted] Neurological: Speech clear, no gross sensory deficit Procedure Details:: Informed consent was obtained and the risk and benefits of the procedure were explained to the patient. Patient was taken to the procedure room where noninvasive monitoring was placed including noninvasive blood pressure cuff and pulse oximeter. Patient's pump was interrogated and was reprogrammed to morphine 3.414 mg/day and bupivacaine 0.569 mg/day. The patient tolerated the procedure well with no complications. Plan and Disposition:: Patient tolerated his intrathecal decrease with no complications and was discharged neurologically intact. I have counseled the patient due to his nonfunctioning intrathecal pain pump we will plan on submitting for revision of the device. Risk and benefits of this procedure were explained to the patient and he would like to proceed forward with this plan of care. I will plan on sending in a prescription for [place] 5 mg 3 times daily with a 1 month supply. I have counseled the patient that this is just a temporary prescription until we can get his catheter revised. Patient will be submitted for a revision of his intrathecal pain pump/catheter and we will contact him with official date and time once we have approval. Patient has been instructed to contact the clinic with any concerns before the next appointment. Dr. Smith has reviewed this note and agrees with this plan of care. This note was dictated using voice recognition software and make contain errors or omissions. -- It Is medically necessary for this patient to continue to have their intrathecal pump refilled at regular intervals. This patient had an intrathecal pain pump implanted after meeting criteria of chronic intractable pain for greater than 3 months and failing conservative treatments. Patient has committed and been compliant to the treatment plan and all planned follow up care. Since implantation of the intrathecal pain pump, the patient has had decreased pain and been more functional. Oral medications have been reduced including intake of oral opioids. Patient continues to do well with intrathecal therapy with decrease in pain symptoms and increase in functional status. Stopping intrathecal medications can lead to life t
[2023-03-23 14:22] VITALS: BP 122/61; PULSE 107; RESP 18; O2SAT 95; BMI 33.0
== END | disposition home or self-care (01) ==
PROVIDERS: PCP Internal Medicine Adolescent Medicine; Visit Provider Nurse Practitioner Family
DX: M51.16 Intervertebral disc disorders with radiculopathy, lumbar region (principal); M47.26 Other spondylosis with radiculopathy, lumbar region; T85.695D Other mechanical complication of other nervous system device, implant or graft, subsequent encounter
CPT/HCPCS: 62368; 99213; G0463

== ENCOUNTER → 2023-03-24 12:54 | Outpatient (CLI) | payer MEDICARE, SELFPAY ==
[2023-03-24 15:33] LABS: Anion Gap 15.8 mEq/L (5-15); Blood Urea Nitrogen 23 mg/dl (9-20); Calcium 9.2 mg/dl (8.4-10.2); Carbon Dioxide 27 mmol/L (22.0-30.0); Chloride 104 mmol/L (98-107); Estimated Glomerular Filt Rate 40 ml/min (>60); GFR (African American) 49 ML/MIN (>60); Glucose 92 mg/dl (74-100); Potassium 4.8 mmoL/L (3.5-5.1); Sodium 142 mmol/L (136-145)
== END ==
PROVIDERS: PCP Internal Medicine Adolescent Medicine; Visit Provider Internal Medicine Adolescent Medicine
DX: I50.32 Chronic diastolic (congestive) heart failure (principal)
CPT/HCPCS: 36415; 80048

== ENCOUNTER 2023-04-03 21:04 | Observation (INO) | payer MEDICARE, SELFPAY ==
--- NOTE | 2023-04-03 20:57 | ECG_ITS ---
APPROVED REPORT Exam: Resting ECG HR:83 bpm ECG Measurements Heart Rate 83 AXES AL 183 P 99 QRSd 93 QRS 22 QT 347 T 70 QTc 387 Conclusion SINUS RHYTHM WITH MARKED SINUS ARRHYTHMIA LOW QRS VOLTAGE [QRS DEFLECTION < 0.5/1.0 mV IN LIMB/CHEST LEADS] ABNORMAL ECG UNCONFIRMED REPORT Electronically signed by : Mario Luke MD 04/04/2023 07:54:40
[2023-04-03 21:04] VITALS: BP 116/61; PULSE 79; RESP 23; TEMP 36.6; O2SAT 96; BMI 33.6
[2023-04-03 21:10] VITALS: BMI 33.6
--- NOTE | 2023-04-03 21:11 | XR_ITS ---
PROCEDURE INFORMATION: Exam: XR Chest Exam date and time: 04/03/2023 9:43 PM Age: 67 years old Clinical indication: Pain; Shortness of breath; Chest pressure; Additional info: Chest pain TECHNIQUE: Imaging protocol: Radiologic exam of the chest. Views: 1 view. COMPARISON: Chest x-ray 07/03/2022 FINDINGS: Lungs: Unremarkable. No consolidation. Pleural spaces: Unremarkable. No pleural effusion. No pneumothorax. Heart/Mediastinum: Unremarkable. No cardiomegaly. Bones/joints: Unremarkable. IMPRESSION: Stable chest x-ray with no acute disease.
[2023-04-03 21:18] LABS: Coronavirus 19, PCR Not Detected (NotDetected); Influenza A, PCR Not Detected (NotDetected); Influenza B, PCR Not Detected (NotDetected)
[2023-04-03 21:18] LABS: Basophils % 0.5 % (0.1-2.0); Eosinophils # 0.1 K/mm3 (0.0-0.4); Eosinophils % 2.2 % (0.1-12.0); Hematocrit 28.4 % (42.0-52.0); Hemoglobin 9.4 g/dL (14.1-18.0); Lymphocytes # 1.1 K/mm3 (0.7-4.5); Lymphocytes % 22.4 % (10-50); Mean Corpuscular HGB Conc 32.9 g/dL (31.8-35.4); Mean Corpuscular Hemoglobin 31.2 pg (27.0-31.2); Mean Corpuscular Volume 94.7 fl (80-94); Mean Platelet Volume 8.6 fl (7.4-10.4); Monocytes # 0.4 K/mm3 (0.1-1.0); Monocytes % 7.3 % (1.7-9.3); Neutrophils # 3.4 K/mm3 (1.8-7.8); Neutrophils % 67.6 % (37.0-80.0); Platelet Count 275 K/mm3 (142-424); Red Cell Distribution Width 14.2 % (11.5-17.5)
[2023-04-03 21:24] LABS: Alanine Aminotransferase 28 U/L (12-78); Albumin Level 4.1 g/dl (3.5-5.0); Albumin/Globulin Ratio 1.4 (1.1-1.8); Alkaline Phosphatase 117 U/L (38-126); Anion Gap 13.5 mEq/L (5-15); Aspartate Amino Transferase 38 U/L (17-59); Bilirubin,Total 0.2 mg/dl (0.2-1.3); Blood Urea Nitrogen 52 mg/dl (9-20); Calcium 8.8 mg/dl (8.4-10.2); Carbon Dioxide 30 mmol/L (22.0-30.0); Chloride 90 mmol/L (98-107); Creatinine Clearance Estimated 38 mL/min (50-200); Estimated Glomerular Filt Rate 23 ml/min (>60); GFR (African American) 27 ML/MIN (>60); Glucose 133 mg/dl (74-100); Potassium 4.5 mmoL/L (3.5-5.1); Sodium 129 mmol/L (136-145); Total Protein,Serum 7.1 g/dl (6.3-8.2)
[2023-04-03 21:34] LABS: NT Pro Brain Natriuretic Pep. 195 pg/mL (0-125)
[2023-04-03 21:39] LABS: Troponin I < 0.01 ng/ml (0.00-0.034)
--- NOTE | 2023-04-03 21:47 | PC.NURSE ---
provided patient with bottle of water
[2023-04-03 22:56] LABS: Microscopic, Urine URINE MICROSCOPIC (MICROSCOPIC)
[2023-04-03 23:09] LABS: Appearance,Urine CLEAR (Clear); Bilirubin,Urine Negative (Negative); Blood, Urine Negative (Negative); Color,Urine YELLOW (Yellow); Glucose,Urine (UA) Negative (Negative); Ketones,Urine Negative (Negative); Leukocyte Esterase,Urine Negative (Negative); Nitrate,Urine Negative (Negative); Protein,Urine Negative (Negative); Urobilinogen,Urine 0.2 EU/dl (0.2)
[2023-04-03 23:24] LABS: Squamous Epithelial Cell,Urine Occasional #/hpf (0-5); WBC,Urine Occasional #/hpf (0-3)
--- NOTE | 2023-04-03 23:39 | PC.NURSE ---
made rounds nothing need at this time
[2023-04-04] VITALS (7 sets, daily range): BP systolic 78–108; BP diastolic 53–67; PULSE 58–85; RESP 18–20; TEMP 35.1–37; O2SAT 96–100; BMI 34.0
--- NOTE | 2023-04-04 00:19 | PC.NURSE ---
Called house manager for admission at this time.
[2023-04-04 00:28] LABS: Troponin I < 0.01 ng/ml (0.00-0.034)
--- NOTE | 2023-04-04 01:06 | HMH.EDGENADL ---
Discharge Plan Disposition Patient Disposition: Admitted Discharge ED Provider: Gabriele Sauer Adult HPI General Chief complaint: Chest Pain Stated complaint: chest pain Time Seen by Provider: 04/03/23 21:11 Mode of Arrival: Ambulatory Source of Information: Patient and Spouse Limitations: No Limitations Description of Symptoms (Recalled from ER Triage Doc. by RN): Patient reports left sided chest pain that started during dinner with increasing shortness of breath. Patient reports that they upped his home o2 from 3LNC to 6LNC and called his doctor. They asked that he take an extra water pill , but when he felt no relief their doctor told them to come in to the ER for an xray and labs . History of Present Illness HPI narrative: Patient presents for evaluation of chest pain and shortness of breath, located in left side of chest and nonradiating, with associated transient increase in oxygen requirement, patient was sent after conversation with PCP. Symptoms were subacute in onset, resolving at this time, has had similar symptoms before associated with history including COPD, CAD. Has baseline 3 L nasal cannula oxygen requirement. Upon further questioning has increased his diuretic recently and has had decreased p.o. intake. No hemoptysis, no syncope or presyncope. No palpitations. No sick contacts. No leg pain or leg swelling unilaterally. Related Data Home Medications Medication Instructions Recorded Confirmed pramipexole 0.125 mg tablet 0.125 mg PO TID Restless leg 02/02/18 04/04/23 aspirin 81 mg tablet,delayed 81 mg PO DAILY Heart disease 08/12/21 04/04/23 release atorvastatin 40 mg tablet 40 mg PO HS Cholesterol 08/12/21 04/04/23 clopidogrel 75 mg tablet 75 mg PO DAILY Heart disease 08/12/21 04/04/23 pantoprazole 40 mg tablet,delayed 40 mg PO DAILY GERD 08/12/21 04/04/23 release celecoxib 200 mg capsule 200 mg PO DAILY Pain 09/30/21 04/04/23 morphine (PF) 100 mg/100 mL(1 See Rx Instructions continuous 09/30/21 04/04/23 mg/mL) in 0.9% sod.chloride IV subcutaneous infusion .COMPLEX Pain pump resv citalopram 40 mg tablet 40 mg PO DAILY Depression 06/28/22 04/04/23 fluticasone fur. 100 mcg-umeclid 1 inh inhalation DAILY Breathing 08/28/22 04/04/23 62.5 mcg-vilant 25 mcg problems inhalat.powder (Trelegy Ellipta) pregabalin 50 mg capsule 50 mg PO DIRECTED Pain 10/02/22 04/04/23 clonazepam 0.5 mg tablet 0.5 mg PO DIRECTED Anxiety 12/04/22 04/04/23 fluoxetine 20 mg capsule 20 mg PO DAILY MOOD 12/04/22 04/04/23 furosemide 40 mg tablet 40 mg PO DAILY Fluid 12/04/22 04/04/23 sacubitril 49 mg-valsartan 51 mg 1 tab PO DAILY HEART 12/04/22 04/04/23 tablet (Entresto) linaclotide 72 mcg capsule 72 mcg PO DAILY BOWELS 01/19/23 04/04/23 (Linzess) diltiazem HCl 120 mg capsule,24 120 mg PO DAILY HEART RATE 03/20/23 04/04/23 hr,extended release Previous Rx's Medication Instructions Recorded albuterol sulfate 90 mcg/actuation 2 inh inhalation QID PRN shortness 08/19/22 aerosol inhaler of breath or wheezing 90 days #8.5 grams hydrocodone 5 mg-acetaminophen 325 1 tab PO TID #90 tabs 03/23/23 mg tablet Allergies Allergy/AdvReac Type Severity Reaction Status Date / Time gabapentin Allergy Unknown Unknown Verified 03/12/23 13:43 allergy reaction meperidine [From DEMEROL] AdvReac Mild MOOD Verified 03/12/23 13:43 CHANGES PFSH [facility] Disclaimer: The information contained in this section may have been updated after the patient was seen, as this information can be updated by other users. Medical History Abnormal computerized axial tomography of chest Angina pectoris Asthma Cataract Chronic respiratory failure with hypoxia Congestive heart failure COPD (chronic obstructive pulmonary disease) COPD (chronic obstructive pulmonary disease) COPD mixed type Coronary artery disease Current vaping on some days Dyspnea Dyspnea on exertio
--- NOTE | 2023-04-04 01:12 | PC.NURSE ---
pt has had 1000 ml output tonight
--- NOTE | 2023-04-04 01:13 | PC.NURSE ---
called report to Dorie PRADHAN on 2nd floor
--- NOTE | 2023-04-04 01:16 | PC.NURSE ---
0110 RECEIVED PHONE REPORT FROM LUBA RN/ED NURSE. 67 YO MALE ADMISSION DX: KAYLEE.
--- NOTE | 2023-04-04 01:34 | PC.NURSE ---
Patient arrived to floor via wheelchair at 01:34.
--- NOTE | 2023-04-04 01:34 | PC.NURSE ---
ARRIVED TO THE FLOOR AT 0130 VIA W/C. ADMITTED TO ROOM 202.
[2023-04-04 04:05] LABS: Troponin I < 0.01 ng/ml (0.00-0.034)
--- NOTE | 2023-04-04 09:41 | EXP.HP ---
History of Present Illness *Admission Date: 04/04/23 *Reason for visit:: Dyspnea and edema *History of present illness: 67-year-old male with history of COPD, coronary artery disease status post stenting in the remote past and diastolic CHF. He is maintained at home on furosemide as well as Entresto and blood pressure medication. He has been in his normal state of somewhat compromised health on oxygen and his diuretics over the past several months and has been doing well, but over the past couple of days has noticed that he had some increasing hand edema, leg edema and has gained about 10 pounds. He called me in the office and I instructed him to double his diuretics over the past couple of days. This did not help the situation and I instructed him to go to the ER for x-ray and lab evaluation. In the ER he was found have no evidence of pleural effusion or evidence of pulmonary edema and BNP levels were fairly low for his condition, but was found to have an acute kidney injury. Weight gain was also noted. He was admitted to the hospital for fluids and further diagnostic testing. [facility] Disclaimer: The information contained in this section may have been updated after the patient was seen, as this information can be updated by other users. Medical History Abnormal computerized axial tomography of chest Angina pectoris Asthma Cataract Chronic respiratory failure with hypoxia Congestive heart failure COPD (chronic obstructive pulmonary disease) COPD (chronic obstructive pulmonary disease) COPD mixed type Coronary artery disease Current vaping on some days Dyspnea Dyspnea on exertion Emphysema/COPD Fibromyalgia GERD (gastroesophageal reflux disease) History of back pain History of cataract History of COVID-19 History of gastroesophageal reflux (GERD) History of heart attack HLD (hyperlipidemia) HTN (hypertension) HTN (hypertension) with goal to be determined Implantable intrathecal infusion pump present Lower extremity edema Lung nodule Mediastinal lymphadenopathy Osteoarthritis Oxygen dependent Post laminectomy syndrome Psoriasis Sleep apnea Smoking greater than 30 pack years Stopped smoking with greater than 30 pack year history Tobacco dependence syndrome Surgical History History of appendectomy History of appendectomy History of colonoscopy + tubular adenoma by report. Advised repeat colonoscopy in 2 years from date done. History of esophagogastroduodenoscopy (EGD) History of lumbar fusion Family History Other Family history of cancer Social History (Updated 04/04/23 @ 02:01 by Maria D Jefferson RN) Smoking Status: Current some day smoker tobacco type: e-cigarettes second hand exposure: No alcohol intake: former substance use type: denies use current occupational status: retired Travel in the last 8 weeks: None household members: spouse housing: house current occupational exposures/hazards: No caffeine: Yes Meds Home Medications and Allergies Home Medications Medication Instructions Recorded Confirmed Type pramipexole 0.125 mg tablet 0.125 mg PO TID Restless leg 02/02/18 04/04/23 History aspirin 81 mg tablet,delayed 81 mg PO DAILY Heart disease 08/12/21 04/04/23 History release atorvastatin 40 mg tablet 40 mg PO HS Cholesterol 08/12/21 04/04/23 History clopidogrel 75 mg tablet 75 mg PO DAILY Heart disease 08/12/21 04/04/23 History pantoprazole 40 mg tablet,delayed 40 mg PO DAILY GERD 08/12/21 04/04/23 History release celecoxib 200 mg capsule 200 mg PO DAILY Pain 09/30/21 04/04/23 History morphine (PF) 100 mg/100 mL(1 See Rx Instructions continuous 09/30/21 04/04/23 History mg/mL) in 0.9% sod.chloride IV subcutaneous infusion .COMPLEX Pain pump resv citalopram 40 mg tablet 40 mg PO DAILY Depression 06/28/22 10
[2023-04-04 10:11] LABS: Chloride 90 mmol/L (98-107)
[2023-04-04 10:12] LABS: Potassium 3.6 mmoL/L (3.5-5.1); Sodium 128 mmol/L (136-145)
[2023-04-04 10:14] LABS: Blood Urea Nitrogen 48 mg/dl (9-20); Creatinine Clearance Estimated 50 mL/min (50-200); Estimated Glomerular Filt Rate 30 ml/min (>60); GFR (African American) 36 ML/MIN (>60)
[2023-04-04 10:15] LABS: Anion Gap 9.6 mEq/L (5-15); Calcium 8.4 mg/dl (8.4-10.2); Carbon Dioxide 32 mmol/L (22.0-30.0); Glucose 117 mg/dl (74-100)
--- NOTE | 2023-04-04 20:00 | PC.NURSE ---
Pt rectal temp 95.1 F, Bear hugger applied.
[2023-04-05 04:00] VITALS: BP 91/42; PULSE 63; RESP 19; TEMP 36.3; O2SAT 99; BMI 34.0
--- NOTE | 2023-04-05 04:28 | PC.NURSE ---
Pt is alert and oriented x4, Pt presents with very slight edema in bilateral ankles which have not changed thus far during the shift, Pt has required 2L of O2 this shift and has tolerated it well. Pt denies any pain or needs at this time.
[2023-04-05 07:30] VITALS: BP 109/65; PULSE 74; RESP 18; TEMP 36.6; O2SAT 98
--- NOTE | 2023-04-05 08:41 | EXP.ACUTE.PN ---
Subjective *Date: 04/05/23 *Time: 08:41 Interval history: Overnight feels better, had a -1.2 L diuresis. Thinks his arm and leg edema is better. Medical Exam Vital signs and Labs for Last 24 Hours: Vital Signs Temp Pulse Resp BP Pulse Ox O2 Del Method O2 Flow Rate 04/05/23 07:30 97.9 F 74 18 109/65 L 98 Nasal Cannula 3 04/05/23 06:37 Nasal Cannula 2 04/05/23 05:00 Nasal Cannula 2 04/05/23 04:00 97.3 F L 63 19 91/42 L 99 Nasal Cannula 2 04/05/23 02:35 Nasal Cannula 2 04/05/23 00:32 Nasal Cannula 2 04/04/23 22:32 Room Air 04/04/23 21:00 Nasal Cannula 2 04/04/23 20:00 95.1 F L 58 L 18 89/56 L 99 Nasal Cannula 3 04/04/23 18:24 Nasal Cannula 2 04/04/23 17:00 Nasal Cannula 2 04/04/23 15:00 Nasal Cannula 2 04/04/23 13:00 Nasal Cannula 2 04/04/23 15:09 97.9 F 61 18 78/53 L 98 Nasal Cannula 3 04/04/23 11:00 Nasal Cannula 2 04/04/23 09:00 Nasal Cannula 3 Intake and Output 04/04/23 04/05/23 04/05/23 19:59 03:59 11:59 Intake Total 600 / 1680 120 / 1680 960 / 1680 Output Total 800 / 1875 475 / 1875 600 / 1875 Balance -200 / -195 -355 / -195 360 / -195 Intake: Intake, Oral Amount 600 / 1680 120 / 1680 960 / 1680 Output: Output, Urine Amount 800 / 1875 475 / 1875 600 / 1875 Other: Number of Unmeasured Voids 0 0 0 Weight 243 lb 8.997 oz Patient Weight 04/05/23 11:59 Weight 243 lb 8.997 oz Laboratory Results - last 24 hr 04/04/23 09:34: Sodium 128 L, Potassium 3.6, Chloride 90 L, Carbon Dioxide 32 H, Anion Gap 9.6, BUN 48 H, Creatinine 2.20 H D, Estimated Creat Clear 50, Estimated GFR 30 L, Est GFR ( Amer) 36 L D, Glucose 117 H, Calcium 8.4 I & O for Labs for Last 24 Hours: Intake & Output 04/02/23 04/03/23 04/04/23 04/05/23 11:59 11:59 11:59 11:59 Intake Total 1826 / 1826 1680 / 1680 Output Total 1425 / 1425 1875 / 1875 Balance 401 / 401 -195 / -195 Weight 243 lb 9 oz 243 lb 8.997 oz Constitutional: Present no acute distress, obese and chronically ill appearing Head: Present atraumatic and normocephalic ENT: Present normal exam Neck: Present normal inspection Respiratory: Present crackles and normal respiratory effort; Absent rhonchi or wheezes Cardiac: Present Reg Rate and Rhythm GI: Present soft and normal bowel sounds; Absent distention or tenderness Extremities: Present normal inspection, full ROM and edema (trace BLE) Skin: Present intact; Absent erythema Neuro: Present Grossly Intact, alert, awake, oriented x 3 and moves all extremities Assessment and Plan *Assessment and plan (1) CAD (coronary artery disease): Status: Acute Qualifiers: Coronary Disease-Associated Artery/Lesion type: [place] artery [place] vs. transplanted heart: [place] heart Associated angina: with other forms of angina Qualified Code(s): I25.118 - Atherosclerotic heart disease of [place] coronary artery with other forms of angina pectoris Category: Medical Code(s): I25.10 - Atherosclerotic heart disease of [place] coronary artery without angina pectoris (2) Shortness of breath: Status: Acute Category: Medical Code(s): R06.02 - Shortness of breath (3) KAYLEE (acute kidney injury): Status: Acute Category: Medical Code(s): N17.9 - Acute kidney failure, unspecified (4) COPD (chronic obstructive pulmonary disease): Status: Chronic Qualifiers: COPD type: unspecified COPD Qualified Code(s): J44.9 - Chronic obstructive pulmonary disease, unspecified Category: Medical Code(s): J44.9 - Chronic obstructive pulmonary disease, unspecified (5) Diastolic dysfunction: Status: Acute Category: Medical Code(s): I51.89 - Other ill-defined heart diseases Plan 1. Dyspnea-this is patient's main complaint- Interestingly his chest x-ray looks fairly good given his clinical picture. Possibly r
[2023-04-05 09:37] LABS: Basophils % 0.3 % (0.1-2.0); Eosinophils # 0.1 K/mm3 (0.0-0.4); Eosinophils % 2.9 % (0.1-12.0); Hematocrit 26.9 % (42.0-52.0); Hemoglobin 9.1 g/dL (14.1-18.0); Lymphocytes % 20.3 % (10-50); Mean Corpuscular HGB Conc 33.9 g/dL (31.8-35.4); Mean Corpuscular Volume 91.6 fl (80-94); Mean Platelet Volume 8.5 fl (7.4-10.4); Monocytes # 0.3 K/mm3 (0.1-1.0); Monocytes % 7.3 % (1.7-9.3); Neutrophils # 3.2 K/mm3 (1.8-7.8); Neutrophils % 69.3 % (37.0-80.0); Platelet Count 244 K/mm3 (142-424); Red Blood Count 2.94 M/mm3 (4.60-6.20); Red Cell Distribution Width 14.1 % (11.5-17.5); White Blood Count 4.7 K/mm3 (4.8-10.8)
[2023-04-05 09:48] LABS: Chloride 88 mmol/L (98-107); Sodium 125 mmol/L (136-145)
[2023-04-05 09:51] LABS: Blood Urea Nitrogen 47 mg/dl (9-20); Calcium 8.4 mg/dl (8.4-10.2); Carbon Dioxide 30 mmol/L (22.0-30.0); Creatinine Clearance Estimated 68 mL/min (50-200); Estimated Glomerular Filt Rate 43 ml/min (>60); GFR (African American) 52 ML/MIN (>60); Glucose 148 mg/dl (74-100)
--- NOTE | 2023-04-05 14:58 | EXP.DC.SUM ---
General Admission date:: 04/04/23 Discharge date: 04/05/23 HPI HPI HPI: 67-year-old male with history of COPD, coronary artery disease status post stenting in the remote past and diastolic CHF. He is maintained at home on furosemide as well as Entresto and blood pressure medication. He has been in his normal state of somewhat compromised health on oxygen and his diuretics over the past several months and has been doing well, but over the past couple of days has noticed that he had some increasing hand edema, leg edema and has gained about 10 pounds. He called me in the office and I instructed him to double his diuretics over the past couple of days. This did not help the situation and I instructed him to go to the ER for x-ray and lab evaluation. In the ER he was found have no evidence of pleural effusion or evidence of pulmonary edema and BNP levels were fairly low for his condition, but was found to have an acute kidney injury. Weight gain was also noted. He was admitted to the hospital for fluids and further diagnostic testing. Hospital Course Hospital Course Hospital Course: Patient was admitted from the ER, given fluids and following fluids he was given an IV dose of Bumex. Aerohist very nicely with this. His creatinine improved. His cardiac imaging results are somewhat interesting. Recent left heart cath showed moderate to severe diastolic dysfunction with moderately elevated left ventricular end-diastolic pressure, however echocardiogram shows no evidence of diastolic dysfunction and normal systolic function. I wonder if he is over diuresed and his blood pressure was slightly low in the hospital on moderate dose Entresto. He is feeling much better this afternoon and other than slightly worsened hyponatremia his creatinine has improved. Edema is better. Plan will be discharged home. I will hold his diuretics and cut back his Entresto to starting dose I will see him in 2 days and will get labs at that point. Exam Data for Last 24 hours Vital signs and Labs for Last 24 Hours: Temp Pulse Resp BP Pulse Ox O2 Del Method O2 Flow Rate 97.9 F 74 18 109/65 L 98 Nasal Cannula 2 04/05/23 07:30 04/05/23 07:30 04/05/23 07:30 04/05/23 07:30 04/05/23 07:30 04/05/23 11:00 04/05/23 11:00 Laboratory Results - last 24 hr 04/05/23 09:25: WBC 4.7 L, RBC 2.94 L, Hgb 9.1 L, Hct 26.9 L, MCV 91.6, MCH 31.0, MCHC 33.9, RDW 14.1, Plt Count 244, MPV 8.5, Neut % (Auto) 69.3, Lymph % (Auto) 20.3, [place] % (Auto) 7.3, Eos % (Auto) 2.9, Baso % (Auto) 0.3, Neut # (Auto) 3.2, Lymph # (Auto) 1.0, [place] # (Auto) 0.3, Eos # (Auto) 0.1, Baso # (Auto) 0.0, Sodium 125 L, Potassium 4.0, Chloride 88 L, Carbon Dioxide 30, Anion Gap 11.0, BUN 47 H, Creatinine 1.60 H D, Estimated Creat Clear 68, Estimated GFR 43 L, Est GFR ( Amer) 52 L D, Glucose 148 H D, Calcium 8.4 I & O for Last 24 hours: Intake & Output 04/03/23 04/04/23 04/05/23 04/06/23 11:59 11:59 11:59 11:59 Intake Total 1826 / 1826 1680 / 1680 270 / 270 Output Total 1425 / 1425 1875 / 1875 500 / 500 Balance 401 / 401 -195 / -195 -230 / -230 Weight 243 lb 9 oz 243 lb 8.997 oz Constitutional Constitutional: no acute distress *Routine HEENT Exam Head: Present normocephalic Eye: Present EOMI and PERRL ENT: Present mucous membranes moist *Routine Neck Exam Neck: Present supple; Absent lymphadenopathy *Routine Respiratory Exam Respiratory: Present CTA bilaterally and distant breath sounds *Routine Cardiovascular Exam Cardiovascular: Present RRR *Routine Abdominal Exam Abdominal: Present soft and normoactive bowel sounds; Absent tenderness *Routine Extremities Exam Extremities: Present edema; Absent cyanosis or clubbing Comments: 1+ edema with shiny extremities but improved over yesterday's exam *Routine Skin Exam Skin: Present warm; Absent rash *Routine Neurological Exam Neurological: Present alert and oriented X3 Results Data Completed and Pending Lab
--- NOTE | 2023-04-06 14:01 | SW/DCPLANNER ---
Follow up phone call was made w/ this patient. Patient stated that he is doing well at home and does not have any needs at this time. Patient does have a follow up appointment w/ Dr Luke tomorrow.
== END 2023-04-05 15:49 | disposition home or self-care (01) ==
LOC: ER 22:55 → 2ND 04-04 01:58
PROVIDERS: Admitting Provider Family Medicine; Emergency Provider Emergency Medicine; PCP Internal Medicine Adolescent Medicine; Visit Provider Internal Medicine Adolescent Medicine
DX: I25.118 Atherosclerotic heart disease of native coronary artery with other forms of angina pectoris (principal); R06.02 Shortness of breath; N17.9 Acute kidney failure, unspecified; J44.9 Chronic obstructive pulmonary disease, unspecified; N18.9 Chronic kidney disease, unspecified; I13.0 Hypertensive heart and chronic kidney disease with heart failure and stage 1 through stage 4 chronic kidney disease, or unspecified chronic kidney disease; Z99.81 Dependence on supplemental oxygen; F17.290 Nicotine dependence, other tobacco product, uncomplicated; I50.32 Chronic diastolic (congestive) heart failure; Z95.5 Presence of coronary angioplasty implant and graft; Z79.899 Other long term (current) drug therapy
CPT/HCPCS: 36415; 71045; 80048; 80053; 81001; 83880; 84484; 85025; 87636; 93005; 99285; G0378

== ENCOUNTER 2023-04-17 10:01 | Day surgery (SDC) | payer MEDICARE, SELFPAY ==
[2023-04-14 17:13] VITALS: BMI 32.5
[2023-04-17 10:19] VITALS: BP 134/62; PULSE 86; RESP 18; TEMP 36.7; O2SAT 98
[2023-04-17 10:34] LABS: Chloride 99 mmol/L (98-107); Sodium 139 mmol/L (136-145)
[2023-04-17 10:35] LABS: Potassium 3.9 mmoL/L (3.5-5.1)
--- NOTE | 2023-04-17 10:36 | EXP.ANES.CKL ---
[facility] Disclaimer: The information contained in this section may have been updated after the patient was seen, as this information can be updated by other users. Medical History Abnormal computerized axial tomography of chest Angina pectoris Asthma Cataract Chronic respiratory failure with hypoxia Congestive heart failure COPD (chronic obstructive pulmonary disease) COPD (chronic obstructive pulmonary disease) COPD mixed type Coronary artery disease Current vaping on some days Dyspnea Dyspnea on exertion Emphysema/COPD Fibromyalgia GERD (gastroesophageal reflux disease) History of back pain History of cataract History of COVID-19 History of gastroesophageal reflux (GERD) History of heart attack HLD (hyperlipidemia) HTN (hypertension) HTN (hypertension) with goal to be determined Implantable intrathecal infusion pump present Lower extremity edema Lung nodule Mediastinal lymphadenopathy Osteoarthritis Oxygen dependent Post laminectomy syndrome Psoriasis Sleep apnea Smoking greater than 30 pack years Stopped smoking with greater than 30 pack year history Tobacco dependence syndrome Surgical History History of appendectomy History of appendectomy History of colonoscopy + tubular adenoma by report. Advised repeat colonoscopy in 2 years from date done. History of esophagogastroduodenoscopy (EGD) History of lumbar fusion Family History Other Family history of cancer Social History Smoking Status: Current some day smoker tobacco type: e-cigarettes second hand exposure: No alcohol intake: former substance use type: denies use current occupational status: retired Travel in the last 8 weeks: None household members: spouse housing: house current occupational exposures/hazards: No caffeine: Yes [facility] Anesthesia Checklist Patient Identification Patient Identification: Verbal (Name & ) Structural Data Admitted From: Home Planned Operative Procedure/s: pain pump revision Consent for Planned Operative Procedure(s) Verified: Yes NPO Status Verified Time NPO: 00:00 Additional verifications Anesthesia Reactions: No Hx Blood Transfusions: No Blood Transfusion Reaction: No Airway Assessment Mallampati Score:: Class III C-Spine Mobility Assessed: Yes TMJ Mobility Assessed: Yes Dentition: Edentulous Neurological Assessment Level of Consciousness: Awake, Alert and Appropriate Anesthesia Plan Anesthesia Risk discussed: Yes Anesthesia Plan: Verified ASA Class: III Anesthesia Type: MAC
[2023-04-17 10:38] LABS: Anion Gap 10.9 mEq/L (5-15); Blood Urea Nitrogen 35 mg/dl (9-20); Carbon Dioxide 33 mmol/L (22.0-30.0); Creatinine Clearance Estimated 55 mL/min (50-200); Estimated Glomerular Filt Rate 35 ml/min (>60); GFR (African American) 43 ML/MIN (>60); Glucose 104 mg/dl (74-100)
[2023-04-17 13:12] VITALS: BP 110/65; PULSE 64; RESP 17; TEMP 36.2; O2SAT 99
[2023-04-17 13:14] VITALS: BP 123/64; PULSE 81; RESP 17; O2SAT 96
[2023-04-17 13:24] VITALS: BP 115/56; PULSE 77; RESP 18; O2SAT 97
[2023-04-17 13:34] VITALS: BP 107/63; PULSE 78; RESP 16; O2SAT 98
[2023-04-17 13:44] VITALS: BP 112/54; PULSE 83; RESP 16; O2SAT 99
--- NOTE | 2023-04-17 15:31 | EXP.OP.NOTE ---
Date of procedure: 04/17/23 Pre-op Diagnosis:: Nonfunctioning intrathecal catheter with nonfunctioning pain pump system for degenerative disc disease of lumbar spine with lumbar radiculopathy symptoms Post-op Diagnosis:: Same Procedure performed:: Replacement intrathecal catheter. Surgeon:: Robin Smith MD [employer] OPERATOR:: Other Anesthesia: MAC Estimated blood loss (mL): 5 Clinical Note:: The patient is a pleasant 71-year-old white male who we are treating for low back pain with lumbar radiculopathy symptoms with degenerative disease of lumbar spine with lumbar radiculopathy symptoms. He has an intrathecal morphine/bupivacaine pain pump with increasing pain. We did do a catheter dye study and we were not able to withdraw any medication through the catheter with the assumption that the catheter was clogged and the patient was not getting adequate medication. He is currently on intrathecal morphine/bupivacaine at 3.4 mg/day. We will revise/replace his catheter today. Operative findings:: None Operative note:: Informed consent was obtained the risk and benefits of the procedure were explained to the patient. Patient was taken the operating room placed prone on the procedure table. He was prepped and draped in sterile fashion. C-arm fluoroscopy was used to view the intrathecal pain pump and catheter. We anesthetize the skin and subcutaneous tissues overlying the pain pump. We made an incision and dissected out the pain pump generator. I disconnected the catheter. I tied off with 0 silk ties. C-arm fluoroscopy was then used to view the lumbar spine. The skin and subcutaneous tissues adjacent to the L4-5 interspace were anesthetized using lidocaine. I made an incision dissected down to the lumbar paraspinous fascia. A 17-gauge spinal needle was inserted and advanced into the L4-5 interspace until clear CSF was obtained. After this intrathecal catheter was inserted and advanced very easily to the T8 vertebral body. Catheter placement was checked in AP and lateral views. The catheter was found to be in posterior position and in midline at the T8 vertebral body. The stylette and needle were removed. The catheter was secured to the fascia with anchor device and 2-0 Prolene. We did not refill the pump we left the medication in their intrathecal morphine 30 mg per mall and bupivacaine 5 mg/ml. Patient had approximately 18 mL in the pump. Refill date is on October 07, 2023. We attached the new catheter to the pump after tunneling the catheter from the back to the pump pocket. We were able to freely withdraw clear CSF through the sideport. We placed an antibiotic pouch in the generator pocket. Both incisions were irrigated with antibiotic solution. Both incisions were then closed with 2-0 Vicryl followed by 4-0 nylon and subcutaneous karrie. Patient tolerated the procedure well with no complications. Pump was interrogated and started at low dose of 1.5 mg/day. PTM's 0.15 mg up to 4 times a day with a 6-hour lockout. Patient was discharged home neurologic intact with good relief of pain symptoms. Plan and disposition: Follow-up with this patient in 1 week for wound check and reprogram. We will follow-up in 2 to 3 weeks for suture removal. Condition: stable Disposition: PACU Complications:: None
== END 2023-04-17 13:45 | disposition home or self-care (01) ==
PROVIDERS: Anesthesiology; PCP Internal Medicine Adolescent Medicine; Visit Provider Anesthesiology
PROC: (CPT 62350; principal; 2023-04-17 10:30)
DX: T85.690A Other mechanical complication of cranial or spinal infusion catheter, initial encounter (principal); M51.16 Intervertebral disc disorders with radiculopathy, lumbar region
CPT/HCPCS: 62350; 62355; 80048; 96374; C1755; J3370

== ENCOUNTER → 2023-04-24 09:11 | Outpatient (POV) | payer MEDICARE, SELFPAY ==
[2023-04-24 10:05] VITALS: BP 105/40; PULSE 98; RESP 20; O2SAT 95; BMI 32.6
--- NOTE | 2023-04-24 10:23 | A.OFFVIS_ITS ---
[facility] Pain Management SOAP Note Subjective:: This patient is a very pleasant 71-year-old male that comes our clinic today for follow-up visit after having intrathecal pain pump tubing replacement on 04/17/2023. Patient is doing very well. He is currently being managed with morphine sulfate 30 mg/mL and bupivacaine 5 mg/mL. His current intrathecal rates are morphine sulfate 1.501 mg/day and bupivacaine 0.2502 mg/day. He is doing well with his current settings. He is not reporting any side effects or complications. Incisions are clean and dry. Sutures are intact. No sign of infection. Objective:: Patient is awake alert [place] x3. In no acute distress. Flexion-extension lumbar spine somewhat guarded secondary to pain. Deep tendon reflexes upper lower extremities normal. There is no gross sensory deficit. Gait is normal. Assessment:: Degenerative disc lumbar spine multilevels. Lumbar radiculopathy. Plan:: Patient will return to the clinic in 2 weeks for suture removal. I encouraged him to continue wearing his abdominal binder. His Valdemar #[id number] has been reviewed and appropriate. [facility] Disclaimer: The information contained in this section may have been updated after the patient was seen, as this information can be updated by other users. Medical History Abnormal computerized axial tomography of chest Angina pectoris Asthma Cataract Chronic respiratory failure with hypoxia Congestive heart failure COPD (chronic obstructive pulmonary disease) COPD (chronic obstructive pulmonary disease) COPD mixed type Coronary artery disease Current vaping on some days Dyspnea Dyspnea on exertion Emphysema/COPD Fibromyalgia GERD (gastroesophageal reflux disease) History of back pain History of cataract History of COVID-19 History of gastroesophageal reflux (GERD) History of heart attack HLD (hyperlipidemia) HTN (hypertension) HTN (hypertension) with goal to be determined Implantable intrathecal infusion pump present Lower extremity edema Lung nodule Mediastinal lymphadenopathy Osteoarthritis Oxygen dependent Post laminectomy syndrome Psoriasis Sleep apnea Smoking greater than 30 pack years Stopped smoking with greater than 30 pack year history Tobacco dependence syndrome Surgical History History of appendectomy History of appendectomy History of colonoscopy + tubular adenoma by report. Advised repeat colonoscopy in 2 years from date done. History of esophagogastroduodenoscopy (EGD) History of lumbar fusion Family History Other Family history of cancer Social History Smoking Status: Current some day smoker tobacco type: e-cigarettes second hand exposure: No alcohol intake: former substance use type: denies use current occupational status: retired Travel in the last 8 weeks: None household members: spouse housing: house current occupational exposures/hazards: No caffeine: Yes
== END ==
PROVIDERS: PCP Internal Medicine Adolescent Medicine; Visit Provider Nurse Anesthetist, Certified Registered
DX: M51.16 Intervertebral disc disorders with radiculopathy, lumbar region (principal); Z97.8 Presence of other specified devices
CPT/HCPCS: 99212; G0463

== ENCOUNTER → 2023-05-08 09:25 | Outpatient (POV) | payer MEDICARE, SELFPAY ==
--- NOTE | 2023-05-08 10:06 | EXP.PAIN.SOA ---
[facility] Pain Management SOAP Note Subjective:: Patient is a very pleasant 67-year-old male that comes our clinic today for follow-up visit after having intrathecal pain pump system reimplantation on 04/17/2023. Since that time patient is doing very well with his intrathecal management. He is currently being managed with morphine sulfate 30 mg/mL and bupivacaine 5 mg/mL. Morphine rate is 1.501 mg/day and bupivacaine rate is 0.2502 mg/day. He does not report any side effects from his current intrathecal pain pump management. Incisions are clean and dry. [place] were removed. No sign of infection around either incision. Patient's Valdemar #[id number] has been reviewed and appropriate Objective:: Patient is awake alert [place] x3. In no acute distress. Flexion-extension cervical lumbar spine guarded secondary to pain. Deep tendon reflexes upper and lower extremities normal. Motor strength upper lower extremities normal. There is no gross sensory deficit. Gait is normal. Assessment:: Degenerative disc lumbar spine multilevels for lumbar radiculopathy. Plan:: Patient will return to the clinic in 2 weeks for incision evaluation. If everything looks clean and dry we will release him back to home refill program. [facility] Disclaimer: The information contained in this section may have been updated after the patient was seen, as this information can be updated by other users. Medical History Abnormal computerized axial tomography of chest Angina pectoris Asthma Cataract Chronic respiratory failure with hypoxia Congestive heart failure COPD (chronic obstructive pulmonary disease) COPD (chronic obstructive pulmonary disease) COPD mixed type Coronary artery disease Current vaping on some days Dyspnea Dyspnea on exertion Emphysema/COPD Fibromyalgia GERD (gastroesophageal reflux disease) History of back pain History of cataract History of COVID-19 History of gastroesophageal reflux (GERD) History of heart attack HLD (hyperlipidemia) HTN (hypertension) HTN (hypertension) with goal to be determined Implantable intrathecal infusion pump present Lower extremity edema Lung nodule Mediastinal lymphadenopathy Osteoarthritis Oxygen dependent Post laminectomy syndrome Psoriasis Sleep apnea Smoking greater than 30 pack years Stopped smoking with greater than 30 pack year history Tobacco dependence syndrome Surgical History History of appendectomy History of appendectomy History of colonoscopy + tubular adenoma by report. Advised repeat colonoscopy in 2 years from date done. History of esophagogastroduodenoscopy (EGD) History of lumbar fusion Family History Other Family history of cancer Social History Smoking Status: Current some day smoker tobacco type: e-cigarettes second hand exposure: No alcohol intake: former substance use type: denies use current occupational status: retired Travel in the last 8 weeks: None household members: spouse housing: house current occupational exposures/hazards: No caffeine: Yes
[2023-05-08 10:46] VITALS: BP 111/47; PULSE 84; RESP 18; O2SAT 95; BMI 32.6
== END ==
PROVIDERS: PCP Internal Medicine Adolescent Medicine; Visit Provider Nurse Anesthetist, Certified Registered
DX: M51.16 Intervertebral disc disorders with radiculopathy, lumbar region (principal); Z48.02 Encounter for removal of sutures
CPT/HCPCS: 99212; 99213; G0463

== ENCOUNTER → 2023-05-25 09:16 | Outpatient (POV) | payer MEDICARE, SELFPAY ==
--- NOTE | 2023-05-25 11:14 | EXP.PAIN.SOA ---
[facility] Pain Management SOAP Note Subjective:: Patient is a pleasant 67-year-old male who presents today for follow-up. We are currently treating the patient for degenerative disc disease of lumbar spine with lumbar radiculopathy symptoms. Today he rates his pain a 3 out of 10. Patient denies any new trauma or injury. He does state that he is having worsening pain in his bilateral hips and describes it as an aching, throbbing sensation. He states the pain does interfere with his ability to perform activities of daily living such as cooking or cleaning or even simple ambulation. Patient states he did have to sit down and take multiple breaks over this past holiday weekend due to the worsening pain. Patient states he has had injections in the past of his hips and does believe it is arthritis. He is currently with morphine 30 mg/mL with a daily dose of 1.501 mg/day and bupivacaine 5 mg/mL with a daily dose of 0.2502 mg/day. Patient denies any side effects from this medication. He states that this dose is working well for him and decreased his pain completely in his low back area. His Valdemar has been reviewed and is appropriate. Review of Systems: General: No recent weight changes, no fever, no sleep disturbances Respiratory: No cough, no shortness of air, no recurring pulmonary infections Cardiovascular/peripheral vascular: No chest pain, no palpitations, no edema, no shortness of breath Gastrointestinal: No new onset incontinence, normal bowel movements reported Genitourinary: No new onset incontinence Musculoskeletal: Bilateral hip pain Psychiatric: [Normal mood/affect] Neurological: [Denies weakness in extremities], [denies balance issues] Objective:: Physical Exam: General: Alert and oriented x3, no acute distress, pleasant and cooperative Lungs: Respirations even and unlabored, symmetrical chest expansion Eyes: PERRL Musculoskeletal: Flexion and extension of bilateral hips somewhat guarded secondary to pain, [antalgic gait noted] Neurological: Speech clear, no gross sensory deficit Assessment:: Degenerative disc disease of lumbar spine with lumbar radiculopathy symptoms, bilateral hip pain, chronic pain syndrome Plan:: Patient is experiencing worsening pain in his bilateral hips with limited range of motion. I have discussed with the patient that he may benefit from bilateral hip intra-articular injections. Risk and benefits were discussed with the patient and he would like to proceed forward with this plan of care. I will also order bilateral hip x-ray imaging to rule out any fractures or dislocations. Patient will be scheduled for bilateral hip intra-articular injections. We will see the patient back in the clinic at the next intrathecal refill. Patient has been instructed to contact the clinic with any concerns before the next appointment. Dr. Smith has reviewed this note and agrees with this plan of care. This note was dictated using voice recognition software and make contain errors or omissions. -- It Is medically necessary for this patient to continue to have their intrathecal pump refilled at regular intervals. This patient had an intrathecal pain pump implanted after meeting criteria of chronic intractable pain for greater than 3 months and failing conservative treatments. Patient has committed and been compliant to the treatment plan and all planned follow up care. Since implantation of the intrathecal pain pump, the patient has had decreased pain and been more functional. Oral medications have been reduced including intake of oral opioids. Patient continues to do well with intrathecal therapy with decrease in pain symptoms and increase in functional status. Stopping intrathecal medications can lead to life threatening withdrawal, seizures, cardiac arrest, severe pain, and possible . Pumps that are not refilled at regular intervals can be damages and cause and need for replacement. We continually titrate dose and concentration to optimize ngozi
[2023-05-25 12:41] VITALS: BP 97/49; PULSE 83; RESP 18; O2SAT 96; BMI 32.2
== END ==
PROVIDERS: PCP Internal Medicine Adolescent Medicine; Visit Provider Nurse Practitioner Family
DX: M51.16 Intervertebral disc disorders with radiculopathy, lumbar region (principal); M25.551 Pain in right hip; M25.552 Pain in left hip; G89.4 Chronic pain syndrome; Z97.8 Presence of other specified devices
CPT/HCPCS: 99212; G0463

== ENCOUNTER → 2023-05-25 10:25 | Outpatient (CLI) | payer MEDICARE, SELFPAY ==
--- NOTE | 2023-05-25 | XR_ITS ---
FINAL REPORT CLINICAL HISTORY: LYDIA HIP PAIN COMPARISON: None FINDINGS: LEFT HIP: Two views of the left hip demonstrate no acute fracture or dislocation. The joint spaces appear normal. The visualized bony structures are well aligned. No soft tissue abnormality is seen. IMPRESSION: No acute bony abnormality. Reviewed, Interpreted and Dictated by Charly Meléndez MD Transcribed by Shaylee Stone Authenticated and [facility]
--- NOTE | 2023-05-25 | XR_ITS ---
FINAL REPORT CLINICAL HISTORY: LYDIA HIP PAIN COMPARISON: None FINDINGS: RIGHT HIP Two views of the right hip demonstrate no acute fracture or dislocation. The joint spaces appear normal. The visualized bony structures are well aligned. No soft tissue abnormality is seen. IMPRESSION: No acute bony abnormality. Reviewed, Interpreted and Dictated by Charly Meléndez MD Transcribed by Shaylee Stone Authenticated and [facility]
== END ==
PROVIDERS: PCP Internal Medicine Adolescent Medicine; Visit Provider Anesthesiology
DX: M25.552 Pain in left hip (principal); M25.551 Pain in right hip
CPT/HCPCS: 73502; 99212; G0463

== ENCOUNTER 2023-06-12 09:13 | Day surgery (SDC) | payer MEDICARE, SELFPAY ==
[2023-06-12 09:20] VITALS: BP 117/59; PULSE 119; RESP 18; TEMP 36.3; O2SAT 96; BMI 40.5
[2023-06-12 09:28] VITALS: PULSE 100; O2SAT 95
[2023-06-12 09:32] VITALS: PULSE 86; O2SAT 95
--- NOTE | 2023-06-12 09:36 | EXP.PAIN.PRO ---
Procedure Date: 06/12/23 Time: 09:25 Anesthesiologist:: Rolan Peace CRNA Complications:: None Pre-procedure Diagnosis:: DJD bilateral hips. Chronic bilateral hip pain. Post-procedure Diagnosis:: Same. Indications for Procedure:: Patient is a very pleasant 67-year-old male that comes our clinic today for bilateral intra-articular hip injections. Patient complains of bilateral hip pain anteriorly. Patient describes pain increases with ambulation. He rates his pain 7/10. Procedure Details:: Details of the procedure were explained to the patient. The patient was taken to procedure room placed in the supine position. The area over the right hip was cleaned using chlorhexidine as a cleansing solution. Using fluoroscopy guidance a 3 and half inch 22-gauge spinal needle was used to access the right hip joint without difficulty. After negative aspiration 3 cc of 1% lidocaine +3 cc of 0.25% Marcaine and 40 mg of Depo-Medrol was injected. Needle was withdrawn. Band-Aid applied. Patient tolerated procedure without difficulty. The same procedure was carried out over the left hip. There are no complications. Plan and Disposition:: Patient tolerated procedure without difficulty. There are no complications. Patient was discharged without incident.
[2023-06-12 09:38] VITALS: BP 103/61; PULSE 92; RESP 18; O2SAT 96
== END 2023-06-12 09:38 | disposition home or self-care (01) ==
PROVIDERS: PCP Internal Medicine Adolescent Medicine; Visit Provider Nurse Anesthetist, Certified Registered
DX: M16.0 Bilateral primary osteoarthritis of hip (principal); M25.551 Pain in right hip; M25.552 Pain in left hip; G89.29 Other chronic pain
CPT/HCPCS: 20610; 77002; J1040

== ENCOUNTER → 2023-06-30 09:01 | Outpatient (POV) | payer MEDICARE, SELFPAY ==
[2023-06-30 09:20] VITALS: BP 93/48; PULSE 107; RESP 18; O2SAT 95; BMI 32.3
--- NOTE | 2023-06-30 09:33 | EXP.PAIN.SOA ---
[facility] Pain Management SOAP Note Subjective:: This patient is a very pleasant 67-year-old male that comes our clinic today for follow-up visit after receiving bilateral intra-articular hip injections. Patient reports anterior hip pain bilaterally is much better. However, patient continues to complain of some low lumbar back pain as well as bilateral hip and leg radicular symptoms posteriorly speaking. Patient has been increasing activity during the holidays. We are currently managing him with intrathecal morphine sulfate 30 mg/mL with a daily dose of 1.501 mg/day. Also, bupivacaine 5 mg/mL at a daily dose of 0.2502 mg/day. I discussed in detail with the patient regarding increasing the pump rate. He wishes to proceed. He rates his overall pain 5/10. Objective:: Patient is awake alert Diamond x 3. No acute distress. Flexion-extension lumbar spine somewhat guarded secondary to pain. Deep tendon reflexes upper lower extremities normal. Motor strength upper lower extremities normal. There is no gross sensory deficit. Gait is normal. Assessment:: Degenerative disc lumbar spine multilevels. Lumbar radiculopathy. Lumbar postlaminectomy syndrome. DJD bilateral hips. Plan:: Will increase the pump rate by 20%. Discussed in detail with the patient regarding the pump rate in its entirety. Answered his questions. He wishes to proceed. Patient states he rarely uses his PTM. [facility] Disclaimer: The information contained in this section may have been updated after the patient was seen, as this information can be updated by other users. Medical History Abnormal computerized axial tomography of chest Angina pectoris Asthma Cataract Chronic respiratory failure with hypoxia Congestive heart failure COPD (chronic obstructive pulmonary disease) COPD (chronic obstructive pulmonary disease) COPD mixed type Coronary artery disease Current vaping on some days Dyspnea Dyspnea on exertion Emphysema/COPD Fibromyalgia GERD (gastroesophageal reflux disease) History of back pain History of cataract History of COVID-19 History of gastroesophageal reflux (GERD) History of heart attack HLD (hyperlipidemia) HTN (hypertension) HTN (hypertension) with goal to be determined Implantable intrathecal infusion pump present Lower extremity edema Lung nodule Mediastinal lymphadenopathy Osteoarthritis Oxygen dependent Post laminectomy syndrome Psoriasis Sleep apnea Smoking greater than 30 pack years Stopped smoking with greater than 30 pack year history Tobacco dependence syndrome Surgical History History of appendectomy History of appendectomy History of colonoscopy + tubular adenoma by report. Advised repeat colonoscopy in 2 years from date done. History of esophagogastroduodenoscopy (EGD) History of lumbar fusion Family History Other Family history of cancer Social History Smoking Status: Current some day smoker tobacco type: e-cigarettes second hand exposure: No alcohol intake: former substance use type: denies use current occupational status: retired Travel in the last 8 weeks: None household members: spouse housing: house current occupational exposures/hazards: No caffeine: Yes
--- NOTE | 2023-06-30 09:35 | EXP.PAIN.PRO ---
Procedure Date: 06/30/23 Time: 09:00 Anesthesiologist:: Rolan Peace CRNA Complications:: None Pre-procedure Diagnosis:: Degenerative disc lumbar spine multilevels. Lumbar radiculopathy. Lumbar postlaminectomy syndrome. DJD bilateral hips. Post-procedure Diagnosis:: Same. Indications for Procedure:: Patient currently being managed with morphine sulfate 30 mg/mL daily dose of 1.501 mg/day. Also, bupivacaine 5 mg/mL with a dose of 0.2502 mg/day. He is complaining of increased pain in the lumbar area as well as bilateral posterior hip and leg radicular symptoms. He rates his pain 5/10. Procedure Details:: Details of the procedure explained to the patient. The patient taken procedure room placed in the sitting position. The area over the pump was accessed and interrogated. The pump rate will be increased by 20%. His new rate for morphine sulfate is 1.799 mg/day. Also, bupivacaine new rate 0.2998 mg/day. Patient tolerated procedure without difficulty. There are no complications. Plan and Disposition:: Patient was discharged without incident. He will follow-up in 1 month.
== END | disposition home or self-care (01) ==
PROVIDERS: PCP Internal Medicine Adolescent Medicine; Visit Provider Nurse Anesthetist, Certified Registered
DX: M51.16 Intervertebral disc disorders with radiculopathy, lumbar region (principal); M96.1 Postlaminectomy syndrome, not elsewhere classified; M16.0 Bilateral primary osteoarthritis of hip; Z97.8 Presence of other specified devices
CPT/HCPCS: 62368; 99213; G0463

== ENCOUNTER → 2023-07-30 09:06 | Outpatient (POV) | payer MEDICARE, SELFPAY ==
--- NOTE | 2023-07-30 09:37 | P.PCN_ITS ---
Procedure Date: 07/30/23 Time: 09:37 Anesthesiologist:: Lilian Gautam APRN Complications:: None Pre-procedure Diagnosis:: Degenerative disc disease of lumbar spine with lumbar radiculopathy symptoms, lumbar postlaminectomy syndrome, bilateral hip pain Post-procedure Diagnosis:: Same Indications for Procedure:: Patient is a pleasant 67-year-old male who presents today for intrathecal adjustment and reprogram. We are currently treating the patient for degenerative disc disease of lumbar spine with lumbar radiculopathy symptoms, lumbar postlaminectomy syndrome, bilateral hip pain. Today he rates his pain a 8 out of 10. Patient denies any new trauma or injury. He states he still con tinues to have pain in his hips that is worse with increased activity or ambulation. He states he will occasionally feel legs lock up. Patient does also have chronic low back pain and does have a intrathecal pain pump of morphine 30 milligrams per mL with a daily dose of 1.799 mg/day and bupivacaine 5 mg/mL with a daily dose of 0.2998 mg/day. Patient denies any side effects from these medications. He is also prescribed pregabalin 50 mg twice daily from his primary care provider. Patient does state that his recently had to be hospitalized for what they do believe might have been a light stroke. Patient states that she did have to go to rehab due to still some memory issues and slight left-sided weakness. He does state that she is home and I will and is getting home health to come in. His Valdemar has been reviewed and is appropriate. Physical Exam: General: Alert and oriented x3, no acute distress, pleasant and cooperative Lungs: Respirations even and unlabored, symmetrical chest expansion Eyes: PERRL Musculoskeletal: Flexion and extension of lumbar [spine] somewhat guarded secondary to pain, [antalgic gait noted] Neurological: Speech clear, no gross sensory deficit Procedure Details:: Informed consent was obtained and the risk and benefits of the procedure were explained to the patient. Patient was taken to the procedure room where noninvasive monitoring was placed including noninvasive blood pressure cuff and pulse oximeter. Patient's pump was interrogated and was reprogrammed to morphine 1.978 mg/day and bupivacaine 0.3297 mg/day. The patient tolerated the procedure well with no complications. Plan and Disposition:: Patient tolerated his intrathecal increase with no complications and was discharged neurologically intact. I have discussed with the patient at any point in time that his hip pain worsens and he would like to try an intra- articular hip injection to just let us know. We have reviewed over risk and benefits. Patient will return to clinic in 2 months for reevaluation of symptoms and plan of care. Patient has been instructed to contact the clinic with any concerns before the next appointment. Dr. Smith has reviewed this note and agrees with this plan of care. This note was dictated using voice recognition software and make contain errors or omissions. -- It Is medically necessary for this patient to continue to have their intrathecal pump refilled at regular intervals. This patient had an intrathecal pain pump implanted after meeting criteria of chronic intractable pain for greater than 3 months and failing conservative treatments. Patient has committed and been compliant to the treatment plan and all planned follow up care. Since implantation of the intrathecal pain pump, the patient has had decreased pain and been more functional. Oral medications have been reduced including intake of oral opioids. Patient continues to do well with intrathecal therapy with decrease in pain symptoms and increase in functional status. Stopping intrathecal medications can lead to life threatening withdrawal, seizures, cardiac arrest, severe pain, and possible . Pumps that are not refilled at regular intervals can be damages and cause and need for replacement. We continually titrate dose and concentration to optimize pain relief and function. We are limited in concentration for certain drugs to safely deliver medications through the pump and stay within the recommendations from the Polyanalges[employer] Consensus Committee Guidelines. Depending on dose and concentration these pumps may need to be refilled sooner than 3 months as we titrate.
[2023-07-30 10:59] VITALS: BP 115/55; PULSE 89; RESP 20; O2SAT 95; BMI 32.3
== END ==
LOC: SC.PAIN 09:07
PROVIDERS: PCP Internal Medicine Adolescent Medicine; Visit Provider Nurse Practitioner Family
DX: M51.16 Intervertebral disc disorders with radiculopathy, lumbar region (principal); M96.1 Postlaminectomy syndrome, not elsewhere classified; M25.551 Pain in right hip; M25.552 Pain in left hip; Z97.8 Presence of other specified devices; Z45.1 Encounter for adjustment and management of infusion pump
CPT/HCPCS: 62368

== ENCOUNTER 2023-09-07 14:56 | Outpatient (CLI) | payer MEDICARE, SELFPAY ==
[2023-09-07 15:26] LABS: Basophils % 0.6 % (0.1-2.0); Eosinophils # 0.3 K/mm3 (0.0-0.4); Eosinophils % 3.3 % (0.1-12.0); Hematocrit 31.1 % (42.0-52.0); Hemoglobin 10.4 g/dL (14.1-18.0); Lymphocytes # 1.7 K/mm3 (0.7-4.5); Mean Corpuscular HGB Conc 33.5 g/dL (31.8-35.4); Mean Corpuscular Hemoglobin 32.5 pg (27.0-31.2); Mean Corpuscular Volume 96.9 fl (80-94); Mean Platelet Volume 8.3 fl (7.4-10.4); Monocytes # 0.6 K/mm3 (0.1-1.0); Monocytes % 7.1 % (1.7-9.3); Neutrophils # 5.3 K/mm3 (1.8-7.8); Neutrophils % 67.1 % (37.0-80.0); Platelet Count 274 K/mm3 (142-424); Red Blood Count 3.21 M/mm3 (4.60-6.20); Red Cell Distribution Width 14.9 % (11.5-17.5); White Blood Count 7.8 K/mm3 (4.8-10.8)
[2023-09-07 16:00] LABS: Anion Gap 10.6 mEq/L (5-15); Blood Urea Nitrogen 22 mg/dl (9-20); Calcium 9.1 mg/dl (8.4-10.2); Carbon Dioxide 32 mmol/L (22.0-30.0); Chloride 99 mmol/L (98-107); Estimated Glomerular Filt Rate 50 ml/min (>60); GFR (African American) 61 ML/MIN (>60); Glucose 117 mg/dl (74-100); Potassium 3.6 mmoL/L (3.5-5.1); Sodium 138 mmol/L (136-145)
[2023-09-07 16:09] LABS: NT Pro Brain Natriuretic Pep. 147 pg/mL (0-125)
== END 2023-09-07 23:59 ==
LOC: LAB 14:58
PROVIDERS: PCP Internal Medicine Adolescent Medicine; Visit Provider Internal Medicine
DX: J44.9 Chronic obstructive pulmonary disease, unspecified (principal); I25.118 Atherosclerotic heart disease of native coronary artery with other forms of angina pectoris; R06.02 Shortness of breath; R53.1 Weakness; R23.1 Pallor; F17.290 Nicotine dependence, other tobacco product, uncomplicated
CPT/HCPCS: 36415; 80048; 83880; 85025

== ENCOUNTER 2023-09-17 12:45 | Outpatient (CLI) | payer MEDICARE, SELFPAY ==
--- NOTE | 2023-09-17 12:45 | CA_ITS ---
APPROVED REPORT EXAM: Comprehensive 2D, Doppler, and color-flow Echocardiogram Hide Worker: JULIUS Solo, RVS Ht: 5 ft 11 in Wt: 244lbs BSA: 2.29 BP: 117/66 mmHg Indications: SOB, CHF, CAD old RI, COPD, portable o2, ILDEFONSO, Exsmoker, HTN, HLD Echo Enhancing Agent Comments: Extremely limited windows due to body habitus. 2D Dimensions IVSd 1.09 cm LVEF (Visual) 72.30 % PWd 1.22 cm LA Volume 59.90 mL LVDd 4.80 cm LA Volume Index 25.50 mL/m2 (M/F) 16-34 LVDs 2.81 cm EF AP4 17.50 % Left Atrium 3.75 cm GL Strain 0.5 % M-Mode Dimensions LA Diam 4.24 cm (1.9-4.0) EPSs 0.64 cm TAPSE 2.50 (<1.7) LV Diastology E Decel Time 270 (160-240 msec) E/A Ratio 0.90 MED A' 10.30 cm/s LAT A' 12.60 cm/s Aortic Valve ANTHONY Index 1.39 cm2/m2 AoV Peak Blu. 145.0 (50-130 cm/s) AO Peak GR. 8.40 mmHg AO Mean GR. 4.20 (<5 mmHg) AO VTI 26.7 (18-25 cm) ANTHONY (VTI) 3.27 (2.5-4.5 cm2) Mitral Valve MV A Velocity 87.0 (40-130 cm/s) E/A Ratio 0.90 MV Mean Gr. 3.60 (<2mmHg) Pulmonary Valve PV Peak Velocity 89.0 (50-150 cm/s) Left Ventricle The left ventricle is normal size. The left ventricular systolic function is normal. The left ventricular ejection fraction is within the normal range. There is increased LV wall thickness. There is normal LV segmental wall motion. Diastolic function is indeterminate. LVEF is 55%. Right Ventricle The right ventricle is normal size. The right ventricular systolic function is normal. Atria The left atrium size is normal. The right atrium size is normal. The interatrial septum is not well-visualized. Aortic Valve The aortic valve is mildly thickened. There is no aortic valvular stenosis. No aortic regurgitation is present. Mitral Valve The mitral valve is mildly thickened. No evidence of mitral valve stenosis. There is no mitral valve regurgitation noted. Tricuspid Valve The tricuspid valve is thin and pliable. Trace tricuspid regurgitation. There is insufficient TR jet to estimate RVSP. Pulmonic Valve The pulmonic valve leaflets are not well-visualized. Trace pulmonic regurgitation. Great Vessels The aortic root is not well-visualized. The IVC is not well-visualized. Pericardium There is no pericardial effusion. Other Information Study Quality: Technically Difficult Conclusion Technically difficult study due to poor acoustic windows. Normal biventricular systolic function. No significant valvular stenosis or regurgitation. Electronically signed by : Jessie Jeong MD 09/21/2023 11:55:58
== END 2023-09-17 23:59 ==
LOC: RT 12:45
PROVIDERS: PCP Internal Medicine Adolescent Medicine; Visit Provider Internal Medicine
DX: R06.02 Shortness of breath (principal); J44.9 Chronic obstructive pulmonary disease, unspecified; I25.118 Atherosclerotic heart disease of native coronary artery with other forms of angina pectoris; F17.290 Nicotine dependence, other tobacco product, uncomplicated
CPT/HCPCS: 93306

== ENCOUNTER 2023-09-20 12:31 | Observation (INO) | payer MEDICARE, SELFPAY ==
[2023-09-20] VITALS (10 sets, daily range): BP systolic 95–147; BP diastolic 50–79; PULSE 70–104; RESP 14–26; TEMP 36.6–36.8; O2SAT 97–100; BMI 32.1; BMI 33.2
--- NOTE | 2023-09-20 12:34 | ECG_ITS ---
APPROVED REPORT Exam: Resting ECG HR:95 bpm ECG Measurements Heart Rate 95 AXES IL 176 P 70 QRSd 90 QRS -37 QT 249 T 74 QTc 302 Conclusion SINUS RHYTHM LOW QRS VOLTAGE [QRS DEFLECTION < 0.5/1.0 mV IN LIMB/CHEST LEADS] INFERIOR MYOCARDIAL INFARCTION , PROBABLY OLD [40+ ms Q WAVE AND/OR ST/T ABNORMALITY IN II/aVF] ABNORMAL ECG UNCONFIRMED REPORT Electronically signed by : Raymundo Mcmillan, 09/20/2023 14:24:24
--- NOTE | 2023-09-20 13:00 | XR_ITS ---
PROCEDURE INFORMATION: Exam: XR Chest Exam date and time: 09/20/2023 1:05 PM Age: 67 years old Clinical indication: Pain; Chest pressure; Additional info: Chest pain TECHNIQUE: Imaging protocol: Radiologic exam of the chest. Views: 1 view. COMPARISON: CR XR CHEST PORTABLE 04/03/2023 9:43 PM FINDINGS: Lungs: Bibasilar regions of parenchymal scarring versus subsegmental atelectasis. Pleural spaces: Unremarkable. No pleural effusion. No pneumothorax. Heart/Mediastinum: Unremarkable. No cardiomegaly. Bones/joints: Unremarkable. IMPRESSION: No evidence of acute cardiopulmonary disease.
[2023-09-20 13:07] LABS: Basophils % 0.2 % (0.1-2.0); Eosinophils % 0.4 % (0.1-12.0); Hematocrit 32.4 % (42.0-52.0); Lymphocytes # 1.8 K/mm3 (0.7-4.5); Lymphocytes % 16.3 % (10-50); Mean Corpuscular HGB Conc 33.8 g/dL (31.8-35.4); Mean Corpuscular Hemoglobin 32.3 pg (27.0-31.2); Mean Corpuscular Volume 95.6 fl (80-94); Mean Platelet Volume 8.3 fl (7.4-10.4); Monocytes # 0.7 K/mm3 (0.1-1.0); Monocytes % 6.8 % (1.7-9.3); Neutrophils # 8.2 K/mm3 (1.8-7.8); Neutrophils % 76.3 % (37.0-80.0); Platelet Count 283 K/mm3 (142-424); Red Blood Count 3.39 M/mm3 (4.60-6.20); Red Cell Distribution Width 14.5 % (11.5-17.5); White Blood Count 10.7 K/mm3 (4.8-10.8)
[2023-09-20 13:08] LABS: Chloride 87 mmol/L (98-107); Sodium 128 mmol/L (136-145)
--- NOTE | 2023-09-20 13:09 | PC.NURSE ---
xr at bedside
[2023-09-20 13:11] LABS: Alanine Aminotransferase 36 U/L (12-78); Albumin/Globulin Ratio 1.4 (1.1-1.8); Alkaline Phosphatase 132 U/L (38-126); Aspartate Amino Transferase 58 U/L (17-59); Bilirubin,Total 0.5 mg/dl (0.2-1.3); Blood Urea Nitrogen 33 mg/dl (9-20); Carbon Dioxide 35 mmol/L (22.0-30.0); Creatinine Clearance Estimated 47 mL/min (50-200); Estimated Glomerular Filt Rate 30 ml/min (>60); GFR (African American) 36 ML/MIN (>60); Globulin 2.8 g/dL (1.3-3.2); Total Protein,Serum 6.8 g/dl (6.3-8.2)
[2023-09-20 13:12] LABS: Calcium 9.5 mg/dl (8.4-10.2); Glucose 157 mg/dl (74-100)
--- NOTE | 2023-09-20 13:17 | PC.NURSE ---
critical K+ 2.3 received from tita in lab. pt name and r/v. dr altman notified
[2023-09-20 13:18] LABS: Anion Gap 8.3 mEq/L (5-15); Potassium 2.3 mmoL/L (3.5-5.1)
--- NOTE | 2023-09-20 13:19 | PC.NURSE ---
DR JOSE AT BEDSIDE
[2023-09-20 13:25] LABS: Troponin I < 0.01 ng/ml (0.00-0.034)
--- NOTE | 2023-09-20 13:25 | [facility]H.EDCP ---
Discharge Plan Disposition Patient Disposition: Admitted Prescriptions Prescriptions: No Action pregabalin 50 mg capsule 50 mg PO BID fluoxetine 20 mg capsule 20 mg PO DAILY buspirone 10 mg tablet 10 mg PO DAILY bumetanide 1 mg tablet 1 mg PO BID morphine (PF) in 0.9 % sod chl 100 mg/100 mL (1 mg/mL) prefilled pump reservoir See Rx Instructions continuous subcutaneous infusion .COMPLEX Rx Instructions: 5mg per day per pump continuous subcutaneous infusion 5mg pain pump,per day; atorvastatin 40 MG tablet 40 mg PO HS clopidogrel 75 MG tablet 75 mg PO DAILY aspirin 81 MG tablet,delayed release (DR/EC) 81 mg PO DAILY pantoprazole 40 MG tablet,delayed release (DR/EC) 40 mg PO DAILY Rx Instructions: TAKE 1 TABLET BY MOUTH DAILY Trelegy Ellipta 100-62.5-25 mcg blister with device 1 inh inhalation DAILY diltiazem HCl 120 mg capsule,extended release 24 hr 120 mg PO DAILY pramipexole 0.125 MG tablet 0.125 mg PO TID albuterol sulfate 90 mcg/actuation HFA aerosol inhaler 2 inh INHALATION QIDP PRN (Reason: Shortness of air) Linzess 145 mcg capsule 145 mcg PO DAILY hydrocodone-acetaminophen 5-325 mg tablet 1 tab PO TID Entresto 24-26 mg tablet 1 tab PO BID Qty: 60 0RF Referrals Follow up/Referrals: Mario Luke MD [Primary Care Provider] - See instructions Clinical Impressions Clinical Impression: Chest pain, Diarrhea, Hypokalemia, Acute hyponatremia, Fatigue, KAYLEE (acute kidney injury), Acute dehydration, Syncope Discharge ED Provider: Steve Mcmillan HPI General Chief Complaint: Chest Pain Stated Complaint: chest pain Time Seen by Provider: 09/20/23 13:18 Mode of Arrival: Ambulatory Source of Information: Patient and Relative Limitations: No Limitations Description of Symptoms (Recalled from ER Triage Doc. by RN): Chest pain, shortness of breath History of Present Illness HPI narrative: Patient is a 67-year-old male presenting today with chest pain over the last 3 days been constant left anterior nonradiating not associated with diaphoresis but he does have dyspnea which is chronic. Has a known history of diastolic dysfunction and chronic respiratory failure with COPD. Is on 3 L nasal cannula at home. Also states has had 2 days of diarrhea and profound weakness and fatigue which ultimately is what brought him to the emergency department today. No nausea vomiting no blood in his stool or melena no significant abdominal pain. Related Data Home Medications Medication Instructions Recorded Confirmed pramipexole 0.125 mg tablet 0.125 mg PO TID Restless leg 02/02/18 06/30/23 aspirin 81 mg tablet,delayed 81 mg PO DAILY Circulation 08/12/21 06/30/23 release atorvastatin 40 mg tablet 40 mg PO HS Cholesterol 08/12/21 06/30/23 clopidogrel 75 mg tablet 75 mg PO DAILY Blood Thinner 08/12/21 06/30/23 pantoprazole 40 mg tablet,delayed 40 mg PO DAILY GERD 08/12/21 06/30/23 release morphine (PF) 100 mg/100 mL(1 See Rx Instructions continuous 09/30/21 06/30/23 mg/mL) in 0.9% sod.chloride IV subcutaneous infusion .COMPLEX Pain pump resv fluticasone fur. 100 mcg-umeclid 1 inh inhalation DAILY Copd 08/28/22 06/30/23 62.5 mcg-vilant 25 mcg inhalat.powder (Trelegy Ellipta) pregabalin 50 mg capsule 50 mg PO BID Neuropathy 10/02/22 06/30/23 fluoxetine 20 mg capsule 20 mg PO DAILY Mood 12/04/22 06/30/23 diltiazem HCl 120 mg capsule,24 120 mg PO DAILY Heart rate 03/20/23 06/30/23 hr,extended release albuterol sulfate 90 mcg/actuation 2 inh inhalation QIDP PRN 04/04/23 06/30/23 aerosol inhaler Shortness of air hydrocodone 5 mg-acetaminophen 325 1 tab PO TID Pain 04/04/23 06/30/23 mg tablet linaclotide 145 mcg capsule 145 mcg PO DAILY Irritable bowel 04/04/23 06/30/23 (Linzess) syndrome bumetanide 1 mg tablet 1 mg PO BID 09/07/23 09/07/23 buspirone 10 mg tablet 10 mg PO DAILY 09/07/23 09/07/23 Previous Rx's Medication Instructions Recorded sacubitril 24 mg-valsartan 26 mg 1 tab PO BID #60 tabs 04/05/23 tablet (Entresto) Allergies Allergy/AdvReac Type Severity Reaction Status Date / Time gabapentin Allergy Unknown Unknown Verified 09/07/23 14:05 allergy reaction meperidine [From DEMEROL] AdvReac Mild MOOD Verified 09/07/23 14:05 CHANGES [facility] Disclaimer: The information contained in this section may have been updated after the patient was seen, as this information can be updated by other users. Medical History (Updated 09/20/23 @ 14:11 by Steve Mcmillan MD) Dyspnea Abnormal computerized axial tomography of chest Osteoarthritis History of back pain Fibromyalgia Psoriasis History of gastroesophageal reflux (GERD) Cataract History of cataract Congestive heart failure History of heart attack Mediastinal lymphadenopathy Chronic respiratory failure with hypoxia Lung nodule Stopped smoking with greater than 30 pack year history Current vaping on some days Dyspnea on exertion COPD mixed type Sleep apnea Emphysema/COPD History of COVID-19 Asthma Smoking greater than 30 pack years COPD (chronic obstructive pulmonary disease) Lower extremity edema HTN (hypertension) with goal to be determined Coronary artery disease Implantable intrathecal infusion pump present HLD (hyperlipidemia) HTN (hypertension) GERD (gastroesophageal reflux disease) Post laminectomy syndrome Oxygen dependent COPD (chronic obstructive pulmonary disease) Tobacco dependence syndrome Angina pectoris Surgical History History of esophagogastroduodenoscopy (EGD) History of colonoscopy History of appendectomy History of appendectomy History of lumbar fusion Family History Other Family history of cancer Social History Smoking Status: Never smoker second hand exposure: No alcohol intake: former substance use type: denies use current occupational status: other Travel in the last 8 weeks: None household members: spouse housing: house current occupational exposures/hazards: No caffeine: Yes ROS Obtained: Yes All systems reviewed & no additional complaints except as documented Physical Exam General General appearance: alert and in no apparent distress Respiratory Respiratory exam: Present normal lung sounds bilaterally; Absent respiratory distress Cardiovascular Cardiovascular exam: Present regular rate and normal rhythm Abdominal Exam Abdominal exam: Present soft; Absent distention or tenderness Neurological Exam Neurological exam: Present alert and oriented X3 HEART Score HEART Score HEART Score assessment performed?: Yes History (anamnesis): Slightly suspicious ECG: Non-specific disturbance Age: >65 years Risk factors: Atherosclerosis history Troponin: </= normal limit HEART Score: 5 Procedures Miscellaneous Procedure Procedure Performed: Limited cardiac ultrasound Indication: Low voltage QRS and chest pain Identified structures: The heart was visualized in the parasternal long axis, parastenal short axis, apical four chamber and subxyphiod views. The IVC was visualized in the short axis and long axis at its entry into the right atrium. Findings: No pericardial effusion normal LVEF no severe right heart strain IVC is less than 1 cm with 100% respirophasic variation Impression: Unremarkable limited bedside cardiac ultrasound Images were saved to permanent archive The study was technically adequate CPT: 86976-12 This study was performed by wi, and I personally interpreted all images/videos. Based on my clinical judgement, these images were adequate and did not necessitate further imaging. Limited lung ultrasound A focused ultrasound exam of the pleural spaces was performed to evaluate for pneumothorax, pulmonary edema, pleural effusion and/or consolidation. The ultrasound was performed with the following indications, as noted in the H&P: Chest pain Identified structures: Right and left thoracic cavities were examined. Findings: A lines present throughout normal lung sliding no significant B-lines pleural effusion or consolidation noted Impression: Unremarkable bilateral lung ultrasound Images were saved to permanent archive The study was technically adequate CPT 37893-52 This study was performed by wi, and I personally interpreted all images/videos. Based on my clinical judgement, these images were adequate and did not necessitate further imaging. Critical Care Critical Care Time Critical Care Time: Yes Attestation: On 09/20/23, the high probability of a clinically significant, sudden or life threatening deterioration of the following system(s) required my full and direct attention, intervention and personal management. The time I documented below is in addition to time spent performing reported procedures but includes the following listed in this critical care notation. Total Time Total Critical Care Time: 35 Medical Decision Making Valdemar Inquiry Pt receiving controlled substance: No Vital Signs Vital Signs: 09/20/23 12:39 09/20/23 13:08 09/20/23 13:30 Temperature 98.3 F Temperature Source Oral Pulse Rate 88 93 H Pulse Rate [Right Radial] 94 H Respiratory Rate 24 24 18 Blood Pressure 103/50 L 118/69 Blood Pressure [Right Arm] 147/73 H Blood Pressure Mean 73 85 Blood Pressure Mean [Right Arm] 97 02 Sat by Pulse Oximetry 100 100 99 Oxygen Delivery Method Nasal Cannula Oxygen Flow Rate (LPM) 3 3 Lab Data Lab results reviewed: Yes I reviewed the patient's lab results. Labs: Lab Results 09/20/23 12:38: WBC 10.7, RBC 3.39 L, Hgb 11.0 L, Hct 32.4 L, MCV 95.6 H, MCH 32.3 H, MCHC 33.8, RDW 14.5, Plt Count 283, MPV 8.3, Neut % (Auto) 76.3, Lymph % (Auto) 16.3, [place] % (Auto) 6.8, Eos % (Auto) 0.4, Baso % (Auto) 0.2, Neut # (Auto) 8.2 H, Lymph # (Auto) 1.8, [place] # (Auto) 0.7, Eos # (Auto) 0.0, Baso # (Auto) 0.0, Sodium 128 L, Potassium 2.3 L*, Chloride 87 L, Carbon Dioxide 35 H, Anion Gap 8.3, BUN 33 H, Creatinine 2.20 H, Estimated Creat Clear 47, Estimated GFR 30 L, Est GFR ( Amer) 36 L, Glucose 157 H, Calcium 9.5, Phosphorus 2.0 L, Magnesium 2.1, Total Bilirubin 0.5, AST 58, ALT 36, Alkaline Phosphatase 132 H, Troponin I < 0.01, NT-Pro-B Natriuret Pep 1280 H, Total Protein 6.8, Albumin 4.0, Globulin 2.8, Albumin/Globulin Ratio 1.4 09/20/23 12:38 09/20/23 12:38 Response Orders (Tests/Meds): ED MEDICATIONS Generic Name Dose Route Start Last Admin Trade Name Freq PRN Reason Stop Dose Admin Potassium Chloride/Water 100 mls @ 100 mls/hr 09/20/23 13:30 09/20/23 13:38 Potassium Chloride 10meq/100ml Ivpb IV 09/20/23 16:29 100 mls/hr Q1H MICHEAL Administration Sodium Chloride 10 ml 09/20/23 13:00 Sodium Chloride 0.9% 10ml Flush Syringe IV 10/20/23 12:59 NEEDED PRN Maintain IV Site Discontinued Medications Generic Name Dose Route Start Last Admin Trade Name Freq PRN Reason Stop Dose Admin Potassium Chloride 40 meq 09/20/23 13:24 09/20/23 13:46 Potassium Chloride 20meq Tab PO 09/20/23 13:25 Not Given ONCE ONE ORDERS Category Date Time Status CXR --portable [XR chest portable] Stat Exams 09/20/23 13:00 Completed POCUS Point of Care (ER Only) Stat Exams 09/20/23 13:26 Ordered BNP [Brain Natriuretic Peptide] Stat Lab 09/20/23 12:38 Completed Basic Metabolic Panel AMLAB Lab 09/21/23 06:00 Ordered Basic Metabolic Panel AMLAB Lab 09/22/23 06:00 Ordered Basic Metabolic Panel AMLAB Lab 09/23/23 06:00 Ordered Complete Blood Count Auto Diff AMLAB Lab 09/21/23 06:00 Ordered Complete Blood Count Auto Diff AMLAB Lab 09/22/23 06:00 Ordered Complete Blood Count Auto Diff AMLAB Lab 09/23/23 06:00 Ordered Complete Blood Count Auto Diff Stat Lab 09/20/23 12:38 Completed Comprehensive Metabolic Panel Stat Lab 09/20/23 12:38 Completed Diarrhea 23 Panel, PCR Stat Lab 09/20/23 14:00 Received Magnesium Stat Lab 09/20/23 12:38 Completed Phosphorous Stat Lab 09/20/23 12:38 Completed Troponin I Q3H Lab 09/20/23 16:15 Ordered Troponin I Q3H Lab 09/20/23 19:15 Ordered Troponin I Stat Lab 09/20/23 12:38 Completed ECG Data Tracing #1: Attestation: I reviewed this ECG and interpreted as documented below: ECG Narrative: Ventricular rate 95 normal sinus rhythm low voltage QRS in the limb and chest leads no ST segment elevations or depressions that are appreciable axis indeterminate no significant conduction abnormalities noted MDM Narrative Medical Decision Narrative: 67-year-old male presented with 3 days of ongoing chest discomfort. Has low voltage QRS which may be secondary to heart failure but will do a bedside ultrasound to make sure is not any significant pericardial effusion. He also has profound fatigue and weakness and a potassium of 2.3 which may be from his GI losses but also may be secondary some of his medications or volume overloaded state he also has mild hyponatremia. Will need to be admitted as it will take an extremely long period of time to replace this potassium he will need further workup and evaluation for this as well. Diarrhea PCR panel has been ordered abdominal exam is benign and not concerned about a surgical pathology will reassess shortly. Around 1:45 PM patient was attempting to take an oral potassium and had what appeared to be a syncopal episode with some myoclonic jerking where he lost consciousness for few seconds. He immediately woke up there is no postictal state no definitive seizure-like activity. He was on a monitor when this happened and no significant ventricular dysrhythmia was noted. At this point we stopped trying to administer oral potassium and just continued IV potassium. Chest x-ray performed at person interpreted shows no acute cardiopulmonary emergency Labs performed which I personally interpreted which shows acute kidney injury with a creatinine 2.2 baseline of 1.4 also has significant hypokalemia 2.3 as stated above and hyponatremia. I did a limited bedside ultrasound for many reasons 1 that he has chest pain but he also has low voltage QRS and wanted to make sure there is no significant pericardial effusion which there was not. No obvious regional wall motion abnormalities and of note on his lung ultrasound he had no significant B-lines or pleural effusions and his IVC was very decompressed. This in addition to the fact he has no lower extremity edema or evidence of total body edema I believe that he is hypovolemic likely secondary to his diarrhea. IV fluids are initiated at this point 500 cc normal saline have been given. Stool sample was collected. I suspect that the vast majority of his symptoms including his syncopal episode are all secondary to hypovolemia and dehydration and he will be admitted for further evaluation management IV fluids and replacement of his electrolytes as well as for serial troponins I do not believe that he had a type I CO. Patient was admitted after discussing the case with Dr. Vaughn who accepted.
[2023-09-20 13:32] LABS: Magnesium 2.1 mg/dl (1.6-2.3)
[2023-09-20] MEDS: KCl 10mEq/100ml 100 ML 100 MEQ IV ×5 (13:38→21:23)
[2023-09-20 13:41] LABS: NT Pro Brain Natriuretic Pep. 1280 pg/mL (0-125)
[2023-09-20 14:10] LABS: Adenovirus F 40/41, stool Not Detected (NotDetected); Astrovirus Not Detected (NotDetected); Campylobacter Not Detected (NotDetected); Cryptosporidium Not Detected (NotDetected); Cyclospora Cayetanesis Not Detected (NotDetected); Entamoeba histolytica Not Detected (NotDetected); Enteroaggregative E coli Not Detected (NotDetected); Enteropathogenic E coli Not Detected (NotDetected); Enterotoxigenic E coli Not Detected (NotDetected); Giardia lamblia Not Detected (NotDetected); Norovirus Not Detected (NotDetected); Plesimonas Shigalloides, PCR Not Detected (NotDetected); Rotavirus A Not Detected (NotDetected); Salmonella, PCR Not Detected (NotDetected); Sapovirus Not Detected (NotDetected); Shiga-like toxin E coli Not Detected (NotDetected); Shigella Enterovasive E coli Not Detected (NotDetected); Vibrio Cholerae Not Detected (NotDetected); Vibrio, PCR Not Detected (NotDetected); Yersinia Entercolitica, PCR Not Detected (NotDetected)
--- NOTE | 2023-09-20 14:12 | PC.NURSE ---
called house for admission
--- NOTE | 2023-09-20 14:37 | PC.NURSE ---
REPORT CALLED TO LORNE BUTLER
--- NOTE | 2023-09-20 15:12 | PC.NURSE ---
pt admitted to 217 from ED via stretcher, pt stood from stretcher, voided in urinal and then got into bed with standby assist, pt has 20G piv right AC with potassium run and 1L LR bolus going, family at bedside, call light within reach
[2023-09-20] MEDS: HEPARIN SODIUM 5,000 UNIT/ML VIAL 5000 UNIT SQ ×2 (15:24→20:10)
[2023-09-20] MEDS: LACTATED RINGERS 1000ML 1,000 ML 50 ML IV (15:25)
[2023-09-20 15:35] LABS: Adenovirus,PCR Not Detected (NotDetected); Coronavirus 19, PCR Not Detected (NotDetected); Coronavirus 229E Not Detected (NotDetected); Coronavirus NL63 Not Detected (NotDetected); Coronavirus OC43 Not Detected (NotDetected); Coronovirus HKU1,PCR Not Detected (NotDetected); Human Metapneumovirus Not Detected (NotDetected); Influenza A, PCR Not Detected (NotDetected); Influenza AH1, 2009 Not Detected (NotDetected); Influenza AH1, PCR Not Detected (NotDetected); Influenza AH3,PCR Not Detected (NotDetected); Influenza B, PCR Not Detected (NotDetected); Parainfluenza 1, PCR Not Detected (NotDetected); Parainfluenza 2, PCR Not Detected (NotDetected); Parainfluenza 3, PCR Not Detected (NotDetected); Parainfluenza 4, PCR Not Detected (NotDetected); Respiratory Syncytial Virus Not Detected (NotDetected); Rhinovirus/Enterovirus Not Detected (NotDetected)
--- NOTE | 2023-09-20 15:58 | PC.NURSE ---
PT'S SON WENT TO GET CPAP AT HOME FOR PT
[2023-09-20 16:41] LABS: Troponin I < 0.01 ng/ml (0.00-0.034)
--- NOTE | 2023-09-20 17:07 | P.HP_ITS ---
History of Present Illness *Admission Date: 09/20/23 *Reason for visit:: Diarrhea *History of present illness: Patient is a 67-year-old male with past medical history of COPD on 3 L nasal cannula at baseline CAD CHF with preserved ejection fraction, tobacco use who presents to the hospital due to left-sided chest pain for past 3 days, he also has associated shortness of breath. He also mentions he has been having diarrhea recently for past few days it has not been improving he feels weak. On further evaluation in the emergency department he was found potassium of 2.3, he also had an episode of brief syncope in the emergency department. He has a history of CKD, he was also found to have elevated creatinine than his baseline. [facility] Disclaimer: The information contained in this section may have been updated after the patient was seen, as this information can be updated by other users. Medical History Dyspnea Abnormal computerized axial tomography of chest Osteoarthritis History of back pain Fibromyalgia Psoriasis History of gastroesophageal reflux (GERD) Cataract History of cataract Congestive heart failure History of heart attack Mediastinal lymphadenopathy Chronic respiratory failure with hypoxia Lung nodule Stopped smoking with greater than 30 pack year history Current vaping on some days Dyspnea on exertion COPD mixed type Sleep apnea Emphysema/COPD History of COVID-19 Asthma Smoking greater than 30 pack years COPD (chronic obstructive pulmonary disease) Lower extremity edema HTN (hypertension) with goal to be determined Coronary artery disease Implantable intrathecal infusion pump present HLD (hyperlipidemia) HTN (hypertension) GERD (gastroesophageal reflux disease) Post laminectomy syndrome Oxygen dependent COPD (chronic obstructive pulmonary disease) Tobacco dependence syndrome Angina pectoris Surgical History History of esophagogastroduodenoscopy (EGD) History of colonoscopy History of appendectomy History of appendectomy History of lumbar fusion Family History Other Family history of cancer Social History (Updated 09/20/23 @ 15:45 by Harriet Grullon RN) Smoking Status: Never smoker second hand exposure: No alcohol intake: former substance use type: denies use current occupational status: other Travel in the last 8 weeks: None household members: spouse housing: house current occupational exposures/hazards: No caffeine: Yes Review of Systems Review of Systems Review of systems (narrative): as per HPI Meds Home Medications and Allergies Home Medications Medication Instructions Recorded Confirmed Type pramipexole 0.125 mg tablet 0.125 mg PO TID Restless leg 02/02/18 09/20/23 History aspirin 81 mg tablet,delayed 81 mg PO DAILY Circulation 08/12/21 09/20/23 History release atorvastatin 40 mg tablet 40 mg PO HS Cholesterol 08/12/21 09/20/23 History clopidogrel 75 mg tablet 75 mg PO DAILY Blood Thinner 08/12/21 09/20/23 History pantoprazole 40 mg tablet,delayed 40 mg PO DAILY GERD 08/12/21 09/20/23 History release morphine (PF) 100 mg/100 mL(1 See Rx Instructions continuous 09/30/21 09/20/23 History mg/mL) in 0.9% sod.chloride IV subcutaneous infusion .COMPLEX Pain pump resv fluticasone fur. 100 mcg-umeclid 1 inh inhalation DAILY Copd 08/28/22 09/20/23 History 62.5 mcg-vilant 25 mcg inhalat.powder (Trelegy Ellipta) pregabalin 50 mg capsule 50 mg PO BID Neuropathy 10/02/22 09/20/23 History fluoxetine 20 mg capsule 20 mg PO DAILY Mood 12/04/22 09/20/23 History diltiazem HCl 120 mg capsule,24 120 mg PO DAILY Heart rate 03/20/23 09/20/23 History hr,extended release albuterol sulfate 90 mcg/actuation 2 inh inhalation QIDP PRN 04/04/23 09/20/23 History aerosol inhaler Shortness of air hydrocodone 5 mg-acetaminophen 325 1 tab PO TID Pain 04/04/23 09/20/23 History mg tablet linaclotide 145 mcg capsule 145 mcg PO DAILY Irritable bowel 04/04/23 09/20/23 History (Linzess) syndrome sacubitril 24 mg-valsartan 26 mg 1 tab PO BID #60 tabs 04/05/23 09/20/23 Rx tablet (Entresto) bumetanide 1 mg tablet 1 mg PO BID 09/07/23 09/20/23 History buspirone 10 mg tablet 10 mg PO DAILY 09/07/23 09/20/23 History New Prescriptions to Start Prescriptions: Allergies Allergy/AdvReac Type Severity Reaction Status Date / Time gabapentin Allergy Unknown Unknown Verified 09/07/23 14:05 allergy reaction meperidine [From DEMEROL] AdvReac Mild MOOD Verified 09/07/23 14:05 CHANGES Exam Data for Last 24 hours Vital signs and Labs for Last 24 Hours: Temp Pulse Resp BP Pulse Ox O2 Del Method O2 Flow Rate 98.3 F 77 15 127/73 98 Nasal Cannula 2 09/20/23 14:55 09/20/23 16:00 09/20/23 16:00 09/20/23 16:00 09/20/23 16:00 09/20/23 16:00 09/20/23 16:00 Laboratory Results - last 24 hr 09/20/23 12:38: WBC 10.7, RBC 3.39 L, Hgb 11.0 L, Hct 32.4 L, MCV 95.6 H, MCH 32.3 H, MCHC 33.8, RDW 14.5, Plt Count 283, MPV 8.3, Neut % (Auto) 76.3, Lymph % (Auto) 16.3, [place] % (Auto) 6.8, Eos % (Auto) 0.4, Baso % (Auto) 0.2, Neut # (Auto) 8.2 H, Lymph # (Auto) 1.8, [place] # (Auto) 0.7, Eos # (Auto) 0.0, Baso # (Auto) 0.0, Sodium 128 L, Potassium 2.3 L*, Chloride 87 L, Carbon Dioxide 35 H, Anion Gap 8.3, BUN 33 H, Creatinine 2.20 H, Estimated Creat Clear 47, Estimated GFR 30 L, Est GFR ( Amer) 36 L, Glucose 157 H, Calcium 9.5, Phosphorus 2.0 L, Magnesium 2.1, Total Bilirubin 0.5, AST 58, ALT 36, Alkaline Phosphatase 132 H, Troponin I < 0.01, NT-Pro-B Natriuret Pep 1280 H, Total Protein 6.8, Albumin 4.0, Globulin 2.8, Albumin/Globulin Ratio 1.4 09/20/23 16:05: Troponin I < 0.01 I & O for Last 24 hours: Intake & Output 09/17/23 09/18/23 09/19/23 09/20/23 23:59 23:59 23:59 23:59 Output Total 600 / 600 Balance -600 / -600 Weight 104.326 kg Constitutional Constitutional: no acute distress *Routine HEENT Exam Head: Present normocephalic Eye: Present EOMI and PERRL ENT: Present mucous membranes moist *Routine Neck Exam Neck: Present supple; Absent lymphadenopathy *Routine Respiratory Exam Respiratory: Present CTA bilaterally *Routine Cardiovascular Exam Cardiovascular: Present RRR *Routine Abdominal Exam Abdominal: Present soft and normoactive bowel sounds; Absent tenderness *Routine Rectal Exam Rectal:: deferred *Routine Genitalia Exam Genitalia:: deferred *Routine Extremities Exam Extremities: Absent cyanosis, clubbing or edema *Routine Skin Exam Skin: Present warm; Absent rash *Routine Neurological Exam Neurological: Present alert and oriented X3 Assessment and Plan *Assessment and plan (1) Syncope: Status: Acute Category: Medical Code(s): R55 - Syncope and collapse (2) Acute dehydration: Status: Acute Category: Medical Code(s): E86.0 - Dehydration (3) KAYLEE (acute kidney injury): Status: Acute Category: Medical Code(s): N17.9 - Acute kidney failure, unspecified (4) Fatigue: Status: Acute Category: Medical Code(s): R53.83 - Other fatigue (5) Acute hyponatremia: Status: Acute Category: Medical Code(s): E87.1 - Hypo-osmolality and hyponatremia (6) Hypokalemia: Status: Acute Category: Medical Code(s): E87.6 - Hypokalemia (7) Diarrhea: Status: Acute Category: Medical Code(s): R19.7 - Diarrhea, unspecified (8) Chest pain: Status: Acute Category: Medical Code(s): R07.9 - Chest pain, unspecified Plan Patient is a 67-year-old male with past medical history of COPD on 3 L nasal cannula at baseline CAD CHF with preserved ejection fraction, tobacco use who presents to the hospital due to left-sided chest pain for past 3 days, he also has associated shortness of breath. He also mentions he has been having diarrhea recently for past few days it has not been improving he feels weak. On further evaluation in the emergency department he was found potassium of 2.3, he also had an episode of brief syncope in the emergency department. He has a history of CKD, he was also found to have elevated creatinine than his baseline. Assessment and plan Generalized weakness Severe hypokalemia KAYLEE on CKD Diarrhea, dehydration Hyponatremia Start IV fluids Monitor and replace potassium, repeat potassium level Monitor creatinine Monitor on cardiac telemetry Stool pathogens Chest pain Syncope likely secondary to hypovolemia, cannot rule out arrhythmia Check orthostatic vitals consult cardiology monitor troponin DVT PPx - Heparin
[2023-09-20 18:28] LABS: Potassium 2.3 mmoL/L (3.5-5.1)
[2023-09-20 18:49] LABS: Troponin I < 0.01 ng/ml (0.00-0.034)
[2023-09-20] MEDS: PREGABALIN 50MG CAPSULE 50 MG PO (20:08)
[2023-09-20] MEDS: ATORVASTATIN 40MG TABLET 40 MG PO (20:08)
[2023-09-20] MEDS: HYDROCODONE/APAP 5/325 MG TABLET 1 TAB PO (20:09)
[2023-09-20] MEDS: POTASSIUM CHLORIDE 20MEQ TAB 40 MEQ PO (20:09)
[2023-09-20] MEDS: MELATONIN 5MG TABLET 5 MG PO (20:09)
[2023-09-20] MEDS: 0.9 % SODIUM CHLORIDE 1000ML 1,000 ML 50 ML IV (20:10)
--- NOTE | 2023-09-20 22:16 | PC.NURSE ---
SHEET METAL ERECTOR NOTIFIED THAT PT IS REFUSING IV POTASSIUM AND IVF AT THIS TIME D/T IV HURTING; UNABLE TO OBTAIN NEW IV AT THIS TIME D/T BEING A DIFFICULT STICK AND HOUSE SUP UNAVAILABLE AT THIS TIME. NO NEW ORDERS AT THIS TIME
[2023-09-21] VITALS (16 sets, daily range): BP systolic 88–131; BP diastolic 54–82; PULSE 66–94; RESP 12–18; TEMP 36.6–37.1; O2SAT 94–98; BMI 33.2
[2023-09-21] MEDS: MELATONIN 5MG TABLET 10 MG PO ×2 (03:18→21:30)
[2023-09-21] MEDS: HYDROCODONE/APAP 5/325 MG TABLET 1 TAB PO ×3 (06:12→21:24)
[2023-09-21] MEDS: HEPARIN SODIUM 5,000 UNIT/ML VIAL 5000 UNIT SQ ×3 (06:12→21:27)
--- NOTE | 2023-09-21 06:48 | PC.NURSE ---
PT REQUESTED NORCO TO BE GIVEN EARLY D/T BACK PAIN; THIS RN EDUCATED PT THAT HE COULD HAVE IT EARLY, BUT THEN HE COULDN'T GET A DOSE AT 0900 WHEN IT IS SCHEDULED. PT AGREED TO GETTING MED EARLY AND SKIPPING 0900 DOSE; DAYSTANISHA RN UPDATED DURING REPORT AND AWARE TO NOT ADMIN 0900 NORCO.
[2023-09-21 07:27] LABS: Basophils % 0.4 % (0.1-2.0); Eosinophils # 0.3 K/mm3 (0.0-0.4); Eosinophils % 3.5 % (0.1-12.0); Hematocrit 30.2 % (42.0-52.0); Hemoglobin 10.4 g/dL (14.1-18.0); Lymphocytes # 1.9 K/mm3 (0.7-4.5); Lymphocytes % 23.6 % (10-50); Mean Corpuscular HGB Conc 34.3 g/dL (31.8-35.4); Mean Corpuscular Hemoglobin 32.5 pg (27.0-31.2); Mean Corpuscular Volume 94.7 fl (80-94); Mean Platelet Volume 8.2 fl (7.4-10.4); Monocytes # 1.2 K/mm3 (0.1-1.0); Monocytes % 15.1 % (1.7-9.3); Neutrophils # 4.7 K/mm3 (1.8-7.8); Neutrophils % 57.4 % (37.0-80.0); Platelet Count 276 K/mm3 (142-424); Red Blood Count 3.19 M/mm3 (4.60-6.20); Red Cell Distribution Width 14.6 % (11.5-17.5); White Blood Count 8.1 K/mm3 (4.8-10.8)
[2023-09-21 07:33] LABS: Anion Gap 9.2 mEq/L (5-15); Blood Urea Nitrogen 30 mg/dl (9-20); Calcium 9.1 mg/dl (8.4-10.2); Carbon Dioxide 31 mmol/L (22.0-30.0); Chloride 90 mmol/L (98-107); Creatinine Clearance Estimated 56 mL/min (50-200); Estimated Glomerular Filt Rate 35 ml/min (>60); GFR (African American) 43 ML/MIN (>60); Glucose 100 mg/dl (74-100); Sodium 128 mmol/L (136-145)
[2023-09-21 07:47] LABS: Potassium 2.2 mmoL/L (3.5-5.1)
[2023-09-21] MEDS: FLUOXETINE 20MG CAPSULE 20 MG PO (08:28)
[2023-09-21] MEDS: CLOPIDOGREL 75MG TAB 75 MG PO (08:28)
[2023-09-21] MEDS: dilTIAZem ER 120MG CAPSULE 120 MG PO (08:28)
[2023-09-21] MEDS: BUSPIRONE HCL 10 MG TABLET PO (08:28)
[2023-09-21] MEDS: ASPIRIN EC 81MG TABLET 81 MG PO (08:29)
[2023-09-21] MEDS: POTASSIUM CHLORIDE 20MEQ TAB 40 MEQ PO ×3 (08:30→21:26)
[2023-09-21] MEDS: PREGABALIN 50MG CAPSULE 50 MG PO ×2 (08:33→21:27)
[2023-09-21] MEDS: FLUTICASONE/UMECLIDIN/VILANTER 100/62.5/25MCG INHALER 1 PUFF IH (08:33)
[2023-09-21] MEDS: POTASSIUM PHOSPHATE 15 MMOL in 0.9 % SODIUM CHLORIDE 250 ML 63.75 MMOL IV (08:45)
[2023-09-21] MEDS: PRAMIPEXOLE 0.125MG TABLET 0.125 MG PO ×3 (08:52→21:26)
--- NOTE | 2023-09-21 08:59 | HMH.PHAINT1 ---
Pharmacy Intervention Comments: Home medication list verified via outside pharmacy/office visit
[2023-09-21] MEDS: LACTATED RINGERS 1000ML 1,000 ML 100 ML IV (09:00)
--- NOTE | 2023-09-21 10:48 | P.CONCA_ITS ---
History of Present Illness History of Present Illness Consult date: 09/21/23 Requesting physician: Deandre Vaughn Chief complaint: Weakness, diarrhea Additional Medical History:: 1. CAD A. MIRIAM to LAD, 2020 B. Cong myoview, 12/2021, no ischemia, EF 61% C. LHC, 02/06/2023, widely patent coronaries, LVEDP 30 mm Hg 2. COPD with home oxygen 3. Tobacco use 4. Hyponatremia, hypokalemia with recent diarrhea 5. Chronic anemia with Hgb baseline around 9.1 6. CKD, stage 3 A. Cr 1.6 with GFR 43 in 03/2023 7. HTN A. Echo, 01/2023, EF 55-60% with no significant valve disease B. Echo, 08/2023 History of present illness: Patient is a 67-year-old male with past medical history of COPD on 3 L nasal cannula at baseline CAD CHF with preserved ejection fraction, tobacco use who presents to the hospital due to left-sided chest pain for past 3 days, he also has associated shortness of breath. He also mentions he has been having diarrhea recently for past few days it has not been improving he feels weak. On further evaluation in the emergency department he was found potassium of 2.3, he also had an episode of brief syncope in the emergency department. He has a history of CKD, he was also found to have elevated creatinine than his baseline. The above per Dr. Vaughn Events above confirmed with patient. No complaints of chest pain at this time. Getting electrolyte replacement and IV fluids. [facility] Disclaimer: The information contained in this section may have been updated after the patient was seen, as this information can be updated by other users. Medical History (Updated 09/21/23 @ 11:01 by DEION Chandler) Dyspnea Abnormal computerized axial tomography of chest Osteoarthritis History of back pain Fibromyalgia Psoriasis History of gastroesophageal reflux (GERD) Cataract History of cataract Congestive heart failure History of heart attack Mediastinal lymphadenopathy Chronic respiratory failure with hypoxia Lung nodule Stopped smoking with greater than 30 pack year history Current vaping on some days Dyspnea on exertion COPD mixed type Sleep apnea Emphysema/COPD History of COVID-19 Asthma Smoking greater than 30 pack years COPD (chronic obstructive pulmonary disease) Lower extremity edema HTN (hypertension) with goal to be determined Coronary artery disease Implantable intrathecal infusion pump present HLD (hyperlipidemia) HTN (hypertension) GERD (gastroesophageal reflux disease) Post laminectomy syndrome Oxygen dependent COPD (chronic obstructive pulmonary disease) Tobacco dependence syndrome Angina pectoris Surgical History History of esophagogastroduodenoscopy (EGD) History of colonoscopy History of appendectomy History of appendectomy History of lumbar fusion Family History Other Family history of cancer Social History (Updated 09/20/23 @ 15:45 by Harriet Grullon RN) Smoking Status: Never smoker second hand exposure: No alcohol intake: former substance use type: denies use current occupational status: other Travel in the last 8 weeks: None household members: spouse housing: house current occupational exposures/hazards: No caffeine: Yes Review of Systems Review of Systems Review of systems:: pertinent systems reviewed and negative unless documented below *Cardiovascular Cardiovascular: Reports chest pain and Reports dyspnea on exertion *Respiratory Respiratory: Reports dyspnea on exertion *Gastrointestinal Gastrointestinal: Reports change in stool character Exam Data for Last 24 hours Vital signs and Labs for Last 24 Hours: Temp Pulse Resp BP Pulse Ox O2 Del Method O2 Flow Rate 97.9 F 75 18 130/69 96 Nasal Cannula 2 09/21/23 08:00 09/21/23 09:48 09/21/23 09:48 09/21/23 09:48 09/21/23 09:48 09/21/23 10:35 09/21/23 10:35 Laboratory Results - last 24 hr 09/20/23 12:38: WBC 10.7, RBC 3.39 L, Hgb 11.0 L, Hct 32.4 L, MCV 95.6 H, MCH 32.3 H, MCHC 33.8, RDW 14.5, Plt Count 283, MPV 8.3, Neut % (Auto) 76.3, Lymph % (Auto) 16.3, [place] % (Auto) 6.8, Eos % (Auto) 0.4, Baso % (Auto) 0.2, Neut # (Auto) 8.2 H, Lymph # (Auto) 1.8, [place] # (Auto) 0.7, Eos # (Auto) 0.0, Baso # (Auto) 0.0, Sodium 128 L, Potassium 2.3 L*, Chloride 87 L, Carbon Dioxide 35 H, Anion Gap 8.3, BUN 33 H, Creatinine 2.20 H, Estimated Creat Clear 47, Estimated GFR 30 L, Est GFR ( Amer) 36 L, Glucose 157 H, Calcium 9.5, Phosphorus 2 .0 L, Magnesium 2.1, Total Bilirubin 0.5, AST 58, ALT 36, Alkaline Phosphatase 132 H, Troponin I < 0.01, NT-Pro-B Natriuret Pep 1280 H, Total Protein 6.8, Albumin 4.0, Globulin 2.8, Albumin/Globulin Ratio 1.4 09/20/23 12:45: Chlamy pneumoniae PCR TNP, Adenovirus (PCR) Not detected, B. pertussis DNA (PCR) TNP, Coronavirus OC43 (PCR) Not detected, Coronavirus HKU1 (PCR) Not detected, Coronavirus 229E (PCR) Not detected, SARS-CoV-2 (PCR) Not detected, Coronavirus NL63 (PCR) Not detected, Human Metapneumovir PCR Not de tected, Influenza A (H1) PCR Not detected, Influ A (H1N1/09) PCR Not detected, Influenza A (H3) PCR Not detected, Influenza Type A (PCR) Not detected, Influenza Type B (PCR) Not detected, M. pneumoniae (PCR) TNP, Parainfluenza 1 (PCR) Not detected, Parainfluenza 2 (PCR) Not detected, Parainfluenza 3 (PCR) Not detected, Parainfluenza 4 (PCR) Not detected, RSV (PCR) Not detected, Entero/Rhino (PCR) Not detected 09/20/23 16:05: Troponin I < 0.01 09/20/23 18:00: Potassium 2.3 L*, Troponin I < 0.01 09/21/23 06:30: WBC 8.1, RBC 3.19 L, Hgb 10.4 L, Hct 30.2 L, MCV 94.7 H, MCH 32.5 H, MCHC 34.3, RDW 14.6, Plt Count 276, MPV 8.2, Neut % (Auto) 57.4, Lymph % (Auto) 23.6, [place] % (Auto) 15.1 H, Eos % (Auto) 3.5, Baso % (Auto) 0.4, Neut # (Auto) 4.7, Lymph # (Auto) 1.9, [place] # (Auto) 1.2 H, Eos # (Auto) 0.3, Baso # (Auto) 0.0, Sodium 128 L, Potassium 2.2 L*, Chloride 90 L, Carbon Dioxide 31 H, Anion Gap 9.2, BUN 30 H, Creatinine 1.90 H, Estimated Creat Clear 56, Estimated GFR 35 L, Est GFR ( Amer) 43 L, Glucose 100 D, Calcium 9.1 I & O for Last 24 hours: Intake & Output 09/18/23 09/19/23 09/20/23 09/21/23 11:59 11:59 11:59 11:59 Intake Total 3037 / 3037 Output Total 3875 / 3875 Balance -838 / -838 Weight 237 lb 4.995 oz Constitutional Constitutional: no acute distress *Routine Respiratory Exam Respiratory: Present CTA bilaterally *Routine Cardiovascular Exam Cardiovascular: Present RRR; Absent murmur, gallop or rubs *Routine Extremities Exam Extremities: Absent edema *Routine Neurological Exam Neurological: Present alert, oriented X3 and CN II-XII intact Meds Home Medications and Allergies Home Medications Medication Instructions Recorded Confirmed Type pramipexole 0.125 mg tablet 0.125 mg PO TID Restless leg 02/02/18 09/20/23 History aspirin 81 mg tablet,delayed 81 mg PO DAILY Circulation 08/12/21 09/21/23 History release atorvastatin 40 mg tablet 40 mg PO HS Cholesterol 08/12/21 09/20/23 History clopidogrel 75 mg tablet 75 mg PO DAILY Blood Thinner 08/12/21 09/20/23 History pantoprazole 40 mg tablet,delayed 40 mg PO DAILY GERD 08/12/21 09/20/23 History release morphine (PF) 100 mg/100 mL(1 5 mg continuous subcutaneous 09/30/21 09/21/23 History mg/mL) in 0.9% sod.chloride IV infusion DAILY Pain pump resv fluticasone fur. 100 mcg-umeclid 1 inh inhalation DAILY Copd 08/28/22 09/21/23 History 62.5 mcg-vilant 25 mcg inhalat.powder (Trelegy Ellipta) pregabalin 50 mg capsule 50 mg PO BID Neuropathy 10/02/22 09/20/23 History fluoxetine 20 mg capsule 20 mg PO DAILY Mood 12/04/22 09/20/23 History diltiazem HCl 120 mg capsule,24 120 mg PO DAILY Heart rate 03/20/23 09/20/23 History hr,extended release albuterol sulfate 90 mcg/actuation 2 inh inhalation QIDP PRN 04/04/23 09/21/23 History aerosol inhaler Shortness of air hydrocodone 5 mg-acetaminophen 325 1 tab PO TID Pain 04/04/23 09/21/23 History mg tablet linaclotide 145 mcg capsule 145 mcg PO DAILY Irritable bowel 04/04/23 09/20/23 History (Linzess) syndrome sacubitril 24 mg-valsartan 26 mg 1 tab PO BID #60 tabs 04/05/23 09/20/23 Rx tablet (Entresto) bumetanide 1 mg tablet 1 mg PO BID 09/07/23 09/20/23 History buspirone 10 mg tablet 10 mg PO DAILY 09/07/23 09/20/23 History metolazone 2.5 mg tablet 2.5 mg PO DAILY 09/21/23 09/21/23 History New Prescriptions to Start Prescriptions: Allergies Allergy/AdvReac Type Severity Reaction Status Date / Time gabapentin Allergy Unknown Unknown Verified 09/07/23 14:05 allergy reaction meperidine [From DEMEROL] AdvReac Mild MOOD Verified 09/07/23 14:05 CHANGES Assessment and Plan *Assessment and plan (1) Syncope: Status: Acute Qualifiers: Syncope type: unspecified Qualified Code(s): R55 - Syncope and collapse Category: Medical Code(s): R55 - Syncope and collapse (2) Diarrhea: Status: Acute Qualifiers: Diarrhea type: unspecified type Qualified Code(s): R19.7 - Diarrhea, unspecified Category: Medical Code(s): R19.7 - Diarrhea, unspecified (3) Acute dehydration: Status: Acute Category: Medical Code(s): E86.0 - Dehydration (4) KAYLEE (acute kidney injury): Status: Acute Category: Medical Code(s): N17.9 - Acute kidney failure, unspecified (5) Fatigue: Status: Acute Qualifiers: Fatigue type: unspecified Qualified Code(s): R53.83 - Other fatigue Category: Medical Code(s): R53.83 - Other fatigue (6) Acute hyponatremia: Status: Acute Category: Medical Code(s): E87.1 - Hypo-osmolality and hyponatremia (7) Hypokalemia: Status: Acute Category: Medical Code(s): E87.6 - Hypokalemia (8) Chest pain: Status: Acute Qualifiers: Chest pain type: other chest pain Qualified Code(s): R07.89 - Other chest pain Category: Medical Code(s): R07.9 - Chest pain, unspecified (9) COPD (chronic obstructive pulmonary disease): Status: Chronic Qualifiers: COPD type: unspecified COPD Qualified Code(s): J44.9 - Chronic obstructive pulmonary disease, unspecified Category: Medical Code(s): J44.9 - Chronic obstructive pulmonary disease, unspecified (10) CAD (coronary artery disease): Status: Acute Qualifiers: Associated angina: with other forms of angina Coronary Disease- Associated Artery/Lesion type: tribe artery [place] vs. transplanted heart: tribe heart Qualified Code(s): I25.118 - Atherosclerotic heart disease of tribe coronary artery with other forms of angina pectoris Category: Medical Code(s): I25.10 - Atherosclerotic heart disease of tribe coronary artery without angina pectoris (11) Diastolic dysfunction: Status: Acute Category: Medical Code(s): I51.89 - Other ill-defined heart diseases Plan 1. Diarrhea with dehydration, electrolyte abnormalities and syncope -improving with IV fluids and electrolyte replacement -Troponins negative -No arrhythmias 2. Acute on chronic CKD 3. COPD with home Oxygen 4. CAD, clinically stable with recent LHC showing widely patent cors and normal troponins this admission Echo shows EF 55% with no significant valve disease. Likely just continue IVF and electrolyte replacement. Agree with stopping metolazone and decreasing bumex. No further cardiac plans at this time. Please call if needed.
--- NOTE | 2023-09-21 12:10 | PC.NURSE ---
Potassium Phosphorus infusing will start Potassium Chloride infusions once other infusion finishes. aware.
[2023-09-21] MEDS: POTASSIUM CHLORIDE 10 MEQ, LIDOCAINE HCL/PF 3 ML in 0.9 % SODIUM CHLORIDE 100 ML 108 MEQ IV ×3 (12:52→14:36)
[2023-09-21 16:12] LABS: Chloride 93 mmol/L (98-107); Sodium 130 mmol/L (136-145)
[2023-09-21 16:13] LABS: Potassium 3.5 mmoL/L (3.5-5.1)
[2023-09-21 16:16] LABS: Anion Gap 11.5 mEq/L (5-15); Blood Urea Nitrogen 34 mg/dl (9-20); Calcium 9.3 mg/dl (8.4-10.2); Carbon Dioxide 29 mmol/L (22.0-30.0); Creatinine Clearance Estimated 53 mL/min (50-200); Estimated Glomerular Filt Rate 33 ml/min (>60); GFR (African American) 40 ML/MIN (>60); Glucose 112 mg/dl (74-100); Magnesium 1.9 mg/dl (1.6-2.3)
--- NOTE | 2023-09-21 17:00 | PC.NURSE ---
pt alert and oriented. ls cta. pt on 2LNC, wears home oxygen. abdomen soft nontender. pt voiding per urinal with adequate UOP. pt up to chair most of shift and ambulates around room. pt did have a shower this shift. pt's potassium replaced, IV potassium x 3, pt tolerated well. Potassium recheck 3.5. call light with in reach. pt transitioned from stepdown to medsurg.
--- NOTE | 2023-09-21 18:27 | EXP.ACUTE.PN ---
Subjective *Date: 09/21/23 *Time: 23:47 Interval history: Patient feeling better this morning. Stable on baseline oxygen which is 2 L. No nausea or vomiting. Still feels weak however. Potassium severely depleted on morning labs. Tolerating good p.o. intake. Denies any chest pain. No further diarrhea. Medical Exam Vital signs and Labs for Last 24 Hours: Vital Signs Temp Pulse Pulse Pulse Pulse Pulse Resp 09/21/23 16:55 09/21/23 16:00 80 09/21/23 15:56 97.9 F 09/21/23 15:43 86 18 09/21/23 15:43 09/21/23 14:42 09/21/23 13:51 87 18 09/21/23 12:41 09/21/23 12:00 89 09/21/23 11:56 84 18 09/21/23 11:27 98.7 F 09/21/23 10:35 09/21/23 09:48 75 18 09/21/23 09:00 09/21/23 08:30 90 94 H 88 09/21/23 08:00 85 09/21/23 08:00 09/21/23 08:00 97.9 F 09/21/23 07:00 09/21/23 06:00 66 12 09/21/23 05:00 09/21/23 04:00 70 09/21/23 04:00 09/21/23 03:26 98.6 F 09/21/23 03:00 09/21/23 01:00 09/21/23 00:00 80 09/21/23 00:00 94 H 14 09/20/23 23:00 09/20/23 22:00 96 H 15 09/20/23 21:00 09/20/23 20:00 90 09/20/23 20:00 97.9 F 09/20/23 20:00 86 14 09/20/23 20:00 09/20/23 18:35 BP BP BP BP Pulse Ox O2 Del Method O2 Flow Rate 09/21/23 16:55 Nasal Cannula 2 09/21/23 16:00 09/21/23 15:56 09/21/23 15:43 120/71 98 Nasal Cannula 2 09/21/23 15:43 94 L Nasal Cannula 2 09/21/23 14:42 Nasal Cannula 2 09/21/23 13:51 109/60 L 96 Nasal Cannula 2 09/21/23 12:41 Nasal Cannula 2 09/21/23 12:00 09/21/23 11:56 102/54 L 96 Nasal Cannula 2 09/21/23 11:27 09/21/23 10:35 Nasal Cannula 2 09/21/23 09:48 130/69 96 Nasal Cannula 2 09/21/23 09:00 Room Air 09/21/23 08:30 125/70 120/67 88/59 L 09/21/23 08:00 09/21/23 08:00 97 Nasal Cannula 2 09/21/23 08:00 09/21/23 07:00 Room Air 09/21/23 06:00 108/71 L Nasal Cannula 09/21/23 05:00 Nasal Cannula 09/21/23 04:00 09/21/23 04:00 Nasal Cannula 09/21/23 03:26 09/21/23 03:00 Nasal Cannula 09/21/23 01:00 Nasal Cannula 09/21/23 00:00 09/21/23 00:00 131/82 96 Nasal Cannula 09/20/23 23:00 Nasal Cannula 09/20/23 22:00 136/79 99 Nasal Cannula 09/20/23 21:00 Nasal Cannula 09/20/23 20:00 09/20/23 20:00 09/20/23 20:00 123/65 100 Nasal Cannula 09/20/23 20:00 Nasal Cannula 2 09/20/23 18:35 Nasal Cannula 2 Intake and Output 09/21/23 09/21/23 09/21/23 07:59 15:59 23:59 Intake Total 1180 / 1650 470 / 1650 Output Total 1300 / 2900 1200 / 2900 400 / 2900 Balance -1300 / -1250 -20 / -1250 70 / -1250 Intake: Intake, Oral Amount 1180 / 1650 470 / 1650 Output: Output, Urine Amount 1300 / 2900 1200 / 2900 400 / 2900 Other: Number of Unmeasured Voids 0 1 Weight 107.643 kg Patient Weight 09/21/23 23:59 Weight 107.643 kg Laboratory Results - last 24 hr 09/20/23 12:45: Chlamy pneumoniae PCR TNP, Adenovirus (PCR) Not detected, B. pertussis DNA (PCR) TNP, Coronavirus OC43 (PCR) Not detected, Coronavirus HKU1 (PCR) Not detected, Coronavirus 229E (PCR) Not detected, SARS-CoV-2 (PCR) Not detected, Coronavirus NL63 (PCR) Not detected, Human Metapneumovir PCR Not detected, Influenza A (H1) PCR Not detected, Influ A (H1N1/09) PCR Not detected, Influenza A (H3) PCR Not detected, Influenza Type A (PCR) Not detected, Influenza Type B (PCR) Not detected, M. pneumoniae (PCR) TNP, Parainfluenza 1 (PCR) Not detected, Parainfluenza 2 (PCR) Not detected, Parainfluenza 3 (PCR) Not detected, Parainfluenza 4 (PCR) Not detected, RSV (PCR) Not detected, Entero/Rhino (PCR) Not detected 09/20/23 18:00: Potassium 2.3 L*, Troponin I < 0.01 09/21/23 06:30: WBC 8.1, RBC 3.19 L, Hgb 10.4 L, Hct 30.2 L, MCV 94.7 H, MCH 32.5 H, MCHC 34.3, RDW 14.6, Plt Count 276, MPV 8.2, Neut % (Auto) 57.4, Lymph % (Auto) 23.6, [place] % (Auto) 15.1 H, Eos % (Auto) 3.5, Baso % (Auto) 0.4, Neut # (Auto) 4.7, Lymph # (Auto) 1.9, [place] # (Auto) 1.2 H, Eos # (Auto) 0.3, Baso # (Auto) 0.0, Sodium 128 L, Potassium 2.2 L*, Chloride 90 L, Carbon Dioxide 31 H, Anion Gap 9.2, BUN 30 H, Creatinine 1.90 H, Estimated Creat Clear 56, Estimated GFR 35 L, Est GFR ( Amer) 43 L, Glucose 100 D, Calcium 9.1 09/21/23 15:55: Sodium 130 L, Potassium 3.5 D, Chloride 93 L, Carbon Dioxide 29, Anion Gap 11.5, BUN 34 H, Creatinine 2.00 H, Estimated Creat Clear 53, Estimated GFR 33 L, Est GFR ( Amer) 40 L, Glucose 112 H, Calcium 9.3, Magnesium 1.9 I & O for Labs for Last 24 Hours: Intake & Output 09/18/23 09/19/23 09/20/23 09/21/23 23:59 23:59 23:59 23:59 Intake Total 2327 / 2327 1650 / 1650 Output Total 1974 2900 / 2900 Balance 352 / 352 -1250 / -1250 Weight 107.643 kg 107.643 kg Constitutional: Present no acute distress, obese, chronically ill appearing and cooperative Head: Present atraumatic and normocephalic ENT: Present normal exam Neck: Present normal inspection Respiratory: Present prolonged expiratory phase and wheezes; Absent rhonchi or crackles Cardiac: Present Reg Rate and Rhythm GI: Present soft and normal bowel sounds; Absent distention or tenderness Extremities: Present normal inspection and full ROM Skin: Present intact; Absent erythema Neuro: Present Grossly Intact, alert, awake, oriented x 3 and moves all extremities Assessment and Plan *Assessment and plan (1) Syncope: Status: Acute Qualifiers: Syncope type: unspecified Qualified Code(s): R55 - Syncope and collapse Category: Medical Code(s): R55 - Syncope and collapse (2) Acute hyponatremia: Status: Acute Category: Medical Code(s): E87.1 - Hypo-osmolality and hyponatremia (3) Acute dehydration: Status: Acute Category: Medical Code(s): E86.0 - Dehydration (4) KAYLEE (acute kidney injury): Status: Acute Category: Medical Code(s): N17.9 - Acute kidney failure, unspecified (5) Fatigue: Status: Acute Qualifiers: Fatigue type: unspecified Qualified Code(s): R53.83 - Other fatigue Category: Medical Code(s): R53.83 - Other fatigue (6) Hypokalemia: Status: Acute Category: Medical Code(s): E87.6 - Hypokalemia (7) Diarrhea: Status: Acute Qualifiers: Diarrhea type: unspecified type Qualified Code(s): R19.7 - Diarrhea, unspecified Category: Medical Code(s): R19.7 - Diarrhea, unspecified (8) Chest pain: Status: Acute Qualifiers: Chest pain type: other chest pain Qualified Code(s): R07.89 - Other chest pain Category: Medical Code(s): R07.9 - Chest pain, unspecified Plan Patient is a 67-year-old male with past medical history of COPD on 3 L nasal cannula at baseline CAD CHF with preserved ejection fraction, tobacco use who presents to the hospital due to left-sided chest pain for past 3 days, he also has associated shortness of breath. He also mentions he has been having diarrhea recently for past few days it has not been improving he feels weak. On further evaluation in the emergency department he was found potassium of 2.3, he also had an episode of brief syncope in the emergency department. He has a history of CKD, he was also found to have elevated creatinine than his baseline. Continues to have low potassium. No no further nausea or vomiting. Tolerating repletion. Continues to require inpatient management and close monitoring on telemetry. Replacing potassium aggressively today. Problems addressed as follows: Generalized weakness Severe hypokalemia KAYLEE on CKD Diarrhea, dehydration Hyponatremia -Potassium 2.2 this morning, sodium 128. Replacing aggressively with oral and IV potassium and sodium. Will continue potassium 40 mg p.o. 3 times a day with 30 mEq IV. Repeat BMP this afternoon at 4 PM. -Magnesium normal at 2.0. -Gentle hydration due to creatinine 1.9, BUN 30. LR at 100 cc an hour for 1 L. -Repeat CMP, CBC, magnesium ordered for the morning. -Continue cardiac telemetry given risk for arrhythmias Chest pain Syncope likely secondary to hypovolemia, cannot rule out arrhythmia -Cardiology consulted, recommend stopping metolazone. Will resume Bumex at discharge. Will need to continued potassium supplementation at discharge. Continue home regimen otherwise as including Lipitor, aspirin, Plavix, diltiazem - Hold Entresto in setting of KAYLEE and normotension COPD Chronic hypoxemic respiratory failure -Supplemental oxygen as needed, on baseline oxygen of 2 L. Continue Trelegy inhaler daily. -DuoNebs as needed every 6 hours DVT PPx - Heparin cardiac diet Full code
[2023-09-21] MEDS: ATORVASTATIN 40MG TABLET 40 MG PO (21:26)
[2023-09-21] MEDS: PANTOPRAZOLE 40MG TABLET 40 MG PO (21:26)
--- NOTE | 2023-09-21 23:35 | PC.NURSE ---
ROOM AIR SAT 87% Pt placed back on 2LNC with sats at 96%
[2023-09-22] VITALS: BP 100/76; PULSE 125; PULSE 90; RESP 18; TEMP 36.9; O2SAT 96
[2023-09-22 04:00] VITALS: BP 139/79; PULSE 106; RESP 16; TEMP 36.8; O2SAT 97; BMI 33.5
[2023-09-22] MEDS: FLUTICASONE/UMECLIDIN/VILANTER 100/62.5/25MCG INHALER 1 PUFF IH (06:23)
[2023-09-22 06:24] VITALS: O2SAT 96
[2023-09-22] MEDS: HEPARIN SODIUM 5,000 UNIT/ML VIAL 5000 UNIT SQ (06:45)
--- NOTE | 2023-09-22 06:56 | PC.NURSE ---
Pt has not voiced any complaints to staff. RT titrated pt to 3 L nc, tolerating well with sat >90%. Pt is ambulating around room and in hallway independently. Call light within reach.
[2023-09-22 07:25] LABS: Basophils # 0.1 K/mm3 (0-0.2); Basophils % 0.8 % (0.1-2.0); Eosinophils # 0.6 K/mm3 (0.0-0.4); Eosinophils % 7.6 % (0.1-12.0); Hematocrit 29.5 % (42.0-52.0); Hemoglobin 9.9 g/dL (14.1-18.0); Lymphocytes # 1.9 K/mm3 (0.7-4.5); Lymphocytes % 25.1 % (10-50); Mean Corpuscular HGB Conc 33.5 g/dL (31.8-35.4); Mean Corpuscular Hemoglobin 32.5 pg (27.0-31.2); Mean Corpuscular Volume 97.2 fl (80-94); Mean Platelet Volume 8.1 fl (7.4-10.4); Monocytes # 0.6 K/mm3 (0.1-1.0); Monocytes % 7.3 % (1.7-9.3); Neutrophils # 4.6 K/mm3 (1.8-7.8); Neutrophils % 59.3 % (37.0-80.0); Platelet Count 265 K/mm3 (142-424); Red Blood Count 3.03 M/mm3 (4.60-6.20); Red Cell Distribution Width 14.7 % (11.5-17.5); White Blood Count 7.7 K/mm3 (4.8-10.8)
--- NOTE | 2023-09-22 07:25 | P.DS_ITS ---
General Admission date:: 09/20/23 Discharge date: 09/22/23 HPI HPI HPI: Patient is a 67-year-old male with past medical history of COPD on 3 L nasal cannula at baseline CAD CHF with preserved ejection fraction, tobacco use who presents to the hospital due to left-sided chest pain for past 3 days, he also has associated shortness of breath. He also mentions he has been having diarrhea recently for past few days it has not been improving he feels weak. On further evaluation in the emergency department he was found potassium of 2.3, he also had an episode of brief syncope in the emergency department. He has a history of CKD, he was also found to have elevated creatinine than his baseline. Hospital Course Hospital Course Hospital Course: Patient is a 67-year-old male with past medical history of COPD on 3 L nasal cannula at baseline CAD CHF with preserved ejection fraction, tobacco use who presents to the hospital due to left-sided chest pain for past 3 days, he also has associated shortness of breath. He also mentions he has been having diarrhea recently for past few days it has not been improving he feels weak. On further evaluation in the emergency department he was found potassium of 2.3, he also had an episode of brief syncope in the emergency department. He has a history of CKD, he was also found to have elevated creatinine than his baseline. Potassium replaced during admission. Improving. Diarrhea panel showed positive for C. difficile the day after discharge. Antibiotics (vancomycin) were sent in. Stable to discharge home given improvement in potassium. Close follow-up with PCP. Problems addressed as follows: Generalized weakness Severe hypokalemia KAYLEE on CKD Diarrhea, dehydration Hyponatremia -Potassium low on admission. Fluid resuscitation administered given dehydration and diarrhea. Slow improvement in potassium with aggressive repletion. Tolerating p.o. intake with advancement in diet. Labs showed improvement to 3.1 and potassium by day of discharge. Magnesium 2.1. Sodium improving at 130. Stool panel was still pending at discharge, returned the day after discharge and found to be positive for C. difficile. Treatment begun. Diarrhea however was improving by discharge. Recommend follow-up with PCP for further evaluation and repeat labs in 1 to 2 weeks. Chest pain Syncope likely secondary to hypovolemia, cannot rule out arrhythmia -Cardiology consulted, recommend stopping metolazone. Will resume Bumex at discharge. Will need to continued potassium supplementation at discharge. Continue home regimen otherwise as including Lipitor, aspirin, Plavix, diltiazem - Hold Entresto in setting of KAYLEE and normotension COPD Chronic hypoxemic respiratory failure -Supplemental oxygen as needed, on baseline oxygen of 2 L. Continue Trelegy inhaler daily. -DuoNebs as needed every 6 hours Total time spent on discharge 35 minutes in counseling, documentation, chart review, and direct care with patient. Exam Data for Last 24 hours Vital signs and Labs for Last 24 Hours: Temp Pulse Resp BP Pulse Ox O2 Del Method O2 Flow Rate 98.3 F 106 H 16 139/79 96 Nasal Cannula 3 09/22/23 04:00 09/22/23 04:00 09/22/23 04:00 09/22/23 04:00 09/22/23 06:24 09/22/23 06:55 09/22/23 06:55 Laboratory Results - last 24 hr 09/21/23 06:30: WBC 8.1, RBC 3.19 L, Hgb 10.4 L, Hct 30.2 L, MCV 94.7 H, MCH 32.5 H, MCHC 34.3, RDW 14.6, Plt Count 276, MPV 8.2, Neut % (Auto) 57.4, Lymph % (Auto) 23.6, Mariposa % (Auto) 15.1 H, Eos % (Auto) 3.5, Baso % (Auto) 0.4, Neut # (Auto) 4.7, Lymph # (Auto) 1.9, Mariposa # (Auto) 1.2 H, Eos # (Auto) 0.3, Baso # (Auto) 0.0, Sodium 128 L, Potassium 2.2 L*, Chloride 90 L, Carbon Dioxide 31 H, Anion Gap 9.2, BUN 30 H, Creatinine 1.90 H, Estimated Creat Clear 56, Estimated GFR 35 L, Est GFR ( Amer) 43 L, Glucose 100 D, Calcium 9.1 09/21/23 15:55: Sodium 130 L, Potassium 3.5 D, Chloride 93 L, Carbon Dioxide 29, Anion Gap 11.5, BUN 34 H, Creatinine 2.00 H, Estimated Creat Clear 53, Estimated GFR 33 L, Est GFR ( Amer) 40 L, Glucose 112 H, Calcium 9.3, Magnesium 1.9 I & O for Last 24 hours: Intake & Output 09/19/23 09/20/23 09/21/23 09/22/23 23:59 23:59 23:59 23:59 Intake Total 2327 / 2327 1650 / 1650 Output Total 1974 3400 / 3400 0 / 0 Balance 352 / 352 -1750 / -1750 0 / 0 Weight 107.643 kg 107.643 kg 108.545 kg Constitutional Constitutional: no acute distress, obese, chronically ill appearing and cooperative *Routine HEENT Exam Head: Present normocephalic Eye: Present EOMI and PERRL ENT: Present mucous membranes moist *Routine Neck Exam Neck: Present supple; Absent lymphadenopathy *Routine Respiratory Exam Respiratory: Present prolonged expiratory phase, wheezes and normal respiratory effort; Absent rhonchi or crackles *Routine Cardiovascular Exam Cardiovascular: Present RRR *Routine Abdominal Exam Abdominal: Present soft and normoactive bowel sounds; Absent tenderness *Routine Rectal Exam Patient deferred: visual exam *Routine Exam Patient deferred: penile exam *Routine Extremities Exam Extremities: Present edema (trace); Absent cyanosis or clubbing *Routine Skin Exam Skin: Present warm; Absent rash *Routine Neurological Exam Neurological: Present alert, oriented X3, CN II-XII intact and moving all extremities; Absent altered mental status Results Data Completed and Pending Labs on day of discharge: Labs from last 24 hours 09/21/23 09/21/23 15:55 06:30 WBC 8.1 RBC 3.19 L Hgb 10.4 L Hct 30.2 L MCV 94.7 H MCH 32.5 H MCHC 34.3 RDW 14.6 Plt Count 276 MPV 8.2 Neut % (Auto) 57.4 Lymph % (Auto) 23.6 Mariposa % (Auto) 15.1 H Eos % (Auto) 3.5 Baso % (Auto) 0.4 Neut # (Auto) 4.7 Lymph # (Auto) 1.9 Mariposa # (Auto) 1.2 H Eos # (Auto) 0.3 Baso # (Auto) 0.0 Sodium 130 L 128 L Potassium 3.5 D 2.2 L* Chloride 93 L 90 L Carbon Dioxide 29 31 H Anion Gap 11.5 9.2 BUN 34 H 30 H Creatinine 2.00 H 1.90 H Estimated Creat Clear 53 56 Estimated GFR 33 L 35 L Est GFR ( Amer) 40 L 43 L Glucose 112 H 100 D Calcium 9.3 9.1 Magnesium 1.9 DS: Diagnosis Discharge Diagnosis (1) Syncope: Status: Acute Code(s): R55 - Syncope and collapse Qualifiers: Syncope type: unspecified Qualified Code(s): R55 - Syncope and collapse (2) Acute hyponatremia: Status: Acute Code(s): E87.1 - Hypo-osmolality and hyponatremia (3) Acute dehydration: Status: Acute Code(s): E86.0 - Dehydration (4) KAYLEE (acute kidney injury): Status: Acute Code(s): N17.9 - Acute kidney failure, unspecified (5) Fatigue: Status: Acute Code(s): R53.83 - Other fatigue Qualifiers: Fatigue type: unspecified Qualified Code(s): R53.83 - Other fatigue (6) Hypokalemia: Status: Acute Code(s): E87.6 - Hypokalemia (7) Diarrhea: Status: Acute Code(s): R19.7 - Diarrhea, unspecified Qualifiers: Diarrhea type: unspecified type Qualified Code(s): R19.7 - Diarrhea, unspecified (8) Chest pain: Status: Acute Code(s): R07.9 - Chest pain, unspecified Qualifiers: Chest pain type: other chest pain Qualified Code(s): R07.89 - Other chest pain Meds Home Medications and Allergies Home Medications Medication Instructions Recorded Confirmed Type pramipexole 0.125 mg tablet 0.125 mg PO TID Restless leg 02/02/18 09/20/23 History aspirin 81 mg tablet,delayed 81 mg PO DAILY Circulation 08/12/21 09/21/23 History release atorvastatin 40 mg tablet 40 mg PO HS Cholesterol 08/12/21 09/20/23 History clopidogrel 75 mg tablet 75 mg PO DAILY Blood Thinner 08/12/21 09/20/23 History pantoprazole 40 mg tablet,delayed 40 mg PO DAILY GERD 08/12/21 09/20/23 History release morphine (PF) 100 mg/100 mL(1 5 mg continuous subcutaneous 09/30/21 09/21/23 History mg/mL) in 0.9% sod.chloride IV infusion DAILY Pain pump resv fluticasone fur. 100 mcg-umeclid 1 inh inhalation DAILY Copd 08/28/22 09/21/23 History 62.5 mcg-vilant 25 mcg inhalat.powder (Trelegy Ellipta) pregabalin 50 mg capsule 50 mg PO BID Neuropathy 10/02/22 09/20/23 History fluoxetine 20 mg capsule 20 mg PO DAILY Mood 12/04/22 09/20/23 History diltiazem HCl 120 mg capsule,24 120 mg PO DAILY Heart rate 03/20/23 09/20/23 History hr,extended release albuterol sulfate 90 mcg/actuation 2 inh inhalation QIDP PRN 04/04/23 09/21/23 History aerosol inhaler Shortness of air hydrocodone 5 mg-acetaminophen 325 1 tab PO TID Pain 04/04/23 09/21/23 History mg tablet linaclotide 145 mcg capsule 145 mcg PO DAILY Irritable bowel 04/04/23 09/20/23 History (Linzess) syndrome sacubitril 24 mg-valsartan 26 mg 1 tab PO BID #60 tabs 04/05/23 09/20/23 Rx tablet (Entresto) buspirone 10 mg tablet 10 mg PO DAILY 09/07/23 09/20/23 History bumetanide 1 mg tablet 1 mg PO DAILY 30 days #0 tabs 09/22/23 09/20/23 Rx potassium chloride 20 mEq 40 meq (2 x 20 mEq) PO DAILY 30 09/22/23 Rx tablet,extended days #60 tabs release(part/cryst) (Klor-Con M) vancomycin 125 mg capsule 125 mg PO QID 10 days #40 caps 09/23/23 Rx New Prescriptions to Start Prescriptions: potassium chloride [Klor-Con M20] Raymundo Najera vancomycin Raymundo Najera Allergies Allergy/AdvReac Type Severity Reaction Status Date / Time gabapentin Allergy Unknown Unknown Verified 09/07/23 14:05 allergy reaction meperidine [From DEMEROL] AdvReac Mild MOOD Verified 09/07/23 14:05 CHANGES Discharge Plan Disposition Patient Disposition: Home, Self-Care Condition: Fair Follow up Plan Follow up with: Mario Luke MD [Primary Care Provider] - 09/26/23 9:30 am Larry Jeong MD [Staff Physician] - 09/30/23 2:45 pm Prescriptions/Medication Reconciliation: New potassium chloride [Klor-Con M20] 20 mEq Tablet,Er Particles/Crystals 40 meq PO DAILY 30 Days Qty: 60 0RF vancomycin 125 mg capsule 125 mg PO QID 10 Days Qty: 40 0RF Continued pregabalin 50 mg capsule 50 mg PO BID fluoxetine 20 mg capsule 20 mg PO DAILY buspirone 10 mg tablet 10 mg PO DAILY morphine (PF) in 0.9 % sod chl 100 mg/100 mL (1 mg/mL) prefilled pump reservoir 5 mg continuous subcutaneous infusion DAILY atorvastatin 40 MG tablet 40 mg PO HS clopidogrel 75 MG tablet 75 mg PO DAILY aspirin 81 MG tablet,delayed release (DR/EC) 81 mg PO DAILY pantoprazole 40 MG tablet,delayed release (DR/EC) 40 mg PO DAILY Rx Instructions: TAKE 1 TABLET BY MOUTH DAILY Trelegy Ellipta 100-62.5-25 mcg blister with device 1 inh inhalation DAILY Rx Instructions: as needed diltiazem HCl 120 mg capsule,extended release 24 hr 120 mg PO DAILY pramipexole 0.125 MG tablet 0.125 mg PO TID albuterol sulfate 90 mcg/actuation HFA aerosol inhaler 2 inh INHALATION QIDP PRN (Reason: Shortness of air) Rx Instructions: as needed Linzess 145 mcg capsule 145 mcg PO DAILY hydrocodone-acetaminophen 5-325 mg tablet 1 tab PO TID Rx Instructions: doesn't take anymore due to pain pump Changed bumetanide 1 mg tablet 1 mg PO DAILY 30 Days Qty: 0 0RF Held Entresto 24-26 mg tablet 1 tab PO BID Qty: 60 0RF Hold Instructions: pending follow-up with PCP or cardiology due to hypotension and KAYLEE on CKD Discontinued metolazone 2.5 mg tablet 2.5 mg PO DAILY Problem Reconciliation Problems Reviewed?: Yes Patient Discharge Instructions ACTIVITY: Continue current activity DIET: continue same diet Patient Instructions: DI for Dehydration -- Adult, DI for Hypokalemia, DI for Acute Kidney Injury Providers Primary Care Provider: Mario Luke Admchanning Provider: Deandre Vaughn Attending Provider: Deandre Vaughn
[2023-09-22 07:49] LABS: Alanine Aminotransferase 34 U/L (12-78); Albumin Level 3.7 g/dl (3.5-5.0); Albumin/Globulin Ratio 1.4 (1.1-1.8); Alkaline Phosphatase 98 U/L (38-126); Anion Gap 11.1 mEq/L (5-15); Aspartate Amino Transferase 49 U/L (17-59); Bilirubin,Total 0.4 mg/dl (0.2-1.3); Blood Urea Nitrogen 37 mg/dl (9-20); Calcium 8.9 mg/dl (8.4-10.2); Carbon Dioxide 26 mmol/L (22.0-30.0); Chloride 96 mmol/L (98-107); Creatinine Clearance Estimated 54 mL/min (50-200); Estimated Glomerular Filt Rate 33 ml/min (>60); GFR (African American) 40 ML/MIN (>60); Globulin 2.6 g/dL (1.3-3.2); Glucose 119 mg/dl (74-100); Magnesium 2.1 mg/dl (1.6-2.3); Potassium 3.1 mmoL/L (3.5-5.1); Sodium 130 mmol/L (136-145); Total Protein,Serum 6.3 g/dl (6.3-8.2)
[2023-09-22 08:00] VITALS: BP 96/62; PULSE 74; RESP 18; TEMP 36.9; O2SAT 97
[2023-09-22] MEDS: HYDROCODONE/APAP 5/325 MG TABLET 1 TAB PO (09:29)
[2023-09-22] MEDS: BUSPIRONE HCL 10 MG TABLET PO (09:30)
[2023-09-22] MEDS: dilTIAZem ER 120MG CAPSULE 120 MG PO (09:30)
[2023-09-22] MEDS: CLOPIDOGREL 75MG TAB 75 MG PO (09:30)
[2023-09-22] MEDS: PRAMIPEXOLE 0.125MG TABLET 0.125 MG PO (09:30)
[2023-09-22] MEDS: FLUOXETINE 20MG CAPSULE 20 MG PO (09:30)
[2023-09-22] MEDS: ASPIRIN EC 81MG TABLET 81 MG PO (09:30)
[2023-09-22] MEDS: POTASSIUM CHLORIDE 20MEQ TAB 40 MEQ PO (09:30)
[2023-09-22] MEDS: PREGABALIN 50MG CAPSULE 50 MG PO (09:30)
[2023-09-22 12:00] VITALS: BP 125/65; PULSE 91; RESP 20; TEMP 36.7; O2SAT 97
--- NOTE | 2023-09-22 13:03 | HMH.PHAINT1 ---
Pharmacy Intervention Comments: DISCHARGE COUNSELING WAS PROVIDED TO PATIENT AND FAMILY MEMBER ON THE FOLLOWING: NEW MEDICATION OF POTASSIUM CHLORIDE, A CHANGE IN DOSE IN THE BUMETINIDE, AND TO HOLD THEIR ENTRESTO UNTIL THEY ARE SEEN BY PRIMARY OR HIMS CODER. BOTH VERBALIZED UNDERSTANDING AND HAD NO FURTHER QUESTIONS
[2023-09-23 04:01] LABS: Clostridium Difficile A/B, PCR Detected (NotDetected)
--- NOTE | 2023-09-23 05:18 | PC.NURSE ---
RECEIVED POSITIVE DIARRHEA PANEL RESULT FOR C-DIFF. NOTIFIED MD TAYA. AWAITING NEW ORDERS AND WILL HAVE DAYSHIFT CHARGE CONTACT PATIENT WITH UPDATED INSTRUCTIONS.
--- NOTE | 2023-09-23 06:13 | PC.NURSE ---
DISCUSSED WITH ED PHYSICIAN AND WAS ADVISED THIS WAS TO BE FOLLOWED BY INPATIENT MD. ASSIGNED RESULT TO DR RANDALL.
--- NOTE | 2023-09-23 08:26 | CARE MANAGER ---
Contacted patient related to hospital discharge. His stool came back positive for C. Diff. He requests Dr. Najera call in his Vanc to [facility]. He has his Potassium, doesn't have any questions, and is aware of follow up appointments. LORNE Barker
== END 2023-09-22 13:35 | disposition home or self-care (01) ==
LOC: ER 13:39 → 2ND 15:00
PROVIDERS: Internal Medicine Adolescent Medicine; Admitting Provider Internal Medicine; Emergency Provider Student in an Organized Health Care Education/Training Program; PCP Internal Medicine Adolescent Medicine; Visit Provider Internal Medicine
DX: R55 Syncope and collapse (principal); A04.72 Enterocolitis due to Clostridium difficile, not specified as recurrent; E86.0 Dehydration; N17.9 Acute kidney failure, unspecified; E87.1 Hypo-osmolality and hyponatremia; R53.83 Other fatigue; E87.6 Hypokalemia; R19.7 Diarrhea, unspecified; R07.89 Other chest pain; J44.9 Chronic obstructive pulmonary disease, unspecified; I25.118 Atherosclerotic heart disease of native coronary artery with other forms of angina pectoris; Z99.81 Dependence on supplemental oxygen; F17.210 Nicotine dependence, cigarettes, uncomplicated; N18.9 Chronic kidney disease, unspecified; Z79.01 Long term (current) use of anticoagulants; I13.0 Hypertensive heart and chronic kidney disease with heart failure and stage 1 through stage 4 chronic kidney disease, or unspecified chronic kidney disease; J96.11 Chronic respiratory failure with hypoxia; I50.30 Unspecified diastolic (congestive) heart failure; Z79.899 Other long term (current) drug therapy; R06.02 Shortness of breath
CPT/HCPCS: 36415; 71045; 80048; 80053; 83735; 83880; 84100; 84132; 84484; 85025; 87045; 87507; 87632; 87635; 93005; 94761; 99291; G0378

== ENCOUNTER 2023-09-26 10:09 | Outpatient (CLI) | payer MEDICARE, SELFPAY ==
[2023-09-26 10:51] LABS: Basophils % 0.3 % (0.1-2.0); Eosinophils # 0.6 K/mm3 (0.0-0.4); Eosinophils % 5.6 % (0.1-12.0); Hematocrit 29.2 % (42.0-52.0); Hemoglobin 9.3 g/dL (14.1-18.0); Lymphocytes # 1.1 K/mm3 (0.7-4.5); Lymphocytes % 9.8 % (10-50); Mean Corpuscular HGB Conc 31.9 g/dL (31.8-35.4); Mean Corpuscular Volume 100.3 fl (80-94); Mean Platelet Volume 8.1 fl (7.4-10.4); Monocytes # 0.8 K/mm3 (0.1-1.0); Neutrophils # 8.8 K/mm3 (1.8-7.8); Neutrophils % 77.4 % (37.0-80.0); Platelet Count 286 K/mm3 (142-424); Red Blood Count 2.91 M/mm3 (4.60-6.20); Red Cell Distribution Width 15.1 % (11.5-17.5); White Blood Count 11.4 K/mm3 (4.8-10.8)
[2023-09-26 11:19] LABS: Chloride 107 mmol/L (98-107)
[2023-09-26 11:20] LABS: Potassium 3.2 mmoL/L (3.5-5.1); Sodium 143 mmol/L (136-145)
[2023-09-26 11:22] LABS: Alanine Aminotransferase 47 U/L (12-78); Aspartate Amino Transferase 52 U/L (17-59); Blood Urea Nitrogen 30 mg/dl (9-20); Estimated Glomerular Filt Rate 31 ml/min (>60); GFR (African American) 38 ML/MIN (>60)
[2023-09-26 11:23] LABS: Albumin Level 3.4 g/dl (3.5-5.0); Albumin/Globulin Ratio 1.4 (1.1-1.8); Alkaline Phosphatase 134 U/L (38-126); Anion Gap 12.2 mEq/L (5-15); Bilirubin,Total 0.2 mg/dl (0.2-1.3); Calcium 8.7 mg/dl (8.4-10.2); Carbon Dioxide 27 mmol/L (22.0-30.0); Globulin 2.4 g/dL (1.3-3.2); Glucose 141 mg/dl (74-100); Total Protein,Serum 5.8 g/dl (6.3-8.2)
== END 2023-09-26 23:59 ==
LOC: LAB 10:10
PROVIDERS: PCP Internal Medicine Adolescent Medicine; Visit Provider Internal Medicine Adolescent Medicine
DX: A04.72 Enterocolitis due to Clostridium difficile, not specified as recurrent (principal); E87.6 Hypokalemia
CPT/HCPCS: 36415; 80053; 83735; 85025

== ENCOUNTER 2023-09-28 09:20 | Outpatient (POV) | payer MEDICARE, SELFPAY ==
[2023-09-28 09:33] VITALS: BP 142/62; PULSE 123; RESP 18; O2SAT 96; BMI 32.8
--- NOTE | 2023-09-28 09:37 | EXP.PAIN.SOA ---
[facility] Pain Management SOAP Note Subjective:: Patient is a pleasant 67-year-old male who presents today for 2-month follow-up. Today he rates his pain a 3 out of 10. He denies any new trauma or injury. He does state that he started coming down with a cold on Thursday and that has aggravated his overall symptoms. He states he did go to the doctor on Thursday however by the time he got a else the pharmacy was closed and he was unable to get his prescription medicine. He states that he did just get it this morning and so he is hoping that this will help start to make him feel improved overall. Patient is currently managed with morphine 30 mg/mL with a daily dose of 1.978 mg/day and bupivacaine 5 mg/mL with a daily dose of 0.3297 mg/day. He denies any side effects from this medication. He does state that he feels like the dosage is currently working well and does not need additional adjustment. His Valdemar has been reviewed and is appropriate. Review of Systems: General: No recent weight changes, no fever, no sleep disturbances Respiratory: No cough, no shortness of air, no recurring pulmonary infections Cardiovascular/peripheral vascular: No chest pain, no palpitations, no edema, no shortness of breath Gastrointestinal: No new onset incontinence, normal bowel movements reported Genitourinary: No new onset incontinence Musculoskeletal: Low back pain Psychiatric: [Normal mood/affect] Neurological: [Denies weakness in extremities], [denies balance issues] Objective:: Physical Exam: General: Alert and oriented x3, no acute distress, pleasant and cooperative Lungs: Respirations even and unlabored, symmetrical chest expansion Eyes: PERRL Musculoskeletal: Flexion and extension of lumbar [spine] somewhat guarded secondary to pain, [antalgic gait noted] Neurological: Speech clear, no gross sensory deficit Assessment:: Degenerative disc disease of lumbar spine with lumbar radiculopathy symptoms, lumbar postlaminectomy syndrome, bilateral hip pain Plan:: Patient is currently doing well overall and does not require any additional adjustments with his pump settings. Patient will return to clinic on or before 3 months for reevaluation of symptoms and plan of care. Patient has been instructed to contact the clinic with any concerns before the next appointment. Dr. Smith has reviewed this note and agrees with this plan of care. This note was dictated using voice recognition software and make contain errors or omissions. -- It Is medically necessary for this patient to continue to have their intrathecal pump refilled at regular intervals. This patient had an intrathecal pain pump implanted after meeting criteria of chronic intractable pain for greater than 3 months and failing conservative treatments. Patient has committed and been compliant to the treatment plan and all planned follow up care. Since implantation of the intrathecal pain pump, the patient has had decreased pain and been more functional. Oral medications have been reduced including intake of oral opioids. Patient continues to do well with intrathecal therapy with decrease in pain symptoms and increase in functional status. Stopping intrathecal medications can lead to life threatening withdrawal, seizures, cardiac arrest, severe pain, and possible . Pumps that are not refilled at regular intervals can be damages and cause and need for replacement. We continually titrate dose and concentration to optimize pain relief and function. We are limited in concentration for certain drugs to safely deliver medications through the pump and stay within the recommendations from the Polyanalgesic Consensus Committee Guidelines. Depending on dose and concentration these pumps may need to be refilled sooner than 3 months as we titrate. [facility] Disclaimer: The information contained in this section may have been updated after the patient was seen, as this information can be updated by other users. Medical History (Updated 09/26/23 @ 00:00 by Gifty Renteria) Dyspnea Abnormal computerized axial tomography of chest Osteoarthritis History of back pain Fibromyalgia Psoriasis History of gastroesophageal reflux (GERD) Cataract History of cataract Congestive heart failure History of heart attack Mediastinal lymphadenopathy Chronic respiratory failure with hypoxia Lung nodule Stopped smoking with greater than 30 pack year history Current vaping on some days Dyspnea on exertion COPD mixed type Sleep apnea Emphysema/COPD History of COVID-19 Asthma Smoking greater than 30 pack years COPD (chronic obstructive pulmonary disease) Lower extremity edema HTN (hypertension) with goal to be determined Coronary artery disease Implantable intrathecal infusion pump present HLD (hyperlipidemia) HTN (hypertension) GERD (gastroesophageal reflux disease) Post laminectomy syndrome Oxygen dependent COPD (chronic obstructive pulmonary disease) Tobacco dependence syndrome Angina pectoris Surgical History History of esophagogastroduodenoscopy (EGD) History of colonoscopy History of appendectomy History of appendectomy History of lumbar fusion Family History Other Family history of cancer Social History (Updated 09/20/23 @ 15:45 by Harriet Grullon RN) Smoking Status: Never smoker second hand exposure: No alcohol intake: former substance use type: denies use current occupational status: other Travel in the last 8 weeks: None household members: spouse housing: house current occupational exposures/hazards: No caffeine: Yes
== END 2023-09-28 23:59 ==
LOC: SC.PAIN 09:21
PROVIDERS: PCP Internal Medicine Adolescent Medicine; Visit Provider Nurse Practitioner Family
DX: M51.16 Intervertebral disc disorders with radiculopathy, lumbar region (principal); M96.1 Postlaminectomy syndrome, not elsewhere classified; M25.551 Pain in right hip; M25.552 Pain in left hip; Z97.8 Presence of other specified devices
CPT/HCPCS: 99212; G0463

== ENCOUNTER 2023-09-30 15:06 | Outpatient (CLI) | payer MEDICARE, SELFPAY ==
[2023-09-30 15:20] LABS: Basophils # 0.1 K/mm3 (0-0.2); Basophils % 0.5 % (0.1-2.0); Eosinophils # 0.5 K/mm3 (0.0-0.4); Eosinophils % 4.8 % (0.1-12.0); Hematocrit 29.8 % (42.0-52.0); Hemoglobin 9.7 g/dL (14.1-18.0); Lymphocytes # 1.8 K/mm3 (0.7-4.5); Mean Corpuscular HGB Conc 32.4 g/dL (31.8-35.4); Mean Corpuscular Volume 98.8 fl (80-94); Mean Platelet Volume 7.7 fl (7.4-10.4); Monocytes # 0.7 K/mm3 (0.1-1.0); Monocytes % 7.2 % (1.7-9.3); Neutrophils # 6.9 K/mm3 (1.8-7.8); Neutrophils % 69.5 % (37.0-80.0); Platelet Count 348 K/mm3 (142-424); Red Blood Count 3.02 M/mm3 (4.60-6.20); Red Cell Distribution Width 14.8 % (11.5-17.5)
[2023-09-30 15:53] LABS: Alanine Aminotransferase 29 U/L (12-78); Albumin Level 3.2 g/dl (3.5-5.0); Alkaline Phosphatase 125 U/L (38-126); Anion Gap 9.9 mEq/L (5-15); Aspartate Amino Transferase 29 U/L (17-59); Bilirubin,Direct 0.3 mg/dl (0.0-0.4); Bilirubin,Indirect 0.1 mg/dL (0.0-0.9); Bilirubin,Total 0.4 mg/dl (0.2-1.3); Bilirubin,Unconjugated 0.1 mg/dL (0.0-1.1); Blood Urea Nitrogen 28 mg/dl (9-20); Calcium 8.4 mg/dl (8.4-10.2); Carbon Dioxide 33 mmol/L (22.0-30.0); Chloride 102 mmol/L (98-107); Chol/HDL Ratio 3.3 (1-3.5); Cholesterol 112 mg/dl (140-200); Estimated Glomerular Filt Rate 26 ml/min (>60); GFR (African American) 31 ML/MIN (>60); Glucose 102 mg/dl (74-100); HDL Cholesterol 34 mg/dl (40-60); Magnesium 1.6 mg/dl (1.6-2.3); Sodium 142 mmol/L (136-145); Total Protein,Serum 5.8 g/dl (6.3-8.2); Triglycerides 85 mg/dl (30-150); VLDL Cholesterol 17 mg/dL (0-40)
[2023-09-30 16:04] LABS: Direct LDL Cholesterol 51.36 mg/dL (100-129)
[2023-09-30 16:08] LABS: Free T4 (Free Thyroxine) 1.49 ng/dl (0.78-2.19); Potassium 2.9 mmoL/L (3.5-5.1)
[2023-09-30 16:23] LABS: Thyroid Stimulating Hormone 0.69 uIU/mL (0.465-4.68)
== END 2023-09-30 23:59 ==
LOC: LAB 15:07
PROVIDERS: PCP Internal Medicine Adolescent Medicine; Visit Provider Internal Medicine
DX: R06.00 Dyspnea, unspecified (principal); J44.9 Chronic obstructive pulmonary disease, unspecified; I25.118 Atherosclerotic heart disease of native coronary artery with other forms of angina pectoris; I51.89 Other ill-defined heart diseases; E87.6 Hypokalemia; E87.1 Hypo-osmolality and hyponatremia; N17.9 Acute kidney failure, unspecified
CPT/HCPCS: 36415; 80048; 80061; 80076; 83735; 84439; 84443; 85025

== ENCOUNTER 2023-10-05 12:12 | Outpatient (CLI) | payer MEDICARE, SELFPAY ==
[2023-10-05 13:27] LABS: Chloride 106 mmol/L (98-107); Potassium 4.6 mmoL/L (3.5-5.1); Sodium 142 mmol/L (136-145)
[2023-10-05 13:30] LABS: Anion Gap 7.6 mEq/L (5-15); Blood Urea Nitrogen 12 mg/dl (9-20); Calcium 9.4 mg/dl (8.4-10.2); Carbon Dioxide 33 mmol/L (22.0-30.0); Estimated Glomerular Filt Rate 55 ml/min (>60); GFR (African American) 66 ML/MIN (>60); Glucose 86 mg/dl (74-100)
[2023-10-05 13:31] LABS: Magnesium 2.1 mg/dl (1.6-2.3)
== END 2023-10-05 23:59 ==
LOC: LAB 12:13
PROVIDERS: PCP Internal Medicine Adolescent Medicine; Visit Provider Physician Assistant
DX: N17.9 Acute kidney failure, unspecified (principal); E87.6 Hypokalemia; E83.42 Hypomagnesemia
CPT/HCPCS: 36415; 80048; 83735

== ENCOUNTER 2023-11-22 11:33 | Emergency (ER) | payer MEDICARE, SELFPAY ==
[2023-11-22 11:35] VITALS: BP 140/74; PULSE 105; RESP 20; TEMP 36.6; O2SAT 99; BMI 33.1
--- NOTE | 2023-11-22 11:44 | HMH.EDGENADL ---
Discharge Plan Disposition Patient Disposition: Home, Self-Care Condition: Good Prescriptions Prescriptions: No Action pregabalin 50 mg capsule 50 mg PO BID fluoxetine 20 mg capsule 20 mg PO DAILY buspirone 10 mg tablet 10 mg PO DAILY nitroglycerin 0.4 mg tablet, sublingual 0.4 mg sublingual Q5-15M PRN (Reason: chest pain) Qty: 30 0RF Rx Instructions: do not exceed 3 doses per episode bumetanide 1 mg tablet 1 mg PO DAILY PRN (Reason: weight gain) 30 Days Qty: 0 0RF morphine (PF) in 0.9 % sod chl 100 mg/100 mL (1 mg/mL) prefilled pump reservoir 5 mg continuous subcutaneous infusion DAILY atorvastatin 40 MG tablet 40 mg PO HS clopidogrel 75 MG tablet 75 mg PO DAILY aspirin 81 MG tablet,delayed release (DR/EC) 81 mg PO DAILY pantoprazole 40 MG tablet,delayed release (DR/EC) 40 mg PO DAILY Rx Instructions: TAKE 1 TABLET BY MOUTH DAILY Trelegy Ellipta 100-62.5-25 mcg blister with device 1 inh inhalation DAILY Rx Instructions: as needed diltiazem HCl 120 mg capsule,extended release 24 hr 120 mg PO DAILY pramipexole 0.125 MG tablet 0.125 mg PO TID albuterol sulfate 90 mcg/actuation HFA aerosol inhaler 2 inh INHALATION QIDP PRN (Reason: Shortness of air) Rx Instructions: as needed Linzess 145 mcg capsule 145 mcg PO DAILY hydrocodone-acetaminophen 5-325 mg tablet 1 tab PO TID Rx Instructions: doesn't take anymore due to pain pump Entresto 24-26 mg tablet 1 tab PO BID Qty: 60 0RF Hold Instructions: pending follow-up with PCP or cardiology due to hypotension and KAYLEE on CKD vancomycin 125 mg capsule 125 mg PO QID 10 Days Qty: 40 0RF Referrals Follow up/Referrals: Mario Luke MD [Primary Care Provider] - See instructions Activity Restrictions/Add. Instructions Additional Instructions/Restrictions: As we discussed, given that your symptoms have improved and I do not see any findings of a heart attack, infection, or significant electrolyte abnormality outside of mild low potassium however higher than prior, it is safe for you to be discharged at this time. Please return with any new or worsening symptoms and continue to stay hydrated. Clinical Impressions Clinical Impression: Nausea Instructions Patient Instructions: DI for Diarrhea and Traveler's Diarrhea -- Adult, DI for Diarrhea and Traveler's Diarrhea -- Child, DI for Nausea -- Adult, DI for Nausea -- Child Discharge ED Provider: Gabriele Sauer General Adult HPI General Chief complaint: Nausea/Vomiting/Diarrhea Stated complaint: vomiting, diarrhea, bodyaches Time Seen by Provider: 11/22/23 11:44 History of Present Illness HPI narrative: The patient presents to the emergency department with a chief complaint of feeling very sick, particularly experiencing nausea and extreme fatigue. He reports that these symptoms started yesterday afternoon, following a period of physical activity in his garden, which involved cleaning a flower bed in the heat for two to three days. He expresses concern that he might have overexerted himself during this activity. The patient also mentions ongoing issues with Clostridioides difficile (C. diff) infection, for which he has completed two rounds of treatment, the most recent ending about a week ago. Despite the treatment, he still experiences gastrointestinal instability, although he denies any current presence of blood or unusual color in his stools. Additionally, the patient is dealing with other health concerns, including low potassium levels and cellulitis. He is currently on Entresto, as prescribed, and has a history of issues related to fluid retention and weight management due to difficulty in maintaining adequate fluid levels. Overall, the patient expresses a significant decrease in his general well-being, noting that he has not been eating well and has been unable to keep much food down. He denies any localized pain during the examination, including when questioned about abdominal pain and pain during urination, as well as denying any chest pain. Please note that above description of symptoms, in this electronic medical record under categorization of recalled from ER triage doctor by RN are reflective of an initial nursing assessment, however, is not reflective of my full history and physical exam that was personally taken and clarified. Consequentially, this preceding description of symptoms, which may include the patient's categorized chief complaint in the EMR, do not reflect my personal clinical impression, and the ultimate description of history of present illness and patient stated complaints should be deferred to this section of the note. Unless stated otherwise or congruent with this section of the note, additional signs, symptoms, or incongruence should be interpreted as inaccurate with my clinical impression. Related Data Home Medications Medication Instructions Recorded Confirmed pramipexole 0.125 mg tablet 0.125 mg PO TID Restless leg 02/02/18 10/28/23 aspirin 81 mg tablet,delayed 81 mg PO DAILY Circulation 08/12/21 10/28/23 release atorvastatin 40 mg tablet 40 mg PO HS Cholesterol 08/12/21 10/28/23 clopidogrel 75 mg tablet 75 mg PO DAILY Blood Thinner 08/12/21 10/28/23 pantoprazole 40 mg tablet,delayed 40 mg PO DAILY GERD 08/12/21 10/28/23 release morphine (PF) 100 mg/100 mL(1 5 mg continuous subcutaneous 09/30/21 10/28/23 mg/mL) in 0.9% sod.chloride IV infusion DAILY Pain pump resv fluticasone fur. 100 mcg-umeclid 1 inh inhalation DAILY Copd 08/28/22 10/28/23 62.5 mcg-vilant 25 mcg inhalat.powder (Trelegy Ellipta) pregabalin 50 mg capsule 50 mg PO BID Neuropathy 10/02/22 10/28/23 fluoxetine 20 mg capsule 20 mg PO DAILY Mood 12/04/22 10/28/23 diltiazem HCl 120 mg capsule,24 120 mg PO DAILY Heart rate 03/20/23 10/28/23 hr,extended release albuterol sulfate 90 mcg/actuation 2 inh inhalation QIDP PRN 04/04/23 10/28/23 aerosol inhaler Shortness of air hydrocodone 5 mg-acetaminophen 325 1 tab PO TID Pain 04/04/23 10/28/23 mg tablet linaclotide 145 mcg capsule 145 mcg PO DAILY Irritable bowel 04/04/23 10/28/23 (Linzess) syndrome buspirone 10 mg tablet 10 mg PO DAILY 09/07/23 10/28/23 Previous Rx's Medication Instructions Recorded sacubitril 24 mg-valsartan 26 mg 1 tab PO BID #60 tabs 04/05/23 tablet (Entresto) vancomycin 125 mg capsule 125 mg PO QID 10 days #40 caps 09/23/23 bumetanide 1 mg tablet 1 mg PO DAILY PRN weight gain 30 10/05/23 days #0 tabs nitroglycerin 0.4 mg sublingual 0.4 mg sublingual Q5-15M PRN chest 10/05/23 tablet pain #30 tabs Allergies Allergy/AdvReac Type Severity Reaction Status Date / Time gabapentin Allergy Unknown Unknown Verified 10/28/23 13:20 allergy reaction meperidine [From DEMEROL] AdvReac Mild MOOD Verified 10/28/23 13:20 CHANGES [facility] Disclaimer: The information contained in this section may have been updated after the patient was seen, as this information can be updated by other users. Medical History Hypomagnesemia Diarrhea of infectious origin Dyspnea Abnormal computerized axial tomography of chest Osteoarthritis History of back pain Fibromyalgia Psoriasis History of gastroesophageal reflux (GERD) Cataract History of cataract Congestive heart failure History of heart attack Mediastinal lymphadenopathy Chronic respiratory failure with hypoxia Lung nodule Stopped smoking with greater than 30 pack year history Current vaping on some days Dyspnea on exertion COPD mixed type Sleep apnea Emphysema/COPD History of COVID-19 Asthma Smoking greater than 30 pack years COPD (chronic obstructive pulmonary disease) Lower extremity edema HTN (hypertension) with goal to be determined Coronary artery disease Implantable intrathecal infusion pump present HLD (hyperlipidemia) HTN (hypertension) GERD (gastroesophageal reflux disease) Post laminectomy syndrome Oxygen dependent COPD (chronic obstructive pulmonary disease) Tobacco dependence syndrome Angina pectoris Surgical History History of esophagogastroduodenoscopy (EGD) History of colonoscopy + tubular adenoma by report. Advised repeat colonoscopy in 2 years from date done. History of appendectomy History of appendectomy History of lumbar fusion Family History Other Family history of cancer Social History Smoking Status: Former smoker tobacco type: e-cigarettes second hand exposure: No alcohol intake: former substance use type: denies use current occupational status: retired Travel in the last 8 weeks: None household members: spouse housing: house current occupational exposures/hazards: No caffeine: Yes ROS Obtained: Yes other As per HPI Physical Exam General General appearance: alert Comment: Fatigued appearing, however nontoxic, Head Head exam: atraumatic and normocephalic Eye Eye exam: Present normal appearance Neck Neck exam: Present normal inspection Chest Chest inspection: Present normal inspection and symmetric chest wall rise Respiratory Respiratory exam: Present normal lung sounds bilaterally; Absent respiratory distress Cardiovascular Cardiovascular exam: Present regular rate and normal rhythm Abdominal Exam Abdominal exam: Present soft; Absent tenderness Neurological Exam Neurological exam: Present alert and oriented X3 Psychiatric Psychiatric exam: Present normal affect and normal mood Skin Skin exam: Present warm and dry Medical Decision Making Medical Records Medical records reviewed: Yes I reviewed the patient's medical records. Valdemar Inquiry Pt receiving controlled substance: No Vital Signs: 11/22/23 11:35 11/22/23 14:50 11/22/23 15:00 Temperature 97.9 F Temperature Source Oral Pulse Rate 83 85 Pulse Rate [Right Radial] 105 H Respiratory Rate 20 Blood Pressure 118/58 L 125/58 L Blood Pressure [Right Arm] 140/74 Blood Pressure Mean [Right Arm] 96 Blood Pressure Source [Right Arm] Automatic Cuff Blood Pressure Position [Right Arm] Supine 02 Sat by Pulse Oximetry 99 99 99 Oxygen Delivery Method Nasal Cannula Room Air Room Air Oxygen Flow Rate (LPM) 3 11/22/23 15:30 11/22/23 16:30 Temperature 98.4 F Temperature Source Oral Pulse Rate 88 72 Pulse Rate [Right Radial] Respiratory Rate 18 Blood Pressure 127/87 137/71 Blood Pressure [Right Arm] Blood Pressure Mean [Right Arm] Blood Pressure Source [Right Arm] Blood Pressure Position [Right Arm] 02 Sat by Pulse Oximetry 99 Oxygen Delivery Method Room Air Oxygen Flow Rate (LPM) Lab Data Lab Results 11/22/23 12:20: WBC 5.9, RBC 3.87 L, Hgb 11.4 L, Hct 35.8 L, MCV 92.5, MCH 29.5, MCHC 31.9, RDW 15.3, Plt Count 345, MPV 8.2, Neut % (Auto) 71.3, Lymph % (Auto) 22.5, [place] % (Auto) 5.2, Eos % (Auto) 0.7, Baso % (Auto) 0.4, Neut # (Auto) 4.2, Lymph # (Auto) 1.3, [place] # (Auto) 0.3, Eos # (Auto) 0.0, Baso # (Auto) 0.0, Sodium 142, Potassium 3.2 L, Chloride 108 H, Carbon Dioxide 27, Anion Gap 10.2, BUN 11, Creatinine 1.10, Estimated Creat Clear 93, Estimated GFR 66, Est GFR ( Amer) 80, Glucose 121 H, Calcium 9.4, Magnesium 2.0, Total Bilirubin 0.7, AST 34, ALT 27, Alkaline Phosphatase 134 H, Total Creatine Kinase 96, Troponin I < 0.01, NT-Pro-B Natriuret Pep 236 H, Total Protein 6.7, Albumin 3.8, Globulin 2.9, Albumin/Globulin Ratio 1.3 11/22/23 12:29: VBG pH 7.41, VBG pCO2 40.1, VBG pO2 63.0 H, VBG HCO3 25.0, VBG Total CO2 26.2, VBG O2 Saturation 92.5 H, VBG Base Excess 0.4, VBG Lactic Acid 1.8 11/22/23 12:31: Stl Aeromonas (PCR) Not detected, Stl C. cayetanensis PCR Not detected, Stool Rotavirus (PCR) Not detected, Stl Adenov F 40/41 PCR Not detected, Stool Astrovirus (PCR) Not detected, Stool Campylobacter PCR Not detected, Stl C.difficile Tox PCR Not detected, Stool Cryptosporidium PCR Not detected, Stl E.coli Shiga Tox PCR Not detected, Stool E coli O157 PCR Not detected, Stl Enterotoxigenic E PCR Not detected, Stool EPEC (PCR) Detected A, Stool EAEC (PCR) Not detected, Stl E. histolytica PCR Not detected, Stool Giardia Lamblia PCR Not detected, Stool Salmonella PCR Not detected, Stool Sapovirus (PCR) Not detected, Stl P. shigelloides PCR Not detected, Stl Shigella/EIEC PCR Not detected, St Y.enterocolitica PCR Not detected, Stool Vibrio (PCR) Not detected, Stl Vibrio cholerae PCR Not detected, Stl Norovirus GI/GII PCR Not detected 11/22/23 14:24: Troponin I < 0.01 11/22/23 12:20 11/22/23 12:20 Orders (Tests/Meds): ED MEDICATIONS Discontinued Medications Generic Name Dose Route Start Last Admin Trade Name Freq PRN Reason Stop Dose Admin Lactated Ringer's 1,000 mls @ 999 mls/hr 11/22/23 12:28 11/22/23 13:00 Lactated Ringer's 1000 Ml Bag IV 11/22/23 13:28 999 mls/hr .Q1H1M ONE Administration ORDERS Category Date Time Status BNP [NT Pro Brain Natriuretic Pep.] Stat Lab 11/22/23 12:20 Completed CBC w/Auto Diff [Complete Blood Count Auto Diff] Stat Lab 11/22/23 12:20 Completed CK [Creatine Kinase] Stat Lab 11/22/23 12:20 Completed CMP [Comprehensive Metabolic Panel] Stat Lab 11/22/23 12:20 Completed Diarrhea 6-11 Panel, Cdiff PCR Stat Lab 11/22/23 12:31 Completed MAG [Magnesium] Stat Lab 11/22/23 12:20 Completed Troponin I Q3H Lab 11/22/23 12:20 Completed Troponin I Q3H Lab 11/22/23 14:24 Completed VBG [Venous Blood Gas] Stat RT 11/22/23 12:29 Completed Medical Decision Narrative: Patient with history and exam per above presenting for evaluation of nausea, fatigue Diagnoses considered include hypovolemia, electrolyte abnormality, ACS, no abdominal tenderness, or history of abdominal or chest pain to suggest acute surgical pathology. Patient's constellation of symptoms upon several which are questioning remains somewhat vague, as his timeline, however as best I can ascertain he has no acute exacerbation of ongoing symptoms related to several bouts of infectious diarrhea ED workup and treatment included: ED MEDICATIONS Discontinued Medications Generic Name Dose Route Start Last Admin Trade Name Freq PRN Reason Stop Dose Admin Lactated Ringer's 1,000 mls @ 999 mls/hr 11/22/23 12:28 11/22/23 13:00 Lactated Ringer's 1000 Ml Bag IV 11/22/23 13:28 999 mls/hr .Q1H1M ONE Administration ORDERS Category Date Time Status BNP [NT Pro Brain Natriuretic Pep.] Stat Lab 11/22/23 12:20 Completed CBC w/Auto Diff [Complete Blood Count Auto Diff] Stat Lab 11/22/23 12:20 Completed CK [Creatine Kinase] Stat Lab 11/22/23 12:20 Completed CMP [Comprehensive Metabolic Panel] Stat Lab 11/22/23 12:20 Completed Diarrhea 6-11 Panel, Cdiff PCR Stat Lab 11/22/23 12:31 Completed MAG [Magnesium] Stat Lab 11/22/23 12:20 Completed Troponin I Q3H Lab 11/22/23 12:20 Completed Troponin I Q3H Lab 11/22/23 14:24 Completed VBG [Venous Blood Gas] Stat RT 11/22/23 12:29 Completed Labs were independently interpreted by me, significant for mild hypokalemia, troponins within normal limits, no acidosis, creatinine 1.10 Patient has improvement of symptoms upon repeat evaluation. On repeat evaluation he is chiefly complaining of need to urinate, ambulates to bedside commode and starts urinating as we speak. Denies any abdominal pain, complaints of ongoing twitching of his legs. He states his nausea has resolved. His stool study is pending at this time for which she will follow-up with primary care provider. I discussed my clinical impression with patient and answered all questions. At this time, the evidence for any other entities in the differential is insufficient to warrant any further testing or ED observation. This was explained to the patient. The patient was advised that persistent or worsening symptoms require further evaluation. I confirmed the patient's understanding of this discussion. Critical Care Critical Care Time Critical Care Time: No
--- NOTE | 2023-11-22 12:33 | ECG_ITS ---
APPROVED REPORT Exam: Resting ECG HR:93 bpm ECG Measurements Heart Rate 93 AXES OR 172 P 90 QRSd 90 QRS 18 QT 360 T 60 QTc 410 Conclusion SINUS RHYTHM LOW QRS VOLTAGE [QRS DEFLECTION < 0.5/1.0 mV IN LIMB/CHEST LEADS] POSSIBLE INFERIOR MYOCARDIAL INFARCTION , PROBABLY OLD [30 ms Q WAVE IN II/aVF] ABNORMAL ECG UNCONFIRMED REPORT Electronically signed by : CATHERINE JACOBS, 11/24/2023 02:51:26
[2023-11-22 12:38] LABS: Chloride 108 mmol/L (98-107); Potassium 3.2 mmoL/L (3.5-5.1); Sodium 142 mmol/L (136-145)
[2023-11-22 12:39] LABS: Basophils % 0.4 % (0.1-2.0); Eosinophils % 0.7 % (0.1-12.0); Hematocrit 35.8 % (42.0-52.0); Hemoglobin 11.4 g/dL (14.1-18.0); Lymphocytes # 1.3 K/mm3 (0.7-4.5); Lymphocytes % 22.5 % (10-50); Mean Corpuscular HGB Conc 31.9 g/dL (31.8-35.4); Mean Corpuscular Hemoglobin 29.5 pg (27.0-31.2); Mean Corpuscular Volume 92.5 fl (80-94); Mean Platelet Volume 8.2 fl (7.4-10.4); Monocytes # 0.3 K/mm3 (0.1-1.0); Monocytes % 5.2 % (1.7-9.3); Neutrophils # 4.2 K/mm3 (1.8-7.8); Neutrophils % 71.3 % (37.0-80.0); Platelet Count 345 K/mm3 (142-424); Red Blood Count 3.87 M/mm3 (4.60-6.20); Red Cell Distribution Width 15.3 % (11.5-17.5); White Blood Count 5.9 K/mm3 (4.8-10.8)
[2023-11-22 12:41] LABS: Alanine Aminotransferase 27 U/L (12-78); Albumin Level 3.8 g/dl (3.5-5.0); Albumin/Globulin Ratio 1.3 (1.1-1.8); Alkaline Phosphatase 134 U/L (38-126); Anion Gap 10.2 mEq/L (5-15); Aspartate Amino Transferase 34 U/L (17-59); Bilirubin,Total 0.7 mg/dl (0.2-1.3); Blood Urea Nitrogen 11 mg/dl (9-20); Calcium 9.4 mg/dl (8.4-10.2); Carbon Dioxide 27 mmol/L (22.0-30.0); Creatine Kinase 96 U/L (55-170); Creatinine Clearance Estimated 93 mL/min (50-200); Estimated Glomerular Filt Rate 66 ml/min (>60); GFR (African American) 80 ML/MIN (>60); Globulin 2.9 g/dL (1.3-3.2); Glucose 121 mg/dl (74-100); Total Protein,Serum 6.7 g/dl (6.3-8.2)
[2023-11-22 12:51] LABS: NT Pro Brain Natriuretic Pep. 236 pg/mL (0-125)
[2023-11-22 12:57] LABS: Lactate Venous 1.8 mmol/L (0.4-2.0); VBG Base Excess 0.4 mmol/L (-2.4-2.3); VBG Oxygen Saturation 92.5 % (50-70); VBG PCO2 40.1 mmol/L (35-51); VBG PH 7.41 mmol/L (7.31-7.41); VBG Total CO2 26.2 mmol/L (23-27)
[2023-11-22] MEDS: LACTATED RINGERS 1000ML 1,000 ML 999 ML IV (13:00)
[2023-11-22 13:02] LABS: Troponin I < 0.01 ng/ml (0.00-0.034)
[2023-11-22 13:15] LABS: Adenovirus F 40/41, stool Not Detected (NotDetected); Astrovirus Not Detected (NotDetected); Campylobacter Not Detected (NotDetected); Clostridium Difficile A/B, PCR Not Detected (NotDetected); Cryptosporidium Not Detected (NotDetected); Cyclospora Cayetanesis Not Detected (NotDetected); Entamoeba histolytica Not Detected (NotDetected); Enteroaggregative E coli Not Detected (NotDetected); Enterotoxigenic E coli Not Detected (NotDetected); Giardia lamblia Not Detected (NotDetected); Norovirus Not Detected (NotDetected); Plesimonas Shigalloides, PCR Not Detected (NotDetected); Rotavirus A Not Detected (NotDetected); Salmonella, PCR Not Detected (NotDetected); Sapovirus Not Detected (NotDetected); Shiga-like toxin E coli Not Detected (NotDetected); Shigella Enterovasive E coli Not Detected (NotDetected); Vibrio Cholerae Not Detected (NotDetected); Vibrio, PCR Not Detected (NotDetected); Yersinia Entercolitica, PCR Not Detected (NotDetected)
[2023-11-22 14:50] VITALS: BP 118/58; PULSE 83; O2SAT 99
[2023-11-22 15:00] VITALS: BP 125/58; PULSE 85; O2SAT 99
[2023-11-22 15:16] LABS: Troponin I < 0.01 ng/ml (0.00-0.034)
[2023-11-22 15:30] VITALS: BP 127/87; PULSE 88; O2SAT 99
[2023-11-22 16:30] VITALS: BP 137/71; PULSE 72; RESP 18; TEMP 36.9; O2SAT 97
[2023-11-22 16:55] LABS: Enteropathogenic E coli Detected (NotDetected)
--- NOTE | 2023-11-22 16:58 | PC.NURSE ---
critical stool result called to this nurse. enteropathogenic e coli. spoke with dr altman, who is going to look at this case and decide.
--- NOTE | 2023-11-22 17:00 | PC.NURSE ---
no new needs for pts stool panel results. patient called with stool panel results.
== END 2023-11-22 16:33 | disposition home or self-care (01) ==
PROVIDERS: Emergency Provider Emergency Medicine; PCP Internal Medicine Adolescent Medicine
DX: A04.4 Other intestinal Escherichia coli infections (principal); E87.6 Hypokalemia; R11.0 Nausea; K21.9 Gastro-esophageal reflux disease without esophagitis; I11.0 Hypertensive heart disease with heart failure; I50.9 Heart failure, unspecified; J44.9 Chronic obstructive pulmonary disease, unspecified; E78.5 Hyperlipidemia, unspecified; Z87.891 Personal history of nicotine dependence; Z99.81 Dependence on supplemental oxygen; Z79.01 Long term (current) use of anticoagulants
CPT/HCPCS: 80053; 82550; 82803; 83735; 83880; 84484; 85025; 87506; 93005; 96360; 99284; J7120

== ENCOUNTER 2024-01-07 14:13 | Outpatient (POV) | payer MEDICARE, SELFPAY ==
[2024-01-07 14:29] VITALS: BP 150/76; PULSE 85; RESP 18; O2SAT 96; BMI 32.8
--- NOTE | 2024-01-07 15:06 | EXP.PAIN.SOA ---
[facility] Disclaimer: The information contained in this section may have been updated after the patient was seen, as this information can be updated by other users. Medical History Hypomagnesemia Diarrhea of infectious origin Dyspnea Abnormal computerized axial tomography of chest Osteoarthritis History of back pain Fibromyalgia Psoriasis History of gastroesophageal reflux (GERD) Cataract History of cataract Congestive heart failure History of heart attack Mediastinal lymphadenopathy Chronic respiratory failure with hypoxia Lung nodule Stopped smoking with greater than 30 pack year history Current vaping on some days Dyspnea on exertion COPD mixed type Sleep apnea Emphysema/COPD History of COVID-19 Asthma Smoking greater than 30 pack years COPD (chronic obstructive pulmonary disease) Lower extremity edema HTN (hypertension) with goal to be determined Coronary artery disease Implantable intrathecal infusion pump present HLD (hyperlipidemia) HTN (hypertension) GERD (gastroesophageal reflux disease) Post laminectomy syndrome Oxygen dependent COPD (chronic obstructive pulmonary disease) Tobacco dependence syndrome Angina pectoris Surgical History History of esophagogastroduodenoscopy (EGD) History of colonoscopy + tubular adenoma by report. Advised repeat colonoscopy in 2 years from date done. History of appendectomy History of appendectomy History of lumbar fusion Family History Other Family history of cancer Social History Smoking Status: Former smoker tobacco type: e-cigarettes second hand exposure: No alcohol intake: former substance use type: denies use current occupational status: retired Travel in the last 8 weeks: None household members: spouse housing: house current occupational exposures/hazards: No caffeine: Yes PM Subjective & Objective Subjective Subjective:: Patient is a pleasant 68-year-old male who presents today for follow-up. Today he rates his pain a 5 out of 10. Patient denies any new trauma or injury. He does state overall he is doing well. Patient states he has been getting knee injections along the right side and Thursday was his second injection. He states this is helping. Patient is currently managed with morphine 30 mg/mL and bupivacaine 5 mg/mL patient does state that he just recently got an increase from his at home nurse refill and feels like this is working well. Patient states he does not need any additional adjustment. His Valdemar has been reviewed and is appropriate. Review of Systems: General: No recent weight changes, no fever, no sleep disturbances Respiratory: No cough, no shortness of air, no recurring pulmonary infections Cardiovascular/peripheral vascular: No chest pain, no palpitations, no edema, no shortness of breath Gastrointestinal: No new onset incontinence, normal bowel movements reported Genitourinary: No new onset incontinence Musculoskeletal: Low back pain, right knee pain Psychiatric: [Normal mood/affect] Neurological: [Denies weakness in extremities], [denies balance issues] Pain at rest (0-10 scale): 5 Objective Objective:: Physical Exam: General: Alert and oriented x3, no acute distress, pleasant and cooperative Lungs: Respirations even and unlabored, symmetrical chest expansion Eyes: PERRL Musculoskeletal: Flexion and extension of lumbar [spine] somewhat guarded secondary to pain, [antalgic gait noted] Neurological: Speech clear, no gross sensory deficit Has patient had previous pain injection?: No Conservative treatment options previously tried: Home exercise plan Length of treatment: Longer than 6 weeks and Prescription medications Length of treatment: Longer than 6 weeks Meds Home Medications and Allergies Home Medications Medication Instructions Recorded Confirmed Type pramipexole 0.125 mg tablet 0.125 mg PO TID Restless leg 02/02/18 01/07/24 History aspirin 81 mg tablet,delayed 81 mg PO DAILY Circulation 08/12/21 01/07/24 History release atorvastatin 40 mg tablet 40 mg PO HS Cholesterol 08/12/21 01/07/24 History clopidogrel 75 mg tablet 75 mg PO DAILY Blood Thinner 08/12/21 01/07/24 History pantoprazole 40 mg tablet,delayed 40 mg PO DAILY GERD 08/12/21 01/07/24 History release morphine (PF) 100 mg/100 mL(1 5 mg continuous subcutaneous 09/30/21 01/07/24 History mg/mL) in 0.9% sod.chloride IV infusion DAILY Pain pump resv fluticasone fur. 100 mcg-umeclid 1 inh inhalation DAILY Copd 08/28/22 01/07/24 History 62.5 mcg-vilant 25 mcg inhalat.powder (Trelegy Ellipta) pregabalin 50 mg capsule 50 mg PO BID Neuropathy 10/02/22 01/07/24 History fluoxetine 20 mg capsule 20 mg PO DAILY Mood 12/04/22 01/07/24 History diltiazem HCl 120 mg capsule,24 120 mg PO DAILY Heart rate 03/20/23 01/07/24 History hr,extended release albuterol sulfate 90 mcg/actuation 2 inh inhalation QIDP PRN 04/04/23 01/07/24 History aerosol inhaler Shortness of air hydrocodone 5 mg-acetaminophen 325 1 tab PO TID Pain 04/04/23 01/07/24 History mg tablet linaclotide 145 mcg capsule 145 mcg PO DAILY Irritable bowel 04/04/23 01/07/24 History (Linzess) syndrome sacubitril 24 mg-valsartan 26 mg 1 tab PO BID #60 tabs 04/05/23 01/07/24 Rx tablet (Entresto) buspirone 10 mg tablet 10 mg PO DAILY 09/07/23 01/07/24 History vancomycin 125 mg capsule 125 mg PO QID 10 days #40 caps 09/23/23 01/07/24 Rx bumetanide 1 mg tablet 1 mg PO DAILY PRN weight gain 30 10/05/23 01/07/24 Rx days #0 tabs nitroglycerin 0.4 mg sublingual 0.4 mg sublingual Q5-15M PRN chest 10/05/23 01/07/24 Rx tablet pain #30 tabs New Prescriptions to Start Prescriptions: Allergies Allergy/AdvReac Type Severity Reaction Status Date / Time gabapentin Allergy Unknown Unknown Verified 10/28/23 13:20 allergy reaction meperidine [From DEMEROL] AdvReac Mild MOOD Verified 10/28/23 13:20 CHANGES Assessment and Plan *Assessment and plan (1) Degenerative disc disease, lumbar: Status: Acute Category: Medical Code(s): M51.36 - Other intervertebral disc degeneration, lumbar region (2) Lumbar radiculopathy: Status: Acute Category: Medical Code(s): M54.16 - Radiculopathy, lumbar region (3) Lumbar postlaminectomy syndrome: Status: Acute Category: Medical Code(s): M96.1 - Postlaminectomy syndrome, not elsewhere classified Plan Patient is doing well and does not need any additional adjustment at today's visit. Patient will return to clinic in 6 months for reevaluation of symptoms and plan of care. Patient has been instructed to contact the clinic with any concerns before the next appointment. Dr. Smith has reviewed this note and agrees with this plan of care. This note was dictated using voice recognition software and make contain errors or omissions. -- It Is medically necessary for this patient to continue to have their intrathecal pump refilled at regular intervals. This patient had an intrathecal pain pump implanted after meeting criteria of chronic intractable pain for greater than 3 months and failing conservative treatments. Patient has committed and been compliant to the treatment plan and all planned follow up care. Since implantation of the intrathecal pain pump, the patient has had decreased pain and been more functional. Oral medications have been reduced including intake of oral opioids. Patient continues to do well with intrathecal therapy with decrease in pain symptoms and increase in functional status. Stopping intrathecal medications can lead to life threatening withdrawal, seizures, cardiac arrest, severe pain, and possible . Pumps that are not refilled at regular intervals can be damages and cause and need for replacement. We continually titrate dose and concentration to optimize pain relief and function. We are limited in concentration for certain drugs to safely deliver medications through the pump and stay within the recommendations from the Polyanalgesic Consensus Committee Guidelines. Depending on dose and concentration these pumps may need to be refilled sooner than 3 months as we titrate.
== END 2024-01-07 23:59 | disposition home or self-care (01) ==
PROVIDERS: PCP Internal Medicine Adolescent Medicine; Visit Provider Nurse Practitioner Family
DX: M51.36 Other intervertebral disc degeneration, lumbar region (principal); M54.16 Radiculopathy, lumbar region; M96.1 Postlaminectomy syndrome, not elsewhere classified
CPT/HCPCS: 99212; G0463

== ENCOUNTER 2024-02-03 07:21 | Outpatient (CLI) | payer MEDICARE, SELFPAY ==
--- NOTE | 2024-02-03 07:21 | CT_ITS ---
FINAL REPORT TECHNIQUE: Thin section axial CT images of the temporal bones were obtained. Coronal reformatted images were also obtained.This study was performed with techniques to keep radiation doses as low as reasonably achievable (ALARA). Individualized dose reduction techniques using automated exposure control or adjustment of mA and/or kV according to the patient''s size were employed. CLINICAL HISTORY: .r/o acoustic neuroma COMPARISON: 10/01/2016 and 09/19/2016 FINDINGS: Right temporal bone: The internal auditory canal has an unremarkable appearance. The inner ear structures are unremarkable. The external auditory canal has an unremarkable appearance. No abnormality is identified of the middle ear cavity. The ossicles are intact. There is opacification of several right mastoid air cells. No bony mass is identified. Left temporal bone: The internal auditory canal has an unremarkable appearance. The inner ear structures are unremarkable. The external auditory canal has an unremarkable appearance. There is total opacification of the left mastoid air cells. There is an enlarged left mastoid antrum. Soft tissue extends into the left epitympanum. There is erosion of the malleolus and incus. There is thickening of the tympanic membrane. Findings are stable compared to head CT dated 09/19/2016 and are consistent with chronic mastoiditis and chronic otitis interna. There is erosion of a portion of the lateral wall of the left semicircular canal, well-seen on axial image 130. This area was not as well-seen on the prior head CT. IMPRESSION: Findings of mild right mastoiditis. Findings of chronic left mastoiditis and otitis interna with stable chronic erosion of the malleolus and incus. 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 No evidence for vestibular schwannoma. MRI with contrast would be more helpful for evaluation Reviewed, Interpreted and Dictated by Micha Santana III, MD Transcribed by Emily Diaz Authenticated and [facility]
== END 2024-02-03 23:59 | disposition home or self-care (01) ==
LOC: RAD 07:21
PROVIDERS: PCP Internal Medicine Adolescent Medicine; Visit Provider Student in an Organized Health Care Education/Training Program
DX: H71.2 Cholesteatoma of mastoid (principal)
CPT/HCPCS: 70480

== ENCOUNTER 2024-02-03 08:10 | Outpatient (POV) | payer MEDICARE, SELFPAY | END 2024-02-03 23:59 | disposition home or self-care (01) | LOC: SC 08:10 | PROVIDERS: Visit Provider Specialist/Technologist | DX: Z00.00 Encounter for general adult medical examination without abnormal findings (principal) ==

== ENCOUNTER 2024-04-21 11:28 | Outpatient (CLI) | payer MEDICARE, SELFPAY ==
[2024-04-21 12:32] LABS: Anion Gap 7.8 mEq/L (5-15); Blood Urea Nitrogen 20 mg/dl (9-20); Calcium 9.3 mg/dl (8.4-10.2); Carbon Dioxide 34 mmol/L (22.0-30.0); Chloride 102 mmol/L (98-107); Estimated Glomerular Filt Rate 50 ml/min (>60); GFR (African American) 61 ML/MIN (>60); Glucose 108 mg/dl (74-100); Potassium 4.8 mmoL/L (3.5-5.1); Sodium 139 mmol/L (136-145)
== END 2024-04-21 23:59 | disposition home or self-care (01) ==
LOC: LAB 11:29
PROVIDERS: PCP Internal Medicine Adolescent Medicine; Visit Provider Physician Assistant
DX: R53.83 Other fatigue (principal); R06.00 Dyspnea, unspecified; I25.118 Atherosclerotic heart disease of native coronary artery with other forms of angina pectoris; R06.02 Shortness of breath; E78.2 Mixed hyperlipidemia; A09 Infectious gastroenteritis and colitis, unspecified; F17.200 Nicotine dependence, unspecified, uncomplicated; I10 Essential (primary) hypertension; J44.9 Chronic obstructive pulmonary disease, unspecified; K21.9 Gastro-esophageal reflux disease without esophagitis; I51.89 Other ill-defined heart diseases; R53.1 Weakness; E87.6 Hypokalemia; E87.1 Hypo-osmolality and hyponatremia; N17.9 Acute kidney failure, unspecified; E83.42 Hypomagnesemia
CPT/HCPCS: 36415; 80048

== ENCOUNTER 2024-04-22 08:48 | Day surgery (SDC) | payer MEDICARE, SELFPAY ==
[2024-04-22 09:04] VITALS: BP 94/49; PULSE 87; RESP 18; O2SAT 96; BMI 32.6
--- NOTE | 2024-04-22 09:12 | EXP.PAIN.PRO ---
Procedure Date: 04/22/24 Time: 09:12 Anesthesiologist:: Lilian Gautam APRN Complications:: None Pre-procedure Diagnosis:: Degenerative disc disease of lumbar spine with lumbar radiculopathy symptoms Post-procedure Diagnosis:: Same Indications for Procedure:: Patient is a pleasant 68-year-old male who presents today for intrathecal refill and reprogram. Today he rates his pain a 5 out of 10. Patient denies any new changes or injuries from his last visit. Patient is currently managed with morphine 30 mg/mL and bupivacaine 5 mg/mL with a daily dose of 2.178 mg/day.Patient denies any side effects.Patient is prescribed pregabalin 50 mg twice a day from Dr. Luke's office. His Valdemar has been reviewed and is appropriate. Physical Exam: General: Alert and oriented x3, no acute distress, pleasant and cooperative Lungs: Respirations even and unlabored, symmetrical chest expansion Eyes: PERRL Musculoskeletal: Flexion and extension of lumbar [spine] somewhat guarded secondary to pain, [antalgic gait noted] Neurological: Speech clear, no gross sensory deficit Procedure Details:: Informed consent was obtained and the risk and benefits of the procedure were explained to the patient. The patient was taken to the procedure room where noninvasive monitoring was placed including noninvasive blood pressure cuff and pulse oximeter. Patient's pump was interrogated. The area over the pump was cleansed with chlorhexidine as a cleansing solution.In sterile fashion the pump was accessed with a 22-gauge needle. Approximately 10.5 mls of the pump solution was removed and discarded appropriately. The pump was then refilled with 20 mL's of morphine 30 mg/mL and bupivacaine 5 mg/mL. The needle was withdrawn and a bandage was placed over the puncture site. The infusion rate was reprogrammed and continued at morphine 2.178 mg/day. The patient tolerated well with no complication. Plan and Disposition:: Patient tolerated his intrathecal refill and reprogram with no complications and was discharged neurologically intact. Patient will return to clinic on or before his next refill date of October 28, 2024. We will plan on having him come back in 3 months for his next pump refill. We will see the patient back in the clinic at the next intrathecal refill. Patient has been instructed to contact the clinic with any concerns before the next appointment. Dr. Smith has reviewed this note and agrees with this plan of care. This note was dictated using voice recognition software and make contain errors or omissions. -- It Is medically necessary for this patient to continue to have their intrathecal pump refilled at regular intervals. This patient had an intrathecal pain pump implanted after meeting criteria of chronic intractable pain for greater than 3 months and failing conservative treatments. Patient has committed and been compliant to the treatment plan and all planned follow up care. Since implantation of the intrathecal pain pump, the patient has had decreased pain and been more functional. Oral medications have been reduced including intake of oral opioids. Patient continues to do well with intrathecal therapy with decrease in pain symptoms and increase in functional status. Stopping intrathecal medications can lead to life threatening withdrawal, seizures, cardiac arrest, severe pain, and possible . Pumps that are not refilled at regular intervals can be damages and cause and need for replacement. We continually titrate dose and concentration to optimize pain relief and function. We are limited in concentration for certain drugs to safely deliver medications through the pump and stay within the recommendations from the Polyanalgesic Consensus Committee Guidelines. Depending on dose and concentration these pumps may need to be refilled sooner than 3 months as we titrate.
[2024-04-22 09:18] VITALS: BP 90/59; BP 90/60; PULSE 84; PULSE 85; RESP 18; O2SAT 96
[2024-04-22 09:35] VITALS: BP 94/48; PULSE 80; RESP 18; O2SAT 97
== END 2024-04-22 09:38 | disposition home or self-care (01) ==
PROVIDERS: PCP Internal Medicine Adolescent Medicine; Visit Provider Nurse Practitioner Family
DX: M51.16 Intervertebral disc disorders with radiculopathy, lumbar region (principal)
CPT/HCPCS: 62370

== ENCOUNTER 2024-06-30 13:29 | Outpatient (CLI) | payer MEDICARE, SELFPAY ==
--- NOTE | 2024-06-30 13:30 | CT_ITS ---
FINAL REPORT TECHNIQUE: Axial CT images were performed through the chest, abdomen and pelvis without contrast. Coronal and sagittal reformatted images were submitted. This study was performed with techniques to keep radiation doses as low as reasonably achievable, (ALARA). Individualized dose reduction techniques using automated exposure control or adjustment of mA and/or kV according to the patient's size were employed. CLINICAL HISTORY: Nodule COMPARISON: 11/19/2022 FINDINGS: CHEST: There is no mediastinal, hilar, or axillary lymphadenopathy. No pleural or pericardial effusion. Prominent coronary artery calcifications are present. The previously seen small nodular opacities in the left lower lobe on the prior CT have resolved. Changes of emphysema are present. There is a subpleural posterior right upper lobe nodule, 4 mm in size, which is stable. There is a new right lower lobe 5 mm nodule best seen on image #58. There is no acute osseous abnormality. IMPRESSION: Previously seen small nodular opacities, consistent with bronchopneumonia, in the left lower lobe on the prior CT of 2022 have resolved. There is a new right lower lobe 5 mm nodule, best seen on image #58. Recommend 6 to 12-month follow-up CT of the chest for further evaluation. Reviewed, Interpreted and Dictated by Angela Zheng MD Transcribed by Shaylee Stone Authenticated and . [facility]
[2024-06-30] MEDS: ALBUTEROL 0.083% 2.5 MG/3 ML NEB IH (15:43)
== END 2024-06-30 23:59 | disposition home or self-care (01) ==
LOC: RAD 13:30
PROVIDERS: PCP Internal Medicine Adolescent Medicine; Visit Provider Internal Medicine Pulmonary Disease
DX: R91.8 Other nonspecific abnormal finding of lung field (principal); R06.09 Other forms of dyspnea
CPT/HCPCS: 71250; 94060; 94618; 94726; 94729; J7613

== ENCOUNTER 2024-07-12 08:19 | Day surgery (SDC) | payer MEDICARE, SELFPAY ==
[2024-07-12 08:45] VITALS: BP 107/61; PULSE 83; RESP 18; O2SAT 97; BMI 34.8
--- NOTE | 2024-07-12 08:54 | EXP.PAIN.PRO ---
Procedure Date: 07/12/24 Time: 08:54 Anesthesiologist:: Lilian Gautam APRN Complications:: None Pre-procedure Diagnosis:: Degenerative disc disease of lumbar spine with lumbar radiculopathy symptoms Post-procedure Diagnosis:: Same Indications for Procedure:: Patient is a pleasant 68-year-old male who presents today for intrathecal refill and reprogram. Today he rates his pain a 5 out of 10. He denies any new trauma or injury. He does state that he has been having a little bit more pain than usual and is requesting an increase of his intrathecal medication. He is currently managed with morphine 30 mg/mL and bupivacaine 5 mg/mL with a daily dose of 2.178 mg/day. He denies any side effects from this medication. He is prescribed pregabalin from his primary care. His Valdemar has been reviewed and is appropriate. Physical Exam: General: Alert and oriented x3, no acute distress, pleasant and cooperative Lungs: Respirations even and unlabored, symmetrical chest expansion Eyes: PERRL Musculoskeletal: Flexion and extension of lumbar [spine] somewhat guarded secondary to pain, [antalgic gait noted] Neurological: Speech clear, no gross sensory deficit Procedure Details:: Informed consent was obtained and the risk and benefits of the procedure were explained to the patient. The patient had noninvasive monitoring placed including noninvasive blood pressure cuff and pulse oximeter. Patient's pump was interrogated. The area over the pump was cleansed with chlorhexidine as a cleansing solution. In sterile fashion the pump was accessed with a 22-gauge needle. Approximately 13.3 mls of the pump solution was removed and discarded appropriately. The pump was then refilled with 20 mL's of morphine 30 mg/mL and bupivacaine 5 mg/mL. The needle was withdrawn and a bandage was placed over the puncture site. The infusion rate was reprogrammed and increased to morphine to 0.287 mg/day. The patient tolerated well with no complication. Plan and Disposition:: Patient tolerated his procedure well with no complications and was discharged neurologically intact. Patient will return to clinic on or before his next pump refill date. We will see the patient back in the clinic at the next intrathecal refill. Patient has been instructed to contact the clinic with any concerns before the next appointment. Dr. Smith has reviewed this note and agrees with this plan of care. This note was dictated using voice recognition software and make contain errors or omissions. -- It Is medically necessary for this patient to continue to have their intrathecal pump refilled at regular intervals. This patient had an intrathecal pain pump implanted after meeting criteria of chronic intractable pain for greater than 3 months and failing conservative treatments. Patient has committed and been compliant to the treatment plan and all planned follow up care. Since implantation of the intrathecal pain pump, the patient has had decreased pain and been more functional. Oral medications have been reduced including intake of oral opioids. Patient continues to do well with intrathecal therapy with decrease in pain symptoms and increase in functional status. Stopping intrathecal medications can lead to life threatening withdrawal, seizures, cardiac arrest, severe pain, and possible . Pumps that are not refilled at regular intervals can be damages and cause and need for replacement. We continually titrate dose and concentration to optimize pain relief and function. We are limited in concentration for certain drugs to safely deliver medications through the pump and stay within the recommendations from the Polyanalgesic Consensus Committee Guidelines. Depending on dose and concentration these pumps may need to be refilled sooner than 3 months as we titrate. A UDS is needed to verify patient's compliance with our office pain contract. This is ordered based off specific treatments related to chronic pain with the potential to abuse certain medications.
[2024-07-12 08:58] VITALS: BP 111/58; PULSE 89; RESP 18; O2SAT 96
[2024-07-12 09:06] VITALS: BP 111/58; PULSE 89; RESP 18; O2SAT 96
[2024-07-12 09:17] VITALS: BP 117/60; PULSE 81; RESP 18; O2SAT 92
== END 2024-07-12 09:17 | disposition home or self-care (01) ==
PROVIDERS: PCP Internal Medicine Adolescent Medicine; Visit Provider Nurse Practitioner Family
DX: M51.16 Intervertebral disc disorders with radiculopathy, lumbar region (principal)
CPT/HCPCS: 62370

== ENCOUNTER 2024-07-20 09:46 | Outpatient (CLI) | payer MEDICARE, SELFPAY ==
[2024-07-20 10:01] LABS: Basophils % 0.6 % (0.1-2.0); Eosinophils # 0.4 K/mm3 (0.0-0.4); Eosinophils % 5.6 % (0.1-12.0); Hematocrit 30.3 % (42.0-52.0); Hemoglobin 9.7 g/dL (14.1-18.0); Lymphocytes # 1.2 K/mm3 (0.7-4.5); Lymphocytes % 19.7 % (10-50); Mean Corpuscular Hemoglobin 29.7 pg (27.0-31.2); Mean Corpuscular Volume 92.7 fl (80-94); Mean Platelet Volume 9.5 fl (7.4-10.4); Monocytes # 0.6 K/mm3 (0.1-1.0); Monocytes % 9.9 % (1.7-9.3); Platelet Count 227 K/mm3 (142-424); Red Blood Count 3.27 M/mm3 (4.60-6.20); Red Cell Distribution Width 13.2 % (11.5-17.5); White Blood Count 6.3 K/mm3 (4.8-10.8)
[2024-07-20 10:43] LABS: Triiodothryronine (T3) Uptake 34 % (23.5-40.5)
[2024-07-20 10:45] LABS: Free Thyroxine Index 2.2 ug/dL (5.93-13.13); T4 (Thyroxine) 6.5 ug/dl (5.53-11.0)
[2024-07-20 10:46] LABS: Free T4 (Free Thyroxine) 0.94 ng/dl (0.78-2.19)
[2024-07-20 10:58] LABS: Thyroid Stimulating Hormone 2.69 uIU/mL (0.465-4.68)
[2024-07-20 10:59] LABS: Thyroid Stimulating Hormone 2.68 uIU/mL (0.465-4.68)
[2024-07-20 12:06] LABS: Alanine Aminotransferase 21 U/L (12-78); Albumin Level 3.9 g/dl (3.5-5.0); Alkaline Phosphatase 114 U/L (38-126); Anion Gap 13.9 mEq/L (5-15); Aspartate Amino Transferase 27 U/L (17-59); Bilirubin,Direct 0.2 mg/dl (0.0-0.4); Bilirubin,Indirect 0.1 mg/dL (0.0-0.9); Bilirubin,Total 0.3 mg/dl (0.2-1.3); Bilirubin,Unconjugated 0.1 mg/dL (0.0-1.1); Blood Urea Nitrogen 16 mg/dl (9-20); Carbon Dioxide 26 mmol/L (22.0-30.0); Chloride 103 mmol/L (98-107); Chol/HDL Ratio 2.5 (1-3.5); Cholesterol 110 mg/dl (140-200); Estimated Glomerular Filt Rate 50 ml/min (>60); GFR (African American) 61 ML/MIN (>60); Glucose 124 mg/dl (74-100); HDL Cholesterol 44 mg/dl (40-60); Magnesium 2.1 mg/dl (1.6-2.3); Potassium 3.9 mmoL/L (3.5-5.1); Sodium 139 mmol/L (136-145); Total Protein,Serum 6.2 g/dl (6.3-8.2); Triglycerides 101 mg/dl (30-150); VLDL Cholesterol 20 mg/dL (0-40)
[2024-07-20 12:15] LABS: NT Pro Brain Natriuretic Pep. 194 pg/mL (0-125)
== END 2024-07-20 23:59 | disposition home or self-care (01) ==
LOC: LAB 09:47
PROVIDERS: PCP Internal Medicine Adolescent Medicine; Visit Provider Physician Assistant
DX: E83.42 Hypomagnesemia (principal); I25.118 Atherosclerotic heart disease of native coronary artery with other forms of angina pectoris; R53.83 Other fatigue; E87.1 Hypo-osmolality and hyponatremia; E87.6 Hypokalemia; R07.89 Other chest pain; R06.02 Shortness of breath; I51.89 Other ill-defined heart diseases; R06.09 Other forms of dyspnea
CPT/HCPCS: 36415; 80048; 80061; 80076; 83735; 83880; 84436; 84439; 84443; 84479; 85025

== ENCOUNTER 2024-07-22 09:50 | Outpatient (RCR) | payer MEDICARE, SELFPAY | END 2024-09-13 11:00 | disposition home or self-care (01) | LOC: PULREHAB 09:50 | PROVIDERS: Visit Provider Internal Medicine Pulmonary Disease | DX: J44.9 Chronic obstructive pulmonary disease, unspecified (principal) | CPT/HCPCS: 94626 ==

== ENCOUNTER 2024-09-22 12:59 | Outpatient (CLI) | payer MEDICARE, SELFPAY ==
--- NOTE | 2024-09-22 13:22 | ECG_ITS ---
APPROVED REPORT Exam: Resting ECG HR:83 bpm ECG Measurements Heart Rate 83 AXES IL 180 P 89 QRSd 64 QRS 8 QT 330 T 61 QTc 369 Conclusion SINUS RHYTHM LOW QRS VOLTAGE [QRS DEFLECTION < 0.5/1.0 mV IN LIMB/CHEST LEADS] ABNORMAL ECG UNCONFIRMED REPORT Electronically signed by : Mario Luke MD 09/23/2024 08:32:10
[2024-09-22 13:32] LABS: Basophils # 0.1 K/mm3 (0-0.2); Basophils % 0.8 % (0.1-2.0); Eosinophils # 0.7 K/mm3 (0.0-0.4); Eosinophils % 10.2 % (0.1-12.0); Hematocrit 31.7 % (42.0-52.0); Hemoglobin 10.2 g/dL (14.1-18.0); Lymphocytes # 1.6 K/mm3 (0.7-4.5); Mean Corpuscular HGB Conc 32.2 g/dL (31.8-35.4); Mean Corpuscular Hemoglobin 29.2 pg (27.0-31.2); Mean Corpuscular Volume 90.8 fl (80-94); Mean Platelet Volume 9.5 fl (7.4-10.4); Monocytes # 0.6 K/mm3 (0.1-1.0); Monocytes % 9.7 % (1.7-9.3); Neutrophils # 3.6 K/mm3 (1.8-7.8); Neutrophils % 55.1 % (37.0-80.0); Platelet Count 246 K/mm3 (142-424); Red Blood Count 3.49 M/mm3 (4.60-6.20); Red Cell Distribution Width 13.9 % (11.5-17.5); White Blood Count 6.6 K/mm3 (4.8-10.8)
[2024-09-22 14:04] LABS: Albumin Level 4.1 g/dl (3.5-5.0); Chloride 99 mmol/L (98-107); Potassium 3.9 mmoL/L (3.5-5.1); Sodium 139 mmol/L (136-145)
[2024-09-22 14:07] LABS: Alanine Aminotransferase 23 U/L (12-78); Albumin/Globulin Ratio 1.8 (1.1-1.8); Alkaline Phosphatase 108 U/L (38-126); Anion Gap 11.9 mEq/L (5-15); Aspartate Amino Transferase 30 U/L (17-59); Bilirubin,Total 0.4 mg/dl (0.2-1.3); Blood Urea Nitrogen 14 mg/dl (9-20); Carbon Dioxide 32 mmol/L (22.0-30.0); Estimated Glomerular Filt Rate 55 ml/min (>60); GFR (African American) 66 ML/MIN (>60); Globulin 2.3 g/dL (1.3-3.2); Total Protein,Serum 6.4 g/dl (6.3-8.2)
[2024-09-22 14:08] LABS: Calcium 9.4 mg/dl (8.4-10.2); Glucose 136 mg/dl (74-100)
== END 2024-09-22 23:59 | disposition home or self-care (01) ==
LOC: RT 13:00
PROVIDERS: PCP Internal Medicine Adolescent Medicine; Visit Provider Otolaryngology
DX: Z01.812 Encounter for preprocedural laboratory examination (principal)
CPT/HCPCS: 36415; 80053; 85025; 93005

== ENCOUNTER 2024-10-14 14:42 | Day surgery (SDC) | payer MEDICARE, SELFPAY ==
[2024-10-14 14:58] VITALS: BP 80/47; PULSE 79; RESP 16; TEMP 36.4; O2SAT 97; BMI 32.1
[2024-10-14 15:37] VITALS: BP 112/55; PULSE 85; RESP 18; O2SAT 95
[2024-10-14 15:39] VITALS: BP 112/55; PULSE 74; RESP 18; O2SAT 95
[2024-10-14 15:49] VITALS: BP 95/56; PULSE 73; RESP 16; O2SAT 97
--- NOTE | 2024-10-14 16:45 | P.PCN_ITS ---
Procedure Date: 10/14/24 Time: 16:45 Anesthesiologist:: Robin Smith MD Complications:: None Pre-procedure Diagnosis:: Degenerative disc disease of lumbar spine with lumbar radiculopathy symptoms Post-procedure Diagnosis:: Same Indications for Procedure:: This patient presents for intrathecal pump refill. He is doing well with his pump. He did ask for an increase today. We did increase him 5% to 2.4 mg/day. Other than this he is doing very well. He does have antalgic gait. Motor str ength of lower extremities is 5/5. There is no gross sensory deficit. Valdemar and drug screen are all appropriate. Procedure Details:: Informed consent was obtained and the risks and benefits of the procedure was explained to the patient. The patient was taken to the procedure room. The pump was interrogated. The area over the pump was prepped using ChloraPrep. The pump was accessed with a 22-gauge needle. Approximately 12 mL's of the intrathecal solution was withdrawn and discarded. The pump was then refilled with 20 mL's of intrathecal morphine 30 mg/mL plus bupivacaine 5 mg/mL. The pump was interrogated and the infusion was increased to 3.4 mg/day. The patient tolerated the procedure well with no complication. Plan and Disposition:: We will see him back at his next pump refill. This to be on or before March 20, 2025. I would recommend changing his concentration to morphine 20 mg/mL plus bupivacaine 5 mg/mL at his next refill.
== END 2024-10-14 15:49 | disposition home or self-care (01) ==
LOC: SC.PAIN 14:43
PROVIDERS: PCP Internal Medicine Adolescent Medicine; Visit Provider Anesthesiology
DX: M51.16 Intervertebral disc disorders with radiculopathy, lumbar region (principal)
CPT/HCPCS: 62370

== ENCOUNTER 2025-03-07 11:56 | Outpatient (CLI) | payer MEDICARE, SELFPAY ==
--- OUTSIDE RECORDS SUMMARY | 2025-03-07 12:00 | XMS_ITS | Clinical Summary ---
Author Organization [facility] Address [address] [place] [address] Care Team Providers Care Preparer Name Role Phone Provider, No Known Primary Care Provider Unavail able Immunizations Immunization Administration Dates Next Due COVID-19 (PFIZER) Purple Cap Monovalent 09/12/19,08/21/2020 Social History Tobacco Use Types Packs/Day Years Used Date Smoking Tobacco: Never Assessed Abuse Screen Answer Date Recorded Unsafe at Home or Work/School Not on file Feels Threatened by Someone? Not on file 02/2023 Does Anyone Keep You from Co ntacting Others or Doint Things Outside the Home? Not on file 04/06/2023 Physical Sign of Abuse Present Not on file 1 Housing Stability Answer Date Recorded Current Living Arrangements Not on file 02/2023 Potentially Unsafe Housing Conditions Not on taisha e 04/06/2023 Family and Community Support Answer Chas e Recorded Help with Day-to-Day Activities Not on file 04/06/2023 Lonely or Isolated Not on file 04/06/2023 Employment Answer Date Recorded Do you want help finding or keeping work or a cb b? Not on file 04/06/2023 Disabilities Answer Date Recorded Concentrating, Remembering, or Making Decisions Difficulty Not on file 04/06/2023 Doing Errands Independently Difficulty Not on fi le 04/06/2023 Education Answer Date Recorded Help with school or training? Not on file Preferred Language Not on file 04/06/2023 Sex and Gender Information Value Date Recorded Sex Assigned at Not on file Legal Sex Male 10:11 AM EDT Gender Identity Not on file Sexual Orientation Not on file Plan of Treatment Health Maintenance Due Date Last Done Comments EDA 1998 COLON CANCER SCREENING 5 YEA R SIGMOIDOSCOPY 1998 COLONOSCOPY 1998 COLORECTAL CANCER SCREENING 1998 CT COLONOGRAPHY 1998 FECAL OCCULT BLOOD TEST 1998 FIT Testing (1 year) 1998 ZOSTER VACCINE (1 of 2) 11/15/2003 Pneumococcal Vaccine 50+ (2 of 2 - PCV) 07/07/2018 0 07/07/2017 AAA SCREEN ONCE 2018 ANNUAL PHYSICAL 08/18/2019 HEPATITIS C SCREENING 08/18/2019 COVID-19 Vaccine (3 - 2024- season) 2025, 08/21/2020 INFLUENZA VACCINE 03/29/2025 04/24/2020, 08/02/2019 TDAP/TD VACCINES (2 - Td or Tdap) 06/01/2028 018 Insurance MEDICARE ADVANTAGE MEDICARE A & B Care Teams Preparer Relationship Specialty Start Date End Date Provider, No Known [facility] [place] [address] PCP - General 08/21/20
--- OUTSIDE RECORDS SUMMARY | 2025-03-07 12:00 | XMS_ITS | Clinical Summary ---
Author Organization [facility] Address [address] [place] [address] Care Team Providers Care Work Ticket Distributor Name Role Phone Tremayne Stringer MD Unavailable Mario Luke MD Primary Care Provider [phone] Allergies Active Allergy Reactions Criticality Noted Date Comments Meperidine Other - please docum ent in the comment field Low 08/29/2005 irritable Medications albuterol 1.25 MG/3ML nebulizer solution 2 Active clopidogrel (Plavix) 75 MG tablet 2 Active furosemide (Lasix) 20 MG tablet 2 Active metoprolol succinate XL (Toprol-XL) 25 MG 24 hr tablet 2 Active nitroglycerin (Nitrostat) 0.[address] 1 TABLET UNDER THE TONGUE EVERY 5 MINUTES FOR 3 DOSES NEEDED FOR CHEST PAIN 2 Active pantoprazole (Protonix) 40 MG EC tablet 2 Active Toviaz 8 MG tablet sustained-release 24 hour 2 Active Trelegy Ellipta 100-62.5-25 MCG/INH aerosol powder USE 1 PUFF BY MOUTH ONCE DAILY 2 Active gabapentin (Neurontin) 100 MG capsule TAKE 1 CAPSULE BY MOUTH AT DINNER DAILY 2 Active halobetasol (UltraVATE) 0.05 % cream 2 Active levoFLOXacin (Levaquin) 750 MG tablet TAKE 1 TABLET BY MOUTH ONCE EVERY 24 HOURS 2 Active Entresto 24-26 MG tablet 2 Active pramipexole (Mirapex) 0.125 MG tablet 2 Active PEG 0635-BAd-OkQmp-Na Cl-NaSulf (PEG-3350/Electro lytes) 236 g reconstituted solution 2 Active citalopram (CeleXA) 40 MG tablet 2 Active celecoxib (CeleBREX) 200 MG capsule 2 Active atorvastatin (Lipitor) 40 MG tablet 2 Active oxygen (O2) gas Inhale continuously. via nasal canula Active gabapentin (Neurontin) 300 MG capsuleIndication s:Chronic bilateral low back pain with left-sided sciatica,DDD (degenerative disc disease), lumbar,Facet arthropathy, lumbar 1 po at bedtime for three days, then 1 PO BID for three days, then 1 po TID thereafter 90 capsule 2 2 Active triamcinolone (Kenalog) 0.5 % ointment 2 Active pregabalin (Lyrica) 25 MG capsule 2 Active Social History Tobacco Use Types Packs/Day Years Used Date Smoking Tobacco: Former Cigarettes Smokeless Tobacco: Current Tobacco Cessation:Ready to Q uit: Not Asked; Counseling Given: Not Answered Comments:vape Alcohol Use Standard Drinks/Week Comments Never 0 (1 standard drink = 0.6 oz pur e alcohol) Sex and Gender Information Value Date Recorded Sex Assigned at Not on file Legal Sex Male 8:36 PM EDT Gender Identity Not on file Sexual Orientation Not on file Last Filed Vital Signs Vital Sign Reading Time Taken Comments Blood Pressure 136/86 02/18/2022 2:27 PM EDT Pulse - - Temperature - - Respiratory Rate - - Oxygen Saturation - - Inhaled Oxygen Concentration - - Weight 103 kg (227 lb) 02/18/2022 2:27 PM EDT Height 180.3 cm (5' 11 ) 02/18/2022 2:27 PM EDT Body Mass Index 31.66 02/18/2022 2:27 PM EDT Plan of Treatment Health Maintenance Due Date Last Done Comments [facility]-Depression Screening 1955 [facility]-Hepatitis C Screening 1955 [facility]-Medicare Annual Wellness (AWV) 1955 [facility]-Infant/Child/Adol SDOH Screenings 1955 [facility]- SDOH Screenings 11/15/1971 [facility]-Adult SDOH Screenings 11/15/1971 CT Colonography 1998 Colonoscopy 1998 FIT-DNA 1998 FIT 1998 FOBT 1998 Sigmoidoscopy 1998 [facility]-Colorectal Cancer Screening 1998 [facility]-Zoster Vaccines (1 of 2) 11/15/2003 [facility]-Pneumococcal Vaccine: 50+ Years (2 of 2 - PCV) 07/07/2018 07/07/2017 [id number] Vaccine ( season) 2025 11/22/2021, 03/14/2021, 09/11/2020, Additional history exists [facility]-Influenza Vaccine (#1) 2025 06/08/2018, [facility]-DTaP,Tdap,and Td Vaccines (2 - Td or Tdap) 06/01/2028 06/01/2018 [facility]-RSV Vaccine: 60+ Years or (1 - 1-dose 75+ series) 2028 HPV Vaccines Aged Out No longer eligi ble based on patient's age to complete this topic [facility]-HIB Vaccines Aged Out No longer e ligible based on patient's age to complete this topic [facility]-Hepatitis A Vaccines Aged Out No longer eligible based on patient's age to complete this topic [facility]-IPV Vaccines Aged Out No longer e ligible based on patient's age to complete this topic [facility]-Rotavirus Vaccines Aged Out No lo nger eligible based on patient's age to complete this topic Insurance MEDICARE Care Teams Work Ticket Distributor Relationship Specialty Start Date End Date Mario Luke MD [address] [place] [address] PCP - General Internal Medicine 12/10/21 Tremayne Stringer MD [address] [facility] [address] [place] [id number] Surgeon Neurosurgery 12/10/21
--- OUTSIDE RECORDS SUMMARY | 2025-03-07 12:00 | XMS_ITS | Referral Summary ---
Author Organization [employer] ([place], [place], [place], [place]) Address [address] [place] [address] Care Team Providers Care Assistant Professor Of Dietetics Name Role Phone Unavailable Primary Care Provider Unavailabl e Social History Tobacco Use Types Packs/Day Years Used Date Smoking Tobacco: Never Assessed Food Insecurity Answer Date Recorded Food run out past 12 months Not on file 06/29 Food did not last past 12 months Not on file 07/17/2023 Employment Answer Date Recorded Help finding and keeping a job Not on file 0 07/17/2023 Family and Community Support Answer Chas e Recorded Help with Day to Day Activities Not on file 07/17/2023 Feeling Lonely or Isolated Not on file 07/17 Educational Attainment Answer Date Serge rded Speak language other than Burmese at home Not on file 07/17/2023 Want help with school or training Not on file 07/17/2023 Substance Use Answer Date Recorded Used prescription meds for non-medical reasons N ot on file 07/17/2023 Used illegal drugs past 12 months Not on file 07/17/2023 Sex and Gender Information Value Date Recorded Sex Assigned at Not on file Legal Sex Male 1:42 PM CDT Gender Identity Not on file Sexual Orientation Not on file Plan of Treatment Not on file
--- OUTSIDE RECORDS SUMMARY | 2025-03-07 12:00 | XMS_ITS | Clinical Summary ---
Author Organization [employer] ([place], [place], [place], [place]) Address [address] [place] [address] Care Team Providers Care Director Supply Name Role Phone Unavailable Primary Care Provider [...] Date Serge rded Speak language other than [place]ore[place] at home Not on file 07/17/2023 Want [...] Health Maintenance Due Date Last Done Comments CT Colonography 1953 Colonoscopy 1953 Colorectal Cancer Screening 1953 FOBT/FIT 1953 Fit-DNA (Cologuard) 1953 Sigmoidoscopy 1953 Depression Screening (12+) 1965 Tobacco Cessation Counseling and Screening (12+) 1965 Hepatitis C Screening 11/15/1971 Shingles Vaccine (Zoster) (1 of 2) 11/15/2003 Pneumococcal 50+ years (2 of 2 - PCV) 07/07/2018 07/07/2017 Falls Risk Screening 06/29/2024 COVID-19 VACCINE (5 - 2024-2 6 season) 2025 11/22/2021, 03/14/2021, 09/11/2020, Additional history exists Influenza Vaccine (#1) 2025 , 06/03/2021, 04/24/2020, Additional history exists DTAP/TDAP/TD VACCINES (2 - T d or Tdap) 06/01/2028 06/01/2018 Respiratory Syncytial Virus (RSV) Adult or (1 - 1-dose 75+ series) 2028
[2025-03-07 12:48] LABS: Hematocrit 31.8 % (42.0-52.0); Hemoglobin 9.8 g/dL (14.1-18.0); Immature Granulocytes % 0.3 %; Mean Corpuscular HGB Conc 30.8 g/dL (31.8-35.4); Mean Corpuscular Hemoglobin 28.7 pg (27.0-31.2); Mean Corpuscular Volume 93.0 fl (80-94); Nucleated Red Blood Cells % 0 %; Platelet Count 250 K/mm3 (142-424); Red Blood Count 3.42 M/mm3 (4.60-6.20); Red Cell Distribution Width-SD 46.8 fL; White Blood Count 5.8 K/mm3 (4.8-10.8)
[2025-03-07 12:50] LABS: Alanine Aminotransferase 16 U/L (12-78); Albumin Level 3.8 g/dl (3.5-5.0); Alkaline Phosphatase 117 U/L (38-126); Anion Gap 10.5 mEq/L (5-15); Aspartate Amino Transferase 22 U/L (17-59); Bilirubin,Direct 0.1 mg/dl (0.0-0.4); Bilirubin,Indirect 0.2 mg/dL (0.0-0.9); Bilirubin,Total 0.3 mg/dl (0.2-1.3); Bilirubin,Unconjugated 0.2 mg/dL (0.0-1.1); Blood Urea Nitrogen 11 mg/dl (9-20); Calcium 9.3 mg/dl (8.4-10.2); Carbon Dioxide 32 mmol/L (22.0-30.0); Chloride 102 mmol/L (98-107); Cholesterol 123 mg/dl (140-200); Creatinine,Serum 1.20 mg/dl (0.66-1.25); Estimated Glomerular Filt Rate 60 ml/min (>60); GFR (African American) 72 ML/MIN (>60); Glucose 137 mg/dl (74-100); HDL Cholesterol 45 mg/dl (40-60); Magnesium 2.3 mg/dl (1.6-2.3); Potassium 4.5 mmoL/L (3.5-5.1); Sodium 140 mmol/L (136-145); Total Protein,Serum 6.4 g/dl (6.3-8.2); Triglycerides 139 mg/dl (30-150)
[2025-03-07 13:13] LABS: Free T4 (Free Thyroxine) 0.87 ng/dl (0.78-2.19)
[2025-03-07 13:21] LABS: Thyroid Stimulating Hormone 1.68 uIU/mL (0.465-4.68)
== END 2025-03-07 23:59 | disposition home or self-care (01) ==
LOC: LAB 11:57
PROVIDERS: PCP Internal Medicine Adolescent Medicine; Visit Provider Physician Assistant
DX: I25.10 Atherosclerotic heart disease of native coronary artery without angina pectoris (principal); E78.5 Hyperlipidemia, unspecified; I10 Essential (primary) hypertension
CPT/HCPCS: 36415; 80048; 80061; 80076; 83735; 84439; 84443; 85025

== ENCOUNTER 2025-03-16 06:05 | Outpatient (CLI) | payer MEDICARE, SELFPAY ==
--- NOTE | 2025-03-16 | CA_ITS ---
APPROVED REPORT Exam: Pharmacologic Technologist: Halina Rice Ht: 5 ft 11 in Wt: 241 lbs BSA: 2.28 m2 HR: 73 bpm BP: 122/74 mmHg Stress Test Details Test: Lexiscan Reason for pharmacologic stress test: physical limitation. HR Resting HR: 73 bpm Max Heart Rate (APMHR): 149.292074 bpm Max HR Achieved: 97 bpm Target HR (85% APMHR): 126.472792 bpm % of APMHR: 65.10 Recovery HR: 79 bpm BP Resting BP: 122.0/74.0 mmHg Max BP: 132.0/70.0 mmHg Recovery BP: 119.0/66.0 mmHg ECG Resting ECG: SR Stress ECG Conclusion Symptoms: None. Arrhythmias/Ectopy: None. ST-T Changes: less than 0.5mm upsloping ST segment changes. Conclusion: Nondiagnostic ECG/Lexiscan. Electronically signed by : Jessie Jeong MD 03/18/2025 22:45:50
--- OUTSIDE RECORDS SUMMARY | 2025-03-16 06:08 | XMS_ITS | Clinical Summary ---
Author Organization [employer] ([place], [place], [place], [place]) Address [address] [place] [address] Care Team Providers Care Fisher Gill Net Name Role Phone Unavailable Primary Care Provider [...] Date Serge rded Speak language other than Tanzanian at home Not on file 07/17/2023 Want [...]
--- OUTSIDE RECORDS SUMMARY | 2025-03-16 06:08 | XMS_ITS | Clinical Summary ---
[facility] Organization [facility] Address [address] [place] [address] Care Team Providers Care Watershed Tender Name Role Phone Provider, No Known Primary [...] e 04/06/2023 Family and Community Support Answer Chsa e Recorded Help with Day-to-Day Activities Not [...] ANNUAL PHYSICAL 08/18/2019 HEPATITIS C SCREENING 08/18/2019 INFLUENZA VACCINE 01/27/2025 04/24/2020, 08/02/2019 COVID-19 Vaccine ( season) 2025, 08/21/2020 TDAP/TD VACCINES (2 - Td or Tdap) 06/01/2028 018 Insurance MEDICARE ADVANTAGE MEDICARE A & B Care Teams Watershed Tender Relationship Specialty Start Date End Date Provider, No Known [facility] [place] [address] PCP - General 08/21/20
--- OUTSIDE RECORDS SUMMARY | 2025-03-16 06:08 | XMS_ITS | Referral Summary ---
Author Organization [facility] ([place], [place], [place], [place]) Address [address] [place] [address] Care Team Providers Care Us Customs And Border Officer Name Role Phone Unavailable Primary Care Provider [...] Date Serge rded Speak language other than Sami at home Not on file 07/17/2023 Want [...]
--- OUTSIDE RECORDS SUMMARY | 2025-03-16 06:08 | XMS_ITS | Clinical Summary ---
Author Organization [facility] Address [address] [place] [address] Care Team Providers Care Statistician Applied Name Role Phone Tremayne Stringer MD Unavailable [phone] Mario Luke MD Primary Care Provider [phone] Allergies Active Allergy Reactions Criticality Noted Date [...] (Mirapex) 0.125 MG tablet 2 Active PEG [id number]-WxUtf-Na Cl-NaSulf (PEG-3350/Electro lytes) 236 g reconstituted solution [...] (2 of 2 - PCV) 07/07/2018 07/07/2017 [id number] Vaccine ( season) 2025 11/22/2021, 03/14/2021, 09/11/2020, [...] complete this topic Insurance MEDICARE Care Teams Statistician Applied Relationship Specialty Start Date End Date Mario Luke MD [address] [place] [address] PCP - General Internal Medicine 12/10/21 Tremayne Stringer MD [address] [facility] [address] [place] [id number] Surgeon Neurosurgery 12/10/21
--- NOTE | 2025-03-16 06:30 | NM_ITS ---
APPROVED REPORT Exam: Nuclear Stress Test Indication: soa..fatigue Patient Location: Outpatient Stress Tech: Halina Mariscal [place] Tech:MAYRA Montemayor RT(R)(N) Ht: 5 ft 11 in Wt: 235 lbs HR: 72 bpm BP: 122/74 mmHg BSA: 2.26 m2 TID: 1.38 BMI: 32.7 History: soa..fatigue Procedure: Patient received 0.4 mg of intravenous Lexiscan, resting heart rate 72 bpm, resting blood pressure 122/74 mmHg, with Lexiscan maximum heart rate achieved was 96 bpm which is 85 % of the maximum predicted heart rate and blood pressure was 132/70 mmHg. With Lexiscan, patient denied any complaint of chest pain. Cardiac Stress and Resting SPECT Images: Cardiac Stress and Resting SPECT images were obtained using technetium 99m Myoview 30.6 mCi stress and 10.60 mCi at rest. Resting and stress imaging in supine and prone positions demonstrate a large sized, moderate, fixed perfusion defect in the inferior and inferoseptal LV villalobos. There is also increase in transient ischemic dilatation ratio (TID 1.34) which may be suggestive of possible multivessel disease or balanced ischemia. Gated imaging demonstrates normal global and regional LV systolic function. LVEF is calculated at 63%. Conclusion: Large sized, moderate, fixed perfusion defect in the inferior and inferoseptal LV villalobos. No evidence of focal reversible ischemia. There is also increase in transient ischemic dilatation ratio (TID 1.34) which may be suggestive of possible multivessel disease or balanced ischemia. Gated imaging demonstrates normal global and regional LV systolic function. LVEF is calculated at 63%. Electronically signed by : Jessie Jeong MD 03/18/2025 22:38:55
[2025-03-16 08:00] VITALS: BP 122/74; PULSE 73; RESP 16
[2025-03-16] MEDS: ISOTOPE MYOVIEW (PER STUDY) 1 DOSE IV (09:06)
[2025-03-16] MEDS: SODIUM CHLORIDE 0.9% 10ML SYR (RAD ONLY) 10 ML IV ×2 (09:06)
--- NOTE | 2025-03-16 09:30 | CA_ITS ---
APPROVED REPORT EXAM: Limited 2D Echocardiogram Insurance Marketing Rep: Sarahi Liu, RCS, RVS Ht: 5 ft 11 in Wt: 241lbs BSA: 2.28 BP: 154/81 mmHg Indications: LVEF, COPD, Edema, CHF, Hx-LA, Ex-smoker 2D Dimensions IVSd 0.97 cm M: 0.6-1.2 LVEF (Visual) 76.90 % PWd 0.92 cm M: 0.6 - 1.2 EF AP4 55.30 % LVDd 5.00 cm M: 4.2 - 5.9 GL Strain -24.6 % LVDs 2.71 cm M: 2.5 - 4.0 LV Diastology E Decel Time 183 (160-240 msec) E/A Ratio 1.00 MED A' 14.60 cm/s LAT A' 15.10 cm/s Mitral Valve MV A Velocity 116.0 (40-130 cm/s) E/A Ratio 1.00 Pulmonary Valve PV Peak Velocity 104.0 (50-150 cm/s) Other Information Study Quality: Fair Conclusion This is a limited TTE to evaluate for LV systolic function. Limited windows are obtained. The LV is normal in size. There is increased LV wall thickness. There is normal global LV systolic function. No regional wall motion abnormalities are present. LVEF is 55%. Electronically signed by : Jessie Jeong MD 03/17/2025 14:13:44
[2025-03-16 10:06] LABS: Hematocrit 32.4 % (42.0-52.0); Hemoglobin 10.6 g/dL (14.1-18.0); Immature Granulocytes % 0.3 %; Mean Corpuscular HGB Conc 32.7 g/dL (31.8-35.4); Mean Corpuscular Hemoglobin 29.8 pg (27.0-31.2); Mean Corpuscular Volume 91.0 fl (80-94); Nucleated Red Blood Cells % 0 %; Platelet Count 231 K/mm3 (142-424); Red Blood Count 3.56 M/mm3 (4.60-6.20); Red Cell Distribution Width-SD 47.2 fL; White Blood Count 7.9 K/mm3 (4.8-10.8)
[2025-03-16 10:30] LABS: Albumin Level 4.0 g/dl (3.5-5.0)
[2025-03-16 10:31] LABS: Chloride 101 mmol/L (98-107); Potassium 4.4 mmoL/L (3.5-5.1); Sodium 140 mmol/L (136-145)
[2025-03-16 10:33] LABS: Alanine Aminotransferase 17 U/L (12-78); Aspartate Amino Transferase 28 U/L (17-59); Blood Urea Nitrogen 15 mg/dl (9-20); Creatinine,Serum 1.10 mg/dl (0.66-1.25); Estimated Glomerular Filt Rate 66 ml/min (>60); GFR (African American) 80 ML/MIN (>60)
[2025-03-16 10:34] LABS: Albumin/Globulin Ratio 1.5 (1.1-1.8); Alkaline Phosphatase 112 U/L (38-126); Anion Gap 13.4 mEq/L (5-15); Bilirubin,Total 0.5 mg/dl (0.2-1.3); Calcium 9.2 mg/dl (8.4-10.2); Carbon Dioxide 30 mmol/L (22.0-30.0); Globulin 2.7 g/dL (1.3-3.2); Glucose 138 mg/dl (74-100); Iron 63 ug/dL (49-181); Total Protein,Serum 6.7 g/dl (6.3-8.2)
[2025-03-16 10:43] LABS: Total Iron Binding Capacity 297 ug/dL (261-462)
[2025-03-16 11:09] LABS: Ferritin 16.4 ng/ml (17.9-464)
[2025-03-16 12:08] LABS: Vitamin B12 335 pg/mL (239-931)
== END 2025-03-16 23:59 | disposition home or self-care (01) ==
PROVIDERS: PCP Internal Medicine Adolescent Medicine; Visit Provider Physician Assistant
DX: Z87.891 Personal history of nicotine dependence (principal); I11.0 Hypertensive heart disease with heart failure; I50.9 Heart failure, unspecified; I25.10 Atherosclerotic heart disease of native coronary artery without angina pectoris; E78.5 Hyperlipidemia, unspecified; D64.9 Anemia, unspecified; J44.9 Chronic obstructive pulmonary disease, unspecified; I25.2 Old myocardial infarction; R94.39 Abnormal result of other cardiovascular function study
CPT/HCPCS: 36415; 78452; 80053; 82607; 82728; 83540; 83550; 85025; 93017; 93018; 93308; A9502; J2785

== ENCOUNTER 2025-05-01 09:43 | Outpatient (CLI) | payer MEDICARE, SELFPAY ==
--- OUTSIDE RECORDS SUMMARY | 2025-05-01 09:54 | XMS_ITS | Referral Summary ---
Author Organization [facility] ([place], [place], [place], [place], [place]) Address [address] [place] [address] Care Team Providers Care Transportation Dispatch Manager Name Role Phone Unavailable Primary Care Provider [...] Date Serge rded Speak language other than Italian at home Not on file 07/17/2023 Want [...]
--- OUTSIDE RECORDS SUMMARY | 2025-05-01 09:54 | XMS_ITS | Clinical Summary ---
Author Organization [facility] Address [address] [place] [address] Care Team Providers Care General Dentist/Owner Name Role Phone Tremayne Stringer MD Unavailable [phone] Mario Luke MD Primary Care Provider [phone] Allergies Active Allergy Reactions Criticality Noted Date [...] (Mirapex) 0.125 MG tablet 2 Active PEG 5891-FZz-EhXwr-Na Cl-NaSulf (PEG-3350/Electro lytes) 236 g reconstituted solution [...] (2 of 2 - PCV) 07/07/2018 07/07/2017 [id number] Vaccine ( season) 2025 11/22/2021, 03/14/2021, 09/11/2020, [...] complete this topic Insurance MEDICARE Care Teams General Dentist/Owner Relationship Specialty Start Date End Date Mario Luke MD [address] [place] [address] PCP - General Internal Medicine 12/10/21 Tremayne Stringer MD [address] [facility] [address] [place] [id number] Surgeon Neurosurgery 12/10/21
--- OUTSIDE RECORDS SUMMARY | 2025-05-01 09:54 | XMS_ITS | Clinical Summary ---
Author Organization [facility] ([place], [place], [place], [place], [place]) Address [address] [place] [address] Care Team Providers Care Information Clerk Brokerage Name Role Phone Unavailable Primary Care Provider [...] Date Serge rded Speak language other than [place] at home Not on file 07/17/2023 Want [...] 07/07/2017 Falls Risk Screening 06/29/2024 COVID-19 VACCINE (2024-2 6 season) 2025 11/22/2021, 03/14/2021, 09/11/2020, Additional history exists Influenza Vaccine (#1) 2025 , 06/03/2021, 04/24/2020, Additional history exists DTAP/TDAP/TD VACCINES (2 - T d or Tdap) 06/01/2028 06/01/2018 Respiratory Syncytial Virus (RSV) Adult or (1 - 1-dose 75+ series) 2028
--- OUTSIDE RECORDS SUMMARY | 2025-05-01 09:55 | XMS_ITS | Clinical Summary ---
Author Organization [facility] Address [address] [place] [address] Care Team Providers Care Dynamite Cartridge Crimper Name Role Phone Provider, No Known Primary [...] or Tdap) 06/01/2028 018 [place] [address] MEDICARE A & B Care Teams Dynamite Cartridge Crimper Relationship Specialty Start Date End Date Provider, No Known [facility] [place] [address] PCP - General 08/21/20
--- OUTSIDE RECORDS SUMMARY | 2025-05-01 09:55 | XMS_ITS | Data Portability ---
Author Organization [facility] Bernard [facility]OS[facility] Address [address] [place] [address] Care Team Providers Care Senior Accounts Payable Specialist Name Role Phone JOYCE MONSIVAIS Primary Care Provider [phone] MONET BOOKER Airbrush Artist Technical [phone] Assessment Encounter Date Assessment Date Assessment LastModified by Organization Details LastModified Time 09/29/2024 09/29/2024 SURGERY DATE: 09/29/2024 PREOPERATIVE DIAGNOSES: 1. Chronic mastoiditis, left. 2. Large tympanomastoid cholesteatoma. POSTOPERATIVE DIAGNOSES: 1. Chronic mastoiditis, left. 2. Large tympanomastoid cholesteatoma. PROCEDURE: 1. Left tympanomastoidectomy with wall-down technique. 2. Glen Elder of fascia graft, left side. ANESTHESIA: General endotracheal anesthesia. ESTIMATED BLOOD LOSS: Less than 30 mL. SURGEON: Mary Velásquez III, MD INDICATIONS: Mr. Barton is 68 years old. He has been having issues with chronic pain in his left ear. He has had mastoid inflammatory changes for several years now, and unfortunately he has developed a cholesteatoma, where he has had persistent drainage, difficult time getting it cleaned, and the pain which has increased over the last few months. We did imaging study, which did show a fairly extensive cholesteatoma within the middle ear as well as extending into the mastoid. We discussed consideration for evaluation and surgical intervention. He was well aware that the ossicles were involved with the cholesteatoma and his hearing may not change. We were also concerned because the radiologist mentioned that the semicircular canal may have some erosion as well. As the scutum had partial erosion, we did elect to proceed with a wall-down procedure of tympanomastoidectomy. He stated understanding and wished to proceed. OPERATIVE NOTE: Patient was brought to the operating room and placed under general endotracheal anesthesia. Neural integrity monitoring was used to monitor the facial nerve throughout the case. The left ear was prepared and draped in the usual fashion. I pre-injected with 1% lidocaine with epinephrine in the postauricular area as well as the external auditory canal. After the area was prepared and draped, the microscope was brought in. We were able to identify the tip of the cholesteatoma in the attic area of the left ear. There was a fairly generous perforation here. Under microscopic guidance, I were able to clear out the portion of the cholesteatoma that was in the external auditory canal and middle ear, but it was obvious that it was extending into the mastoid area as well. I did create a tympanomeatal flap and elevated this anteriorly. The ossicular chain was involved with the cholesteatoma. It was evident that the incus had been significantly eroded. The malleus appeared to be intact and the suprastructure of stapes appeared to be intact as well. I made an incision in the postauricular area and carried the incision down to the skin and subcutaneous tissue, identified the perichondrium. Elevated pennant shaped flap off the perichondrium over the mastoid. This was elevated anteriorly. I then harvested a disc of temporalis fascia and this was set aside and dried. I would begin the dissection then over the mastoid, extending up into the previously made incisions within the external auditory canal. I was able to use the Midas Angel drill and using a cutting jess to take down the mastoid cells. I was able to go as high as the superior portion of the canal. We did not encounter dura in this area. I extended the dissection posteriorly until the sigmoid sinus was again identified, but not breached, and inferiorly down to mastoid tip. Once this area was thoroughly saucerized and the chronic sclerotic cells were cleared, I was then able to get into the antrum. He had a large cholesteatoma sac within this area. It was gently dissected free and cleared. I was able to identify the lateral semicircular canal. It was possible that there was some breach in this area. I therefore put some bone wax over this area in case there was a breach from the cholesteatoma mass. I then thinned out the posterior bony canal wall and so I was able to remove this with a cutting rongeur as well as take this down with the jess. I then polished the mastoid bowl with a tiffanie bur. I was able to identify the path of the facial nerve, which was stimulated to ensure it was intact and safe. The cholesteatoma remnant was then cleared from the superior portion of the attic area from the mastoid side. We also cleared from around the ossicular chain. After the wall was taken down, I used the temporalis flap graft to place under the tympanic membrane as an underlay and then we extended this over the mastoid bowl. I placed Gelfoam in the middle ear space. I placed Gelfoam lateral to the graft. This was infiltrated with Ciprodex drops. I then created a meatoplasty by making an incision along the posterior canal wall and suturing the skin back to the subcutaneous tissue of the anterior flap. I then closed the periosteum loosely with 4-0 Monocryl suture. Reapproximated the subcutaneous tissue with interrupted 4-0 Monocryl sutures and then used tissue glue on the skin. I fashioned a Vaseline gauze roll to place within the meatus to try to keep this from lashawn down. This was also treated with mupirocin ointment. Once this was completed, a pressure dressing was applied. The patient was then awakened in the operating room and taken to recovery in good condition. Estimated blood loss for the entire procedure was less than 30 mL. [email or web address] Not available 09/30/2024 14:11:06 Plan of Treatment Reminders Order Date Submit Date Provider Last Modified By Organization Details Last Modified Time Details Appointments None record ed. Lab None record ed. Referral None record ed. Procedures None record ed. Surgeries None record ed. Imaging None record ed. Medication Orders None record ed. Patient TargetsNo targets recorded. Patient Instructions Encounter Date Encounter Id Patient Instructions Last Modified By Organization Details Last Modified Time 10/25/2024 [id number] 1. Bilateral binocular microscopy performed in office today. Full risks, complications, and benefits of non-operative intervention have been thoroughly discussed. Understanding was expressed, informed consent given, and we will proceed with the discussed treatment plan. There were no questions for me at the end of the office visit. 2. F/u in 6 months [email or web address] Not available 10/25/2024 14:17:09 12/12/2024 [id number] 1. Maintain dry left ear precautions 2. Begin cleaning left hearing aid dome nightly with alcohol pad 3. Ciprodex (generic) drops, 5 drops in left ear BID for 7 days 4. F/U in [address] Velásquez with [facility] [place] [email or web address] Not available 12/12/2024 15:32:59 01/10/2025 [id number] 1. F/u in 3 months [email or web address] Not availa ble 01/10/2025 10:48:31 Reason for Referral None Reported. Results Created Date Observation Date Name Description Value Unit Range Abnormal Flag Note LastModifiedBy Organization Detail LastModifiedTime 09/30/1909/29/2024 SURGI TIERRA surgical SEE BELOW normal Surgi tierra Patho logy Repor t NAME: RAGHAV BARTON PATH: [id number] DATE of : 11/14 9 Copy to: Diagn osis: Zandra steat henry middl e ear masto id: - Abund ant kerat in debri s and occas ional fragm ents of benmagdaleno n squam ous epith elium consi stent with zandra steat henry philipp nts. SOURC E OF SPECI MEN: EAR, ZANDRA STEAT HENRY MIDDL E EAR MASTO ID CLINI TIERRA INFOR MATIO N: CHRON IC LEFT MASTO IDITI S Gross Descr iptio n: Patie nt's name and date of verif ied. Recei jozef in forma jay label ed with the patie nt's name and desig nated chol estea alanna middl e ear masto id are multi ple fragm ents of bush-w skyla to bush-b nilesh hernandez le debri s/pos sible tissu e measu ring 1.9 x 1.8 x 0.6 cm in aggre gate. The speci men is filte red into a biops y bag and entir vickey submi tted in two casse ttes label ed A1-A2 . SB 09/29 07:50 PM Micro scopi c Descr iptio n: A micro scopi c exami natio n has been perfo rmed and the resul t(s) are as noted above . ROBE DHILLON MD Heide d Out Date: 09/30 10:56 Page 1 of 1 Not Available [address] [place], [address], 09/30/2024 10:56:35 09/15/19 25 02/03/2024 CT, tempo ral bone, w/o contr ast No observ ation record ed. Not Available 2024 09:38:52 09/20/19 25 02/03/2024 audio gram No observ ation record ed. BARCODE Not Available 2024 10:33:17 09/20/19 25 02/03/2024 CT, tempo ral bone, w/o contr ast No observ ation record ed. BARCODE Not Available 2024 10:34:30 09/29/19 25 09/22/2024 elect rocar diogr am No observ ation record ed. [email or web address] Not Available 2024 16:29:03 01/11/20 25 01/10/2025 audio gram No observ ation record ed. BARCODE Not Available 2024 15:35:18 Result Notes None recorded. Problems No Known Problems Procedures Surgical History Date Name Laterality Status Provider Name and Address Organization Details Recorded Time 01/11/20 25 Tympanogram completed MATEO HANCOCK AUD [address] [place], [address], [facility] 01/10/2025 10:03:37 01/11/20 25 Audiogram completed MATEO HANCOCK AUD [address] [place], [address], [facility] 01/10/2025 10:03:40 12/13/19 25 Tympanogram cancelled ALISSA KIM, AUD [address] [place], [address], [facility] 12/12/2024 15:02:03 12/13/19 25 Audiogram cancelled ALISSA KIM, AUD [address] [place], [address], [facility] 12/12/2024 15:02:02 10/26/19 25 Binocular Microscopy completed Raul Pierce [facility] 10/25/2024 14:15:29 09/15/19 25 Binocular Microscopy completed MARY VELÁSQUEZ III, MD [address] [place] [address], [address], [facility] 09/14/2024 16:53:53 procedure on neck completed [facility] 09/14/2024 14:46:05 insertion of stent into vein completed [facility] 09/14/2024 14:46:29 Appendectomy completed [facility] 09/14/2024 14:46:36 Imaging Results None recorded. Procedure Notes None recorded. Medical Equipment None Reported. Allergies Allergen ID Allergen Name Allergen Category Reaction Reaction Severity Criticality Documentation Date Start Date Code Code System Note Provider Name and Address Organization Details Recorded Time 560729 Demerol medicatio n Not available Not available Not available 10/25/2024 31859 1 RxNorm Vannanda Haris [facility] 5 13:35:35 021375 gabapenti n medicatio n Not available Not available Not available 10/25/2024 45949 RxNorm Vannandkris Carballo [facility] 5 13:35:46 Medications Name Sig Start Date Stop Date Status Note LastModified by Organization Details LastModified Time furosemide 40 mg tablet active Not Available Not Available Not Available atorvastati n 40 mg tablet active Not Available Not Available Not Available azithromyci n 250 mg tablet 09/14 completed Not Available Not Available Not Available clopidogrel 75 mg tablet active Not Available Not Available Not Available vancomycin 125 mg capsule active Not Available Not Available Not Available potassium chloride ER 20 mEq tablet,exte nded release(par t/cryst) TAKE TWO TABLETS BY MOUTH EVERY DAY active Not Available Not Available No t Available hydrocodone 7.5 mg-acetamin ophen 325 mg tablet Take 1 tablet every 6 hours by oral route. 2024 active Not Available Not Available Not Avai lable pantoprazol e 40 mg tablet,celio yed release active Not Available Not Available Not Available neomycin-po lymyxin-dex ameth 3.5 mg/mL-10,00 0 unit/mL-0.1 % eye drops active Not Available Not Available Not Available vancomycin 250 mg capsule active Not Available Not Available Not Available pramipexole 0.125 mg tablet active Not Available Not Available Not Available nitroglycer in 0.4 mg sublingual tablet active Not Available Not Available Not Available bumetanide 1 mg tablet active Not Available Not Available Not Available diltiazem ER 60 mg capsule,ext ended release 12 hr active Not Available Not Available Not Available colchicine 0.6 mg tablet active Not Available Not Available Not Available ondansetron 4 mg disintegrat ing tablet TAKE 1 TAB NEEDED EVERY 6 HOURS FOR NAUSEA 2024 active Not Available Not Available Not Avai lable fluoxetine 20 mg capsule active Not Available Not Available Not Available amoxicillin 875 mg-potassiu m clavulanate 125 mg tablet 09/14 completed Not Available Not Available Not Available ciprofloxac in 0.3 %-dexametha sone 0.1 % ear drops,suspe nsion STARTING 7 DAYS PRIOR TO POSTOP VISIT, INSTILL 5 DROPS INTO SURGICAL EAR TWICE DAILY. DO NOT START IMMEDIATE LY AFTER SURGERY 2024 active Not Available Not Available Not Avai lable pregabalin 50 mg capsule active Not Available Not Available Not Available Entresto 49 mg-51 mg tablet active Not Available Not Available Not Available Trelegy Ellipta 100 mcg-62.5 mcg-25 mcg powder for inhalation active Not Available Not Available N ot Available Vitals Date Recorded Body height Body mass index (BMI) Body weight Body temperature Heart rate Systolic And Diastolic Provider Name and Address Organization Details Last Updated DateTime 5 180.34 cm 32.3 kg/m2 357530. 64 g 97.5 [degF] 73 /min 126/67 mm[Hg] [facility] 5 13:37:13 Date Recorded Body height Body mass index (BMI) Body weight Body temperature Heart rate Systolic And Diastolic Provider Name and Address Organization Details Last Updated DateTime 5 180.34 cm 32.2 kg/m2 077977. 84 g 97.3 [degF] 92 /min 109/73 mm[Hg] [facility] 15:11:01 Date Recorded Body height Body mass index (BMI) Body weight Provider Name and Address Organization Details Last Updated DateTime 01/10/2025 180.34 cm 33.5 kg/m2 479437.57 g Ayan Carballo [facility] 01/10/2025 09:42:29 Date Recorded Body temperature Heart rate Systolic And Diastolic Provider Name and Address Organization Details Last Updated DateTime 01/10/2025 94.4 [degF] 86 /min 133/78 mm[Hg] Eren Torres [facility] 01/10/2025 10:08:52 Social History None recorded. Functional Status Question Answer Note LastModified by Organization D etails LastModified Time What is your level of alcohol consumption? None [email or web address] Information not available 09/14/2024 Mental Status None recorded. Family History Relationship Description Onset Age of this Age Resolved Age Notes LastModified by Organization Details LastModified Time Mother Family history of malignant neoplasm [email or web address] Not available 09/14 14:47:41 Brother Family history of malignant neoplasm [email or web address] Not available 09/14 14:48:01 Medical History Condition Response Emphysema Y Acid Reflux (GERD) Y Heart Problems Y Ulcers Y Asthma Y Heart Disease Y Past Encounters Encounter ID Performer Location Encounter Start Date Encounter Closed Date Diagnosis/Indication Diagnosis SNOMED-CT Code Diagnosis ICD10 Code Diagnosis IMO Codes Diagnosis Note [id number] MARY VELÁSQUEZ III, MD [facility] [address] [place] [address] 09/14/2024 14:09:45 09/14/2024 16:56:16 Chronic left mastoiditis 9648309685 235110 H70.12 Otalgia of left ear 1010 204955 H92.02 Mucinous c yst of mastoid cavity 893553203 H74.8X9 Finding of hearing aid 689804333 Z97.4 Chronic ob structive pulmonary disease 85798151 J44.9 Cholesteat henry of left external ear 7702706755 354834 H60.42 [id number] MARY VELÁSQUEZ III, MD SURGERY SCHEDULE [address] [place] [address] 09/29/2024 10:58:31 09/29/2024 10:59:09 [id number] MARY VELÁSQUEZ III, MD [facility] [address] [place] [address] 10/25/2024 12:48:25 10/25/2024 14:28:45 Chronic left mastoiditis 1200788192 915468 H70.12 *09/29/24- S/p Left tympanomas toidectomy with wall-down technique and [place] of fascia graft, left side performed by Dr. Velásquez Otajngia of left ear 1010 961742 H92.02 Mucinous c yst of mastoid cavity 988700465 H74.8X9 Finding of hearing aid 634717040 Z97.4 Chronic ob structive pulmonary disease 84856632 J44.9 Cholesteat henry of left external ear 1327879096 541158 H60.42 [id number] MONET VALDEZ APRN [facility] [address] [place] [address] 12/12/2024 14:37:17 12/12/2024 15:53:14 Chronic left mastoiditis 2486349782 979639 H70.12 *09/29/24- S/p Left tympanomas toidectomy with wall-down technique and [place] of fascia graft, left side performed by Dr. Didier Gentilegia of left ear 1010 508321 H92.02 Chronic ob structive pulmonary disease 75932687 J44.9 Cholesteat henry of left external ear 8384138122 488801 H60.42 Acute otit is externa of left ear 7619073391 623860 H60.502 820771658 Granulation of tissue 22 7430024 L92.9 [id number] - left EAC [id number] MD MANPREET AQUINO III [facility] [address] [place] [id number] 01/10/2025 09:31:30 01/10/2025 11:32:48 Chronic left mastoiditis 8437894886 737332 H70.12 *09/29/24- S/p Left tympanomas toidectomy with wall-down technique and [place] of fascia graft, left side performed by Dr. Vleásquez Otalgia of left ear 1010 867502 H92.02 Mucinous c yst of mastoid cavity 427703112 H74.8X9 Finding of hearing aid 767462606 Z97.4 Chronic ob structive pulmonary disease 58560547 J44.9 Cholesteat henry of left external ear 9222596196 113379 H60.42 Acute otit is externa of left ear 0609811774 475716 H60.502 167471842 Granulation of tissue 22 4394874 L92.9 [id number] This has resolved [id number] [facility] [address] [place] [address] 01/10/2025 10:03:17 01/10/2025 10:04:28 Mixed conductive and sensorineural hearing loss, bilateral 164786830 H90.6 [id number] Health Concerns Section Related Observation LastModified by Organization Detai ls LastModified Time None Recorded Concern Status LastModified by Organization Details LastModified Time None Recorded Advance Directives Directive None Recorded Payers Insurance Date Sequence Insurance Name Policy Number Policy Alexander Covered Member ID Alexander Member ID Guarantor Name 01/07/2025 1 [employer] (MEDICARE REPLACEMENT/A DVANTAGE - PPO) Jeffrey Barton [id number] Jeffrey Barton Notes Date Note Type Note Provider Name and Address Organization Details Recorded Time 5 text/html Cece visits us in office today S/p Left tympanomastoidectomy with wall-down technique and Glen Elder of fascia graft, left side performed on 09/29/24. Pt has not felt any pain in the left ear post op. MARY VELÁSQUEZ III, MD [facility] [place], [address], [place] [facility] 10/25/2024 14:27:03 5 text/html Cece Barton is seen today for evaluation of left otorrhea and hearing loss. He is s/p left tympanomastoidectomy from 09/29/[address] Velásquez. He has continued to have drainage from the left ear with no improvement in hearing since the surgery. The drainage can be green, yellow, or dark. He just started the Ciprodex drops the last 2 days and it has been better. He wears his hearing aids regularly and keeps the left ear dry in the shower. He denies pain or fever. MONET VALDEZ, MAINTENANCE LEADER [address] [place], [address], [facility] 12/12/2024 15:33:16 5 text/html Cece visits us in office today to follow up on recheck left tympanomastoidectomy. Cece is doing well today. He is healing well and mastoid is clear today. MARY VELÁSQUEZ III, MD [address] [place], [address], [facility] 01/10/2025 11:18:20
== END 2025-05-01 23:59 | disposition home or self-care (01) ==
LOC: RT 09:46
PROVIDERS: PCP Internal Medicine Adolescent Medicine; Visit Provider Internal Medicine Pulmonary Disease
DX: R94.2 Abnormal results of pulmonary function studies (principal); R06.09 Other forms of dyspnea; R06.02 Shortness of breath
CPT/HCPCS: 94618

== ENCOUNTER 2025-06-20 10:39 | Outpatient (CLI) | payer MEDICARE, SELFPAY ==
--- OUTSIDE RECORDS SUMMARY | 2025-06-20 10:44 | XMS_ITS | Referral Summary ---
Author Organization [employer] ([place], [place], [place], [place], [place]) Address [address] [place] [address] Care Team Providers Care Animal Tech Name Role Phone Unavailable Primary Care Provider [...] Date Serge rded Speak language other than Malagasy at home Not on file 07/17/2023 Want [...]
--- OUTSIDE RECORDS SUMMARY | 2025-06-20 10:44 | XMS_ITS | Clinical Summary ---
Author Organization [facility] Address [address] [place] [address] Care Team Providers Care Card Feeder Name Role Phone Tremayne Stringer MD Unavailable [phone] Mario Luke MD Primary Care Provider [phone] Allergies Active Allergy Reactions Criticality Noted Date [...] (Mirapex) 0.125 MG tablet 2 Active PEG 1811-JZl-HqGnz-Na Cl-NaSulf (PEG-3350/Electro lytes) 236 g reconstituted solution [...] Screening 1955 [facility]-Medicare Annual Wellness (AWV) 1953 [facility]-/Child/Adol SDOH Screenings 1953 [facility]- SDOH Screenings 11/15/1971 [facility]-Adult SDOH Screenings 11/15/1971 CT Colonography 1998 Colonoscopy 1998 FIT-DNA 1998 FIT 1998 FOBT 1998 Sigmoidoscopy 1998 [facility]-Colorectal Cancer Screening 1998 [facility]-Zoster Vaccines (1 of 2) 11/15/2003 [facility]-Pneumococcal Vaccine: 50+ Years (2 of 2 - PCV) 07/07/2018 07/07/2017 [id number] Vaccine ( - season) 2025 11/22/2021, 03/14/2021, 09/11/2020, Additional history exists [facility]-Influenza Vaccine (#1) 2025 06/08/2018, [facility]-DTaP,Tdap,and Td Vaccines (2 - Td or Tdap) 06/01/2028 06/01/2018 [facility]-RSV Vaccine: 60+ Years or (1 - 1-dose 75+ series) 2028 HPV Vaccines (No Doses Required) Completed [facility]-HIB Vaccines Aged Out No longer e [...] complete this topic Insurance MEDICARE Care Teams Card Feeder Relationship Specialty Start Date End Date Mario Luke MD [facility] [address]A [id number] PCP - General Internal Medicine 12/10/21 Tremayne Stringer MD [address] [facility] [address] [facility] [address] [place] [address] Surgeon Neurosurgery 12/10/21
--- OUTSIDE RECORDS SUMMARY | 2025-06-20 10:44 | XMS_ITS | Continuity of Care Document ---
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 Plan of Treatment Reminders Order Date Submit Date Provider Last Modified By Organization Details Last Modified Time Details Appointments RECHECK 2025 10:40A M MARY VELÁSQUEZ III, MD Not available Not available Not available Lab None recorded. Referral None recorded. Procedures None recorded. Surgeries None recorded. Imaging None recorded. Medication Orders ciproflox acin 0.3 %-dexamet hasone 0.1 % ear drops,curly pension 2024 025 [facility], [address] [place] [address], [id number], 05/19/2025 17:30:21 Patient TargetsNo targets recorded. Patient Instructions Encounter Date Encounter Id Patient Instructions Last Modified By Organization Details Last Modified Time 05/19/2025 [id number] 1. Left ear debridement under binocular microscopy performed in office today. Full risks, complications, and benefits of non-operative intervention have been thoroughly discussed. Understanding was expressed, informed consent given, and we will proceed with the discussed treatment plan. There were no questions for me at the end of the office visit. 2. Rx- Cipro-dex in left ear BID x 10 days 3. Dry ear precautions discussed with pt, avoid wearing hearing aid in left ear at this time 4. Follow up with Dr. Velásquez in 2 weeks for recheck [facility] Didier skanal Not available 05/19/2025 14:40:45 Reason for Referral None Reported. Problems No Known Problems Procedures Surgical History Date Name Laterality Status Provider Name and Address Organization Details Recorded Time 05/19/20 25 Binocular Microscopy completed PAUL FERGUSON PA-C [address] [place], [address], [facility] 05/19/2025 14:38:30 01/11/20 25 Tympanogram completed MATEO HANCOCK, AUD [address] [place], [address], [facility] 01/10/2025 10:03:37 01/11/20 25 Audiogram completed MATEO HANCOCK, AUD [address] [place], [address], [facility] 01/10/2025 10:03:40 12/13/19 25 Tympanogram cancelled ALISSA KIM, AUD [address] [place], [address], [facility] 12/12/2024 15:02:03 12/13/19 25 Audiogram cancelled ALISSA KIM, AUD [address] [place], [address], [facility] 12/12/2024 15:02:02 10/26/19 25 Binocular Microscopy completed Raul Pierce [facility] 10/25/2024 14:15:29 09/15/19 25 Binocular Microscopy completed MARY VELÁSQUEZ III, MD [address] [place], [address], [facility] 09/14/2024 16:53:53 procedure on neck completed Shikha [facility] 09/14/2024 14:46:05 insertion of stent into vein completed Shikha [facility] 09/14/2024 14:46:29 Appendectomy completed [facility] 09/14/2024 14:46:36 Imaging Results None recorded. Procedure Notes None recorded. Medical Equipment None Reported. Allergies Allergen ID Allergen Name Allergen Category Reaction Reaction Severity Criticality Documentation Date Start Date Code Code System Note Provider Name and Address Organization Details Recorded Time 981672 Demerol medicatio n Not available Not available Not available 10/25/2024 33686 1 RxNorm Ayan Carballo [facility] 5 13:35:35 250900 gabapenti n medicatio n Not available Not available Not available 10/25/2024 26690 RxNorm Ayan Carballo [facility] 5 13:35:46 942118 meperidin e medicatio n other Not available [facility] 05/19/20252005 6754 RxNorm irrit able Raul Pierce [facility] 5 14:19:17 Medications Name Sig Start Date Stop Date Status Note LastModified by Organization Details LastModified Time Compound Antibiotic Ear Powder (Polysporin Powder 1000mg, Boric Acid Powder 2000mg, Hydrocortis one 25mg) apply 2 puffs of powder to the left ear twice daily as needed for otorrhea 2024 active Not Available Not Available Not Avai lable furosemide 40 mg tablet active Not Available Not Available Not Available atorvastati n 40 mg tablet active Not Available Not Available Not Available azithromyci n 250 mg tablet 09/14 completed Not Available Not Available Not Available clopidogrel 75 mg tablet active Not Available Not Available Not Available vancomycin 125 mg capsule 05/19 completed Not Available Not Available Not Available potassium [...] Available Not Available vancomycin 250 mg capsule 05/19 completed Not Available Not Available Not Available pramipexole [...] %-dexametha sone 0.1 % ear drops,suspe nsion INSTILL 5 DROPS INTO AFFECTED EAR TWICE DAILY X 10 DAYS 2024 active Not Available Not Available Not Avai lable pregabalin 50 mg capsule active Not Available Not Available Not Available Entresto 49 mg-51 mg tablet active Not Available Not Available Not Available Trelegy Ellipta 100 mcg-62.5 mcg-25 mcg powder for inhalation active Not Available Not Available N ot Available Vitals Date Recorded Body height Body temperature Body mass index (BMI) Body weight Heart rate Systolic And Diastolic Provider Name and Address Organization Details Last Updated DateTime 180.34 cm 97 [degF] 34.6 kg/m2 329739. 91 g 81 /min 119/71 mm[Hg] [facility] 14:[facility] Social History None recorded. Functional Status Question Answer Note LastModified by Organization D etails LastModified Time What is your level of alcohol consumption? None [email or web address] Information not available 09/14/2024 Mental Status None recorded. Family History Relationship Description Onset Age of this Age Resolved Age Notes LastModified by Organization Details LastModified Time Mother Family history of malignant neoplasm [email or web address] Not available 09/14 14:47:41 Brother Family history of malignant neoplasm [email or web address] Not available 09/14 14:48:01 Medical History Condition Response Emphysema Y Acid Reflux (GERD) Y Heart Problems Y Ulcers Y Asthma Y Heart Disease Y Immunizations Vaccine Type Date Status Note Provider Nam e and Address Organization Details Recorded Time Influenza, split virus, quadrivalent, preservative 7 completed Not Available [facility] 06/13/2025 14:12:35 pneumococcal polysaccharide PPV23 8 completed Not Available [facility] 06/13/2025 14:12:35 Tdap 8 completed Not Available [facility] 06/13/2025 14:12:35 Influenza, split virus, quadrivalent, preservative 8 completed Not Available [facility] 06/13/2025 14:12:35 Influenza, high-dose, trivalent, PF 0 completed Not Available [facility] 06/13/2025 14:12:35 Influenza, high-dose, trivalent, PF 0 completed Not Available [facility] 06/13/2025 14:12:35 COVID-19, mRNA, LNP-S, PF, 30 mcg/0.3 mL dose 1 completed Not Available [facility] 06/13/2025 14:12:35 COVID-19, mRNA, LNP-S, PF, 30 mcg/0.3 mL dose 1 completed Not Available [facility] 06/13/2025 14:12:35 COVID-19, mRNA, LNP-S, PF, 30 mcg/0.3 mL dose 1 completed Not Available [facility] 06/13/2025 14:12:35 Influenza, high-dose, trivalent, PF 1 completed Not Available [facility] 06/13/2025 14:12:35 COVID-19, mRNA, LNP-S, PF, 30 mcg/0.3 mL dose, misha-sucrose 2 completed Not Available [facility] 06/13/2025 14:12:35 Influenza, adjuvanted, quadrivalent, PF 2 completed Not Available [facility] 06/13/2025 14:12:35 zoster recombinant 3 completed Not Available [facility] 06/13/2025 14:12:35 Influenza, high-dose, trivalent, PF 3 completed Not Available [facility] 06/13/2025 14:12:35 RSV, recombinant, protein subunit RSVpreF, adjuvant reconstituted, 0.5 mL, PF 3 completed Not Available [facility] 06/13/2025 14:12:35 COVID-19, mRNA, LNP-S, PF, 50 mcg/0.5 mL 3 completed Not Available [facility] 06/13/2025 14:12:35 Pneumococcal conjugate PCV20, polysaccharide [id number] conjugate, adjuvant, PF 4 completed Not Available [facility] 06/13/2025 14:12:35 Influenza, high-dose, trivalent, PF 4 completed Not Available [facility] 06/13/2025 14:12:35 COVID-19, mRNA, LNP-S, PF, 50 mcg/0.5 mL 4 completed Not Available [facility] 06/13/2025 14:12:35 Influenza, high-dose, trivalent, PF 5 completed Not Available [facility] 06/13/2025 14:12:35 Past Encounters Encounter ID Performer Location Encounter Start Date Encounter Closed Date Diagnosis/Indication Diagnosis SNOMED-CT Code Diagnosis ICD10 Code Diagnosis IMO Codes Diagnosis Note [id number] PAUL FERGUSON PA-C [facility] [address] [place] [address] 05/19/2025 14:14:35 05/19/2025 16:00:58 Chronic left mastoiditis 9774148892 627178 H70.12 *09/29/24- S/p Left tympanomas toidectomy with wall-down technique and [place] of fascia graft, left side performed by Dr. Velásquez Otalgia of left ear 1010 249611 H92.02 Mucinous c yst of mastoid cavity 506030972 H74.8X9 Finding of hearing aid 919931844 Z97.4 Chronic ob structive pulmonary disease 53115899 J44.9 Cholesteat parth of left external ear 4500757675 319768 H60.42 Perforatio n of left tympanic membrane 0176994216 554155 H72.92 [id number] Health Concerns Section Related Observation LastModified by Organization Detai ls LastModified Time None Recorded Concern Status LastModified by Organization Details LastModified Time None Recorded Payers Encounter Date Sequence Insurance Name Policy Number Policy Alexander Covered Member ID Alexander Member ID Guarantor Name 05/19/2025 1 [employer] (MEDICARE REPLACEMENT/A DVANTAGE - PPO) Jeffrey Barton [id number] Jeffrey Barton Notes Date Note Type Note Provider Name and Address Organization Details Recorded Time 5 text/html ROS as noted in the HPI Cece presents to clinic for evaluation of left ear drainage. He is s/p left tympanomastoidectomy from 09/29/[address] Velásquez. He states he has had constant drainage from his left ear since his surgery. He has used prescribed ear drops in his left ear almost daily since his surgery which helped. However, if he stops using the drops the drainage starts again. He has not used the drops in about 1 month and his left ear continues to drain. PAUL FERGUSON PA-C [address] [place], [address], [facility] 05/19/2025 15:20:25
--- OUTSIDE RECORDS SUMMARY | 2025-06-20 10:44 | XMS_ITS | Continuity of Care Document ---
Author Organization [facility] Address [address] [place] [address] Care Team Providers Care Artist Woodblock Name Role Phone JOYCE MONSIVAIS Primary Care Provider MONET BOOKER Rn Intensive Care Unit [phone] Assessment No assessment recorded. Plan of Treatment Reminders Order Date Submit Date Provider Last Modified By Organization Details Last Modified Time Details Appointments RECHECK 2025 10:40A M MARY VELÁSQUEZ III, MD Not available Not available Not available Lab None recorded. Referral None recorded. Procedures None recorded. Surgeries None recorded. Imaging None recorded. Medication Orders Compound Antibioti c Ear Powder (Polyspor in Powder 1000mg, Boric Acid Powder 2000mg, Hydrocort isone 25mg) 2024 025 [facility], [address] [place] [address], [id number], 06/13/2025 17:56:14 Patient TargetsNo targets recorded. Patient Instructions Encounter Date Encounter Id Patient Instructions Last Modified By Organization Details Last Modified Time 06/13/2025 [id number] 1. Rx-Compound Antibiotic Ear Powder (Polysporin Powder 1000mg, Boric Acid Powder 2000mg, Hydrocortisone 25mg) apply 2 puffs of powder to the left ear twice daily as needed for otorrhea 2. F/u in 6 months [email or web address] Not available 06/13/2025 14:51:31 Reason for Referral None Reported. Problems No Known Problems Procedures Surgical History Date Name Laterality Status Provider Name and Address Organization Details Recorded Time 05/19/20 25 Binocular Microscopy completed PAUL FERGUSON PA-C [address] [place], [address], [facility] 05/19/2025 14:38:30 01/11/20 25 Tympanogram completed MATEOKris HANCOCK, AUD [address] [place], [address], [facility] 01/10/2025 10:03:37 01/11/20 25 Audiogram completed MATEO HANCOCK, AUD [address] [place], [address], [facility] 01/10/2025 10:03:40 12/13/19 25 Tympanogram cancelled ALISSAAYAH KIM, AUD [address] [place], [address], [facility] 12/12/2024 15:02:03 12/13/19 25 Audiogram cancelled ALISSA KIM, AUD [address] [place], [address], [facility] 12/12/2024 15:02:02 10/26/19 25 Binocular Microscopy completed Raul Pierce [facility] 10/25/2024 14:15:29 09/15/19 25 Binocular Microscopy completed MARY VELÁSQUEZ III, MD [address] [place], [address], [facility] 09/14/2024 16:53:53 procedure on neck completed [facility] 09/14/2024 14:46:05 insertion of stent into vein completed [facility] 09/14/2024 14:46:29 Appendectomy completed [facility] 09/14/2024 14:46:36 Imaging Results None recorded. Procedure Notes None recorded. Medical Equipment None Reported. Allergies Allergen ID Allergen Name Allergen Category Reaction Reaction Severity Criticality Documentation Date Start Date Code Code System Note Provider Name and Address Organization Details Recorded Time 581578 Demerol medicatio n Not available Not available Not available 10/25/2024 49670 1 RxNorm Ayan toussaint [facility] 13:35:35 136544 gabapenti n medicatio n Not available Not available Not available 10/25/2024 94522 RxNorm Luishondkris Carballo [facility] 5 13:35:46 690017 meperidin e medicatio n other Not available low 05/19/20252005 6754 RxNorm irrit able Raul Pierce [facility] 5 14:19:17 Medications Name Sig Start Date [...] Available Not Available Not Available amoxicillin 875 mg-michaelu m clavulanate 125 mg tablet 09/14 completed [...] Organization Details Last Updated DateTime 180.34 cm 36.2 kg/m2 534155. 3 g 97.3 [degF] 78 /min 120/67 mm[Hg] Lisa Hendrix [facility] 14:25:27 Social History None recorded. Functional Status Question Answer Note LastModified by Organization D etails LastModified Time What is your level of alcohol consumption? None [email or web address] Information not available 09/14/2024 Mental Status None recorded. Family History Relationship Description Onset Age of this Age Resolved Age Notes LastModified by Organization Details LastModified Time Mother Family history of malignant neoplasm [email or web address] Not available 09/14 14:47:41 Brother Family history of malignant neoplasm [email or web address] Not available 09/14 14:48:01 Medical History Condition Response Emphysema Y Heart Problems Y Ulcers Y Heart Disease Y Acid Reflux (GERD) Y Asthma Y Immunizations Vaccine Type Date Status Note Provider Nam e and Address Organization Details Recorded Time Influenza, split virus, quadrivalent, preservative 7 completed Not Available [facility] 06/13/2025 14:12:35 pneumococcal polysaccharide PPV23 8 completed Not Available [facility] 06/13/2025 14:12:35 Tdap 8 completed Not Available [facility] 06/13/2025 14:12:35 Influenza, split virus, quadrivalent, preservative 8 completed Not Available [facility] 06/13/2025 14:12:35 Influenza, high-dose, trivalent, PF 0 completed Not Available [facility] 06/13/2025 14:12:35 Influenza, high-dose, trivalent, PF 0 completed Not Available [facility] 06/13/2025 14:12:35 COVID-19, mRNA, LNP-S, PF, 30 mcg/0.3 mL dose 1 completed Not Available [facility] 06/13/2025 14:12:35 COVID-19, mRNA, LNP-S, PF, 30 mcg/0.3 mL dose 1 completed Not Available [facility] 06/13/2025 14:12:35 COVID-19, mRNA, LNP-S, PF, 30 mcg/0.3 mL dose 1 completed Not Available [facility] 06/13/2025 14:12:35 Influenza, high-dose, trivalent, PF 1 completed Not Available [facility] 06/13/2025 14:12:35 COVID-19, mRNA, LNP-S, PF, 30 mcg/0.3 mL dose, misha-sucrose 2 completed Not Available [facility] 06/13/2025 14:12:35 Influenza, adjuvanted, quadrivalent, PF 2 completed Not Available [facility] 06/13/2025 14:12:35 zoster recombinant 3 completed Not Available [facility] 06/13/2025 14:12:35 Influenza, high-dose, trivalent, PF 3 completed Not Available [facility] 06/13/2025 14:12:35 RSV, recombinant, protein subunit RSVpreF, adjuvant reconstituted, 0.5 mL, PF 3 completed Not Available [facility] 06/13/2025 14:12:35 COVID-19, mRNA, LNP-S, PF, 50 mcg/0.5 mL 3 completed Not Available [facility] 06/13/2025 14:12:35 Pneumococcal conjugate PCV20, polysaccharide [id number] conjugate, adjuvant, PF 4 completed Not Available [facility] 06/13/2025 14:12:35 Influenza, high-dose, trivalent, PF 4 completed Not Available [facility] 06/13/2025 14:12:35 COVID-19, mRNA, LNP-S, PF, 50 mcg/0.5 mL 4 completed Not Available [facility] 06/13/2025 14:12:35 Influenza, high-dose, trivalent, PF 5 completed Not Available [facility] 06/13/2025 14:12:35 Past Encounters Encounter ID Performer Location Encounter Start Date Encounter Closed Date Diagnosis/Indication Diagnosis SNOMED-CT Code Diagnosis ICD10 Code Diagnosis IMO Codes Diagnosis Note [id number] MAYDA TRUJILLO [facility] [address] [place] [address] 05/19/2025 14:14:35 05/19/2025 16:00:58 Chronic left mastoiditis 0203931009 220177 H70.12 *09/29/24- S/p Left tympanomas toidectomy with wall-down technique and [place] of fascia graft, left side performed by Dr. Velásquez Otalgia of left ear 1010 359719 H92.02 Mucinous c yst of mastoid cavity 942381369 H74.8X9 Finding of hearing aid 891094163 Z97.4 Chronic ob structive pulmonary disease 47463171 J44.9 Cholesteat parth of left external ear 7238409277 405778 H60.42 Perforatio n of left tympanic membrane 1389380361 816119 H72.92 [id number] MD MANPREET AQUINO III ENT [address] [place] [address] 06/13/2025 14:10:57 06/14/2025 04:10:36 Chronic left mastoiditis 4265979227 379725 H70.12 *09/29/24- S/p Left tympanomas toidectomy with wall-down technique and [place] of fascia graft, left side performed by Dr. Velásquez Perforatio n of left tympanic membrane 3351880610 262600 H72.92 9796706 Otalgia of left ear 1010 422008 H92.02 Mucinous c yst of mastoid cavity 310774295 H74.8X9 Cholesteat parth of left external ear 1172413634 626519 H60.42 Finding of hearing aid 468858886 Z97.4 Chronic ob structive pulmonary disease 69853882 J44.9 Health Concerns Section Related Observation LastModified by Organization Detai ls LastModified Time None Recorded Concern Status LastModified by Organization Details LastModified Time None Recorded Payers Encounter Date Sequence Insurance Name Policy Number Policy Alexander Covered Member ID Alexander Member ID Guarantor Name 06/13/2025 1 [employer] (MEDICARE REPLACEMENT/A DVANTAGE - PPO) Jeffrey Barton [id number] Jeffrey Barton Notes Date Note Type Note Provider Name and Address Organization Details Recorded Time 06/13/2025 text/html Cece visits us in office today to follow up on chronic left mastoiditis. Pt has continued to experience drainage from the left ear. MARY VELÁSQUEZ III, MD [address] [place] [address], [phone], [facility] 06/13/2025 17:55:02
--- OUTSIDE RECORDS SUMMARY | 2025-06-20 10:44 | XMS_ITS | Clinical Summary ---
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
--- OUTSIDE RECORDS SUMMARY | 2025-06-20 10:44 | XMS_ITS | Data Portability ---
Author Organization [facility] Bernard NUBIEBER CLOSED Address [address] [place] [address] Care Team Providers Care Cap And Hat Production Supervisor Name Role Phone JOYCE MONSIVAIS Primary Care Provider MONET BOOKER Hand Trucker Assessment No assessment recorded. Plan of Treatment [...] Powder 2000mg, Hydrocort isone 25mg) 2024 025 [facility], [address] [place] [address], [phone], 06/13/2025 17:56:14 ciproflox acin 0.3 %-dexamet hasone 0.1 % ear drops,[facility] 2024 025 [facility], [address] [place] [address], [phone], 05/19/2025 17:30:21 Patient TargetsNo targets recorded. Patient Instructions Encounter Date Encounter Id Patient Instructions Last Modified By Organization Details Last Modified Time 12/12/2024 [id number] 1. Maintain dry left ear precautions 2. Begin cleaning left hearing aid dome nightly with alcohol pad 3. Ciprodex (generic) drops, 5 drops in left ear BID for 7 days 4. F/U in [address] Velásquez with [facility] [place] [facility] MD Melody Velásquez [email or web address] Not available 12/12/2024 15:32:59 01/10/2025 [id number] 1. F/u in 3 months [email or web address] Not availa ble 01/10/2025 10:48:31 05/19/2025 [id number] 1. Left ear debridement under binocular microscopy [...] in 2 weeks for recheck MANPREET ENT AURELIO Velásquez skanal Not available 05/19/2025 14:40:45 06/13/2025 [id number] 1. Rx-Compound Antibiotic Ear Powder (Polysporin Powder 1000mg, Boric Acid Powder 2000mg, Hydrocortisone 25mg) apply 2 puffs of powder to the left ear twice daily as needed for otorrhea 2. F/u in 6 months [email or web address] Not available 06/13/2025 14:51:31 Reason for Referral None Reported. Results Created Date Observation Date Name Description Value Unit Range Abnormal Flag Note LastModifiedBy Organization Detail LastModifiedTime 01/11/2001/10/2025 audio gram No observ ation record ed. BARCODE Not Available 2024 15:35:18 Result Notes None recorded. Problems No Known Problems Procedures Surgical History Date Name Laterality Status Provider Name and Address Organization Details Recorded Time 05/19/20 Binocular Microscopy completed PAUL FERGUSON PA-C [address] [place], [address], [facility] 05/19/2025 14:38:30 01/11/20 25 Tympanogram completed [place] [place], [address], [facility] 01/10/2025 10:03:37 01/11/20 25 Audiogram [place], [address], [facility] 01/10/2025 10:03:40 12/13/19 25 Tympanogram cancelled ALISSAAYAH KIM, AUD [address] [place], [address], [facility] 12/12/2024 15:02:03 12/13/19 25 Audiogram cancelled ALISSAAYAH KIM, AUD [address] [place], [address], [facility] 12/12/2024 15:02:02 10/26/19 25 Binocular Microscopy completed Raul Pierce [facility] 10/25/2024 14:15:29 09/15/19 25 Binocular Microscopy completed MARY VELÁSQUEZ III, MD [address] [place], [address], [facility] 09/14/2024 16:53:53 procedure on neck completed [facility] 09/14/2024 14:46:05 insertion of stent into vein completed [facility] 09/14/2024 14:46:29 Appendectomy completed [facility] 09/14/2024 14:46:36 Imaging Results None recorded. Procedure Notes None recorded. Medical Equipment None Reported. Allergies Allergen ID Allergen Name Allergen Category Reaction Reaction Severity Criticality Documentation Date Start Date Code Code System Note Provider Name and Address Organization Details Recorded Time 891775 Demerol medicatio n Not available Not available Not available 10/25/2024 12284 1 RxNorm LeShonda Haris [facility] 13:35:35 343172 gabapenti n medicatio n Not available Not available Not available 10/25/2024 68137 RxNorm LeShonda Haris [facility] 13:35:46 738591 meperidin e medicatio n other Not available low 05/19/20252005 6754 RxNorm irrit able Raul Stan [facility] 14:19:17 Medications Name Sig Start Date Stop [...] Updated DateTime 5 180.34 cm 32.2 kg/m2 649092. 84 g 97.3 [degF] 92 /min 109/73 mm[Hg] [facility] 15:11:01 Date Recorded Body height Body mass index (BMI) Body weight Provider Name and Address Organization Details Last Updated DateTime 01/10/2025 180.34 cm 33.5 kg/m2 210389.57 g [facility] 01/10/2025 09:42:29 Date Recorded Body temperature Heart rate Systolic And Diastolic Provider Name and Address Organization Details Last Updated DateTime 01/10/2025 94.4 [degF] 86 /min 133/78 mm[Hg] [facility] 01/10/2025 10:08:52 Date Recorded Body height Body temperature Body mass index (BMI) Body weight Heart rate Systolic And Diastolic Provider Name and Address Organization Details Last Updated DateTime 5 180.34 cm 97 [degF] 34.6 kg/m2 958285. 91 g 81 /min 119/71 mm[Hg] Raul Pierce [facility] 5 14:21:25 Date Recorded Body height Body mass index (BMI) Body weight Body temperature Heart rate Systolic And Diastolic Provider Name and Address Organization Details Last Updated DateTime 5 180.34 cm 36.2 kg/m2 732629. 3 g 97.3 [degF] 78 /min 120/67 mm[Hg] Lisa Hendrix [facility] 14:25:27 Social History None recorded. Functional Status Question Answer Note LastModified by Organization D etails LastModified Time What is your level of alcohol consumption? None Information not available 09/14/2024 Mental Status None recorded. Family History Relationship Description Onset Age of this Age Resolved Age Notes LastModified by Organization Details LastModified Time Mother Family history of malignant neoplasm [email or web address] Not available 09/14 14:47:41 Brother Family history of malignant neoplasm [email or web address] Not available 09/14 14:48:01 Medical History Condition Response Heart Problems Y Emphysema Y Ulcers Y Acid Reflux (GERD) Y Asthma Y Heart Disease Y Immunizations Vaccine Type Date Status Note Provider Nam e and Address Organization Details Recorded Time Influenza, split virus, quadrivalent, preservative 7 completed Not Available [facility] 06/13/2025 14:12:35 pneumococcal polysaccharide PPV23 8 completed Not Available [facility] 06/13/2025 14:12:35 Tdap 8 completed Not Available [facility] 06/13/2025 14:12:35 Influenza, split virus, quadrivalent, preservative 8 completed Not Available [facility] 06/13/2025 14:12:35 Influenza, high-dose, trivalent, PF 0 completed Not Available [facility] 06/13/2025 14:12:35 Influenza, high-dose, trivalent, PF 0 completed Not Available [facility] 06/13/2025 14:12:35 COVID-19, mRNA, LNP-S, PF, 30 mcg/0.3 mL dose 1 completed Not Available [facility] 06/13/2025 14:12:35 COVID-19, mRNA, LNP-S, PF, 30 mcg/0.3 mL dose 1 completed Not Available [facility] 06/13/2025 14:12:35 COVID-19, mRNA, LNP-S, PF, 30 mcg/0.3 mL dose 1 completed Not Available [facility] 06/13/2025 14:12:35 Influenza, high-dose, trivalent, PF 1 completed Not Available [facility] 06/13/2025 14:12:35 COVID-19, mRNA, LNP-S, PF, 30 mcg/0.3 mL dose, misha-sucrose 2 completed Not Available [facility] 06/13/2025 14:12:35 Influenza, adjuvanted, quadrivalent, PF 2 completed Not Available [facility] 06/13/2025 14:12:35 zoster recombinant 3 completed Not Available [facility] 06/13/2025 14:12:35 Influenza, high-dose, trivalent, PF 3 completed Not Available [facility] 06/13/2025 14:12:35 RSV, recombinant, protein subunit RSVpreF, adjuvant reconstituted, 0.5 mL, PF 3 completed Not Available [facility] 06/13/2025 14:12:35 COVID-19, mRNA, LNP-S, PF, 50 mcg/0.5 mL 3 completed Not Available [facility] 06/13/2025 14:12:35 Pneumococcal conjugate PCV20, polysaccharide [id number] conjugate, adjuvant, PF 4 completed Not Available [facility] 06/13/2025 14:12:35 Influenza, high-dose, trivalent, PF 4 completed Not Available [facility] 06/13/2025 14:12:35 COVID-19, mRNA, LNP-S, PF, 50 mcg/0.5 mL 4 completed Not Available [facility] 06/13/2025 14:12:35 Influenza, high-dose, trivalent, PF 5 completed Not Available [facility] 06/13/2025 14:12:35 Past Encounters Encounter ID Performer Location Encounter Start Date Encounter Closed Date Diagnosis/Indication Diagnosis SNOMED-CT Code Diagnosis ICD10 Code Diagnosis IMO Codes Diagnosis Note [id number] MD MANPREET AQUINO III E[facility] [address] [place] [address] 09/14/2024 14:09:45 09/14/2024 16:56:16 Chronic left mastoiditis 4883008078 103095 H70.12 Otalgia of left ear 1010 382437 H92.02 Mucinous c yst of mastoid cavity 894069156 H74.8X9 Finding of hearing aid 392036106 Z97.4 Chronic ob structive pulmonary disease 11421207 J44.9 Cholesteat parth of left external ear 4579133296 852291 H60.42 [id number] MARY VELÁSQUEZ III, MD SURGERY SCHEDULE [address] [place] [address] 09/29/2024 10:58:31 09/29/2024 10:59:09 [id number] MARY VELÁSQUEZ III, MD [place] [facility] [address] [place] [id number] 10/25/2024 12:48:25 10/25/2024 14:28:45 Chronic left mastoiditis 3208851386 460861 H70.12 *09/29/24- S/p Left tympanomas toidectomy with wall-down technique and Dustin of fascia graft, left side performed by Dr. Velásquez Otalgia of left ear 1010 686794 H92.02 Mucinous c yst of mastoid cavity 176450136 H74.8X9 Finding of hearing aid 883929828 Z97.4 Chronic ob structive pulmonary disease 94987117 J44.9 Cholesteat parth of left external ear 5408391124 585942 H60.42 [id number] MONET VALDEZ APRN [place] [facility] [address] [place] [id number] 12/12/2024 14:37:17 12/12/2024 15:53:14 Chronic left mastoiditis 8448037553 422079 H70.12 *09/29/24- S/p Left tympanomas toidectomy with wall-down technique and Dustin of fascia graft, left side performed by Dr. Velásquez Otalgia of left ear 1010 996646 H92.02 Chronic ob structive pulmonary disease 22986623 J44.9 Cholesteat parth of left external ear 8049369613 091242 H60.42 Acute otit is externa of left ear 2916195506 569479 H60.502 117846069 Granulation of tissue 22 7668478 L92.9 [id number] - left EAC [id number] MARY VELÁSQUEZ III, MD [place] [facility] [address] [place] [id number] 01/10/2025 09:31:30 01/10/2025 11:32:48 Chronic left mastoiditis 8600532833 479772 H70.12 *09/29/24- S/p Left tympanomas toidectomy with wall-down technique and Dustin of fascia graft, left side performed by Dr. Velásquez Otalgia of left ear 1010 548194 H92.02 Mucinous c yst of mastoid cavity 970340892 H74.8X9 Finding of hearing aid 605863249 Z97.4 Chronic ob structive pulmonary disease 19998481 J44.9 Cholesteat parth of left external ear 5300562555 286952 H60.42 Acute otit is externa of left ear 0080783129 381573 H60.502 834130008 Granulation of tissue 22 6507361 L92.9 [id number] This has resolved [id number] JESUS ROSS [place] [facility] [address] [place] [address] 01/10/2025 10:03:17 01/10/2025 10:04:28 Mixed conductive and sensorineural hearing loss, bilateral 142398664 H90.6 9576640 [id number] PAUL FERGUSON PA-C [place] [facility] [address] 7 05/19/2025 14:14:35 05/19/2025 16:00:58 Chronic left mastoiditis 9371454873 541915 H70.12 *09/29/24- S/p Left tympanomas toidectomy with wall-down technique and Dustin of fascia graft, left side performed by Dr. Velásquez Otalgia of left ear 1010 846730 H92.02 Mucinous c yst of mastoid cavity 300540707 H74.8X9 Finding of hearing aid 141930317 Z97.4 Chronic ob structive pulmonary disease 29138452 J44.9 Cholesteat parth of left external ear 9744864057 543232 H60.42 Perforatio n of left tympanic membrane 5843293546 494096 H72.92 3475233 [id number] MARY VELÁSQUEZ III, MD [place] [facility] [address] [place] [id number] 06/13/2025 14:10:57 06/14/2025 04:10:36 Chronic left mastoiditis 4527978224 503889 H70.12 *09/29/24- S/p Left tympanomas toidectomy with wall-down technique and Dustin of fascia graft, left side performed by Dr. Velásquez Perforatio n of left tympanic membrane 6408108071 752404 H72.92 1448077 Otalgia of left ear 1010 218952 H92.02 Mucinous c yst of mastoid cavity 689652501 H74.8X9 Cholesteat parth of left external ear 6235419405 684427 H60.42 Finding of hearing aid 133325552 Z97.4 Chronic ob structive pulmonary disease 25575279 J44.9 Health Concerns Section Related Observation LastModified by Organization Detai ls LastModified Time None Recorded Concern Status LastModified by Organization Details LastModified Time None Recorded Advance Directives Directive None Recorded Payers Insurance Date Sequence Insurance Name Policy Number Policy Alexander Covered Member ID Alexander Member ID Guarantor Name 06/13/2025 1 [employer] (MEDICARE REPLACEMENT/A DVANTAGE - PPO) Jeffrey Barton [id number] Jeffrey Barton Notes Date Note Type Note Provider Name and Address Organization Details Recorded Time 5 text/html Cece Barton is seen today [...] He denies pain or fever. MONET VALDEZ, AUTOMOTIVE PAINT TECHNICIAN [address], [place], [address], [facility] 12/12/2024 15:33:16 5 text/html Cece visits us in office today to follow up on recheck left tympanomastoidectomy. Cece is doing well today. He is healing well and mastoid is clear today. MARY VELÁSQUEZ III, MD [address] [place] [address], [address], [facility] 01/10/2025 11:18:20 5 text/html ROS as noted in the [...] ear continues to drain. PAUL FERGUSON PA-C [address] [place] [address], [phone], [facility] 05/19/2025 15:20:25 5 text/html Cece visits us in office today to follow up on chronic left mastoiditis. Pt has continued to experience drainage from the left ear. MARY VELÁSQUEZ III, MD [address] [place] [address], [address], [facility] 06/13/2025 17:55:02
--- OUTSIDE RECORDS SUMMARY | 2025-06-20 10:44 | XMS_ITS | Clinical Summary ---
[facility] Organization [facility] Address [address] [place] [address] Care Team Providers Care Paramedic Supervisor Name Role Phone Provider, No Known Primary [...] ADVANTAGE MEDICARE A & B Care Teams Paramedic Supervisor Relationship Specialty Start Date End Date Provider, No Known [place] [address] PCP - General 08/21/20
[2025-06-20 11:23] LABS: Hematocrit 32.1 % (42.0-52.0); Hemoglobin 10.2 g/dL (14.1-18.0); Immature Granulocytes % 0.2 %; Mean Corpuscular HGB Conc 31.8 g/dL (31.8-35.4); Mean Corpuscular Hemoglobin 29.7 pg (27.0-31.2); Mean Corpuscular Volume 93.6 fl (80-94); Nucleated Red Blood Cells % 0 %; Platelet Count 217 K/mm3 (142-424); Red Blood Count 3.43 M/mm3 (4.60-6.20); Red Cell Distribution Width-SD 49.2 fL; White Blood Count 6.6 K/mm3 (4.8-10.8)
[2025-06-20 11:40] LABS: Albumin Level 4.1 g/dl (3.5-5.0); Chloride 101 mmol/L (98-107); Potassium 3.9 mmoL/L (3.5-5.1); Sodium 137 mmol/L (136-145)
[2025-06-20 11:42] LABS: Alanine Aminotransferase 21 U/L (12-78); Aspartate Amino Transferase 24 U/L (17-59); Blood Urea Nitrogen 21 mg/dl (9-20); Creatinine,Serum 1.70 mg/dl (0.66-1.25); Estimated Glomerular Filt Rate 40 ml/min (>60); GFR (African American) 48 ML/MIN (>60)
[2025-06-20 11:43] LABS: Albumin/Globulin Ratio 1.6 (1.1-1.8); Alkaline Phosphatase 117 U/L (38-126); Anion Gap 9.9 mEq/L (5-15); Bilirubin,Total 0.4 mg/dl (0.2-1.3); Calcium 9.6 mg/dl (8.4-10.2); Carbon Dioxide 30 mmol/L (22.0-30.0); Globulin 2.6 g/dL (1.3-3.2); Glucose 147 mg/dl (74-100); Iron 105 ug/dL (49-181); Total Protein,Serum 6.7 g/dl (6.3-8.2)
[2025-06-20 11:52] LABS: Total Iron Binding Capacity 287 ug/dL (261-462)
[2025-06-20 12:19] LABS: Ferritin 28.3 ng/ml (17.9-464)
[2025-06-20 12:46] LABS: Vitamin B12 > 1000 pg/mL (239-931)
== END 2025-06-20 23:59 | disposition home or self-care (01) ==
LOC: LAB 10:41
PROVIDERS: PCP Internal Medicine Adolescent Medicine; Visit Provider Internal Medicine Adolescent Medicine
DX: D64.9 Anemia, unspecified (principal)
CPT/HCPCS: 36415; 80053; 82607; 82728; 83540; 83550; 85025